=== PATIENT | male | born 1960 | race Caucasian/White ===

== ENCOUNTER 2023-09-02 10:59 | Outpatient (OUT) | payer BC, SELFPAY ==
--- NOTE | 2023-09-02 | XR_ITS ---
The [address] [address] Patient Name: JENNIFER BARNES MRN: [id number] date: 1960 Sex: M Assigned Patient Location: [facility] Current Patient Location: Accession/Order Number: [id number] Exam Date: 09/02/2023 11:40 Report Date: 09/04/2023 04:59 At the request of: JAXON VIEIRA Procedure: XR foot GABI min 3V EXAMINATION: XR foot GABI min 3V HISTORY: BILATERAL PLANTAR FOOT PAIN , chronic plantar pain bilaterally; new pain in left third toe COMPARISON: No relevant comparison available. FINDINGS: RIGHT FINDINGS: BONES: Suspect remote trauma and fracture of head of 5th metatarsal with medial displacement and subsequent partial healing. SOFT TISSUES: No visible soft tissue swelling. OTHER: Negative. LEFT FINDINGS: BONES: Absent distal phalanx of the second toe and marked degenerative changes of the proximal interphalangeal joint of the second toe. SOFT TISSUES: No visible soft tissue swelling. OTHER: Negative. XR/XR foot GABI min 3V IMPRESSION: RIGHT CONCLUSION: 1. Suspect remote trauma and healing of 5th metatarsal. 2. No acute bone abnormality. Multifocal mild degenerative changes of the interphalangeal joints. 3. No specific findings to account for patient's plantar foot pain. LEFT CONCLUSION: 1. Degenerative changes of the second toe proximal interphalangeal joint and likely prior resection of the distal phalanx of the second toe. 2. No acute bone abnormality or specific findings to account for patient's plantar foot pain and third toe pain. Electronically authenticated by: KEYUR ALCANTAR Date: 09/04/2023 04:59
== END 2023-09-02 11:00 | disposition home or self-care (01) ==
LOC: RAD 11:00
PROVIDERS: PCP Nurse Practitioner Family; Visit Provider Physician Assistant
DX: L84 Corns and callosities (principal); M79.671 Pain in right foot; M79.672 Pain in left foot; M19.072 Primary osteoarthritis, left ankle and foot; M19.071 Primary osteoarthritis, right ankle and foot
CPT/HCPCS: 73630

== ENCOUNTER 2023-09-17 12:22 | Outpatient (OUT) | payer BC, SELFPAY ==
--- NOTE | 2023-09-17 12:31 | ECG_ITS ---
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
--- NOTE | 2023-09-17 13:09 | PM.PRESUREVA ---
History of Present Illness History of Present Illness Chief complaint: hammer toe left foot Narrative: Patient presents for preadmission testing. Please see HPI from Dr. Polo dated 09/07/2023. Review of Systems ROS Narrative Please see ROS from Dr. Polo dated 09/07/2023. [facility] Medical History (Updated 09/17/23 @ 12:53 by Shobha Quiroz NP) Right sided weakness ?R53.1 - Weakness (ICD-10) Hypothyroidism ?E03.9 - Hypothyroidism, unspecified (ICD-10) Hypertension ?I10 - Essential (primary) hypertension (ICD-10) Contracture of joint of right hand ?M24.541 - Contracture, right hand (ICD-10) High cholesterol ?E78.00 - Pure hypercholesterolemia, unspecified (ICD-10) Hypothyroidism (acquired) ?E03.9 - Hypothyroidism, unspecified (ICD-10) Alcoholism ?F10.20 - Alcohol dependence, uncomplicated (ICD-10) Weakness (02/28/16) ?R53.1 - Weakness (ICD-10) CVA (cerebral vascular accident) (~03/2016) ?I63.9 - Cerebral infarction, unspecified (ICD-10) Hyponatremia (~2017) ?E87.1 - Hypo-osmolality and hyponatremia (ICD-10) Hammertoe ?M20.40 - Other hammer toe(s) (acquired), unspecified foot (ICD-10) Surgical History (Updated 09/17/23 @ 12:50 by Shobha Quiroz NP) S/P cataract extraction and insertion of intraocular lens ?Z98.49 - Cataract extraction status, unspecified eye (ICD-10) ?Z96.1 - Presence of intraocular lens (ICD-10) H/O carotid endarterectomy (06/18/16) ?Z98.890 - Other specified postprocedural states (ICD-10) H/O colonoscopy (04/09/13) ?Z98.890 - Other specified postprocedural states (ICD-10) History of hammertoe correction ?Z98.890 - Other specified postprocedural states (ICD-10) ?Z87.39 - Personal history of other diseases of the musculoskeletal system and connective tissue (ICD-10) H/O foot surgery (06/13/19) ?Z98.890 - Other specified postprocedural states (ICD-10) H/O foot surgery (07/25/19) ?Z98.890 - Other specified postprocedural states (ICD-10) Family History (Updated 09/17/23 @ 12:31 by Shobha Quiroz NP) Other CAD (coronary artery disease) Family history of myocardial infarction Social History (Updated 09/17/23 @ 12:48 by Shobha Quiroz NP) Within the past year, how often did you have a drink containing alcohol: 4 or more times a week Within the past year, how many standard drinks containing alcohol did you have on a typical day: 3 or 4 Within the past year, how often did you have six or more drinks on one occasion: daily or almost daily Total score: 6 Score interpretation: A score of 4 or more indicates drinking is likely to affect patient's safety. Smoking status: Former smoker Previous occupational history: [employer] Highest level of school completed/degree received: high school graduate Meds Home Medications and Allergies Home Medications Medication Instructions Recorded Confirmed Type aspirin 81 mg tablet,delayed 81 mg PO DAILY 09/17/23 09/17/23 History release (Adult Aspirin Regimen) levothyroxine 100 mcg tablet 100 mcg PO DAILY 09/17/23 09/17/23 History (Euthyrox) rosuvastatin 20 mg tablet (Crestor) 20 mg PO DAILY 09/17/23 09/17/23 History Allergies Allergy/AdvReac Type Severity Reaction Status Date / Time No Known Drug Allergies Allergy Verified 09/17/23 12:47 Exam Narrative Exam Narrative: Constitutional: Awake, alert, comfortable, well-appearing, nontoxic, interactive, vital signs as charted Head: Normocephalic, atraumatic Neck: Supple, normal appearance, normal range of motion, no meningeal signs, no lymphadenopathy Respiratory: No respiratory distress, Rhonchi bilateral bases on auscultation, cleared with cough Cardiovascular: Regular rate and rhythm, strong and regular heart tones Psychiatric: Oriented ?3, normal affect Assessment and Plan Assessment and Plan (1) Bart: Plan Partial amputation 3rd left toe scheduled with Dr. Polo 09/23/2023.
[2023-09-17 13:37] LABS: Anion Gap 16.4; BUN Creatinine Ratio 11.4; Calcium 8.4 mg/dL (8.5-10.1); Carbon Dioxide 25.6 mmol/L (21.0-32.0); Chloride 101 mmol/L (98-107); Estimated GFR (African America >60 (>=60); Estimated GFR (Non-African Ame >60 (>=60); Glucose 101 mg/dL (74-106); Sodium 139 mmol/L (136-145)
[2023-09-17 13:59] LABS: Free T3 2.48 pg/mL (2.18-3.98); Thyroid Stimulating Hormone 1.824 uIU/mL (0.358-3.740)
== END 2023-09-17 12:23 | disposition home or self-care (01) ==
LOC: PST 12:23
PROVIDERS: PCP Nurse Practitioner Family; Visit Provider Podiatrist Foot & Ankle Surgery
DX: Z01.812 Encounter for preprocedural laboratory examination (principal); Z01.810 Encounter for preprocedural cardiovascular examination; M20.42 Other hammer toe(s) (acquired), left foot; E03.9 Hypothyroidism, unspecified
CPT/HCPCS: 80048; 84436; 84443; 84481; 93005; G0463

== ENCOUNTER 2023-09-23 09:58 | Day surgery (SDC) | payer BC, SELFPAY ==
[2023-09-17 12:59] VITALS: BP 174/82; PULSE 85; RESP 20; TEMP 36.3; O2SAT 97; BMI 26.7
[2023-09-23] VITALS (11 sets, daily range): BP systolic 134–163; BP diastolic 72–85; PULSE 55–86; RESP 13–18; TEMP 36.2–36.5; O2SAT 96–100; BMI 26.9
[2023-09-23 10:16] LABS: Glucometer 111 mg/dL (74-106)
[2023-09-23] MEDS: LACTATED RINGER'S SOLUTION 1,000 ML 50 ML IV (10:34)
--- OUTSIDE RECORDS SUMMARY | 2023-09-23 10:39 | XMS_ITS | CCD ---
Author Name Unknown Address [address] [place] [address] Organization [facility] Care Team Providers Care Delivery Technician Name Role Phone MANDO VELASQUEZ Unavailable Unavailable CURTIS SALAZAR Unavailable Unavailable MANDO VELASQUEZ Unavailable Unavailable CURTIS SALAZAR Unavailable Unavailable Richardson Penn Unavailable Unavailable Richardson Penn Unavailable Unavailable Richardson Penn Unavailable Unavailable CURTIS SALAZAR Unavailable Unavailable ROXANA, DR GRACIA Admitting Unavailable ROXANA, DR GARCIA Attending Unavailable DR RADHA SCHMIDT Primary Care Unavailable LORY CASTELLANO Admitting Unavailable LORY CASTELLANO Attending Unavailable ROXANA, DR GARCIA Primary Care Unavailable LORY CASTELLANO Admitting Unavailable LORY CASTELLANO Attending Unavailable LORY CASTELLANO Primary Care Unavailable LORY CASTELLANO Consulting Unavailable SIMONE HERNANDEZ Attending Unavailable Allergies Allergy Classification Reported Allergen(s) Allergy Type Date of Onset Reaction(s) Facility (1 source) No Known Medication Allergies; Translations: [No Known Medication Allergies] Propensity to adverse reactions (disorder) [facility] Repository Problems Active Problems Problem Classification Problem Date Documented Da te Episodic/Chronic Other screening for suspected conditions (not mental disorders or infectious disease) (1 source) Encounter for screening for malignant neoplasm of prostate; Translations: [ENC SCREEN MALIG NEOPLASM PROSTATE] Onset: 10-03-2022 Episodic Past or Other Problems Problem Classification Problem Date Documented Da te Episodic/Chronic Other aftercare (1 source) Encounter for follow-up examination after completed treatment for conditions other than malignant neoplasm; Translations: [Encounter for follow-up examination after completed treatment for conditions other than malignant neoplasm] Onset: 04-27-2017 Episodic Results Test Name Value Interpretation Reference Range Facility INSULINon 10-01-2022 Insulin 11.4 uIU/mL Normal 2.6-24.9 [facility] Comment on above: Performed By: #### I NSULIN #### [facility] [address] [address] [address] Natalya Olvera CBC AUTO DIFFon 09-30-2022 BASO # 0.1 103/ul Normal 0.0-0.1 [facility] Comment on above: Performed By: #### C BC #### [facility] [address] [address] [address] Natalya Olvera Basophils/100 WBC (Bld) 0.8 % Normal 0.2-2.0 [facility] Comment on above: Performed By: #### C BC #### [facility] [address] [place] [address] Dr. Natalya Olvera EO # 0.2 103/ul Normal 0.0-0.7 [facility] Comment on above: Performed By: #### C BC #### [facility] [address] [place] [address] Dr. Natalya Olvera Eosinophils/100 WBC (Bld) 2.4 % Normal 0.9-7.0 [facility] Comment on above: Performed By: #### C BC #### [facility] [address] [place] [address] Dr. Natalya Olvera Erythrocyte distribution width (RBC) [Ratio] 12.0 % Normal 11.0-15.0 [facility] Comment on above: Performed By: #### C BC #### [facility] [address] [place] [address] Dr. Natalya Olvera Hematocrit (Bld) [Volume fraction] 40.9 % Critically low 42.0-54.0 [facility] Comment on above: Performed By: #### C BC #### [facility] [address] [place] [address] Dr. Natalya Olvera Hemoglobin (Bld) [Mass/Vol] 14.1 g/dL Normal 14.0-18.0 [facility] Comment on above: Performed By: #### C BC #### [facility] [address] [place] [address] Dr. Natalya Olvera IG # 0.04 10e3/ul Critically high 0.00-0.03 [facility] Comment on above: Performed By: #### C BC #### [facility] [address] [place] [address] Dr. Natalya Olvera IG % 0.6 % Critically high 0.0-0.5 [facility] Comment on above: Performed By: #### C BC #### [facility] [address] [place] [address] Dr. Natalya Olvera LYMPH # 1.7 103/ul Normal 1.2-3.8 [facility] Comment on above: Performed By: #### C BC #### [facility] [address] [place] [address] Dr. Natalya Olvera Lymphocytes/100 WBC (Bld) 27.0 % Normal 20.5-60.0 [facility] Comment on above: Performed By: #### C BC #### [facility] [address] [place] [address] Dr. Natalya Olvera MANUAL DIFF REQ NO Normal [facility] Comment on above: Performed By: #### C BC #### [facility] [address] [place] [address] Dr. Natalya Olvera MCH (RBC) [Entitic mass] 31.7 pg Normal 25.9-34.0 [facility] Comment on above: Performed By: #### C BC #### [facility] [address] [place] [address] Dr. Natalya Olvera MCHC (RBC) [Mass/Vol] 34.5 g/dL Normal 29.9-35.2 [facility] Comment on above: Performed By: #### C BC #### [facility] [address] [place] [address] Dr. Natalya Olvera MCV (RBC) [Entitic vol] 91.9 fL Normal 80.0-94.0 [facility] Comment on above: Performed By: #### C BC #### [facility] [address] [place] [address] Dr. Natalya Olvera MONO # 0.6 103/ul Normal 0.3-0.8 [facility] Comment on above: Performed By: #### C BC #### [facility] [address] [address] [address] Natalya Olvera Monocytes/100 WBC (Bld) 10.0 % Normal 1.7-12.0 [facility] Comment on above: Performed By: #### C BC #### [facility] [address] [address] [address] Natalya Olvera NEUT # 3.8 103/ul Normal 1.4-6.5 [facility] Comment on above: Performed By: #### C BC #### [facility] [address] [address] [address] Natalya Olvera Neutrophils/100 WBC (Bld) 59.2 % Normal 43.0-75.0 [facility] Comment on above: Performed By: #### C BC #### [facility] [address] [place] [address] Dr. Natalya Olvera Platelet mean volume (Bld) [Entitic vol] 10.7 fL Normal 9.5-13.5 [facility] Comment on above: Performed By: #### C BC #### [facility] [address] [address] [address] Natalya Olvera PLT 232 103/ul Normal 150-450 [facility] Comment on above: Performed By: #### C BC #### [facility] [address] [place] [address] Dr. Natalya Olvera RBC 4.45 106/ul Critically low 4.70-6.10 [facility] Comment on above: Performed By: #### C BC #### [facility] [address] [place] [address] Dr. Natalya Olvera WBC 6.4 103/ul Normal 4.0-11.0 [facility] Comment on above: Performed By: #### C BC #### [facility] [address] [place] [address] Dr. Natalya Olvera GLYCOHEMOGLOBIN A1Con 2021 ADA RECOMMENDATION SEE BELOW Normal The [facility] Comment on above: Result Comment: ADA RECOMMENDED LIMIT 4.0 - 6.0 ADA THERAPEUTIC TARGET < 7.0 ACTION SUGGESTED > 7.0 Performed By: #### A 1C #### [facility] [address] [address] [address] Natalya Olvera Glucose [Mass/Vol] 94 mg/dL Normal [facility] Comment on above: Performed By: #### A 1C #### [facility] [address] [address] [address] Natalya Olvera HbA1c (Bld) [Mass fraction] 4.9 % Normal 4.5-6.2 [facility] Comment on above: Performed By: #### A 1C #### [facility] [address] [address] [address] Natalya Olvera LIPID PROFILEon 09-30-2022 CHOL-HDL RATIO NORM SEE BELOW Normal [facility] Comment on above: Result Comment: 3.3 - 4.4 LOW RISK 4.4 - 7.1 AVERAGE RISK 7.1 - 11.0 MODERATE RISK >11.0 HIGH RISK Performed By: #### L IPID, URIC, CMP #### [facility] [address] [place] [address] Dr. Natalya Olvera Cholesterol [Mass/Vol] 156 mg/dL Normal <=200 [facility] Comment on above: Performed By: #### L IPID, URIC, CMP #### [facility] [address] [place] [address] Dr. Natalya Olvera Cholesterol in HDL [Mass/Vol] 71 mg/dL Critically high 40-60 [facility] Comment on above: Performed By: #### L IPID, URIC, CMP #### [facility] [address] [place] [address] Dr. Natalya Olvera Cholesterol in LDL [Mass/Vol] 68.0 mg/dL Normal [facility] Comment on above: Performed By: #### L IPID, URIC, CMP #### [facility] [address] [place] [address] Dr. Natalya Olvera Cholesterol.total/C holesterol in HDL [Mass ratio] 2.2 {ratio} Normal [facility] Comment on above: Performed By: #### L IPID, URIC, CMP #### [facility] [address] [address] [address] Natalya Olvera HDL NORMAL > or = 60 mg/dl - LO W CARDIOVASCULAR RISK <40 mg/dl - HIGH CARDIOVASCULAR RISK Normal [facility] Comment on above: Performed By: #### L IPID, URIC, CMP #### [facility] [address] [address] [address] Natalya Olvera LDL CALC NORMAL SEE BELOW Normal [facility] Comment on above: Result Comment: <100 mg/dl OPTIMAL 100 - 129 mg/dl NEAR OR ABOVE OPTIMAL 130 - 159 mg/dl BORDERLINE HIGH 160 - 189 mg/dl HIGH >190 mg/dl VERY HIGH Performed By: #### L IPID, URIC, CMP #### [facility] [address] [address] [address] Natalya Olvera Triglyceride [Mass/Vol] 85 mg/dL Normal <=150 [facility] Comment on above: Performed By: #### L IPID, URIC, CMP #### [facility] [address] [address] [address] Natalya Olvera VLDL CALC 17.0 mg/dL Normal [facility] Comment on above: Performed By: #### L IPID, URIC, CMP #### [facility] [address] [address] [address] Natalya Olvera PROF 14(COMP METB)on 022 Albumin [Mass/Vol] 4.1 g/dL Normal 3.4-5.0 [facility] Comment on above: Performed By: #### L IPID, URIC, CMP #### [facility] [address] [place] [address] Dr. Natalya Olvera Albumin/Globulin [Mass ratio] 1.1 {ratio} Normal [facility] Comment on above: Performed By: #### L IPID, URIC, CMP #### [facility] [address] [address] [address] Natalya Olvera ALP [Catalytic activity/Vol] 71 U/L Normal 46-116 [facility] Comment on above: Performed By: #### L IPID, URIC, CMP #### [facility] [address] [address] [address] Natalya Olvera ALT [Catalytic activity/Vol] 37 U/L Normal 16-63 [facility] Comment on above: Performed By: #### L IPID, URIC, CMP #### [facility] [address] [address] [address] Natalya Olvera Anion gap [Moles/Vol] 12.2 mmol/L Normal [facility] Comment on above: Performed By: #### L IPID, URIC, CMP #### [facility] [address] [address] [address] Natalya Olvera AST [Catalytic activity/Vol] 30 U/L Normal 15-37 [facility] Comment on above: Performed By: #### L IPID, URIC, CMP #### [facility] [address] [address] [address] Natayla Olvera Bilirubin [Mass/Vol] 0.9 mg/dL Normal 0.2-1.0 [facility] Comment on above: Performed By: #### L IPID, URIC, CMP #### [facility] [address] [address] [address] Natalya Olvera Calcium [Mass/Vol] 8.8 mg/dL Normal 8.5-10.1 [facility] Comment on above: Performed By: #### L IPID, URIC, CMP #### [facility] [address] [address] [address] Natalya Olvera Chloride [Moles/Vol] 95 mmol/L Critically low 98-107 [facility] Comment on above: Performed By: #### L IPID, URIC, CMP #### [facility] [address] [address] [address] Natalya Olvera CO2 [Moles/Vol] 30.0 mmol/L Normal 21.0-32.0 [facility] Comment on above: Performed By: #### L IPID, URIC, CMP #### [facility] [address] [address] [address] Natalya Olvera Creatinine [Mass/Vol] 0.61 mg/dL Critically low 0.70-1.30 [facility] Comment on above: Performed By: #### L IPID, URIC, CMP #### [facility] [address] [address] [address] Natalya Olvera EGFR-AF MOZAMBICAN >60 Normal >=60 [facility] Comment on above: Performed By: #### L IPID, URIC, CMP #### [facility] [address] [address] [address] Natalya Olvera EGFR-NON AF MOZAMBICAN >60 Normal >=60 [facility] Comment on above: Performed By: #### L IPID, URIC, CMP #### [facility] [address] [address] [address] Natalya Olvera Globulin (S) [Mass/Vol] 3.8 g/dL Normal [facility] Comment on above: Performed By: #### L IPID, URIC, CMP #### [facility] [address] [address] [address] Natalya Olvera Glucose [Mass/Vol] 102 mg/dL Normal 74-106 [facility] Comment on above: Performed By: #### L IPID, URIC, CMP #### [facility] [address] [address] [address] Natalya Olvera Potassium [Moles/Vol] 4.2 mmol/L Normal 3.5-5.1 [facility] Comment on above: Performed By: #### L IPID, URIC, CMP #### [facility] [address] [address] [address] Natalya Olvera Protein [Mass/Vol] 7.9 g/dL Normal 6.4-8.2 [facility] Comment on above: Performed By: #### L IPID, URIC, CMP #### [facility] [address] [address] [address] Natalya Olvera Sodium [Moles/Vol] 133 mmol/L Critically low 136-145 [facility] Comment on above: Performed By: #### L IPID, URIC, CMP #### [facility] [address] [address] [address] Natalya Olvera Urea nitrogen [Mass/Vol] 7.0 mg/dL Normal 7.0-18.0 [facility] Comment on above: Performed By: #### L IPID URIC, CMP #### [facility] [address] [address] [address] Natalya Olvera Urea nitrogen/Creatinine [Mass ratio] 11.5 mg/mg Normal [facility] Comment on above: Performed By: #### L IPID URIC, CMP #### [facility] [address] [address] [address] Natalya Olvera URIC ACID SERUMon 09-30-2022 Urate [Mass/Vol] 4.3 mg/dL Normal 3.5-7.2 [facility] Comment on above: Performed By: #### L IPID URIC, CMP #### [facility] [address] [place] [address] Dr. Natalya Arce 07-01-2021 L ------ Specimen: [id number] Received: 07/01/21 Status: JAYLON Magaña Num: [id number] Spec Type: Surgical Subm Dr: Eliu Araujo Jr, DO Tissues: A Colon - Polyp (CECUM POLYP) Procedures: HE Stain/2, Gross/Micro L4 Patient Age/Sex Location Account Attending Physician Prosper Mckeon 60/M [id number] Eliu Araujo Jr, DO SPEC NUM: [id number] RECD: 07/01/21 STATUS: JAYLON MAGAÑA NUM: [id number] RAQUEL: 07/01/21- SUBM DR: Eliu Araujo Jr, DO ENTERED: 07/01/[address] [facility] [address]: KASSI TYPE: Surgical DEPT: S ENTERED BY: [id number] RECV BY: [id number] ORDERED: HE Stain/2, Gross/Micro L4 ORDERED: HE Stain/2, Gross/Micro L4 Pathological Diagnosis Colon, cecum, polyp, polypectomy: - Tubulovillous adenoma, low-grade dysplasia. Clinical Information Screening Gross Description Received in formalin labeled with the patient's name, number and cecum polyp are multiple edward tissue fragments ranging from 0.1 cm to 0.5 cm. The resection margins are indeterminate and the 3 largest tissue fragments are bisected. Entirely submitted in one cassette labeled A1. (/MURRAY) Microscopic Description Two glass slides with H E stained material have been examined. The microscopic findings support the above pathologic diagnosis. CPT Codes 31953 Specimen: [id number] Received: 07/01/21 Status: JAYLON Magaña Num: [id number] Spec Type: Surgical Subm Dr: Eliu Araujo Jr, DO Tissues: A Colon - Polyp (CECUM POLYP) Procedures: HE Stain/2, Gross/Micro L4 Patient: Prosper Mckeon [id number] (Continued) Signed (signature on file) Joaquín Andres MD 07/02/21 1128 [facility] COVID-19 Antigenon 1 COVID-19 Antigen Healthcare Worker?: N Mimi Reference Mimi Reference Negative SARS-CoV+SARS-CoV-2 (COVID-19) Ag [Presence] in Respiratory specimen by Rapid immunoassay Negative for SARS Antigen by TAYLA COVID19 Blank Space -- Mimi Disclaimer Negative results, from patients with symptom Mimi Disclaimer onset beyond five days, should be treated as Mimi Disclaimer presumptive and confirmation with a molecular Mimi Disclaimer assay, if necessary, for patient management, Mimi Disclaimer may be performed. Negative results do not rule Mimi Disclaimer out COVID-19 and should not be used as the sole Mimi Disclaimer basis for treatment or patient management Mimi Disclaimer decisions, including infection control decisions. Mimi Disclaimer Negative results should be considered in the Mimi Disclaimer context of a patient's recent exposures, history Mimi Disclaimer and the presence of clinical signs and symptoms Mimi Disclaimer consistent with COVID-19. COVID19 Blank Space -- Mimi Disclaimer The Mimi SARS Antigen TAYLA does not differentiate Mimi Disclaimer between SARS-CoV and SARS-CoV-2. COVID19 Blank Space -- Mimi Disclaimer This test was developed and its performance Mimi Disclaimer characteristic determined by [employer] and Mimi Disclaimer validated at [facility]. This Mimi Disclaimer test has not been FDA cleared or approved. This Mimi Disclaimer test has been authorized by FDA under an Emergency Use Mimi Disclaimer Authorization (EUA). This test has been validated Mimi Disclaimer in accordance with the FDA's Guidance Document (Policy Mimi Disclaimer for Diagnostics Testing in Laboratories Certified to Mimi Disclaimer Perform High Complexity Testing under CLIA prior to Mimi Disclaimer Emergency Use Authorization for Coronavirus Mimi Disclaimer iseas during the Public Health Emergency) Mimi Disclaimer issued on January 04, 2020. This test is only authorized Mimi Disclaimer for the duration of time the declaration that Mimi Disclaimer circumstances exist justifying the authorization of Mimi Disclaimer the emergency use of in vitro diagnostic tests for Mimi Disclaimer detection of SARS-CoV-2 virus and/or diagnosis of Mimi Disclaimer COVID-19 infection under section 564(b)(1) of the Mimi Disclaimer Act, 21 U.S.C. 360bbb-3(b)(1), unless the Mimi Disclaimer authorization is terminated or revoked sooner. PERFORMED BY: [place] [address] PATHOLOGIST PLATING TANK OPERATOR APPRENTICE ERNST FISHER M.D. Normal [facility] Comment on above: Performed By: #### S GENE YBARRAID-19 MIMI #### [id number] [facility] Mimi Ag Negativeon 06-27-20 21 Mimi Ag Negative Negative Normal Negative [facility] Comment on above: Result Comment: This is a duplicate Mimi SARS Antigen (TAYLA) result to be used for statistical tracking purpose only. PERFORMED BY: [place] [address] PATHOLOGIST PLATING TANK OPERATOR APPRENTICE ERNST FISHER M.D. Performed By: #### S TATE COVID-19 MIMI #### [id number] [facility] CNOVon 10-12-2017 CNOV Office Visit (FABFT) PROSPER MCKEON ([id number]) 1960 MDate Time Provider Department10/12/17 1:30 PM MANDO VELASQUEZ During your visit today, we recorded the following information about you: Pulse Respiration Blood pressure Weight 89/minute 18/minute 142/89 83.5 kg Height 1.778 Jacquelyn Velasquez MD 10/12/2017 1:44 PM [facility] Department of Cardiovascular MedicineOUTPATIENT VISIT DATE 10/12/17OUTPATIENT VISIT TYPEESTABLNOVANT [facility]PR[facility]:Curtis Salazar, [id number] [facility] [place] [address]Rvxfr: [phone]: [phone] COMPLAINT:Systolic HFHISTORY OF PRESENT ILLNESS:Prosper Mckeon is a 56 year old male who presents today to follow up. Historysystolic HF, bicuspid AV, carotid stenosis s/p L CEA, tobacco abuse, ischemicCVA, HTN, and HPL. He is very compliant with a lean diet and remainsphysically active and feels better now than he has in a long time. Denieschest pain, SOB, edema, palpitations, syncope. ?PAST MEDICAL HISTORYDiagnosis Date- Carotid stenosis, left- CVA (cerebral vascular accident) (HCC)- Hyperlipidemia- Hypertension- Systolic heart failure (HCC)- Tobacco abusePAST SURGICAL HISTORYProcedure Laterality Date- CEA Left 05/26/16 with patch angioplastySocial HistorySubstance Use Topics- Smoking status: Never Smoker- Smokeless tobacco: Never Used- Alcohol use 63.0 oz/week 42 Cans of Beer (12oz) per weekNo family history on file.ALLERGIES:ALLERGIESNo Known AllergiesMEDICATIONS:levET IRAcetam (KEPPRA) 500 mg tablet Take by mouth every other day.sodium chloride 1 gram tab Take by mouth three times daily.lisinopril-hydrochlo rothiazide (PRINZIDE, ZESTORETIC) 20-25 mg per tablet Take1 tablet by mouth once daily.levothyroxine (SYNTHROID) 100 mcg tablet Take 100 mcg by mouth daily beforebreakfast.rosuvastat in (CRESTOR) 20 mg tablet Take 1 tablet by mouth daily at bedtime.aspirin, enteric coated (ADULT LOW DOSE ASPIRIN) 81 mg EC tablet Take 1 tabletby mouth once daily.REVIEW OF SYSTEMS:GENERAL: Negative for: Fever, Fatigue.CARDIAC: See HPI above.HEENT: Negative for: Ringing in Ears, nosebleeds, bleeding gums. + PoordentitionNECK: Negative for: Pain, stiffnessRESPIRATORY: Negative for: Blood in sputum, wheezing.GASTROINTESTINAL: Negative for: Trouble swallowing, blood in stoolMUSCULOSKELETAL: Negative for: Joint stiffness and painNEUROLOGIC: Negative for: Numbness, tremorsPSYCHIATRIC: Negative for: Anxiety, depressionSKIN: Negative for: Rashes, itchingHEMATOLOGICAL/LYMPH ATIC: Negative for: Easy bruising, easy bleeding, painfullymph nodesI personally interviewed, confirmed and edited the above information ifobtained by others.PHYSICAL EXAMINATION:BP 142/89 Pulse 89 Resp 18 Ht 177.8 cm (5' 10ANDquot;) Wt 83.5 kg (184lb) SpO2 97% BMI 26.4 kg/p2Zqorbgb: Well appearing, in no acute distress.Neuro: Oriented to person, place and time, alert, cooperative.Eyes: Extra ocular movements intact, pupils react to lightNeck: No jugular venous distention, no palpable thyromegaly.Heart: Regular rhythm, S1, S2 normal, no S3, no S4. No murmur.Lungs: Expiratory wheezes. Good respiratory effort.Abdomen: Soft, nontender, bowel sounds normal, no palpable hepatosplenomegalySkin: No clubbing, no cyanosis.Extremities: Normal pulses in distal lower extremities. Absent lower extremityedema?CARDIOVASCU LAR MEDICINE TESTING:CTA, neck: April 2016CTA left neck: tandem stenosis of the left ICA, at origin at just distal tobulb?Echocardiogram: . LVEF visually estimated at 35-40% with Stage II diastolic dysfunction andmild to moderate global hypokinesis.2. Mild left atrial enlargement.3. Sclerotic mitral valve with trace regurgitation.4. Bicuspid aortic valve with right coronary cusp and left coronary cusp fusionwith trivial regurgitation and no stenosis.5. Comparison to prior study: None.?Stress Test: 04/29/16 pharm SPECT MPI6. Abnormal study.7. Septal wall motion abnormality, likely due to known left bundle branchblock. Remaining wall segments are normal.8. No evidence of stress induced myocardial ischemia.9. Normal left ventricular systolic function.?Cardiac Catheterization: None?I have personally reviewed the above Cardiovascular Medicine Testing.?IMPRESSION/PLAN:Gracia Mckeon is a 56 year old male with systolic HF, bicuspid AV, carotid stenosiss/p L CEA, tobacco abuse, ischemic CVA, HTN, and HPL presenting for follow up?Heart failure: NYHA functional class II / ACC AHA class B systolic heartfailure. LVEF 35-40%. Pharmacotherapy includes DOUGLAS-I. No need for diuretic lizbeth is euvolemic. Stable and doing well. Surveillance echocardiogram to assessLVEFBicupsid aortic valve: L-R cusp fusion. Trivial AI, no stenosis. Euvolemic.Hypertension: Adequately controlled at home. Target JNC VIII target guidelines.?Carotid stenosis: L CEA May 2016. Management per Dr Penn. Continuestatin, ASA.?Disposition: Follow up in clinic in 6 months. Pending studies: Echo, yesenia call me for results??CONTACT INFORMATION:Thank you for allowing us to assist in the care your patient. As always pleasedo not hesitate to contact us with further questions or concerns.?Mando Velasquez M.D.[facility] Benavidespartment of Cardiovascular MedicineDayton Va Medical Centerrt and [facility]ascular Institute[address] [address]Bktrvr: [phone] Referring Provider: CURTIS SALAZAR [[id number]]Allergies As of Date: 10/12/2017(No Known Allergies)Date Reviewed: 10/12/2017Reviewed by: Cliff Sadler (Rn) SALENA Mcfarlane - Fully AssessedPrimary Visit Diagnosis:Systolic heart failure, unspecified heart failure chronicity (HCC) [I50.20] Other Visit Diagnoses:Essential hypertension [I10] Bicuspid aortic valve [Q23.1]Order(s):ECHO [332975] Order #: [id number]: 1 FUTUREPrescriptions as of 10/12/2017 Sig: LEVETIRACETAM 500 MG TABLET Take by mouth every other da* SODIUM CHLORIDE 1 GRAM TABLET Take by mouth three times da* LISINOPRIL 20 MG-HYDROCHLOROT* Take 1 tablet by mouth once d* LEVOTHYROXINE 100 MCG TABLET Take 100 mcg by mouth daily b* ROSUVASTATIN 20 MG TABLET Take 1 tablet by mouth daily * ASPIRIN 81 MG TABLET,DELAYED * Take 1 tablet by mouth once d*Problem List As Of Date: 10/12/2017(None)Dispositio n: Return in about 6 months (around 04/11/2018).Follow-up and Disposition History RecordedEncounter Number: [id number] Status:Closed by MANDO VELASQUEZ MD on 10/12/17 [facility] PROGRESSon 10-11-2017 PROGRESS HNO ID: [id number] thor: Mando Brown: (none)Author Type: PhysicianType: Progress NotesFiled: 10/12/2017 1:44 PMNote Text:Heart and Vascular [facility] Department of Cardiovascular MedicineOUTPATIENT VISIT DATE 10/12/17OUTPATIENT VISIT TYPEESTABLISHEDPRIMARY CARE PHYSICIAN:Curtis Salazar, [id number] [facility] [address]Jybgj: [phone]: [phone] COMPLAINT:Systolic HFHISTORY OF PRESENT ILLNESS:Prosper Mckeon is a 56 year old male who presents today to follow up. Historysystolic HF, bicuspid AV, carotid stenosis s/p L CEA, tobacco abuse,ischemic CVA, HTN, and HPL. He is very compliant with a lean diet andremains physically active and feels better now than he has in a long time. Denies chest pain, SOB, edema, palpitations, syncope. ?PAST MEDICAL HISTORYDiagnosis Date- Carotid stenosis, left- CVA (cerebral vascular accident) (HCC)- Hyperlipidemia- Hypertension- Systolic heart failure (HCC)- Tobacco abusePAST SURGICAL HISTORYProcedure Laterality Date- CEA Left 05/26/16 with patch angioplastySocial HistorySubstance Use Topics- Smoking status: Never Smoker- Smokeless tobacco: Never Used- Alcohol use 63.0 oz/week 42 Cans of Beer (12oz) per weekNo family history on file.ALLERGIES:ALLERGIESNo Known AllergiesMEDICATIONS:levET IRAcetam (KEPPRA) 500 mg tablet Take by mouth every other day.sodium chloride 1 gram tab Take by mouth three times daily.lisinopril-hydrochlo rothiazide (PRINZIDE, ZESTORETIC) 20-25 mg per tabletTake 1 tablet by mouth once daily.levothyroxine (SYNTHROID) 100 mcg tablet Take 100 mcg by mouth dailybefore breakfast.rosuvastatin (CRESTOR) 20 mg tablet Take 1 tablet by mouth daily atbedtime.aspirin, enteric coated (ADULT LOW DOSE ASPIRIN) 81 mg EC tablet Take 1tablet by mouth once daily.REVIEW OF SYSTEMS:GENERAL: Negative for: Fever, Fatigue.CARDIAC: See HPI above.HEENT: Negative for: Ringing in Ears, nosebleeds, bleeding gums. + PoordentitionNECK: Negative for: Pain, stiffnessRESPIRATORY: Negative for: Blood in sputum, wheezing.GASTROINTESTINAL: Negative for: Trouble swallowing, blood in stoolMUSCULOSKELETAL: Negative for: Joint stiffness and painNEUROLOGIC: Negative for: Numbness, tremorsPSYCHIATRIC: Negative for: Anxiety, depressionSKIN: Negative for: Rashes, itchingHEMATOLOGICAL/LYMPH ATIC: Negative for: Easy bruising, easy bleeding,painful lymph nodesI personally interviewed, confirmed and edited the above information ifobtained by others.PHYSICAL EXAMINATION:BP 142/89 Pulse 89 Resp 18 Ht 177.8 cm (5' 10 ) Wt 83.5 kg (184lb) SpO2 97% BMI 26.4 kg/y5Yeswydf: Well appearing, in no acute distress.Neuro: Oriented to person, place and time, alert, cooperative.Eyes: Extra ocular movements intact, pupils react to lightNeck: No jugular venous distention, no palpable thyromegaly.Heart: Regular rhythm, S1, S2 normal, no S3, no S4. No murmur.Lungs: Expiratory wheezes. Good respiratory effort.Abdomen: Soft, nontender, bowel sounds normal, no palpablehepatosplenomegaly Skin: No clubbing, no cyanosis.Extremities: Normal pulses in distal lower extremities. Absent lowerextremity edema?CARDIOVASCULAR MEDICINE TESTING:CTA, neck: April 2016CTA left neck: tandem stenosis of the left ICA, at origin at just distalto bulb?Echocardiogram: . LVEF visually estimated at 35-40% with Stage II diastolic dysfunctionand mild to moderate global hypokinesis.2. Mild left atrial enlargement.3. Sclerotic mitral valve with trace regurgitation.4. Bicuspid aortic valve with right coronary cusp and left coronary cuspfusion with trivial regurgitation and no stenosis.5. Comparison to prior study: None.?Stress Test: 04/29/16 pharm SPECT MPI6. Abnormal study.7. Septal wall motion abnormality, likely due to known left bundle branchblock. Remaining wall segments are normal.8. No evidence of stress induced myocardial ischemia.9. Normal left ventricular systolic function.?Cardiac Catheterization: None?I have personally reviewed the above Cardiovascular Medicine Testing.?IMPRESSION/PLAN:Gracia Mckeon is a 56 year old male with systolic HF, bicuspid AV, carotidstenosis s/p L CEA, tobacco abuse, ischemic CVA, HTN, and HPL presentingfor follow up?Heart failure: NYHA functional class II / ACC AHA class B systolic heartfailure. LVEF 35-40%. Pharmacotherapy includes DOUGLAS-I. No need for diureticas he is euvolemic. Stable and doing well. Surveillance echocardiogram toassess LVEFBicupsid aortic valve: L-R cusp fusion. Trivial AI, no stenosis.Euvolemic.Hyperte nsion: Adequately controlled at home. Target JNC VIII targetguidelines.?Carotid stenosis: L CEA May 2016. Management per Dr Penn. Continuestatin, ASA.?Disposition: Follow up in clinic in 6 months. Pending studies: Echo,patient will call me for results??CONTACT INFORMATION:Thank you for allowing us to assist in the care your patient. As alwaysplease do not hesitate to contact us with further questions or concerns.?Mando Velasquez M.D.Cl[facility] Dentment of Cardiovascular MedicineDayton Va Medical Centerrt and Vascular InstituteCleveland Clinic [facility], [place] [address]Navhwt: [phone] Normal [facility] CNOVon 04-27-2017 CNOV Office Visit (JENNI) PROSPER MCKEON ([id number]) 1960 MDate Time Provider Department04/27/17 11:30 AM MANDO VELASQUEZ During your visit today, we recorded the following information about you: Pulse Respiration Blood pressure Weight 74/minute 18/minute 154/78 83.5 kg Height 1.778 Jacquelyn Velasquez MD 04/27/2017 11:48 AM SignedTucson [facility] and Vascular InstituteManhattan and Jaclyn Sheehan Department of Cardiovascular MedicineOUTPATIENT VISIT DATE 04/27/17OUTPATIENT VISIT TYPEESTABLISHEDPRUNC MEDICAL CENTERRY CARE PHYSICIAN:Curtis Salazar, IR[address] [facility] [place] [address]Efork: [phone]: [phone] COMPLAINT:Systolic HFHISTORY OF PRESENT ILLNESS:Prosper Mckeon is a 56 year old male who presents today to follow up, last seen04/30/2016. History systolic HF, bicuspid AV, carotid stenosis s/p L CEA,tobacco abuse, ischemic CVA, HTN, and HPL. He is trying to be more active,complaint with low fat diet.Denies chest pain, SOB, edema, palpitations, syncope. ?PAST MEDICAL HISTORYDiagnosis Date- Carotid stenosis, left- CVA (cerebral vascular accident) (HCC)- Hyperlipidemia- Hypertension- Systolic heart failure (HCC)- Tobacco abusePAST SURGICAL TYCJAQG73/23/16: CEA Left Comment: with patch angioplastySocial HistorySubstance Use Topics- Smoking status: Never Smoker- Smokeless tobacco: Not on file- Alcohol use 63.0 oz/week 42 Cans of Beer (12oz) per weekNo family history on file.ALLERGIES:ALLERGIESNo Known AllergiesMEDICATIONS:levET IRAcetam (KEPPRA) 500 mg tablet Take by mouth every other day.sodium chloride 1 gram tab Take by mouth three times daily.lisinopril-hydrochlo rothiazide (PRINZIDE, ZESTORETIC) 20-25 mg per tablet Take1 tablet by mouth once daily.levothyroxine (SYNTHROID) 100 mcg tablet Take 100 mcg by mouth daily beforebreakfast.rosuvastat in (CRESTOR) 20 mg tablet Take 1 tablet by mouth daily at bedtime.aspirin, enteric coated (ADULT LOW DOSE ASPIRIN) 81 mg EC tablet Take 1 tabletby mouth once daily.REVIEW OF SYSTEMS:GENERAL: Negative for: Fever, Fatigue.CARDIAC: See HPI above.HEENT: Negative for: Ringing in Ears, nosebleeds, bleeding gums. + PoordentitionNECK: Negative for: Pain, stiffnessRESPIRATORY: Negative for: Blood in sputum, wheezing.GASTROINTESTINAL: Negative for: Trouble swallowing, blood in stoolMUSCULOSKELETAL: Negative for: Joint stiffness and painNEUROLOGIC: Negative for: Numbness, tremorsPSYCHIATRIC: Negative for: Anxiety, depressionSKIN: Negative for: Rashes, itchingHEMATOLOGICAL/LYMPH ATIC: Negative for: Easy bruising, easy bleeding, painfullymph nodesI personally interviewed, confirmed and edited the above information ifobtained by others.PHYSICAL EXAMINATION:BP 154/78 Pulse 74 Resp 18 Ht 177.8 cm (5' 10ANDquot;) Wt 83.5 kg (184lb) SpO2 98% BMI 26.4 kg/e6Nttufzm: Well appearing, in no acute distress. Has cane for balanceNeuro: Oriented to person, place and time, alert, cooperative.Eyes: Extra ocular movements intact, pupils react to lightNeck: No jugular venous distention, no palpable thyromegaly.Heart: Regular rhythm, S1, S2 normal, no S3, no S4. No murmur.Lungs: Expiratory wheezes. Good respiratory effort.Abdomen: Soft, nontender, bowel sounds normal, no palpable hepatosplenomegalySkin: No clubbing, no cyanosis.Extremities: Normal pulses in distal lower extremities. Trace lower extremityedema?CARDIOVASCU LAR MEDICINE TESTING:CTA, neck: April 2016CTA left neck: tandem stenosis of the left ICA, at origin at just distal tobulb?Echocardiogram: . LVEF visually estimated at 35-40% with Stage II diastolic dysfunction andmild to moderate global hypokinesis.2. Mild left atrial enlargement.3. Sclerotic mitral valve with trace regurgitation.4. Bicuspid aortic valve with right coronary cusp and left coronary cusp fusionwith trivial regurgitation and no stenosis.5. Comparison to prior study: None.?Stress Test: 04/29/16 pharm SPECT MPI6. Abnormal study.7. Septal wall motion abnormality, likely due to known left bundle branchblock. Remaining wall segments are normal.8. No evidence of stress induced myocardial ischemia.9. Normal left ventricular systolic function.?Cardiac Catheterization: None?I have personally reviewed the above Cardiovascular Medicine Testing.?IMPRESSION/PLAN:Gracia Mckeon is a 56 year old male with systolic HF, bicuspid AV, carotid stenosiss/p L CEA, tobacco abuse, ischemic CVA, HTN, and HPL presenting for follow up?Heart failure: NYHA functional class II / ACC AHA class B systolic heartfailure. LVEF 35-40%. Pharmacotherapy includes DOUGLAS-I. No need for diuretic lizbeth is euvolemic. Stable and doing well. On 3g sodium tab daily forhyponatremia, instructed to be vigilant about weight checks, low fluid intake,and on watch for peripheral edema which he has been doingBicupsid aortic valve: L-R cusp fusion. Trivial AI, no stenosis. Euvolemic.Hypertension: Adequately controlled at home. Target JNC VIII target guidelines.?Carotid stenosis: L CEA May 2016. Management per Dr Penn. Continuestatin, ASA.?Disposition: Follow up in clinic in 5 months. Pending studies: none??CONTACT INFORMATION:Thank you for allowing us to assist in the care your patient. As always pleasedo not hesitate to contact us with further questions or concerns.?Mando Velasquez M.D.Cl[facility] Benavidsepartment of Cardiovascular MedicineDayton Va Medical Centerrt and Vascular InstituteKevin Ville [address], [place] [address]Eshdlo: [phone] Referring Provider: CURTIS SALAZAR [[id number]]Allergies As of Date: 04/27/2017(No Known Allergies)Date Reviewed: 04/27/2017Reviewed by: Cliff Sadler (Rn) SALENA Mcfarlane - Fully AssessedPrimary Visit Diagnosis:Systolic heart failure, unspecified heart failure chronicity (HCC) [I50.20] Other Visit Diagnoses:Essential hypertension [I10] Bicuspid aortic valve [Q23.1]Prescriptions as of 04/27/2017 Sig: LEVETIRACETAM 500 MG TABLET Take by mouth every other da* SODIUM CHLORIDE 1 GRAM TABLET Take by mouth three times da* LISINOPRIL 20 MG-HYDROCHLOROT* Take 1 tablet by mouth once d* LEVOTHYROXINE 100 MCG TABLET Take 100 mcg by mouth daily b* ROSUVASTATIN 20 MG TABLET Take 1 tablet by mouth daily * ASPIRIN 81 MG TABLET,DELAYED * Take 1 tablet by mouth once d*Problem List As Of Date: 04/27/2017(None)Dispositio n: Return in about 5 months (around 09/27/2017).Follow-up and Disposition History RecordedEncounter Number: [id number] Status:Closed by MANDO VELASQUEZ MD on 04/27/17 Normal [facility] PROGRESSon 04-26-2017 PROGRESS HNO ID: [id number] thor: Mando Brown: (none)Author Type: PhysicianType: Progress NotesFiled: 04/27/2017 11:48 AMNote Text:Heart and Vascular InstituteManhattan and [facility] Department of Cardiovascular MedicineOUTPATIENT VISIT DATE 04/27/17OUTPATIENT VISIT TYPEESTABLISHEDPRIMARY CARE PHYSICIAN:Curtis Salazar, [id number] [facility] [address]Petcf: [phone]: [phone] COMPLAINT:Systolic HFHISTORY OF PRESENT ILLNESS:Prosper Mckeon is a 56 year old male who presents today to follow up, lastseen 04/30/2016. History systolic HF, bicuspid AV, carotid stenosis s/p LCEA, tobacco abuse, ischemic CVA, HTN, and HPL. He is trying to be moreactive, complaint with low fat diet.Denies chest pain, SOB, edema, palpitations, syncope. ?PAST MEDICAL HISTORYDiagnosis Date- Carotid stenosis, left- CVA (cerebral vascular accident) (HCC)- Hyperlipidemia- Hypertension- Systolic heart failure (HCC)- Tobacco abusePAST SURGICAL IODVDND28/23/16: CEA Left Comment: with patch angioplastySocial HistorySubstance Use Topics- Smoking status: Never Smoker- Smokeless tobacco: Not on file- Alcohol use 63.0 oz/week 42 Cans of Beer (12oz) per weekNo family history on file.ALLERGIES:ALLERGIESNo Known AllergiesMEDICATIONS:levET IRAcetam (KEPPRA) 500 mg tablet Take by mouth every other day.sodium chloride 1 gram tab Take by mouth three times daily.lisinopril-hydrochlo rothiazide (PRINZIDE, ZESTORETIC) 20-25 mg per tabletTake 1 tablet by mouth once daily.levothyroxine (SYNTHROID) 100 mcg tablet Take 100 mcg by mouth dailybefore breakfast.rosuvastatin (CRESTOR) 20 mg tablet Take 1 tablet by mouth daily atbedtime.aspirin, enteric coated (ADULT LOW DOSE ASPIRIN) 81 mg EC tablet Take 1tablet by mouth once daily.REVIEW OF SYSTEMS:GENERAL: Negative for: Fever, Fatigue.CARDIAC: See HPI above.HEENT: Negative for: Ringing in Ears, nosebleeds, bleeding gums. + PoordentitionNECK: Negative for: Pain, stiffnessRESPIRATORY: Negative for: Blood in sputum, wheezing.GASTROINTESTINAL: Negative for: Trouble swallowing, blood in stoolMUSCULOSKELETAL: Negative for: Joint stiffness and painNEUROLOGIC: Negative for: Numbness, tremorsPSYCHIATRIC: Negative for: Anxiety, depressionSKIN: Negative for: Rashes, itchingHEMATOLOGICAL/LYMPH ATIC: Negative for: Easy bruising, easy bleeding,painful lymph nodesI personally interviewed, confirmed and edited the above information ifobtained by others.PHYSICAL EXAMINATION:BP 154/78 Pulse 74 Resp 18 Ht 177.8 cm (5' 10 ) Wt 83.5 kg (184lb) SpO2 98% BMI 26.4 kg/q1Zfjgydd: Well appearing, in no acute distress. Has cane for balanceNeuro: Oriented to person, place and time, alert, cooperative.Eyes: Extra ocular movements intact, pupils react to lightNeck: No jugular venous distention, no palpable thyromegaly.Heart: Regular rhythm, S1, S2 normal, no S3, no S4. No murmur.Lungs: Expiratory wheezes. Good respiratory effort.Abdomen: Soft, nontender, bowel sounds normal, no palpablehepatosplenomegaly Skin: No clubbing, no cyanosis.Extremities: Normal pulses in distal lower extremities. Trace lowerextremity edema?CARDIOVASCULAR MEDICINE TESTING:CTA, neck: April 2016CTA left neck: tandem stenosis of the left ICA, at origin at just distalto bulb?Echocardiogram: . LVEF visually estimated at 35-40% with Stage II diastolic dysfunctionand mild to moderate global hypokinesis.2. Mild left atrial enlargement.3. Sclerotic mitral valve with trace regurgitation.4. Bicuspid aortic valve with right coronary cusp and left coronary cuspfusion with trivial regurgitation and no stenosis.5. Comparison to prior study: None.?Stress Test: 04/29/16 pharm SPECT MPI6. Abnormal study.7. Septal wall motion abnormality, likely due to known left bundle branchblock. Remaining wall segments are normal.8. No evidence of stress induced myocardial ischemia.9. Normal left ventricular systolic function.?Cardiac Catheterization: None?I have personally reviewed the above Cardiovascular Medicine Testing.?IMPRESSION/PLAN:Gracia Mckeon is a 56 year old male with systolic HF, bicuspid AV, carotidstenosis s/p L CEA, tobacco abuse, ischemic CVA, HTN, and HPL presentingfor follow up?Heart failure: NYHA functional class II / ACC AHA class B systolic heartfailure. LVEF 35-40%. Pharmacotherapy includes DOUGLAS-I. No need for diureticas he is euvolemic. Stable and doing well. On 3g sodium tab daily forhyponatremia, instructed to be vigilant about weight checks, low fluidintake, and on watch for peripheral edema which he has been doingBicupsid aortic valve: L-R cusp fusion. Trivial AI, no stenosis.Euvolemic.Hyperte nsion: Adequately controlled at home. Target JNC VIII targetguidelines.?Carotid stenosis: L CEA May 2016. Management per Dr Penn. Continuestatin, ASA.?Disposition: Follow up in clinic in 5 months. Pending studies: none??CONTACT INFORMATION:Thank you for allowing us to assist in the care your patient. As alwaysplease do not hesitate to contact us with further questions or concerns.?Mando Velasquez M.D.Clinton SheehanDepartment of Cardiovascular MedicineDayton Va Medical Centerrt and Vascular InstituteKevin Ville [address], [place] [address]Jxilqe: [phone] Normal [facility] Encounters Encounter Date Encounter Type Care Provider Facility Start: 08-17-2023 End: 08-17-2023 ambulatory SIMONE HERNANDEZ Not Available Start: 10-03-2022 Encounter for genera l adult medical examination without abnormal findings LORY CASTELLANO [facility] Start: 09-30-2022 End: 10-01-2022 ambulatory LORY CASTELLANO Facility:[facility] Start: 09-30-2022 End: 10-01-2022 Encounter for general adult medical examination without abnormal findings LORY CASTELLANO Facility:[facility] Start: 08-05-[address] RADHA SCHMIDT Facility :[facility] Start: 01-27-2022 ambulatory LORY CASTELLANO Facility: [facility] Start: 10-12-2017 End: 10-14-2017 Ambulatory MANDO [facility] Start: 04-27-2017 End: 05-03-2017 Ambulatory MANDO [facility] Start: 03-10-2017 End: 03-11-2017 Ambulatory Richardson Penn [place] [place] Date Procedure Procedure Detail Performing Clinician Start: 09-30-[address] RAÚL SCHMIDT Comment on above: Performed By: #### [facility] #### [facility] [address] [place] [address] Dr. Natalya Olvera Payers Date Payer Category Payer Unknown [id number] 2.16.84 [id number] 1960 Unknown [id number] 2.16.84 [id number] 1960 Unknown [id number] 2.16.84 [id number] 1960 Unknown [id number] 1959 Self-pay [id number] 1959 Unknown [id number] Summary Purpose Family History No Family History Records FoundNo Family History Records FoundNo Family History Records FoundNo Family History Records FoundNo Family History Records Found Advance Directives No Advanced Directives Records FoundNo Advanced Directives Records FoundNo Advanced Directives Records FoundNo Advanced Directives Records FoundNo Advanced Directives Records Found Additional Source Comments (unrecognized sect ion and content) No Status Records FoundNo Status Records FoundNo Status Records FoundNo Status Records FoundNo Status Records Found INFORMATION SOURCE (unrecogn ized section and content) DATE CREATED AUTHOR 03/29/2018 [facility] DATE CREATED AUTHOR AUTHOR'S ORGANIZ ATION 03/30/2018 [facility] DATE CREATED AUTHOR AUTHOR'S ORGANIZ ATION 10/26/2021 [facility] DATE CREATED AUTHOR AUTHOR'S ORGANIZ ATION 10/03/2022 [facility] DATE CREATED AUTHOR AUTHOR'S SHANT ATION 08/18/2023 [facility] EPIC FOR RECORDS PERTAINING TO PATIENTS WHO ARE OR HAVE BEEN ENROLLED IN A CHEMICAL DEPENDENCY/SUBSTANCEABUSE PROGRAM, SOME INFORMATION MAY BE OMITTED. This clinical summary was aggregated from multiple sources. Caution should be exercised in using it in the provision of clinical care. This summary normalizes information from multiple sources, and as a consequence, information in this document may materially change the coding, format and clinical context of patient data. In addition, data may be omitted in some cases. CLINICAL DECISIONS SHOULD BE BASED ON THE PRIMARY CLINICAL RECORDS. [facility] [email or web address] [facility] provides no warranty or guarantee of the accuracy or completeness of information in this document.
[2023-09-23] MEDS: LIDOCAINE HCL 1% 100 MG/10 ML MDV INJ (11:15)
[2023-09-23] MEDS: BUPIVACAINE HCL 0.5% PF 50 MG/10 ML VIAL INJ (11:55)
--- NOTE | 2023-09-23 12:01 | PM.ORONB ---
Brief Operative Note Date of procedure: 09/23/23 Pre-op diagnosis: left 3rd hammertoe Post-op diagnosis: same as pre-op Procedure: PROCEDURE(S) PERFORMED: partial left 3rd toe amputation INDICATION FOR PROCEDURE: patient is a 62-year-old male well known to my practice with history of CVA and secondary left toe contractures. He previously underwent left partial 2nd toe amputation and did very well however he recently presents the office relating to worsening pain and contracture of his left 3rd toe. The nail was very dystrophic at the time and was debrided however this did not help his pain therefore we discussed potential risks and benefits of surgical versus continued nonsurgical treatment. He wished to undergo the above procedure and all questions were answered to his satisfaction. INTRAOPERATIVE FINDINGS: skin was intact and no signs of infection were noted. Severe rigid contracture predominantly at the distal interphalangeal joint. 3rd toe was significantly longer than the 2nd and 4th toes. PROCEDURE IN DETAIL: Patient was identified in pre op and consent was reviewed. Correct side and site were identified and marked. Pre-op antibiotics were started. Patient was brought to OR suite and place on table in a supine position. General anesthesia was administered. Tourniquet applied. Operative extremity was prepped and draped in usual sterile fashion. Formal time-out was performed and the foot/ankle were exsanguinated and tourniquet inflated. 10 mL of one percent lidocaine plain were injected as a standard digital block for the 3rd toe. A fishmouth incision was placed on the 3RD toe. Full-thickness incision was taken down to bone to the level of the distal interphalangeal joint and all soft tissue attachments were released allowing disarticulation of the digit. The amputated digit was passed back table and sent for specimen. Tendinous structures were cut proximally. Surgical site was irrigated with normal saline. no signs of infection were noted. The tourniquet was dropped and a prompt hyperemic response was noted. Incision was then closed in layers and capillary refill was brisk to the tip of the 3rd TOE STUMP. A bulky dry sterile dressing was applied followed by a surgical shoe. Patient tolerated the procedure and anesthesia well transferred to the recovery room with vital signs stable and brisk capillary refill to all left toes. POSTOPERATIVE PLAN: Discharge home under family's care Post op instructions provided verbally and written prescription(s) were placed in chart WBAT operative foot in surgical shoe for three weeks or until skin is healed Follow-up in 1 week Anesthesia: MALDONADO Surgeon: Cruz Polo Estimated blood loss (mL): 10 Pathology: other (distal 3rd toe) Condition: stable Disposition: PACU
[2023-09-23 12:09] LABS: Glucometer 100 mg/dL (74-106)
--- NOTE | 2023-09-23 12:24 | XR_ITS ---
The [address] [address] Patient Name: JENNIFER BARNES MRN: [id number] date: 1960 Sex: M Assigned Patient Location: [facility] Current Patient Location: [facility] Accession/Order Number: [id number] Exam Date: 09/23/2023 12:55 Report Date: 09/24/2023 08:02 At the request of: MP REAGAN Procedure: XR foot LT min 3V PROCEDURE: XR foot LT min 3V HISTORY: hammertoe s/p amputation of distal phalanx COMPARISON: XR foot bilateral 09/02/2023 FINDINGS: BONES:Stable surgical changes versus degenerative changes involving the head of the second proximal phalanx and 5th proximal phalanx. Resection of the distal phalanx of the second and third toes. SOFT TISSUES:No visible soft tissue swelling. EFFUSION:None visible. OTHER: Negative. XR/XR foot LT min 3V IMPRESSION: 1. Interval resection of the third toe distal phalanx. 2. Otherwise stable degenerative versus prior surgical changes. Electronically authenticated by: KEYUR ALCANTAR Date: 09/24/2023 08:02
== END 2023-09-23 13:00 | disposition home or self-care (01) ==
PROVIDERS: PCP Nurse Practitioner Family; Visit Provider Podiatrist Foot & Ankle Surgery
PROC: (CPT 1480; principal; 2023-09-23 11:00)
DX: M20.42 Other hammer toe(s) (acquired), left foot (principal); E03.9 Hypothyroidism, unspecified; M24.541 Contracture, right hand; E78.00 Pure hypercholesterolemia, unspecified; F10.20 Alcohol dependence, uncomplicated; Z86.73 Personal history of transient ischemic attack (TIA), and cerebral infarction without residual deficits; Z87.891 Personal history of nicotine dependence; Z79.82 Long term (current) use of aspirin; B35.1 Tinea unguium; M54.16 Radiculopathy, lumbar region; I65.22 Occlusion and stenosis of left carotid artery; I50.32 Chronic diastolic (congestive) heart failure; I11.0 Hypertensive heart disease with heart failure
CPT/HCPCS: 01480; 28825; 36415; 73630; 82948; 88305; 88311; J2704

== ENCOUNTER 2023-12-20 09:54 | Outpatient (OUT) | payer BC, SELFPAY ==
--- OUTSIDE RECORDS SUMMARY | 2023-12-20 09:57 | XMS_ITS | CCD ---
Author Name Unknown Address [address] [place] [address] Organization [facility] Care Team Providers Care Underwriting Sales Representative Name Role Phone MANDO VELASQUEZ Unavailable Unavailable CURTIS SALAZAR Unavailable Unavailable MANDO VELASQUEZ Unavailable Unavailable CURTIS SALAZAR Unavailable Unavailable Richardson Penn Unavailable Unavailable Richardson Penn Unavailable Unavailable Richardson Penn Unavailable Unavailable CURTIS SALAZAR Unavailable Unavailable ROXANA, DR GARCIA Admitting Unavailable ROXANA, DR GARCIA Attending Unavailable DR RADHA SCHMIDT Primary Care Unavailable LORY CASTELLANO Admitting Unavailable LORY CASTELLANO Attending Unavailable ROXANA, DR GARCIA Primary Care Unavailable LORY CASTELLANO Admitting Unavailable LORY CASTELLANO Attending Unavailable LORY CASTELLANO Primary Care Unavailable LORY CASTELLANO Consulting Unavailable SIMONE HERNANDEZ Attending Unavailable SIMONE HERNANDEZ Attending Unavailable Allergies Allergy Classification Reported Allergen(s) Allergy Type Date of Onset Reaction(s) Facility (1 source) No Known Medication Allergies; Translations: [No Known Medication Allergies] Propensity to adverse reactions (disorder) [facility] [place] [facility] Repository Problems Active Problems Problem Classification [...] Test Name Value Interpretation Reference Range Facility [facility] 10-01-2022 Insulin 11.4 uIU/mL Normal 2.6-24.9 [facility] [place] Comment on above: Performed By: #### I NSULIN #### [facility] [address] [place] [address] Dr. Natalya Olvera CBC AUTO DIFFon 09-30-2022 BASO # 0.1 103/ul Normal 0.0-0.1 [facility] [place] Comment on above: Performed By: #### C BC #### [facility] [address] [place] [address] Dr. Natalya Ovlera Basophils/100 WBC (Bld) 0.8 % Normal 0.2-2.0 [facility] [place] Comment on above: Performed By: #### C BC #### [facility] [address] [place] [address] Dr. Natalya Olvera EO # 0.2 103/ul Normal 0.0-0.7 [facility] [place] Comment on above: Performed By: #### C BC #### [facility] [address] [place] [address] Dr. Natalya Olvera Eosinophils/100 WBC (Bld) 2.4 % Normal 0.9-7.0 [facility] [place] Comment on above: Performed By: #### C BC #### [facility] [address] [place] [address] Dr. Natalya Olvera Erythrocyte distribution width (RBC) [Ratio] 12.0 % Normal 11.0-15.0 [facility] [place] Comment on above: Performed By: #### C BC #### [facility] [address] [place] [address] Dr. Natalya Olvera Hematocrit (Bld) [Volume fraction] 40.9 % Critically low 42.0-54.0 [facility] [place] Comment on above: Performed By: #### C BC #### [facility] [address] [place] [address] Dr. Natalya Olvera Hemoglobin (Bld) [Mass/Vol] 14.1 g/dL Normal 14.0-18.0 [facility] [place] Comment on above: Performed By: #### C BC #### [facility] [address] [place] [address] Dr. Natalya Olvera IG # 0.04 10e3/ul Critically high 0.00-0.03 [facility] Comment on above: Performed By: #### C BC #### [facility] [address] [place] [address] Dr. Natalya Olvera IG % 0.6 % Critically high 0.0-0.5 [facility] Comment on above: Performed By: #### C BC #### [facility] [address] [place] [address] Dr. Natalya Olvera LYMPH # 1.7 103/ul Normal 1.2-3.8 [facility] [place] Comment on above: Performed By: #### C BC #### [facility] [address] [place] [address] Dr. Natalya Olvera Lymphocytes/100 WBC (Bld) 27.0 % Normal 20.5-60.0 [facility] [place] Comment on above: Performed By: #### C BC #### [facility] [address] [place] [address] Dr. Natalya Olvera MANUAL DIFF REQ NO Normal [facility] Comment on above: Performed By: #### C BC #### [facility] [address] [place] [address] Dr. Natalya Olvera MCH (RBC) [Entitic mass] 31.7 pg Normal 25.9-34.0 [facility] [place] Comment on above: Performed By: #### C BC #### [facility] [address] [place] [address] Dr. Natalya Olvera MCHC (RBC) [Mass/Vol] 34.5 g/dL Normal 29.9-35.2 [facility] [place] Comment on above: Performed By: #### C BC #### [facility] [address] [place] [address] Dr. Natalya Olvera MCV (RBC) [Entitic vol] 91.9 fL Normal 80.0-94.0 [facility] [place] Comment on above: Performed By: #### C BC #### [facility] [address] [place] [address] Dr. Natalya Olvera MONO # 0.6 103/ul Normal 0.3-0.8 [facility] [place] Comment on above: Performed By: #### C BC #### [facility] [address] [address] [address] Natalya Olvera Monocytes/100 WBC (Bld) 10.0 % Normal 1.7-12.0 [facility] [place] Comment on above: Performed By: #### C BC #### [facility] [address] [address] [address] Natalya Olvera NEUT # 3.8 103/ul Normal 1.4-6.5 [facility] [place] Comment on above: Performed By: #### C BC #### [facility] [address] [address] [address] Natalya Olvera Neutrophils/100 WBC (Bld) 59.2 % Normal 43.0-75.0 [facility] [place] Comment on above: Performed By: #### C BC #### [facility] [address] [address] [address] Natalya Olvera Platelet mean volume (Bld) [Entitic vol] 10.7 fL Normal 9.5-13.5 [facility] [place] Comment on above: Performed By: #### C BC #### [facility] [address] [address] [address] Natalya Olvera PLT 232 103/ul Normal 150-450 [facility] [place] Comment on above: Performed By: #### C BC #### [facility] [address] [address] [address] Natalya Olvera RBC 4.45 106/ul Critically low 4.70-6.10 [facility] Comment on above: Performed By: #### C BC #### [facility] [address] [address] [address] Natalya Olvera WBC 6.4 103/ul Normal 4.0-11.0 [facility] [place] Comment on above: Performed By: #### C BC #### [facility] [address] [place] [address] Dr. Natalya Olvera GLYCOHEMOGLOBIN A1Con 2021 ADA RECOMMENDATION SEE BELOW Normal [facility] Comment on above: Result Comment: ADA RECOMMENDED LIMIT 4.0 - 6.0 ADA THERAPEUTIC TARGET < 7.0 ACTION SUGGESTED > 7.0 Performed By: #### A 1C #### [facility] [address] [address] [address] Natalya Olvera Glucose [Mass/Vol] 94 mg/dL Normal [facility] Comment on above: Performed By: #### A 1C #### [facility] [address] [address] [address] Natalya Olvera HbA1c (Bld) [Mass fraction] 4.9 % Normal 4.5-6.2 [facility] [place] Comment on above: Performed By: #### A 1C #### [facility] [address] [address] [address] Natalya Olvera LIPID PROFILEon 09-30-2022 CHOL-HDL RATIO NORM SEE BELOW Normal [facility] Comment on above: Result Comment: 3.3 - 4.4 LOW RISK 4.4 - 7.1 AVERAGE RISK 7.1 - 11.0 MODERATE RISK >11.0 HIGH RISK Performed By: #### L IPID, URIC, CMP #### [facility] [address] [address] [address] Natalya Olvera Cholesterol [Mass/Vol] 156 mg/dL Normal <=200 [facility] [place] Comment on above: Performed By: #### L IPID, URIC, CMP #### [facility] [address] [place] [address] Dr. Natalya Olvera Cholesterol in HDL [Mass/Vol] 71 mg/dL Critically high 40-60 [facility] [place] Comment on above: Performed By: #### L IPID, URIC, CMP #### [facility] [address] [address] [address] Natalya Olvera Cholesterol in LDL [Mass/Vol] 68.0 mg/dL Normal [facility] [place] Comment on above: Performed By: #### L IPID, URIC, CMP #### [facility] [address] [address] [address] Natalya Olvera Cholesterol.total/C holesterol in HDL [Mass ratio] 2.2 {ratio} Normal [facility] [place] Comment on above: Performed By: #### L IPID, URIC, CMP #### [facility] [address] [address] [address] Natalya Olvera HDL NORMAL > or = 60 mg/dl - LO W CARDIOVASCULAR RISK <40 mg/dl - HIGH CARDIOVASCULAR RISK Normal [facility] [place] Comment on above: Performed By: #### L IPID, URIC, CMP #### [facility] [address] [address] [address] Natalya Olvera LDL CALC NORMAL SEE BELOW Normal [facility] Comment on above: Result Comment: <100 mg/dl OPTIMAL 100 - 129 mg/dl NEAR OR ABOVE OPTIMAL 130 - 159 mg/dl BORDERLINE HIGH 160 - 189 mg/dl HIGH >190 mg/dl VERY HIGH Performed By: #### L IPID, URIC, CMP #### [facility] [address] [address] [address] Natalya Olvera Triglyceride [Mass/Vol] 85 mg/dL Normal <=150 [facility] [place] Comment on above: Performed By: #### L IPID, URIC, CMP #### [facility] [address] [address] [address] Natalya Olvera VLDL CALC 17.0 mg/dL Normal [facility] [place] Comment on above: Performed By: #### L IPID, URIC, CMP #### [facility] [address] [address] [address] Natalya Olvera PROF 14(COMP METB)on 022 Albumin [Mass/Vol] 4.1 g/dL Normal 3.4-5.0 [facility] Comment on above: Performed By: #### L IPID, URIC, CMP #### [facility] [address] [address] [address] Natalya Olvera Albumin/Globulin [Mass ratio] 1.1 {ratio} Normal [facility] [place] Comment on above: Performed By: #### L IPID, URIC, CMP #### [facility] [address] [address] [address] Natalya Olvera ALP [Catalytic activity/Vol] 71 U/L Normal 46-116 [facility] [place] Comment on above: Performed By: #### L IPID, URIC, CMP #### [facility] [address] [address] [address] Natalya Olvera ALT [Catalytic activity/Vol] 37 U/L Normal 16-63 [facility] [place] Comment on above: Performed By: #### L IPID, URIC, CMP #### [facility] [address] [address] [address] Natalya Olvera Anion gap [Moles/Vol] 12.2 mmol/L Normal [facility] [place] Comment on above: Performed By: #### L IPID, URIC, CMP #### [facility] [address] [address] [address] Natalya Olvera AST [Catalytic activity/Vol] 30 U/L Normal 15-37 [facility] [place] Comment on above: Performed By: #### L IPID, URIC, CMP #### [facility] [address] [address] [address] Natalya Olvera Bilirubin [Mass/Vol] 0.9 mg/dL Normal 0.2-1.0 [facility] [place] Comment on above: Performed By: #### L IPID, URIC, CMP #### [facility] [address] [address] [address] Natalya Olvera Calcium [Mass/Vol] 8.8 mg/dL Normal 8.5-10.1 [facility] Comment on above: Performed By: #### L IPID, URIC, CMP #### [facility] [address] [address] [address] Natalya Olvera Chloride [Moles/Vol] 95 mmol/L Critically low 98-107 [facility] [place] Comment on above: Performed By: #### L IPID, URIC, CMP #### [facility] [address] [address] [address] Natalya Olvera CO2 [Moles/Vol] 30.0 mmol/L Normal 21.0-32.0 [facility] Comment on above: Performed By: #### L IPID, URIC, CMP #### [facility] [address] [address] [address] Natalya Olvera Creatinine [Mass/Vol] 0.61 mg/dL Critically low 0.70-1.30 [facility] [place] Comment on above: Performed By: #### L IPID, URIC, CMP #### [facility] [address] [place] [address] Dr. Natalya Olvera EGFR-AF STATELESS >60 Normal >=60 [facility] Comment on above: Performed By: #### L IPID, URIC, CMP #### [facility] [address] [address] [address] Natalya Olvera EGFR-NON AF STATELESS >60 Normal >=60 [facility] [place] Comment on above: Performed By: #### L IPID, URIC, CMP #### [facility] [address] [place] [address] Dr. Natalya Olvera Globulin (S) [Mass/Vol] 3.8 g/dL Normal [facility] [place] Comment on above: Performed By: #### L IPID, URIC, CMP #### [facility] [address] [place] [address] Dr. Natalya Olvera Glucose [Mass/Vol] 102 mg/dL Normal 74-106 [facility] Comment on above: Performed By: #### L IPID, URIC, CMP #### [facility] [address] [place] [address] Dr. Natalya Olvera Potassium [Moles/Vol] 4.2 mmol/L Normal 3.5-5.1 [facility] [place] Comment on above: Performed By: #### L IPID, URIC, CMP #### [facility] [address] [place] [address] Dr. Natalya Olvera Protein [Mass/Vol] 7.9 g/dL Normal 6.4-8.2 [facility] Comment on above: Performed By: #### L IPID, URIC, CMP #### [facility] [address] [place] [address] Dr. Natalya Olvera Sodium [Moles/Vol] 133 mmol/L Critically low 136-145 [facility] Comment on above: Performed By: #### L IPID, URIC, CMP #### [facility] [address] [place] [address] Dr. Natalya Olvera Urea nitrogen [Mass/Vol] 7.0 mg/dL Normal 7.0-18.0 [facility] [place] Comment on above: Performed By: #### L ENRIQUE CHERY, CMP #### [facility] [address] [address] [address] Natalya Olvera Urea nitrogen/Creatinine [Mass ratio] 11.5 mg/mg Normal [facility] [place] Comment on above: Performed By: #### L ENRIQUE CHERY, CMP #### [facility] [address] [address] [address] Natalya Olvera URIC ACID SERUMon 09-30-2022 Urate [Mass/Vol] 4.3 mg/dL Normal 3.5-7.2 [facility] Comment on above: Performed By: #### L ENRIQUE CHERY, CMP #### [facility] [address] [address] [address] Natalya Arce 07-01-2021 L ------ Specimen: [id number] Received: 07/01/21 Status: JAYLON Magaña Num: [id number] Spec Type: Surgical Subm Dr: Eliu Araujo Jr, DO Tissues: A Colon - Polyp (CECUM POLYP) Procedures: HE Stain/2, Gross/Micro L4 Patient Age/Sex Location Account Attending Physician Prosper Mckeon 60/M [id number] Eliu Araujo Jr, DO SPEC NUM: [id number] RECD: 07/01/21 STATUS: JAYLON MAGAÑA NUM: [id number] RAQUEL: 07/01/21- SUBM DR: Eliu Araujo Jr, DO ENTERED: 07/01/[address] [facility] [address]: KASSI TYPE: Surgical DEPT: S ENTERED BY: [id number] RECV BY: [id number] ORDERED: HE Stain/2, Gross/Micro L4 ORDERED: HE [...] Entirely submitted in one cassette labeled A1. (/) Microscopic Description Two glass slides with H E stained material have been examined. The microscopic findings support the above pathologic diagnosis. CPT Codes 09063 Specimen: [id number] Received: 07/01/21 Status: JAYLON Magaña Num: [id number] Spec Type: Surgical Subm Dr: Eliu Araujo Jr, Tissues: A Colon - Polyp (CECUM POLYP) Procedures: HE Stain/2, Gross/Micro L4 Patient: Prosper Mckeon [id number] (Continued) Signed (signature on file) Joaquín Andres MD 07/02/[address] [facility] COVID-19 Antigenon 1 COVID-19 Antigen Healthcare [...] its performance Mimi Disclaimer characteristic determined by [employer] and Mimi Disclaimer validated at [facility]. This Mimi Disclaimer test has not been [...] is terminated or revoked sooner. PERFORMED BY: [place] [address] PATHOLOGIST LIVING SKILLS ADVISOR ERNST FISHER M.D. Normal [facility] Comment on above: Performed By: #### S OFJOSE COVID-19 MIMI #### [address] [place] [id number] [facility] Mimi Ag Negativeon 06-27-20 21 Mimi Ag Negative Negative Normal Negative [facility] Comment on above: Result Comment: This is a duplicate Mimi SARS Antigen (TAYLA) result to be used for statistical tracking purpose only. PERFORMED BY: [place] [address] PATHOLOGIST LIVING SKILLS ADVISOR ERNST FISHER M.D. Performed By: #### S TATE COVID-19 MIMI #### [address] [place] [id number] [facility] CNOVon 10-12-2017 CNOV Office Visit (JENNI) PROSPER MCKEON ([id number]) 1960 MDate Time Provider Department10/12/17 1:30 PM MANDO VELASQUEZ During your visit today, we recorded the following information about you: Pulse Respiration Blood pressure Weight 89/minute 18/minute 142/89 83.5 kg Height 1.778 Jacquelyn Velasquez MD 10/12/2017 1:44 PM [facility]lyn [facility] Department of Cardiovascular MedicineOUTPATIENT VISIT DATE 10/12/17OUTPATIENT VISIT TYPEESTABLISHEDPRIMARY CARE PHYSICIAN:Curtis Salazar, [address] [facility] [place] [address]Caqor: [phone]: [phone] COMPLAINT:Systolic HFHISTORY OF PRESENT ILLNESS:Prosper Mckeon is [...] 83.5 kg (184lb) SpO2 97% BMI 26.4 kg/a3Fhllrka: Well appearing, in no acute distress.Neuro: Oriented [...] in clinic in 6 months. Pending studies: [place], yesenia call me for results??CONTACT INFORMATION:Thank you for allowing us to assist in the care your patient. As always pleasedo not hesitate to contact us with further questions or concerns.?Maddie Pringlepartment of Cardiovascular MedicineOur Lady Of Mercy Hospital - Andersonrt and Vascular InstituteCody V[place] [address] [place], [place] [address]Yejyxd: [phone] Referring Provider: CURTIS SALAZAR [[id number]]Allergies As of Date: 10/12/2017(No Known Allergies)Date Reviewed: 10/12/2017Reviewed by: Cliff Sadler (Rn) SALENA Mcfarlane - Fully AssessedPrimary Visit Diagnosis:Systolic heart failure, unspecified heart failure chronicity (HCC) [I50.20] Other Visit Diagnoses:Essential hypertension [I10] Bicuspid aortic valve [Q23.1]Order(s):ECHO [858490] Order #: [id number]: 1 FUTUREPrescriptions as of 10/12/2017 Sig: LEVETIRACETAM [...] (around 04/11/2018).Follow-up and Disposition History RecordedEncounter Number: [id number] Status:Closed by MANDO VELASQUEZ MD on 10/12/17 Normal [facility] PROGRESSon 10-11-2017 PROGRESS HNO ID: [id number] thor: Mando VelasquezSer: (none)Author Type: PhysicianType: Progress NotesFiled: 10/12/2017 1:44 PMNote Text:[facility] InstituteMon[facility] Department of Cardiovascular MedicineOUTPATIENT VISIT DATE 10/12/17OUTPATIENT VISIT TYPEESTABLISHEDPRIMARY CARE PHYSICIAN:Curtis Salazar, [id number] [facility] [address]Tnffw: [phone]: [phone] COMPLAINT:Systolic HFHISTORY OF PRESENT ILLNESS:Prosper Mckeon is [...] 83.5 kg (184lb) SpO2 97% BMI 26.4 kg/i6Vraduqr: Well appearing, in no acute distress.Neuro: Oriented [...] with further questions or concerns.?Mando Velasquez M.D.[facility] of Cardiovascular MedicineOur [facility] Of [facility] Andersonrt and Vascular InstituteCody [place] [address], [place] [address]Acljbs: [phone] Normal [facility] CNOVon 04-27-2017 CNOV Office Visit (JENNI) PROSPER MCKEON ([id number]) 1960 MDate Time Provider Department04/27/17 11:30 AM MANDO VELASQUEZ During your visit today, we recorded the following information about you: Pulse Respiration Blood pressure Weight 74/minute 18/minute 154/78 83.5 kg Height 1.778 Jacquelyn Velasquez MD 04/27/2017 11:48 AM [facility]ignedP[facility] InstituteG[facility] and Jaclyn [facility] Department of Cardiovascular MedicineOUTPATIENT VISIT DATE 04/27/17OUTPATIENT VISIT TYPEESTABLCONE [facility]ALTH [facility] CARE PHYSICIAN:Curtis Salazar, [id number] [facility] [address]Lpgwe: [phone]: [phone] COMPLAINT:Systolic HFHISTORY OF PRESENT ILLNESS:Prosper Mckeon is [...] Systolic heart failure (HCC)- Tobacco abusePAST SURGICAL HOIDXNP07/23/16: CEA Left Comment: with patch angioplastySocial HistorySubstance [...] 83.5 kg (184lb) SpO2 98% BMI 26.4 kg/t5Eklltyc: Well appearing, in no acute distress. Has [...] or concerns.?Mando Velasquez M.D.Clinton SheehanDepartment of Cardiovascular MedicineOur Lady Of Mer[facility] Andersonrt and Vascular InstituteCody [place] [address] [facility].[place], [place] [address]Wkcegp: [phone] Referring Provider: CURTIS SALAZAR [[id number]]Allergies As of Date: 04/27/2017(No Known Allergies)Date Reviewed: [...] (around 09/27/2017).Follow-up and Disposition History RecordedEncounter Number: [id number] Status:Closed by MANDO VELASQUEZ MD on 04/27/17 [facility] PROGRESSon 04-26-2017 PROGRESS HNO ID: [id number] thor: Mando VelasquezSer: (none)Author Type: PhysicianType: Progress NotesFiled: 04/27/2017 11:48 AMNote Text:Heart and Vascular InstituteGiff[facility] and [facility] Department of Cardiovascular MedicineOUTPATIENT VISIT DATE 04/27/17OUTPATIENT VISIT TYPEESTABLISHEDPRIMARY CARE PHYSICIAN:Curtis Salazar, [id number] [facility] [address]Namco: [phone]: [phone] COMPLAINT:Systolic HFHISTORY OF PRESENT ILLNESS:Prosper Mckeon is [...] Systolic heart failure (HCC)- Tobacco abusePAST SURGICAL NMCYNAO93/23/16: CEA Left Comment: with patch angioplastySocial HistorySubstance [...] 83.5 kg (184lb) SpO2 98% BMI 26.4 kg/g3Ksxwrcv: Well appearing, in no acute distress. Has [...] with further questions or concerns.?Mando Velasquez M.D.[facility] Cardiovascular MedicineOur Lady Of Mer[facility] - Andersonrt and Vascular InstituteAndre [place] [address] [address], [place] [address]Swopmj: [phone] Normal [facility] Encounters Encounter Date Encounter Type Care Provider Facility Start: 10-19-2023 End: 10-19-2023 ambulatory SIMONE HERNANDEZ Not Available Start: 08-17-2023 End: 08-17-2023 ambulatory SIMONE HERNANDEZ Not Available Start: 10-03-2022 Encounter for genera l adult medical examination without abnormal findings LORY CASTELLANO [facility] Start: 09-30-2022 End: 10-01-2022 ambulatory LORY CASTELLANO Facility: Start: 09-30-2022 End: 10-01-2022 Encounter for general adult medical examination without abnormal findings LORY CASTELLANO Facility:[facility]1 Start: 08-05-[address] RADHA SCHMIDT Facility : Start: 01-27-2022 ambulatory LORY SHABAZZMER Facility: Start: 10-12-2017 End: 10-14-2017 Ambulatory [facility] Start: 04-27-2017 End: 05-03-2017 Ambulatory [facility] Start: 03-10-2017 End: 03-11-2017 Ambulatory Richardson Josuehalie [place] [place] Procedure Procedure Detail Performing Clinician Start: 09-30-[address] RAÚL SCHMIDT Comment on above: Performed By: #### P [facility] #### [facility] [address] [place] [address] Dr. Natalya Olvera Payers Date Payer Category Payer Unknown [id number] 2.16.84 [id number] 1960 Unknown [id number] 2.16.84 [id number] 1960 Unknown [id number] 2.16.84 [id number] 1960 Unknown [id number] 2.16.84 [id number] 1960 Unknown [id number] 1959 Self-pay [id number] 1959 Unknown [id number] Summary Purpose Family History No Family History [...] section and content) DATE CREATED AUTHOR 03/29/2018 [facility] DATE CREATED AUTHOR AUTHOR'S ORGANIZ ATION 03/30/2018 Ferm[facility] Lopez [facility] DATE CREATED AUTHOR AUTHOR'S ORGANIZ ATION 10/26/2021 [facility] DATE CREATED AUTHOR AUTHOR'S ORGANIZ ATION 10/03/2022 [facility] DATE CREATED AUTHOR AUTHOR'S ORGANIZ ATION 10/20/2023 [facility] FOR RECORDS PERTAINING TO PATIENTS WHO ARE [...] BE BASED ON THE PRIMARY CLINICAL RECORDS. [facility]. provides no warranty or guarantee of the accuracy or completeness of information in this document.
--- NOTE | 2023-12-20 10:03 | XR_ITS ---
The [address] [address] Patient Name: JENNIFER BARNES MRN: [id number] date: 1960 Sex: M Assigned Patient Location: [facility] Current Patient Location: [facility] Accession/Order Number: [id number] Exam Date: 12/20/2023 10:38 Report Date: 12/20/2023 10:53 At the request of: MP REAGAN Procedure: XR chest 2V PROCEDURE: XR chest 2V DATE: 12/20/2023 9:38 AM CDT COMPARISONS: None. CLINICAL INDICATION: 63 years Male Preop exam FINDINGS: The cardiomediastinal silhouette and pulmonary vasculature are within normal limits. There is slight diffuse increased interstitial markings throughout all lung fletcher likely representing chronic lung changes. There is no evidence of pleural effusion or pneumothorax. XR/XR chest 2V IMPRESSION: Evidence of mild diffuse chronic lung changes. Chest is otherwise within normal limits. Electronically authenticated by: SEDA MEJIA Date: 12/20/2023 10:53
--- NOTE | 2023-12-20 10:34 | PM.PRESUREVA ---
History of Present Illness History of Present Illness Chief complaint: Hammertoes right foot Narrative: Patient presents for preadmission testing. The patient reports toe deformities on his right foot. He states he had the same problem on the left foot and had surgery in September and is doing well. The patient states he does have neuropathy with some tingling, but otherwise he has had no trauma, weakness, or any other complaints. He states his pain is worse depending on what shoes he wears. Review of Systems ROS Narrative REVIEW OF SYSTEMS: Negative except as stated in HPI, ten or more systems reviewed. Constitutional: No fever , chills, weakness ENT: No sore throat or epistaxis Cardiovascular: No edema, chest pain, palpitations, or activity intolerance Respiratory: No shortness of breath, cough, or wheezing Gastrointestinal: No abdominal pain, constipation, diarrhea, or vomiting Genitourinary: No dysuria or hematuria Neurological: No numbness, tingling, weakness, or headache Psychiatric: No mood changes PF[facility] Medical History (Updated 12/20/23 @ 10:38 by Shobha Quiroz NP) Left atrial enlargement ?I51.7 - Cardiomegaly (ICD-10) Neuropathy ?G62.9 - Polyneuropathy, unspecified (ICD-10) Heart murmur ?R01.1 - Cardiac murmur, unspecified (ICD-10) Seizures ?R56.9 - Unspecified convulsions (ICD-10) Chronic diastolic (congestive) heart failure ?I50.32 - Chronic diastolic (congestive) heart failure (ICD-10) Right sided weakness ?R53.1 - Weakness (ICD-10) Hypothyroidism ?E03.9 - Hypothyroidism, unspecified (ICD-10) Hypertension ?I10 - Essential (primary) hypertension (ICD-10) Contracture of joint of right hand ?M24.541 - Contracture, right hand (ICD-10) High cholesterol ?E78.00 - Pure hypercholesterolemia, unspecified (ICD-10) Hypothyroidism (acquired) ?E03.9 - Hypothyroidism, unspecified (ICD-10) Alcoholism ?F10.20 - Alcohol dependence, uncomplicated (ICD-10) Weakness (02/28/16) ?R53.1 - Weakness (ICD-10) CVA (cerebral vascular accident) (~03/2016) ?I63.9 - Cerebral infarction, unspecified (ICD-10) Hyponatremia (~2018) ?E87.1 - Hypo-osmolality and hyponatremia (ICD-10) Hammertoe ?M20.40 - Other hammer toe(s) (acquired), unspecified foot (ICD-10) Surgical History (Updated 12/20/23 @ 10:14 by Shobha Quiroz NP) H/O foot surgery (09/23/23) ?Z98.890 - Other specified postprocedural states (ICD-10) S/P cataract extraction and insertion of intraocular lens ?Z98.49 - Cataract extraction status, unspecified eye (ICD-10) ?Z96.1 - Presence of intraocular lens (ICD-10) H/O carotid endarterectomy (06/18/16) ?Z98.890 - Other specified postprocedural states (ICD-10) H/O colonoscopy (04/09/13) ?Z98.890 - Other specified postprocedural states (ICD-10) History of hammertoe correction ?Z98.890 - Other specified postprocedural states (ICD-10) ?Z87.39 - Personal history of other diseases of the musculoskeletal system and connective tissue (ICD-10) H/O foot surgery (06/13/19) ?Z98.890 - Other specified postprocedural states (ICD-10) H/O foot surgery (07/25/19) ?Z98.890 - Other specified postprocedural states (ICD-10) Family History (Updated 09/17/23 @ 12:31 by Shobha Quiroz NP) Other CAD (coronary artery disease) Family history of myocardial infarction Social History (Updated 09/23/23 @ 10:17 by Alba Varner RN) Within the past year, how often did you have a drink containing alcohol: 4 or more times a week Within the past year, how many standard drinks containing alcohol did you have on a typical day: 3 or 4 Within the past year, how often did you have six or more drinks on one occasion: daily or almost daily Total score: 6 Score interpretation: A score of 4 or more indicates drinking is likely to affect patient's safety. Smoking status: Former smoker Non-prescribed substance use: denies use Previous occupational history: [employer] Highest level of school completed/degree received: high school graduate Meds Home Medications and Allergies Home Medications Medication Instructions Recorded Confirmed Type aspirin 81 mg tablet,delayed 81 mg PO DAILY 09/17/23 12/20/23 History release (Adult Aspirin Regimen) levothyroxine 100 mcg tablet 100 mcg PO DAILY 09/17/23 12/20/23 History (Euthyrox) rosuvastatin 20 mg tablet (Crestor) 20 mg PO DAILY 09/17/23 12/20/23 History doxazosin 4 mg tablet 4 mg PO DAILY 09/23/23 12/20/23 History metoprolol succinate 50 mg 150 mg PO DAILY 09/23/23 12/20/23 History tablet,extended release 24 hr Allergies Allergy/AdvReac Type Severity Reaction Status Date / Time No Known Drug Allergies Allergy Verified 12/20/23 10:15 Exam Narrative Exam Narrative: Constitutional: Awake, alert, comfortable, well-appearing, nontoxic, interactive, vital signs as charted Head: Normocephalic, atraumatic Neck: Supple, normal appearance, normal range of motion, no meningeal signs, no lymphadenopathy Respiratory: No respiratory distress, breath sounds clear Cardiovascular: Regular rate and rhythm, Systolic murmur noted Musculoskeletal: Antalgic gait, right foot toes three and four with contractures and limited range of motion, good capillary refill, sensation intact Skin: No rashes or induration, no lesions, only visible skin inspected Neuro: No neurological deficits, normal sensation Psychiatric: Oriented ?3, normal affect Assessment and Plan Assessment and Plan (1) Bart: Plan Partial amputation of right 3rd and 4th toes with soft tissue balancing as needed scheduled with Dr. Polo 12/30/2023.
[2023-12-20 10:37] LABS: Basophils Percent Auto 0.7 % (0.2-2.0); Eosinophils Absolute Auto 0.2 10^3/uL (0.0-0.7); Eosinophils Percent Auto 3.1 % (0.9-7.0); Hemoglobin 13.3 g/dL (14.0-18.0); Immature Granulocytes Abs Auto 0.02 10^3/uL (0.00-0.03); Immature Granulocytes Pct Auto 0.3 % (0.0-0.5); Lymphocytes Absolute Auto 0.9 10^3/uL (1.2-3.8); Lymphocytes Percent Auto 14.8 % (20.5-60.0); Mean Corpuscular HGB Conc 33.3 g/dL (29.9-35.2); Mean Corpuscular Hemoglobin 30.8 pg (25.9-34.0); Mean Corpuscular Volume 92.6 fL (80.0-94.0); Mean Platelet Volume 10.3 fL (9.5-13.5); Monocytes Absolute Auto 0.4 10^3/uL (0.3-0.8); Monocytes Percent Auto 6.9 % (1.7-12.0); Neutrophils Absolute Auto 4.3 10^3/uL (1.4-6.5); Neutrophils Percent Auto 74.2 % (43.0-75.0); Platelet Count 171 10^3/uL (150-450); Red Blood Count 4.32 10^6/uL (4.70-6.10); White Blood Count 5.8 10^3/uL (4.0-11.0)
[2023-12-20 10:58] LABS: Anion Gap 13.3; Calcium 8.8 mg/dL (8.5-10.1); Carbon Dioxide 27.6 mmol/L (21.0-32.0); Chloride 95 mmol/L (98-107); Estimated GFR (African America >60 (>=60); Estimated GFR (Non-African Ame >60 (>=60); Glucose 113 mg/dL (74-106); Potassium 4.9 mmol/L (3.5-5.1); Sodium 131 mmol/L (136-145)
[2023-12-20 11:21] LABS: Partial Thromboplastin Time 31.4 sec (22.3-36.2); Prothrombin Time 10.6 sec (9.0-11.6)
== END 2023-12-20 09:55 | disposition home or self-care (01) ==
LOC: PST 09:54
PROVIDERS: PCP Nurse Practitioner Family; Visit Provider Podiatrist Foot & Ankle Surgery
DX: Z01.810 Encounter for preprocedural cardiovascular examination (principal); Z01.812 Encounter for preprocedural laboratory examination; Z01.818 Encounter for other preprocedural examination; M20.41 Other hammer toe(s) (acquired), right foot
CPT/HCPCS: 71046; 80048; 85025; 85610; 85730; G0463

== ENCOUNTER 2023-12-30 07:58 | Day surgery (SDC) | payer BC, SELFPAY ==
[2023-12-20 10:28] VITALS: BP 153/77; PULSE 78; RESP 16; TEMP 36.2; O2SAT 96; BMI 26.4
[2023-12-30 08:03] VITALS: BP 165/82; PULSE 80; RESP 18; TEMP 36.3; O2SAT 97; BMI 26.6
[2023-12-30 08:14] LABS: Glucometer 120 mg/dL (74-106)
--- OUTSIDE RECORDS SUMMARY | 2023-12-30 08:16 | XMS_ITS | CCD ---
Author Organization [facility] Care Team Providers Care Furniture And Bedding Inspector Name Role Phone HAMPOLE, MANDO Unavailable Unavailable MARIE, CURTIS W Unavailable Unavailable HAMPOLE, MANDO Unavailable Unavailable MARIE, CURTIS W Unavailable Unavailable Kassavin, Richardson Unavailable Unavailable Kassamarco a, Richardson Unavailable Unavailable Kashalie, Richardson Unavailable Unavailable CURTIS SALAZAR Unavailable Unavailable ROXANA, DR GARCIA Admitting Unavailable ROXANA, DR GARCIA Attending Unavailable DR RADHA SCHMIDT Primary Care Unavailable LORY CASTELLANO Admitting Unavailable LORY CASTELLANO Attending Unavailable ROXANA, DR GARCIA Primary Care Unavailable LORY CASTELLANO Admitting Unavailable LORY CASTELLANO Attending Unavailable LORY CASTELLANO Primary Care Unavailable LORY CASTELLANO Consulting Unavailable SIMONE HERNANDEZ Attending Unavailable SIMONE HERNANDEZ Attending Unavailable SIMONE HERNANDEZ Attending Unavailable Allergies Allergy Classification Reported Allergen(s) Allergy Type Date of Onset Reaction(s) Facility (1 source) No Known Medication Allergies; Translations: [No Known Medication Allergies] Propensity to adverse reactions (disorder) [facility] Repository Problems Active Problems Problem Classification [...] Test Name Value Interpretation Reference Range Facility [facility] 10-01-2022 Insulin 11.4 uIU/mL Normal 2.6-24.9 [facility] Comment on above: Performed By: #### I NSULIN #### [facility] [address] [address] [address] Natalya Olvera CBC AUTO DIFFon 09-30-2022 BASO # 0.1 103/ul Normal 0.0-0.1 [facility] Comment on above: Performed By: #### C BC #### [facility] [address] [address] [address] Natayla Olvera Basophils/100 WBC (Bld) 0.8 % Normal 0.2-2.0 [facility] Comment on above: Performed By: #### C BC #### [facility] [address] [place] [address] Dr. Natalya Olvera EO # 0.2 103/ul Normal 0.0-0.7 [facility] Comment on above: Performed By: #### C BC #### [facility] [address] [place] [address] Dr. Natalya Olvera Eosinophils/100 WBC (Bld) 2.4 % Normal 0.9-7.0 [facility] Comment on above: Performed By: #### C BC #### [facility] [address] [place] [address] Dr. Natalya Olvera Erythrocyte distribution width (RBC) [Ratio] 12.0 % Normal 11.0-15.0 [facility] Comment on above: Performed By: #### C BC #### [facility] [address] [place] [address] Dr. Natalya Olvera Hematocrit (Bld) [Volume fraction] 40.9 % Critically low 42.0-54.0 [facility] Comment on above: Performed By: #### C BC #### [facility] [address] [place] [address] Dr. Natalya Olvera Hemoglobin (Bld) [Mass/Vol] 14.1 g/dL Normal 14.0-18.0 [facility] Comment on above: Performed By: #### C BC #### [facility] [address] [place] [address] Dr. Natalya Olvera IG # 0.04 10e3/ul Critically high 0.00-0.03 [facility] Comment on above: Performed By: #### C BC #### [facility] [address] [address] [address] Natalya Olvera IG % 0.6 % Critically high 0.0-0.5 [facility] Comment on above: Performed By: #### C BC #### [facility] [address] [place] [address] Dr. Natalya Olvera LYMPH # 1.7 103/ul Normal 1.2-3.8 [facility] Comment on above: Performed By: #### C BC #### [facility] [address] [place] [address] Dr. Natalya Olvera Lymphocytes/100 WBC (Bld) 27.0 % Normal 20.5-60.0 [facility] Comment on above: Performed By: #### C BC #### [facility] [address] [place] [address] Dr. Natalya Olvera MANUAL DIFF REQ NO Normal [facility] Comment on above: Performed By: #### C BC #### [facility] [address] [place] [address] Dr. Natalya Olvera MCH (RBC) [Entitic mass] 31.7 pg Normal 25.9-34.0 [facility] Comment on above: Performed By: #### C BC #### [facility] [address] [place] [address] Dr. Natalya Olvera MCHC (RBC) [Mass/Vol] 34.5 g/dL Normal 29.9-35.2 [facility] Comment on above: Performed By: #### C BC #### [facility] [address] [place] [address] Dr. Natalya Olvera MCV (RBC) [Entitic vol] 91.9 fL Normal 80.0-94.0 [facility] Comment on above: Performed By: #### C BC #### [facility] [address] [place] [address] Dr. Natalya Olvera MONO # 0.6 103/ul Normal 0.3-0.8 [facility] Comment on above: Performed By: #### C BC #### [facility] [address] [place] [address] Dr. Natalya Olvera Monocytes/100 WBC (Bld) 10.0 % Normal 1.7-12.0 [facility] Comment on above: Performed By: #### C BC #### [facility] [address] [address] [address] Natalya Olvera NEUT # 3.8 103/ul Normal 1.4-6.5 [facility] Comment on above: Performed By: #### C BC #### [facility] [address] [address] [address] Natalya Olvera Neutrophils/100 WBC (Bld) 59.2 % Normal 43.0-75.0 [facility] Comment on above: Performed By: #### C BC #### [facility] [address] [place] [address] Dr. Natalya Olvera Platelet mean volume (Bld) [Entitic vol] 10.7 fL Normal 9.5-13.5 [facility] Comment on above: Performed By: #### C BC #### [facility] [address] [place] [address] Dr. Natalya Olvera PLT 232 103/ul Normal 150-450 [facility] Comment on above: Performed By: #### C BC #### [facility] [address] [place] [address] Dr. Natalya Olvera RBC 4.45 106/ul Critically low 4.70-6.10 [facility] Comment on above: Performed By: #### C BC #### [facility] [address] [place] [address] Dr. Natalya Olvera WBC 6.4 103/ul Normal 4.0-11.0 [facility] Comment on above: Performed By: #### C BC #### [facility] [address] [place] [address] Dr. Natalya Olvera GLYCOHEMOGLOBIN A1Con 2021 ADA RECOMMENDATION SEE BELOW Normal [facility] Comment on above: Result Comment: ADA RECOMMENDED LIMIT 4.0 - 6.0 ADA THERAPEUTIC TARGET < 7.0 ACTION SUGGESTED > 7.0 Performed By: #### A 1C #### [facility] [address] [address] [address] Natalya Olvera Glucose [Mass/Vol] 94 mg/dL Normal [facility] Comment on above: Performed By: #### A 1C #### [facility] [address] [address] [address] Natalya Olvera HbA1c (Bld) [Mass fraction] 4.9 % Normal 4.5-6.2 [facility] Comment on above: Performed By: #### A 1C #### [facility] [address] [address] [address] Natalya Olvera LIPID PROFILEon 09-30-2022 CHOL-HDL RATIO NORM SEE BELOW Normal [facility] Comment on above: Result Comment: 3.3 - 4.4 LOW RISK 4.4 - 7.1 AVERAGE RISK 7.1 - 11.0 MODERATE RISK >11.0 HIGH RISK Performed By: #### L IPID, URIC, CMP #### [facility] [address] [address] [address] Natalya Olvera Cholesterol [Mass/Vol] 156 mg/dL Normal <=200 [facility] Comment on above: Performed By: #### L IPID, URIC, CMP #### [facility] [address] [place] [address] Dr. Natalya Olvera Cholesterol in HDL [Mass/Vol] 71 mg/dL Critically high 40-60 [facility] Comment on above: Performed By: #### L IPID, URIC, CMP #### [facility] [address] [address] [address] Natalya Olvera Cholesterol in LDL [Mass/Vol] 68.0 mg/dL Normal [facility] Comment on above: Performed By: #### L IPID, URIC, CMP #### [facility] [address] [address] [address] Natalya Olvera Cholesterol.total/C holesterol in HDL [Mass ratio] 2.2 {ratio} Normal [facility] Comment on above: Performed By: #### L IPID, URIC, CMP #### [facility] [address] [address] [address] Natalya Olvera HDL NORMAL > or = 60 mg/dl - LO W CARDIOVASCULAR RISK <40 mg/dl - HIGH CARDIOVASCULAR RISK Normal [facility] Comment on above: Performed By: #### L IPID, URIC, CMP #### [facility] [address] [address] [address] Natalya Olvera LDL CALC NORMAL SEE BELOW Normal [facility] Comment on above: Result Comment: <100 mg/dl OPTIMAL 100 - 129 mg/dl NEAR OR ABOVE OPTIMAL 130 - 159 mg/dl BORDERLINE HIGH 160 - 189 mg/dl HIGH >190 mg/dl VERY HIGH Performed By: #### L IPID, URIC, CMP #### [facility] [address] [place] [address] Dr. Natalya Olvera Triglyceride [Mass/Vol] 85 mg/dL Normal <=150 [facility] Comment on above: Performed By: #### L IPID, URIC, CMP #### [facility] [address] [place] [address] Dr. Natalya Olvera VLDL CALC 17.0 mg/dL Normal [facility] Comment on above: Performed By: #### L IPID, URIC, CMP #### [facility] [address] [place] [address] Dr. Natalya Olvera PROF 14(COMP METB)on 022 Albumin [Mass/Vol] 4.1 g/dL Normal 3.4-5.0 [facility] Comment on above: Performed By: #### L IPID, URIC, CMP #### [facility] [address] [place] [address] Dr. Natalya Olvera Albumin/Globulin [Mass ratio] 1.1 {ratio} Normal [facility] Comment on above: Performed By: #### L IPID, URIC, CMP #### [facility] [address] [place] [address] Dr. Natalya Olvera ALP [Catalytic activity/Vol] 71 U/L Normal 46-116 [facility] Comment on above: Performed By: #### L IPID, URIC, CMP #### [facility] [address] [place] [address] Dr. Natalya Olvera ALT [Catalytic activity/Vol] 37 U/L Normal 16-63 [facility] Comment on above: Performed By: #### L IPID, URIC, CMP #### [facility] [address] [address] [address] Natalya Olvera Anion gap [Moles/Vol] 12.2 mmol/L Normal [facility] Comment on above: Performed By: #### L IPID, URIC, CMP #### [facility] [address] [address] [address] Natalya Olvera AST [Catalytic activity/Vol] 30 U/L Normal 15-37 [facility] Comment on above: Performed By: #### L IPID, URIC, CMP #### [facility] [address] [place] [address] Dr. Natalya Olvera Bilirubin [Mass/Vol] 0.9 mg/dL Normal 0.2-1.0 [facility] Comment on above: Performed By: #### L IPID, URIC, CMP #### [facility] [address] [place] [address] Dr. Natalya Olvera Calcium [Mass/Vol] 8.8 mg/dL Normal 8.5-10.1 [facility] Comment on above: Performed By: #### L IPID, URIC, CMP #### [facility] [address] [place] [address] Dr. Natalya Olvera Chloride [Moles/Vol] 95 mmol/L Critically low 98-107 [facility] Comment on above: Performed By: #### L IPID, URIC, CMP #### [facility] [address] [place] [address] Dr. Natalya Olvera CO2 [Moles/Vol] 30.0 mmol/L Normal 21.0-32.0 [facility] Comment on above: Performed By: #### L IPID, URIC, CMP #### [facility] [address] [address] [address] Natalya Olvera Creatinine [Mass/Vol] 0.61 mg/dL Critically low 0.70-1.30 [facility] Comment on above: Performed By: #### L IPID, URIC, CMP #### [facility] [address] [address] [address] Natalya Olvera EGFR-AF GIBRALTARIAN >60 Normal >=60 [facility] Comment on above: Performed By: #### L IPID, URIC, CMP #### [facility] [address] [address] [address] Natalya Olvera EGFR-NON AF GIBRALTARIAN >60 Normal >=60 [facility] Comment on above: Performed By: #### L IPID, URIC, CMP #### [facility] [address] [address] [address] Natalya Olvera Globulin (S) [Mass/Vol] 3.8 g/dL Normal [facility] Comment on above: Performed By: #### L IPID, URIC, CMP #### [facility] [address] [place] [address] Dr. Natalya Olvera Glucose [Mass/Vol] 102 mg/dL Normal 74-106 [facility] Comment on above: Performed By: #### L IPID, URIC, CMP #### [facility] [address] [address] [address] Natalya Olvera Potassium [Moles/Vol] 4.2 mmol/L Normal 3.5-5.1 [facility] Comment on above: Performed By: #### L IPID, URIC, CMP #### [facility] [address] [address] [address] Natalya Olvera Protein [Mass/Vol] 7.9 g/dL Normal 6.4-8.2 [facility] Comment on above: Performed By: #### L IPID, URIC, CMP #### [facility] [address] [address] [address] Natalya Olvera Sodium [Moles/Vol] 133 mmol/L Critically low 136-[address] [facility] Comment on above: Performed By: #### L IPID, URIC, CMP #### [facility] [address] [address] [address] Natalya Olvera Urea nitrogen [Mass/Vol] 7.0 mg/dL Normal 7.0-18.0 [facility] Comment on above: Performed By: #### L IPID, URIC, CMP #### [facility] [address] [address] [address] Natalya Olvera Urea nitrogen/Creatinine [Mass ratio] 11.5 mg/mg Normal [facility] Comment on above: Performed By: #### L IPID, URIC, CMP #### [facility] [address] [address] [address] Natalya Olvera URIC ACID SERUMon 09-30-2022 Urate [Mass/Vol] 4.3 mg/dL Normal 3.5-7.2 [facility] Comment on above: Performed By: #### L IPID, URIC, CMP #### [facility] [address] [place] [address] Dr. Natalya Arce 07-01-2021 L ------ Specimen: [id number] Received: 07/01/21 Status: JAYLON Archana Num: [id number] Spec Type: Surgical Subm Dr: Eliu Araujo Jr, DO Tissues: A Colon - Polyp (CECUM POLYP) Procedures: HE Stain/2, Gross/Micro L4 Patient Age/Sex Location Account Attending Physician Prosper Mckeon 60/M [id number] Eliu Araujo Jr, DO SPEC NUM: [id number] RECD: 07/01/21 STATUS: JAYLON MAGAÑA NUM: [id number] RAQUEL: 07/01/21- DR: Eliu Araujo Jr, DO ENTERED: 07/01/[address]: KASSI TYPE: Surgical DEPT: S ENTERED BY: [id number] RECV BY: [id number] ORDERED: HE Stain/2, Gross/Micro L4 ORDERED: HE [...] support the above pathologic diagnosis. CPT Codes 53580 Specimen: [id number] Received: 07/01/21 Status: JAYLON Magaña Num: [id number] Spec Type: Surgical Subm Dr: Eliu Araujo Jr, DO Tissues: A Colon - Polyp (CECUM POLYP) Procedures: HE Stain/2, Gross/Micro L4 Patient: Prosper Mckeon [id number] (Continued) Signed (signature on file) Joaquín Andres MD 07/02/21 1128 [facility] COVID-19 Antigenon 1 COVID-19 Antigen Healthcare [...] its performance Mimi Disclaimer characteristic determined by [employer] and Mimi Disclaimer validated at [facility]. This Mimi Disclaimer test has not been [...] is terminated or revoked sooner. PERFORMED BY: [place] [id number] PATHOLOGIST BUGGYMAN ERNST FISHER M.D. Normal [facility] Comment on above: Performed By: #### S DAKOTAH YBARRA-19 MIMI #### [address] Mimi Ag Negativeon 06-27-20 21 Mimi Ag Negative Negative Normal Negative [facility] Comment on above: Result Comment: This is a duplicate Mimi SARS Antigen (TAYLA) result to be used for statistical tracking purpose only. PERFORMED BY: [place] [id number] PATHOLOGIST BUGGYMAN ERNST FISHER M.D. Performed By: #### S DAKOTAH YBARRA-19 MIMI #### [place] [id number] [facility] CNOVon 10-12-2017 CNOV Office Visit (CARDFT) PROSPER MCKEON ([id number]) 1960 MDate Time Provider Department10/12/17 1:30 PM MANDO VELASQUEZ During your visit today, we recorded the following information about you: Pulse Respiration Blood pressure Weight 89/minute 18/minute 142/89 83.5 kg Height 1.778 Jacquelyn Velasquez MD 10/12/2017 1:44 PM SignedThe [facility] Hospitalrt and Vascular InstituteRobrust and Jaclyn Sheehan Department of Cardiovascular MedicineOUTPATIENT VISIT DATE 10/12/17OUTPATIENT VISIT TYPEESTABLISHEDPRIMARY CARE PHYSICIAN:Curtis [place], [id number] [facility] [place] [address]Rkubi: [phone]: [phone] COMPLAINT:Systolic HFHISTORY OF PRESENT ILLNESS:Prosper Mckeon is [...] 83.5 kg (184lb) SpO2 97% BMI 26.4 kg/a3Nshmdmt: Well appearing, in no acute distress.Neuro: Oriented [...] or concerns.?Mando Velasquez M.D.[facility] Roque of Cardiovascular MedicineThe Bellevue Hospitalrt and Vascular Institute[address] [address]Nruyxd: [phone] Referring Provider: CURTIS SALAZAR [[id number]]Allergies As of Date: 10/12/2017(No Known Allergies)Date Reviewed: 10/12/2017Reviewed by: Cliff Salder (Rn) SALENA Mcfarlane - Fully AssessedPrimary Visit Diagnosis:Systolic heart failure, unspecified heart failure chronicity (HCC) [I50.20] Other Visit Diagnoses:Essential hypertension [I10] Bicuspid aortic valve [Q23.1]Order(s):ECHO [338157] Order #: [id number]: 1 FUTUREPrescriptions as of 10/12/2017 Sig: LEVETIRACETAM [...] (around 04/11/2018).Follow-up and Disposition History RecordedEncounter Number: [id number] Status:Closed by MANDO VELASQUEZ MD on 10/12/17 [facility] PROGRESSon 10-11-2017 PROGRESS HNO ID: [id number] thor: Mando VelasquezSernabilae: (none)Author Type: PhysicianType: Progress NotesFiled: 10/12/2017 1:44 PMNote Text:[facility] Department of Cardiovascular MedicineOUTPATIENT VISIT DATE 10/12/17OUTPATIENT VISIT TYPEESTABLCRITICAL ACCESS HOSPITALPRTR[facility] CARE PHYSICIAN:Curtis Salazar, [id number] [facility] [address]Hvvao: [phone]: [phone] COMPLAINT:Systolic HFHISTORY OF PRESENT ILLNESS:Prosper Mckeon is [...] 83.5 kg (184lb) SpO2 97% BMI 26.4 kg/c0Cxwqiwv: Well appearing, in no acute distress.Neuro: Oriented [...] contact us with further questions or concerns.?Maddie Pringle of Cardiovascular MedicineThe Bellevue Hospitalrt and Vascular InstituteKaren Ville [address] [place] [address], [place] [address]Ufqkmt: [phone] Normal [facility] CNOVon 04-27-2017 CNOV Office Visit (JENNI) PROSPER MCKEON ([id number]) 1960 MDate Time Provider Department04/27/17 11:30 AM MANDO VELASQUEZ During your visit today, we recorded the following information about you: Pulse Respiration Blood pressure Weight 74/minute 18/minute 154/78 83.5 kg Height 1.778 Jacquelyn Velasquez MD 04/27/2017 11:48 AM SignedB[facility] and Vascular InstituteRobert and Jaclyn Sheehan Department of Cardiovascular MedicineOUTPATIENT VISIT DATE 04/27/17OUTPATIENT VISIT TYPEESTABLISHEDPRUNC HEALTH LENOIRRY CARE PHYSICIAN:Curtis Salazar, [id number] [facility] [place] [address]Qzzcb: [phone]: [phone] COMPLAINT:Systolic HFHISTORY OF PRESENT ILLNESS:Prosper Mckeon is [...] Systolic heart failure (HCC)- Tobacco abusePAST SURGICAL THQBBYZ22/23/16: CEA Left Comment: with patch angioplastySocial HistorySubstance [...] 83.5 kg (184lb) SpO2 98% BMI 26.4 kg/w7Rkoiwdq: Well appearing, in no acute distress. Has [...] or concerns.?Mando Velasquez M.D.Clinton Benavidespartment of Cardiovascular MedicineThe Bellevue Hospitalrt and Vascular Institute[address] [address]Wwetqx: [phone] Referring Provider: CURTIS SALAZAR [[id number]]Allergies As of Date: 04/27/2017(No Known Allergies)Date Reviewed: [...] (around 09/27/2017).Follow-up and Disposition History RecordedEncounter Number: [id number] Status:Closed by MANDO VELASQUEZ MD on 04/27/17 Normal [facility] PROGRESSon 04-26-2017 PROGRESS HNO ID: [id number] thor: Mando Brown: (none)Author Type: PhysicianType: Progress NotesFiled: 04/27/2017 11:48 AMNote Text:[facility] Department of Cardiovascular MedicineOUTPATIENT VISIT DATE 04/27/17OUTPATIENT VISIT TYPEESTABLCRITICAL ACCESS HOSPITALPRTROY [facility] CARE PHYSICIAN:Curtis Salazar, [id number] [facility] [address]Wrzak: [phone]: [phone] COMPLAINT:Systolic HFHISTORY OF PRESENT ILLNESS:Prosper Mckeon is [...] Systolic heart failure (HCC)- Tobacco abusePAST SURGICAL YFKMTDQ80/23/16: CEA Left Comment: with patch angioplastySocial HistorySubstance [...] 83.5 kg (184lb) SpO2 98% BMI 26.4 kg/t4Ilrnbgc: Well appearing, in no acute distress. Has [...] or concerns.?Mando Velasquez M.D.[facility] Roque of Cardiovascular MedicineHeart and Vascular InstituteKaren Ville [address] [place] [address], [place] [address]Pclkdf: [phone] Normal [facility] Encounters Encounter Date Encounter Type Care Provider Facility Start: 12-21-2023 End: 12-21-2023 ambulatory SIMONE HERNANDEZ Not Available Start: 10-19-2023 End: 10-19-2023 ambulatory SIMONE HERNANDEZ Not Available Start: 08-17-2023 End: 08-17-2023 ambulatory SIMONE HERNANDEZ Not Available Start: 10-03-2022 Encounter for gayatri l adult medical examination without abnormal findings LORY CASTELLANO [facility] Start: 09-30-2022 End: 10-01-2022 ambulatory LORY CASTELLANO Facility: Start: 09-30-2022 End: 10-01-2022 Encounter for general adult medical examination without abnormal findings LORY CASTELLANO Facility:[facility] Start: 08-05-[address] RADHA SCHMIDT Facility :[facility] Start: 01-27-2022 ambulatory LORY CASTELLANO Facility: [facility] Start: 10-12-2017 End: 10-14-2017 Ambulatory [facility] Start: 04-27-2017 End: 05-03-2017 Ambulatory [facility] Start: 03-10-2017 End: 03-11-2017 Ambulatory Richardson Josuemarco a Facility:[facility] Procedures Date Procedure Procedure Detail Performing Clinician Start: 09-30-[address] RAÚL SCHMIDT Comment on above: Performed By: #### P [facility] #### [facility] [address] [place] [address] Dr. Natalya Olvera Payers Date Payer Category Payer Unknown [id number] 2.16.84 [id number] 1960 Unknown [id number] 2.16.84 [id number] 1960 Unknown [id number] 2.16.84 [id number] 1960 Unknown [id number] 2.16.84 [id number] 1960 Unknown [id number] 2.16.84 [id number] 1960 Unknown [id number] 1959 Self-pay [id number] 1959 Unknown [id number] Summary Purpose Family History No Family History [...] section and content) DATE CREATED AUTHOR 03/29/2018 [facility] DATE CREATED AUTHOR AUTHOR'S ORGANIZ ATION 03/30/2018 [facility] DATE CREATED AUTHOR AUTHOR'S ORGANIZ ATION 10/26/2021 [facility] DATE CREATED AUTHOR AUTHOR'S ORGANIZ ATION 10/03/2022 [facility] DATE CREATED AUTHOR AUTHOR'S ORGANIZ ATION 12/22/2023 [facility] EPIC FOR RECORDS PERTAINING TO [...] BE BASED ON THE PRIMARY CLINICAL RECORDS. [facility] [employer] provides no warranty or guarantee of the accuracy or completeness of information in this document.
[2023-12-30] MEDS: LACTATED RINGER'S SOLUTION 1,000 ML 50 ML IV (08:19)
[2023-12-30] MEDS: CEFAZOLIN SODIUM/DEXTROSE,ISO 2 GM/50 ML PIGGYBACK IV (08:52)
--- NOTE | 2023-12-30 09:02 | PM.ORONB ---
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 After his stroke he developed toe contractures and hammertoe repairs were performed however patient developed recurrence. He is undergone partial toe indications on his contralateral foot as done very well. Due to his continued pain associated with these contractures she wished to undergo partial digit amputations of the left 3rd and 4th toes. INTRAOPERATIVE FINDINGS: plantar flexed three contractures noted at the PIPJ and DIPJ of the 3rd and 4th toes. Upon removal of the distal phalanx and associated soft tissue attachments the contractures were relieved. No signs of infection and no wound was noted. PROCEDURE IN DETAIL: Patient was identified in pre op and consent was reviewed. Correct side and site were identified and marked. Pre-op antibiotics were started. Patient was brought to OR suite and place on table in a supine position. General anesthesia was administered. Tourniquet applied. Operative extremity was prepped and draped in usual sterile fashion. Formal time-out was performed and the foot/ankle were exsanguinated and tourniquet inflated. 10 cc of lidocaine and 10 cc of marcaine were injected as standard digital blocks of the 3rd and 4th toes A fishmouth incision was placed on the distal 3rd toe. Full-thickness incision was taken down to bone to the level of the distal interphalangeal joint and all soft tissue attachments were released allowing disarticulation of the digit. The amputated digit was passed back table and sent for specimen. Tendinous structures were cut proximally and a rongeur was used to remove the distal aspect of the middle phalanx. Surgical site was irrigated with normal saline and incision was closed in layers. A fishmouth incision was placed on the distal 4th toe. Full-thickness incision was taken down to bone to the level of the distal interphalangeal joint and all soft tissue attachments were released allowing disarticulation of the digit. The amputated digit was passed back table and sent for specimen. Tendinous structures were cut proximally and a rongeur was used to remove the distal aspect of the middle phalanx. Surgical site was irrigated with normal saline and incision was closed in layers. the tourniquet was dropped with a prompt hyperemic response noted to the distal aspects of the toes a dry sterile dressing and surgical shoe was applied. Patient tolerated procedure and anesthesia well transferred to the recovery room with vital signs stable POSTOPERATIVE PLAN: Discharge home under family's care Post op instructions provided verbally and written prescription(s) were placed in chart weightbearing as tolerated in surgical shoe Follow-up in 2-3 weeks Implants: none Anesthesia: MALDONADO Surgeon: Cruz Polo Estimated blood loss (mL): 10 Pathology: other (toe amputations) Condition: stable Disposition: PACU
[2023-12-30] MEDS: BUPIVACAINE HCL 0.5% PF 50 MG/10 ML VIAL INJ (09:12)
[2023-12-30] MEDS: LIDOCAINE HCL 1% 100 MG/10 ML MDV INJ (09:12)
[2023-12-30 09:51] VITALS: BP 108/57; PULSE 58; RESP 14; TEMP 36.1; O2SAT 98
--- NOTE | 2023-12-30 09:55 | XR_ITS ---
The [address] [address] Patient Name: JENNIFER BARNES MRN: [id number] date: 1960 Sex: M Assigned Patient Location: [facility] Current Patient Location: Accession/Order Number: [id number] Exam Date: 12/30/2023 10:15 Report Date: 12/31/2023 06:58 At the request of: MP REAGAN Procedure: XR foot RT min 3V PROCEDURE: XR foot RT min 3V HISTORY: skyeertoe s/p partial amputation of toes 3 4 COMPARISON: XR foot bilateral 09/02/2023 FINDINGS: BONES:Prior resection of the heads of the second through 5th proximal phalanges. Surgical versus posttraumatic changes involving the head of the 5th metatarsal. No fracture or dislocation. SOFT TISSUES:No visible soft tissue swelling. EFFUSION:None visible. OTHER: Negative. XR/XR foot RT min 3V IMPRESSION: 1. Stable surgical/posttraumatic changes. Electronically authenticated by: KEYUR ALCANTAR Date: 12/31/2023 06:58
[2023-12-30 10:06] VITALS: BP 114/65; PULSE 80; RESP 16; O2SAT 97
[2023-12-30 10:13] LABS: Glucometer 107 mg/dL (74-106)
[2023-12-30 10:21] VITALS: BP 119/89; PULSE 76; RESP 16; O2SAT 98
== END 2023-12-30 10:33 | disposition home or self-care (01) ==
PROVIDERS: PCP Nurse Practitioner Family; Visit Provider Podiatrist Foot & Ankle Surgery
PROC: (CPT 1480; principal; 2023-12-30 09:00)
DX: M20.41 Other hammer toe(s) (acquired), right foot (principal); I25.10 Atherosclerotic heart disease of native coronary artery without angina pectoris; G62.9 Polyneuropathy, unspecified; I50.32 Chronic diastolic (congestive) heart failure; E03.9 Hypothyroidism, unspecified; I11.0 Hypertensive heart disease with heart failure; E78.00 Pure hypercholesterolemia, unspecified; Z86.73 Personal history of transient ischemic attack (TIA), and cerebral infarction without residual deficits; Z87.891 Personal history of nicotine dependence; Z79.82 Long term (current) use of aspirin
CPT/HCPCS: 28825 ×2; 36415; 73630; 82948; 88305; 88311; 99999; J1170; J2704

== ENCOUNTER 2024-08-28 07:50 | Outpatient (OUT) | payer BC, SELFPAY ==
--- NOTE | 2024-08-25 07:51 | VEINCLINIC_ITS ---
Vital Signs 08/28/24 08:13 Height 5 ft 10 in Weight 83.915 kg BMI 26.5 BP 142/70 H BP Location Right Brachial BP Position Supine BP Cuff Size Adult BP Source Manual Cuff Respiration 18 Pulse 67 Pulse Oximetry (%) 96 Oxygen Delivery Method Room Air Comment The patient's blood pressure is elevated. Varicose Veins Patient in this day for comprehensive consult for bilateral painful varicose veins and edema for the past 2 months. PCP Melody Montes stopped Gabapentin due to edema. Patient now has worsening pain in bilateral feet. Patient has been wearing compression stockings for the past 8 years. Nj Nolasco MD personally performed the services described in this documentation, as scribed by Cat Stanton RN in my presence and it is both accurate and complete. Cat Nolasco RN, am scribing for, and in the presence of, Dr. Nj Ashby and in the presence of the patient. thigh: bilateral, knee: bilateral, calf: bilateral, ankle: bilateral and mcnair: bilateral sharp and other 7 2 months Worsened in recent months: Yes standing and walking bed rest and elevating extremities Reports fatigue, limb pain, edema and leg edema History of lower extremity trauma: No Superficial thrombophlebitis: No Family history of varicose veins: no Has patient had previous lower extremity venous surgery: No Patient has previously received the following treatment(s) for lower extremity varicose veins: Reports none Does patient have a history of : not applicable Does patient intend to have future pregnancies: not applicable Has patient had lower extremity venous scan with relux testing: Yes Support hose used: Yes Problems walking or doing physical activity: Yes How does it affect you: unable to walk long distances Do you walk much: No Do you stand much: No Review of Systems ROS Narrative Nj Nolasco MD personally performed the services described in this documentation, as scribed by Cat Stanton RN in my presence and it is both accurate and complete. Cat Nolasco RN, am scribing for, and in the presence of, Dr. Nj Ashby and in the presence of the patient. Status of ROS 10 or more systems reviewed and unremark able except as noted in history and below Cardiovascular Reports: edema and swelling of feet/ankles Musculoskeletal Reports: extremity pain, extremity swelling, joint pain, joint swelling and muscle weakness Integumentary/Breast Reports: rash, skin pain, skin tenderness and sores [facility] Medical History (Updated 08/28/24 @ 08:58 by Cat Stanton RN) Pain due to varicose veins of both lower extremities ?I83.813 - Varicose veins of bilateral lower extremities with pain (ICD-10) Left atrial enlargement ?I51.7 - Cardiomegaly (ICD-10) Neuropathy ?G62.9 - Polyneuropathy, unspecified (ICD-10) Heart murmur ?R01.1 - Cardiac murmur, unspecified (ICD-10) Seizures ?R56.9 - Unspecified convulsions (ICD-10) Chronic diastolic (congestive) heart failure ?I50.32 - Chronic diastolic (congestive) heart failure (ICD-10) Right sided weakness ?R53.1 - Weakness (ICD-10) Hypothyroidism ?E03.9 - Hypothyroidism, unspecified (ICD-10) Hypertension ?I10 - Essential (primary) hypertension (ICD-10) Contracture of joint of right hand ?M24.541 - Contracture, right hand (ICD-10) High cholesterol ?E78.00 - Pure hypercholesterolemia, unspecified (ICD-10) Hypothyroidism (acquired) ?E03.9 - Hypothyroidism, unspecified (ICD-10) Alcoholism ?F10.20 - Alcohol dependence, uncomplicated (ICD-10) Weakness (02/28/16) ?R53.1 - Weakness (ICD-10) CVA (cerebral vascular accident) (~03/2016) ?I63.9 - Cerebral infarction, unspecified (ICD-10) Hyponatremia (~2017) ?E87.1 - Hypo-osmolality and hyponatremia (ICD-10) Hammertoe ?M20.40 - Other hammer toe(s) (acquired), unspecified foot (ICD-10) Surgical History (Updated 12/20/23 @ 10:14 by Shobha Quiroz NP) H/O foot surgery (09/23/23) ?Z98.890 - Other specified postprocedural states (ICD-10) S/P cataract extraction and insertion of intraocular lens ?Z98.49 - Cataract extraction status, unspecified eye (ICD-10) ?Z96.1 - Presence of intraocular lens (ICD-10) H/O carotid endarterectomy (06/18/16) ?Z98.890 - Other specified postprocedural states (ICD-10) H/O colonoscopy (04/09/13) ?Z98.890 - Other specified postprocedural states (ICD-10) History of hammertoe correction ?Z98.890 - Other specified postprocedural states (ICD-10) ?Z87.39 - Personal history of other diseases of the musculoskeletal system and connective tissue (ICD-10) H/O foot surgery (06/13/19) ?Z98.890 - Other specified postprocedural states (ICD-10) H/O foot surgery (07/25/19) ?Z98.890 - Other specified postprocedural states (ICD-10) Family History (Updated 09/17/23 @ 12:31 by Shobha Quiroz NP) Other CAD (coronary artery disease) Family history of myocardial infarction Social History (Updated 09/23/23 @ 10:17 by Alba Varner RN) Within the past year, how often did you have a drink containing alcohol: 4 or more times a week Within the past year, how many standard drinks containing alcohol did you have on a typical day: 3 or 4 Within the past year, how often did you have six or more drinks on one occasion: daily or almost daily Total score: 6 Score interpretation: A score of 4 or more indicates drinking is likely to affect patient's safety. Smoking status: Former smoker Non-prescribed substance use: denies use Previous occupational history: [employer] Highest level of school completed/degree received: high school graduate Meds Home Medications and Allergies Home Medications ?Medication ?Instructions ?Recorded ?Confirmed ?Type aspirin 81 mg tablet,delayed 81 mg PO DAILY 09/17/23 12/30/23 History release (Adult Aspirin Regimen) levothyroxine 100 mcg tablet 100 mcg PO DAILY 09/17/23 12/30/23 History (Euthyrox) rosuvastatin 20 mg tablet (Crestor) 20 mg PO DAILY 09/17/23 12/30/23 History doxazosin 4 mg tablet 4 mg PO DAILY 09/23/23 12/30/23 History metoprolol succinate 50 mg 150 mg PO DAILY 09/23/23 12/30/23 History tablet,extended release 24 hr Allergies Allergy/AdvReac Type Severity Reaction Status Date / Time No Known Drug Allergies Allergy Verified 12/20/23 10:15 Exam Narrative Exam Narrative: Nj Nolasco MD personally performed the services described in this documentation, as scribed by Cat Stanton RN in my presence and it is both accurate and complete. ICat RN, am scribing for, and in the presence of, Dr. Nj Ashby and in the presence of the patient. Constitutional Documenting provider has reviewed patient's vital signs: yes Common normals: oriented x3 Lymph Lymphatic: no lymphedema noted Cardio Peripheral pulses: posterior tibial pulses present and dorsalis pedis pulses present Extremity General: edema and other findings Right lower extremity: lower leg Right lower leg: inspection and palpation Left lower extremity: lower leg Left lower leg: inspection and palpation Neuro Common normals: oriented x3 Assessment and Plan Assessment and Plan (1) Pain due to varicose veins of both lower extremities: Plan Explained vein anatomy and physiology to patient. Explained the development of varicose veins to patient.? Explained varicose vein treatments to patient, including laser ablation, microfoam chemical ablation (Varithena), injection sclerotherapy and microphlebectomy.? Explained potential risks and benefits of varicose vein treatments.? Patient verbalizes understanding and wants to pursue varicose vein treatment.? Dr. Ashby examines patient and reviews results of bilateral leg reflux u/s.? Patient and Dr. Ashby creates a plan of care.? Patient also agrees to purchase bilateral thigh high compression stockings and wear them as educated.? Patient also educated on exercise and rest elevation of bilateral legs. At this time, no venous treatment warranted. Dr. Ashby recommends CTA which will be managed by PCP. Nj Nolasco MD personally performed the services described in this documentation, as scribed by Cat Stanton RN in my presence and it is both accurate and complete. Cat Nolasco RN, am scribing for, and in the presence of, Dr. Nj Ashby and in the presence of the patient.
--- NOTE | 2024-08-25 08:59 | P.DS_ITS ---
Discharge Plan Discharge Disposition: Home, Self-Care Plan of Treatment: Ultrasound report will be sent to PCP Melody Montes with recommendations for CTA. Patient Instructions: Endovenous Ablation (GEN) Print Language: Bhutanese Discharge Date/Time: 08/28/24 09:51
--- NOTE | 2024-08-28 07:53 | VEIN_ITS ---
Patient Name: JENNIFER BARNES MR#: [id number] : 1960 Exam Date: 08/28/2024 Ordering Doctor: DR Isidro Sarmiento . RADIOLOGY REPORT PROCEDURE: FACILITY EST [facility]ENS[facility] - OFFICE VISIT INITIAL COMPARISON: None. PROGRESS NOTES: [age] year old male who presents with a several month history of lower extremity pain and swelling and chronic foot neuropathy. The patient's leg symptoms are symmetric bilaterally. There has been a improvement of symptoms since primary care provider stopped gabapentin. The patient describes a family history heart disease. The patient has drinking and smoking history of: alcohol consumption with total score of 6. Former smoker.. Patient has a past medical history significant for heart disease, seizure, hypothyroidism, stroke, hyponatremia, alcoholism, high cholesterol, hypertension. The patient denies a history of deep venous thrombus or pulmonary embolus. See separate history and physical for medication list. No prior treatment for varicose or spider veins. After review of nurse notes, history and physical exam I discussed at length the pathophysiology of venous hypertension and possible treatments, therapies and strategies available. We discussed at length the importance of elevating the lower extremities above the level of the heart, increased physical activity and compression stocking use. Ultrasound venous reflux study performed today was discussed at length with the patient. The report demonstrates mildly dilated mildly incompetent right and left great saphenous veins.. PHYSICAL EXAM: The right leg demonstrates minimal varicosities, a few scattered spider veins, no ulceration, mild edema, no skin discoloration. The left leg demonstrates minimal varicosities, a few scattered spider veins, no ulceration, mild edema, no skin discoloration. Both thighs, legs and feet were symmetrically warm to the touch. Good posterior tibial and dorsalis pedis pulses were present bilaterally. VEIN/VC Facility EST Comprehensive IMPRESSION: 1. Mild bilateral venous insufficiency 2. Mild lower extremity varicose veins 3. Mild lower extremity subcutaneous edema 4. Moderate-marked flow significant arterial disease 5. CEAP: C3, AP, , VT PLAN: 1. Use of compression stockings 2. Elevated legs and increased physical activity symptomatic relief 3. Recommendation is for CT angiography of the abdomen, pelvis, and lower extremities for further evaluation of marked atherosclerotic disease with abnormal monophasic waveform throughout the lower extremities and decreased flow velocities. 4. Patient's venous disease is mild, and likely has little contributory effect on patient's current symptoms. Follow-up in future as needed. Nurse notes, history and physical were reviewed and confirmed, see attached forms. The nurse was present throughout the physical exam and consultation Dictated by: Nj Ashby M.D. on 08/28/2024 at 09:57 Approved by: Nj Ashby M.D. on 08/28/2024 at 10:10
--- NOTE | 2024-08-28 07:54 | VEIN_ITS ---
[place] [id number] Patient Name: JENNIFER BARNES MRN: [id number] date: 1960 Sex: M Assigned Patient Location: Current Patient Location: Accession/Order Number: [id number] Exam Date: 08/28/2024 07:55 Report Date: 08/28/2024 09:55 At the request of: RADHA SCHMIDT Procedure: VC Arterial Scan Jeff EXAMINATION: VC Arterial Scan Jeff HISTORY: R09.89 ; arterial disease, lower extremity swelling, bilateral foot neuropathy COMPARISON: No relevant comparison available. TECHNIQUE: Color and Duplex Doppler ultrasound evaluation analysis were performed in the usual manner. FINDINGS: RIGHT LOWER EXTREMITY ARTERIAL: Monophasic waveform throughout the lower extremity with moderate plaque and vessel narrowing. No appreciable flow within the peroneal artery. External Iliac PSV: External Iliac EDV: Common Femoral PSV: 62.4 cm/s Common Femoral EDV: 8.7 cm/s Superficial Femoral Proximal PSV: -53.60 cm/s Proximal EDV: -8.70 cm/s Mid PSV: -85.20 cm/s Mid EDV: -11.20 cm/s Distal PSV: -86.50 cm/s Distal EDV: -9.90 cm/s Popliteal Proximal PSV Popliteal Proximal EDV: Posterior Tibial Proximal PSV: 52.70 cm/s Proximal EDV: 12.50 cm/s Mid PSV: Mid EDV: Distal PSV: -68.30 cm/s Distal EDV: -12.50 cm/s Anterior Tibial Proximal PSV: 60.50 cm/s Proximal EDV: 12.50 cm/s Mid PSV: Mid EDV: Distal PSV: 82.60 cm/s Distal EDV: 17.70 cm/s LEFT LOWER EXTREMITY ARTERIAL: Monophasic waveform throughout the lower extremity with moderate plaque and vessel narrowing. No appreciable flow within the peroneal artery. Diminished flow within the anterior tibial artery. External Iliac PSV: External Iliac EDV: Common Femoral PSV: 80 cm/s Common Femoral EDV: 16.4 cm/s Superficial Femoral Proximal PSV: -47.10 cm/s Proximal EDV: -9.20 cm/s Mid PSV: -48.90 cm/s Mid EDV: -7.40 cm/s Distal PSV: -58.40 cm/s Distal EDV: -9.20 cm/s Popliteal Proximal PSV: Popliteal Proximal EDV: Posterior Tibial Proximal PSV: -45.80 cm/s Proximal EDV: -8.70 cm/s Mid PSV: Mid EDV: Distal PSV: 48.70 cm/s Distal EDV: 11.60 cm/s Anterior Tibial Proximal PSV: -12.60 cm/s Proximal EDV: 0 cm/s Mid PSV: Mid EDV: Distal PSV: 10.40 cm/s Distal EDV: 0 cm/s VEIN/VC Arterial Scan Jeff IMPRESSION: 1. Abnormal monophasic waveform in decreased flow rate throughout both lower extremities secondary to moderate-marked atherosclerotic disease. 2. No appreciable flow within the peroneal arteries bilaterally, and diminished flow within left anterior tibial artery. 3. CTA abdomen, pelvis, and lower extremities is recommended for further evaluation, and specifically for evaluation of treatable flow restriction within the aorta or iliac arteries. Electronically authenticated by: KEYUR ALCANTAR Date: 08/28/2024 09:55
--- NOTE | 2024-08-28 07:54 | VEIN_ITS ---
Patient Name: JENNIFER BARNES MR#: [id number] : 1960 Exam Date: 08/28/2024 Ordering Doctor: DR Isidro Sarmiento . RADIOLOGY REPORT PROCEDURE: VC EXT VENOUS REFLUX GABI LMTD COMPARISON: None. INDICATIONS: Pain due to varicose veins of bilateral legs I83.813 TECHNIQUE: Duplex imaging of the lower extremity to assess the deep and superficial venous system for the presence of deep or superficial venous incompetence and to document the location and severity of disease. The study includes evaluation of the great saphenous vein (GSV), anterior accessory saphenous vein (AASV) and small saphenous vein (SSV). Patient scanned in reverse Trendelenburg and standing. FINDINGS: RIGHT LOWER EXTREMITY: Saphenofemoral Junction Reflux: Yes 10.3mm 1.2 sec GSV: Diam (mm) Reflux/ Time (sec) Proximal Thigh 7.6 Yes 0.7 Mid Thigh 5.1 Yes 0.8 Distal Thigh 6.4 Yes 0.5 Prox Calf 3.2 Yes 0.4 Mid Calf 3.5 Yes 0.9 Saphenopopliteal Junction Reflux: 3.1mm Yes 0.3 SSV: Proximal Calf 2.8 No Mid Calf 3.7 Yes 0.3 AASV: Not present Proximal Thigh Mid Thigh Distal Thigh Thrombi: No acute or chronic thrombus. Compressibility: Normal. Flow: Minimal deep venous reflux. Preforator: Distal medial lower leg measures 3.3 mm with 4.8s reflux. Tech Note: Incompetent varicose vein mid medial lower leg measures 4.0 mm with 1.1s reflux. LEFT LOWER EXTREMITY: Saphenofemoral Junction Reflux: Yes 6.5 mm 0.5 sec GSV: Diam (mm) Reflux/Time (sec) Proximal Thigh 6.0 Yes 0.5 Mid Thigh 4.8 Yes 0.5 Distal Thigh 4.9 Yes 0.6 Prox Calf 3.9 Yes 1.7 Mid Calf 3.5 Yes 0.5 Saphenopopliteal Junction Relux: 5.5 mm Yes 0.7 SSV: Proximal Calf 3.8 Yes 0.4 Mid Calf 3.6 Yes 0.3 AASV: Not present Proximal Thigh Mid Thigh Distal Thigh Thrombi: No acute or chronic thrombus. Compressibility: Normal. Flow: Mild deep venous reflux. Loom Operator Apprentice: Distal medial lower leg 2.7 mm with 0.6s reflux. Tech Note: Incompetent varicose vein proximal medial lower leg measures 2.7 mm with 0.4s reflux. CONCLUSION: 1. Mildly dilated and mildly incompetent great saphenous veins bilaterally. Dictated by: Nj Ashby M.D. on 08/28/2024 at 09:31 Approved by: Nj Ashby M.D. on 08/28/2024 at 09:47
[2024-08-28 08:13] VITALS: BP 142/70; PULSE 67; O2SAT 96; BMI 26.5
== END 2024-08-28 09:51 | disposition home or self-care (01) ==
LOC: VC 07:51
PROVIDERS: PCP Nurse Practitioner Family; Visit Provider Family Medicine
DX: R09.89 Other specified symptoms and signs involving the circulatory and respiratory systems (principal); R60.0 Localized edema; I83.813 Varicose veins of bilateral lower extremities with pain
CPT/HCPCS: 93925; 93970; G0463

== ENCOUNTER 2024-09-19 13:52 | Outpatient (OUT) | payer BC, SELFPAY ==
--- NOTE | 2024-09-19 13:55 | CA_ITS ---
Patient Name: JENNIFER BARNES MR#: [id number] : 1960 Exam Date: 09/19/2024 Ordering Doctor: LORY CASTELLANO CNP ECHOCARDIOGRAM REPORT PROCEDURE: CA ECHO DOPPLER COMPLETE INDICATIONS: Chronic diastolic heart failure COMPARISON: None. DESCRIPTION: COMPLETE ECHOCARDIOGRAM Real-time transthoracic echocardiography with 2D, M-mode, spectral and color flow Doppler performed. QUALITY: Technical quality was good. LEFT VENTRICLE: Normal chamber size. Systolic function is severely reduced. There is global hypokinesis. LV EF: Severely reduced left ventricular ejection fraction, (25-30%). DIASTOLIC: ATRIAL SEPTUM: LEFT ATRIUM: Moderate dilatation. RIGHT ATRIUM: Mild dilatation. RIGHT VENTRICLE: Normal chamber size mild dilatation. Normal right ventricular systolic function. TRICUSPID VALVE: Normal mobility and thickness. No stenosis with mild regurgitation. Mild pulmonary hypertension. RVSP 43 mmHg MITRAL VALVE: Normal mobility and thickness. No evidence of mitral valve stenosis. Mild mitral annular calcification. Mild mitral regurgitation. AORTIC VALVE: Normal trileaflet appearance. Mildly calcified aortic valve. Mildly diminished mobility. Doppler velocity suggest no aortic valve stenosis. Mild aortic regurgitation. AORTIC ROOT: Normal diameter and appearance. PULMONIC VALVE: Normal thickness and mobility. No stenosis. No regurgitation. PERICARDIUM: No evidence of pericardial effusion. IVC: Collapses with inspirations. Mildly dilated measuring 2.3 cm. PLEURA: CONCLUSION: 1. Left ventricular systolic function is severely reduced. There is global hypokinesis. Estimated LVEF is 25 to 30%. 2. Normal right ventricular size and systolic function. 3. Mild mitral, tricuspid and aortic regurgitation. 4. Mildly elevated right-sided pressures. Adult Echocardiography Procedure Report Left Ventricle LVEDD (3.7 - 5.6 cm): 5.62 cm LVESD (2.2 - 4.0 cm): 4.63 cm LVIVS thickness (0.6 - 1.2 cm): 1.10 cm LVPW thickness (0.5 - 1.0 cm): 1.23 cm e': 0.06 m/s E - e': 13.74 LVOT Max Gradient: 2.56 mm[Hg] LVOT Area (cm2): 0.80 m/s Peak Velocity (LVOT): 0.80 m/s Mean Velocity (LVOT): 0.50 m/s LVOT Diameter 2.25 cm Left Ventricular Ejection Fraction: 25- 30 % Left Atrium LA Volume Index (2D A2C): 54.98 ml/m2 Left Atrium Systolic Dimension: 4.15 cm Mitral Valve MV E to A Ratio: 3.17 Mitral Valve A-Wave Peak Velocity: 0.26 m/s Mitral Valve E-Wave Peak Velocity: 0.81 m/s Right Ventricle RV Internal Diastolic Dimension: 4.16 cm Aorta AO Root Diam: 2.97 cm Ascending Ao Diam: 2.72 cm Aortic Valve AoV Area (Peak Nael): 1.85 cm2, 1.85 cm2 AoV Area (VTI): 1.58 cm2, 1.58 cm2 Peak Velocity(Antegrade Flow): 1.71 m/s Peak Gradient(Antegrade Flow): 11.75 mm[Hg] Mean Velocity(Antegrade Flow): 1.11 m/s Mean Gradient(Antegrade Flow): 5.64 mm[Hg] Velocity Time Integral: 33.40 cm Tricuspid Valve Peak Velocity (Regurgitant Flow): 2.79 m/s, 2.82 m/s, 2.97 m/s Pulmonic Valve Mean Gradient: 0.82 mm[Hg], 1.07 mm[Hg] Mean Velocity: 0.41 m/s, 0.47 m/s Peak Velocity: 0.76 m/s Peak Gradient: 2.05 mm[Hg], 2.62 mm[Hg] Right Atrium Right Atrium Systolic Pressure: 95.58 ml, 95.58 ml Dictated by: Margarito Denney M.D. on 09/21/2024 at 20:15 Approved by: Margarito Denney M.D. on 09/21/2024 at 20:21
--- OUTSIDE RECORDS SUMMARY | 2024-09-19 14:03 | XMS_ITS | CCD ---
Author Organization [facility] Care Team Providers Care Burrer Machine Name Role Phone HAMPOLE, MANDO Unavailable Unavailable MARIE, CURTIS W Unavailable Unavailable HAMPOLE, MANDO Unavailable Unavailable MARIE, CURTIS W Unavailable Unavailable Richardson Penn Unavailable Unavailable Richardson Penn Unavailable Unavailable Richardson Penn Unavailable Unavailable CURTIS SALAZAR Unavailable Unavailable ROXANA, DR GARCIA Admitting Unavailable ROXANA, DR GARCIA Attending Unavailable ROXANA, DR GARCIA Primary Care Unavailable KRISTEL CASTELLANO Admitting Unavailable KRISTEL CASTELLANO Attending Unavailable ROXANA, DR GARCIA Primary Care Unavailable KRISTEL CASTELLANO Admitting Unavailable KRISTEL CASTELLANO Attending Unavailable KRISTEL CASTELLANO Primary Care Unavailable KRISTEL CASTELLANO Consulting Unavailable Simon [employer]RE [employer] Kristel Grady Primary Care Provider JARVIS Polo Attending Provider Kristel Castellano Primary Care Unavailable Cruz Polo Attending Unavailable Cruz Polo Admitting Unavailable SIMONE CAZARES Attending Unavailable SIMONE CAZARES Attending Unavailable SIMONE CAZARES Attending Unavailable SIMONE CAZARES Attending Unavailable SIMONE CAZARES Attending Unavailable Radha Sarmiento MD Primary Care Provider Allergies Allergy Classification Reported Allergen(s) Allergy Type Date of Onset Reaction(s) Facility (1 source) No Known Medication Allergies; Translations: [No Known Medication Allergies] Propensity to adverse reactions (disorder) [facility] Repository Medications Current Medications Medication Drug Class(es) Dates Sig (Normalized) Sig (Original) acetaminophen 300 mg / codeine phosphate 30 mg oral tablet (2 sources) Opioid Agonist Start: 12-30-2023 acetaminophen-co deine (Tylenol w/ Codeine #3) 300-30 MG tablet take 1 tablet by mouth every 6 hours NEEDED FOR PAIN (SCALE SCORE 7-10) for 7 days 12/30/2023 Active aspirin 81 mg delayed release oral tablet (2 sources) Platelet Aggregation Inhibitor, Nonsteroidal Anti-inflammatory Drug take 1 tablet by mouth in the morning aspirin 81 MG EC tablet Take 81 mg by mouth in the morning. Active doxazosin 1 mg oral tablet (5 sources) alpha-Adrenergic Micheal Start: 05-16-2023 doxazosin (Cardura) 1 MG tablet 05/16/2023 Active Start: 07-01-2021 doxazosin (Car dura) 4 MG tablet 04/18/2023 Active gabapentin 100 mg oral capsule (2 sources) Anti-epileptic Agent Start: 09-02-2023 take 1 capsule by mouth every eight hours gabapentin (Neurontin) 100 MG capsule 1 capsule every 8 (eight) hours 09/02/2023 Active hydroCHLOROthiazide 25 mg / lisinopril 20 mg oral tablet (2 sources) Thiazide Diuretic, Angiotensin Converting Enzyme Inhibitor take 1 tablet by mouth in the morning lisinopril-hydroC HLOROthiazide 20-25 MG tablet Take 1 tablet by mouth in the morning. Active levothyroxine sodium 0.1 mg oral tablet (3 sources) l-Thyroxine Start: 07-01-2021 levothyroxine (Synthroid, Levoxyl) 100 MCG tablet 1 (one) time each day at the same time. 01/19/2023 Active 24 hr metoprolol succinate 50 mg extended release oral tablet (3 sources) beta-Adrenergic Micheal Start: 02-15-2023 take 1 tablet by mouth every twenty-four hours in the morning metoprolol succinate XL (Toprol-XL) 50 MG 24 hr tablet Take 150 mg by mouth in the morning. 02/15/2023 Active Start: 07-01-2021 take 50 mg by mouth once daily Metoprolol Succinate Active 50 MG PO Daily July 01, 2021 12:00am rosuvastatin calcium 20 mg oral tablet (3 sources) HMG-CoA Reductase Inhibitor Start: 07-01-2021 rosuvastatin (Cresto r) 20 MG tablet 1 (one) time each day at the same time. 01/19/2023 Active Completed/Discontinued Medications Medication Drug Class(es) Dates Sig (Normalized) Sig (Original) 4 ml bevacizumab 25 mg/ml injection (2 sources) Vascular Endothelial Growth Factor Inhibitor Start: 06-20-2024 End: 06-20-2024 bevacizumab (Avastin) intravitreal chemo injection 1.25 mg Start: 06-20-2024 End: 06-20-2024 1.25 mg, Intravitreal, Once PRN Procedure, Starting on Wed06/20/24 at 1014, For 1 dose Problems Active Problems Problem Classification Problem Date Documented Da te Episodic/Chronic Other screening for suspected conditions (not mental disorders or infectious disease) (2 sources) Encounter for screening for malignant neoplasm of prostate; Translations: [Patient encounter status] Onset: 10-03-2022 09-15-2023 Episodic Retinal detachments; defects; vascular occlusion; and retinopathy (1 source) Exudative age-related macular degeneration; Translations: [Exudative age-related macular degeneration, right eye, with active choroidal neovascularizatio n] 06-20-2024 Chronic Past or Other Problems Problem Classification Problem Date Documented Da te Episodic/Chronic Other aftercare (1 source) Encounter for follow-up examination after completed treatment for conditions other than malignant neoplasm; Translations: [Encounter for follow-up examination after completed treatment for conditions other than malignant neoplasm] Onset: 04-27-2017 Episodic Results Test Name Value Interpretation Reference Range Facility Intravitreal Injection, Phar macologic Agent - OD - Right Eyeon 06-20-2024 [facility] Radiology Study observation (narrative) [facility] Optical coherence tomography study reporton 06-20-2024 [facility] Right Eye Quality was good. Scan locations included subfoveal, juxtafoveal, extrafoveal. Progression has improved. Findings include choroidal neovascular membrane. Left Eye Quality was good. Scan locations included subfoveal, juxtafoveal, extrafoveal. Progression has been stable. Notes Scans were reviewed and compared to previous scans Choroidal neovascular membrane (CNVM) remains stable without any signs of new bleeding or extension of retinal pigment epithelium detachment (RPED) Opposite eye with dry amd [facility] Radiology Study observation (narrative) [facility] Claude 12-30-2023 L Specimen: [id number] Received: 12/30/23-1208 Status: JAYLON Magaña Num: [id number] Spec Type: Surgical Subm Dr: Cruz Polo,DPM, MS Tissues: A DIGIT AMPUTATION (RT 3RD/4TH TOES) Procedures: HE/2, Gross/Micro L4, Decalcification Age/ Patient Sex Location Account Attending Physician Prosper Mckeon 63/M LABELL [id number] Cruz Polo DPM, MS SPEC NUM: [id number] RECD: 12/30/23 STATUS: JAYLON MAGAÑA NUM: [id number] RAQUEL: 12/30/23 [facility] DR: Cruz Polo DPM, MS ENTERED: 12/30/[address]: Mckayla,Lab SPEC TYPE: Surgical DEPT: BHASKAR GRACIA ORDERED: HE/2, Gross/Micro L4, Decalcification ORDERED: HE/2, Gross/Micro L4, Decalcification Pathological Diagnosis Right third and fourth toe, amputations: Features consistent with hammer toes. Clinical Information Hammertoes right foot Gross Description Received in formalin labeled with the patient's name, date of and right third and fourth toe amputations are two distal digits consistent with distal toe measuring 1.7 x 1.5 x 0.9 cm (inked black) and 1.5 x 1.7 x 1.0 cm (inked blue). Each is partially surfaced by a edward-jain toenail. The cut surface of each is yellow-edward, trabecular. Roadway Engineer are submitted following decalcification in one cassette labeled A1. CPT Codes 09656, 32991 Specimen: [id number] Received: 12/30/23 Status: JAYLON Magaña Num: [id number] Spec Type: Surgical Subm Dr: Cruz Polo,DPM, MS Tissues: A DIGIT AMPUTATION (RT 3RD/4TH TOES) Procedures: HE/2, Gross/Micro L4, Decalcification Patient: Prosper Mckeon [id number] (Continued) Signed (signature on file) Gen Canas MD 01/03/24 1431 Normal [facility] INSULINon 10-01-2022 Insulin 11.4 uIU/mL Normal 2.6-24.9 [facility] Comment on above: Performed By: #### I NSULIN #### [facility] [address] [place] [address] Dr. Natalya Olvera CBC AUTO DIFFon 09-30-2022 BASO # 0.1 103/ul Normal 0.0-0.1 [facility] Comment on above: Performed By: #### C BC #### [facility] [address] [place] [address] Dr. Natalya Olvera Basophils/100 WBC (Bld) 0.8 % Normal 0.2-2.0 [facility] Comment on above: Performed By: #### C BC #### [facility] [address] [place] [address] Dr. Natalya Olvera EO # 0.2 103/ul Normal 0.0-0.7 [facility] Comment on above: Performed By: #### C BC #### [facility] [address] [place] [address] Dr. Natalya Olvera Eosinophils/100 WBC (Bld) 2.4 % Normal 0.9-7.0 [facility] Comment on above: Performed By: #### C BC #### [facility] [address] [place] [address] Dr. Natalya Olvera Erythrocyte distribution width (RBC) [Ratio] 12.0 % Normal 11.0-15.0 [facility] Comment on above: Performed By: #### C BC #### [facility] [address] [place] [address] Dr. Natalya Olvera Hematocrit (Bld) [Volume fraction] 40.9 % Critically low 42.0-54.0 [facility] Comment on above: Performed By: #### C BC #### [facility] [address] [place] [address] Dr. Natalya Olvera Hemoglobin (Bld) [Mass/Vol] 14.1 g/dL Normal 14.0-18.0 [facility] Comment on above: Performed By: #### C BC #### [facility] [address] [place] [address] Dr. Natalya Olvera IG # 0.04 10e3/ul Critically high 0.00-0.03 [facility] Comment on above: Performed By: #### C BC #### [facility] [address] [place] [address] Dr. Natalya Olvera IG % 0.6 % Critically high 0.0-0.5 [facility] Comment on above: Performed By: #### C BC #### [facility] [address] [place] [address] Dr. Natalya Olvera LYMPH # 1.7 103/ul Normal 1.2-3.[address] [facility] Comment on above: Performed By: #### C BC #### [facility] [address] [place] [address] Dr. Natalya Olvera Lymphocytes/100 WBC (Bld) 27.0 % Normal 20.5-60.0 [facility] Comment on above: Performed By: #### C BC #### [facility] [address] [place] [address] Dr. Natalya Olvera MANUAL DIFF REQ NO Normal [facility] Comment on above: Performed By: #### C BC #### [facility] [address] [place] [address] Dr. Natalya Olvera MCH (RBC) [Entitic mass] 31.7 pg Normal 25.9-34.0 [facility] Comment on above: Performed By: #### C BC #### [facility] [address] [place] [address] Dr. Natalya Olvera MCHC (RBC) [Mass/Vol] 34.5 g/dL Normal 29.9-35.2 [facility] Comment on above: Performed By: #### C BC #### [facility] [address] [place] [address] Dr. Natalya Olvera MCV (RBC) [Entitic vol] 91.9 fL Normal 80.0-94.0 [facility] Comment on above: Performed By: #### C BC #### [facility] [address] [place] [address] Dr. Natalya Olvera MONO # 0.6 103/ul Normal 0.3-0.8 [facility] Comment on above: Performed By: #### C BC #### [facility] [address] [place] [address] Dr. Natalya Olvera Monocytes/100 WBC (Bld) 10.0 % Normal 1.7-12.0 [facility] Comment on above: Performed By: #### C BC #### [facility] [address] [place] [address] Dr. Natalya Olvera NEUT # 3.8 103/ul Normal 1.4-6.5 [facility] Comment on above: Performed By: #### C BC #### [facility] [address] [place] [address] Dr. Natalya Olvera Neutrophils/100 WBC (Bld) 59.2 % Normal 43.0-75.0 [facility] Comment on above: Performed By: #### C BC #### [facility] [address] [address] [address] Natalya Olvera Platelet mean volume (Bld) [Entitic vol] 10.7 fL Normal 9.5-13.5 [facility] Comment on above: Performed By: #### C BC #### [facility] [address] [address] [address] Natalya Olvera PLT 232 103/ul Normal 150-[address] [facility] Comment on above: Performed By: #### C BC #### [facility] [address] [address] [address] Natalya Olvera RBC 4.45 106/ul Critically low 4.70-6.10 [facility] Comment on above: Performed By: #### C BC #### [facility] [address] [place] [address] Dr. Natalya Olvera WBC 6.4 103/ul Normal 4.0-11.0 [facility] Comment on above: Performed By: #### C BC #### [facility] [address] [place] [address] Dr. Natalya Olvera GLYCOHEMOGLOBIN A1Con 2021 ADA RECOMMENDATION SEE BELOW Normal [facility] Comment on above: Result Comment: ADA RECOMMENDED LIMIT 4.0 - 6.0 ADA THERAPEUTIC TARGET < 7.0 ACTION SUGGESTED > 7.0 Performed By: #### A 1C #### [facility] [address] [place] [address] Dr. Natalya Olvera Glucose [Mass/Vol] 94 mg/dL Normal [facility] Comment on above: Performed By: #### A 1C #### [facility] [address] [place] [address] Dr. Natalya Olvera HbA1c (Bld) [Mass fraction] 4.9 % Normal 4.5-6.2 [facility] Comment on above: Performed By: #### A 1C #### [facility] [address] [place] [address] Dr. Natalya Olvera LIPID PROFILEon 09-30-2022 CHOL-HDL RATIO NORM SEE BELOW Normal [facility] Comment on above: Result Comment: 3.3 - 4.4 LOW RISK 4.4 - 7.1 AVERAGE RISK 7.1 - 11.0 MODERATE RISK >11.0 HIGH RISK Performed By: #### L IPID, URIC, CMP #### [facility] [address] [address] [address] Natalya Olvera Cholesterol [Mass/Vol] 156 mg/dL Normal <=200 [facility] Comment on above: Performed By: #### L IPID, URIC, CMP #### [facility] [address] [address] [address] Natalya Olvera Cholesterol in HDL [Mass/Vol] 71 mg/dL Critically high 40-60 [facility] Comment on above: Performed By: #### L IPID, URIC, CMP #### [facility] [address] [address] [address] Natalya Olvera Cholesterol in LDL [Mass/Vol] 68.0 mg/dL Normal [facility] Comment on above: Performed By: #### L IPID, URIC, CMP #### [facility] [address] [address] [address] Natalya Olvera Cholesterol.total/C holesterol in HDL [Mass ratio] 2.2 {ratio} Normal [facility] Comment on above: Performed By: #### L IPID, URIC, CMP #### [facility] [address] [address] [address] Natalya Olvera HDL NORMAL > or = 60 mg/dl - LO W CARDIOVASCULAR RISK <40 mg/dl - HIGH CARDIOVASCULAR RISK Normal [facility] Comment on above: Performed By: #### L IPID, URIC, CMP #### [facility] [address] [address] [address] Natalya Olvera LDL CALC NORMAL SEE BELOW Normal [facility] Comment on above: Result Comment: <100 mg/dl OPTIMAL 100 - 129 mg/dl NEAR OR ABOVE OPTIMAL 130 - 159 mg/dl BORDERLINE HIGH 160 - 189 mg/dl HIGH >190 mg/dl VERY HIGH Performed By: #### L IPID, URIC, CMP #### [facility] [address] [address] [address] Natalya Olvera Triglyceride [Mass/Vol] 85 mg/dL Normal <=[address] [facility] Comment on above: Performed By: #### L IPID, URIC, CMP #### [facility] [address] [address] [address] Natalya Olvera VLDL CALC 17.0 mg/dL Normal [facility] Comment on above: Performed By: #### L IPID, URIC, CMP #### [facility] [address] [address] [address] Natalya Olvera PROF 14(COMP METB)on 022 Albumin [Mass/Vol] 4.1 g/dL Normal 3.4-5.0 [facility] Comment on above: Performed By: #### L IPID, URIC, CMP #### [facility] [address] [address] [address] Natalya Olvera Albumin/Globulin [Mass ratio] 1.1 {ratio} Normal [facility] Comment on above: Performed By: #### L IPID, URIC, CMP #### [facility] [address] [address] [address] Natalya Olvera ALP [Catalytic activity/Vol] 71 U/L Normal 46-116 [facility] Comment on above: Performed By: #### L IPID, URIC, CMP #### [facility] [address] [address] [address] Natalya Olvera ALT [Catalytic activity/Vol] 37 U/L Normal 16-[address] [facility] Comment on above: Performed By: #### L IPID, URIC, CMP #### [facility] [address] [address] [address] Natalya Olvera Anion gap [Moles/Vol] 12.2 mmol/L Normal [facility] Comment on above: Performed By: #### L IPID, URIC, CMP #### [facility] [address] [address] [address] Natalya Olvera AST [Catalytic activity/Vol] 30 U/L Normal 15-37 [facility] Comment on above: Performed By: #### L IPID, URIC, CMP #### [facility] [address] [place] [address] Dr. Natalya Olvera Bilirubin [Mass/Vol] 0.9 mg/dL Normal 0.2-1.0 [facility] Comment on above: Performed By: #### L IPID, URIC, CMP #### [facility] [address] [place] [address] Dr. Natalya Olvera Calcium [Mass/Vol] 8.8 mg/dL Normal 8.5-10.1 [facility] Comment on above: Performed By: #### L IPID, URIC, CMP #### [facility] [address] [place] [address] Dr. Natalya Olvera Chloride [Moles/Vol] 95 mmol/L Critically low 98-107 [facility] Comment on above: Performed By: #### L IPID, URIC, CMP #### [facility] [address] [place] [address] Dr. Natalya Olvera CO2 [Moles/Vol] 30.0 mmol/L Normal 21.0-32.0 [facility] Comment on above: Performed By: #### L IPID, URIC, CMP #### [facility] [address] [place] [address] Dr. Natalya Olvera Creatinine [Mass/Vol] 0.61 mg/dL Critically low 0.70-1.30 [facility] Comment on above: Performed By: #### L IPID, URIC, CMP #### [facility] [address] [place] [address] Dr. Natalya Olvera EGFR-AF CITIZEN OF [place] >60 Normal >=60 [facility] Comment on above: Performed By: #### L IPID, URIC, CMP #### [facility] [address] [place] [address] Dr. Natalya Olvera EGFR-NON AF CITIZEN OF [place] >60 Normal >=60 [facility] Comment on above: Performed By: #### L IPID, URIC, CMP #### [facility] [address] [place] [address] Dr. Natalya Olvera Globulin (S) [Mass/Vol] 3.8 g/dL Normal [facility] Comment on above: Performed By: #### L IPID, URIC, CMP #### [facility] [address] [address] [address] Natalya Olvera Glucose [Mass/Vol] 102 mg/dL Normal 74-106 [facility] Comment on above: Performed By: #### L IPID, URIC, CMP #### [facility] [address] [place] [address] Dr. Natalya Olvera Potassium [Moles/Vol] 4.2 mmol/L Normal 3.5-5.1 [facility] Comment on above: Performed By: #### L IPID, URIC, CMP #### [facility] [address] [place] [address] Dr. Natalya Olvera Protein [Mass/Vol] 7.9 g/dL Normal 6.4-8.2 [facility] Comment on above: Performed By: #### L IPID, URIC, CMP #### [facility] [address] [place] [address] Dr. Natalya Olvera Sodium [Moles/Vol] 133 mmol/L Critically low 136-145 [facility] Comment on above: Performed By: #### L IPID, URIC, CMP #### [facility] [address] [place] [address] Dr. Natalya Olvera Urea nitrogen [Mass/Vol] 7.0 mg/dL Normal 7.0-18.0 [facility] Comment on above: Performed By: #### L IPID, URIC, CMP #### [facility] [address] [place] [address] Dr. Natalya Olvera Urea nitrogen/Creatinine [Mass ratio] 11.5 mg/mg Normal [facility] Comment on above: Performed By: #### L IPID, URIC, CMP #### [facility] [address] [place] [address] Dr. Natalya Olvera URIC ACID SERUMon 09-30-2022 Urate [Mass/Vol] 4.3 mg/dL Normal 3.5-7.2 [facility] Comment on above: Performed By: #### L IPID, URIC, CMP #### [facility] [address] [address] [address] Natalya Maynard 10-12-2017 CNOV Office Visit (CARDFT) PROSPER MCKEON ([id number]) 1960 MDate Time Provider Department10/12/17 1:30 PM MANDO VELASQUEZ During your visit today, we recorded the following information about you: Pulse Respiration Blood pressure Weight 89/minute 18/minute 142/89 83.5 kg Height 1.778 Jacquelyn Velasquez MD 10/12/2017 1:44 PM [facility]Fl[facility] Jaclyn [facility] Department of Cardiovascular MedicineOUTPATIENT VISIT DATE 10/12/17OUTPATIENT VISIT TYPEESTABLISHEDPRFORMERLY [facility]ID[facility]ITALRY CARE PHYSICIAN:Curtis Salazar, [id number] [facility] [address]Eewng: [phone]: [phone] COMPLAINT:Systolic HFHISTORY OF PRESENT ILLNESS:Prosper Mckeon is [...] Beer (12oz) per weekNo family history on file.ALLERGIES:ALLERGIESN o Known AllergiesMEDICATIONS:levE TIRAcetam (KEPPRA) 500 mg tablet Take by mouth every other day.sodium chloride 1 gram tab Take by mouth three times daily.lisinopril-hydrochl orothiazide (PRINZIDE, ZESTORETIC) 20-25 mg per tablet Take1 tablet by mouth once daily.levothyroxine (SYNTHROID) 100 mcg tablet Take 100 mcg by mouth daily beforebreakfast.rosuvasta tin (CRESTOR) 20 mg tablet Take 1 tablet by mouth daily at bedtime.aspirin, enteric coated (ADULT LOW DOSE ASPIRIN) 81 mg EC tablet Take 1 tabletby mouth once daily.REVIEW OF SYSTEMS:GENERAL: Negative for: Fever, Fatigue.CARDIAC: See HPI above.HEENT: Negative for: Ringing in Ears, nosebleeds, bleeding gums. + PoordentitionNECK: Negative for: Pain, stiffnessRESPIRATORY: Negative for: Blood in sputum, wheezing.GASTROINTESTINAL : Negative for: Trouble swallowing, blood in stoolMUSCULOSKELETAL: Negative for: Joint stiffness and painNEUROLOGIC: Negative for: Numbness, tremorsPSYCHIATRIC: Negative for: Anxiety, depressionSKIN: Negative for: Rashes, itchingHEMATOLOGICAL/LYMP HATIC: Negative for: Easy bruising, easy bleeding, painfullymph nodesI personally interviewed, confirmed and edited the above information ifobtained by others.PHYSICAL EXAMINATION:BP 142/89 Pulse 89 Resp 18 Ht 177.8 cm (5' 10ANDquot;) Wt 83.5 kg (184lb) SpO2 97% BMI 26.4 kg/a1Dxbvdey: Well appearing, in no acute distress.Neuro: Oriented [...] pulses in distal lower extremities. Absent lower extremityedema?CARDIOVASC ULAR MEDICINE TESTING:CTA, neck: Mirna 2016CTA left neck: tandem stenosis of the [...] have personally reviewed the above Cardiovascular Medicine Testing.?IMPRESSION/PLAN: Mr. Mckeon is a 56 year old male [...] clinic in 6 months. Pending studies: Echo, patientwill call me for results??CONTACT INFORMATION:Thank you for allowing us to assist in the care your patient. As always pleasedo not hesitate to contact us with further questions or concerns.?Mando Velasquez M.D.[facility] Cardiovascular MedicineCleveland Clinic Mary[facility] Hospitalrt and Vascular InstituteDenise Ville [id number], [place] [address]Bndalg: [phone] Referring Provider: CURTIS SALAZAR [[id number]]Allergies As of Date: 10/12/2017(No Known Allergies)Date Reviewed: 10/12/2017Reviewed by: Cliff Sadler (Rn) SALENA Mcfarlane - Fully AssessedPrimary Visit Diagnosis:Systolic heart failure, unspecified heart failure chronicity (HCC) [I50.20] Other Visit Diagnoses:Essential hypertension [I10] Bicuspid aortic valve [Q23.1]Order(s):ECHO [720710] Order #: [id number]: 1 FUTUREPrescriptions as of 10/12/2017 Sig: LEVETIRACETAM [...] mouth once d*Problem List As Of Date: 10/12/2017(None)Dispositi on: Return in about 6 months (around 04/11/2018).Follow-up and Disposition History RecordedEncounter Number: [id number] Status:Closed by MANDO VELASQUEZ MD on 10/12/17 Normal [facility] PROGRESSon 10-11-2017 PROGRESS HNO ID: [id number] thor: Mando VelasquezSer: (none)Author Type: PhysicianType: Progress NotesFiled: 10/12/2017 1:44 PMNote Text:[facility] and Vascular InstituteFlanagan and Jaclyn [facility] Department of Cardiovascular MedicineOUTPATIENT VISIT DATE 10/12/17OUTPATIENT VISIT TYPEESTABLISHEDPRIMARY CARE PHYSICIAN:Curtis Salazar, [id number] [facility] [address]Wncnw: [phone]: [phone] COMPLAINT:Systolic HFHISTORY OF PRESENT ILLNESS:Prosper Mckeon is [...] Beer (12oz) per weekNo family history on file.ALLERGIES:ALLERGIESN o Known AllergiesMEDICATIONS:levE TIRAcetam (KEPPRA) 500 mg tablet Take by mouth every other day.sodium chloride 1 gram tab Take by mouth three times daily.lisinopril-hydrochl orothiazide (PRINZIDE, ZESTORETIC) 20-25 mg per tabletTake 1 [...] Pain, stiffnessRESPIRATORY: Negative for: Blood in sputum, wheezing.GASTROINTESTINAL : Negative for: Trouble swallowing, blood in stoolMUSCULOSKELETAL: Negative for: Joint stiffness and painNEUROLOGIC: Negative for: Numbness, tremorsPSYCHIATRIC: Negative for: Anxiety, depressionSKIN: Negative for: Rashes, itchingHEMATOLOGICAL/LYMP HATIC: Negative for: Easy bruising, easy bleeding,painful lymph nodesI personally interviewed, confirmed and edited the above information ifobtained by others.PHYSICAL EXAMINATION:BP 142/89 Pulse 89 Resp 18 Ht 177.8 cm (5' 10 ) Wt 83.5 kg (184lb) SpO2 97% BMI 26.4 kg/m2Setztmc: Well appearing, in no acute distress.Neuro: Oriented to person, place and time, alert, cooperative.Eyes: Extra ocular movements intact, pupils react to lightNeck: No jugular venous distention, no palpable thyromegaly.Heart: Regular rhythm, S1, S2 normal, no S3, no S4. No murmur.Lungs: Expiratory wheezes. Good respiratory effort.Abdomen: Soft, nontender, bowel sounds normal, no palpablehepatosplenomegal ySkin: No clubbing, no cyanosis.Extremities: Normal pulses in [...] have personally reviewed the above Cardiovascular Medicine Testing.?IMPRESSION/PLAN: Mr. Mckeon is a 56 year old male [...] valve: L-R cusp fusion. Trivial AI, no stenosis.Euvolemic.Hypert ension: Adequately controlled at home. Target JNC VIII [...] M.D.[facility] of Cardiovascular MedicineHeart and Vascular InstituteMercy Health [facility] Hospital[address], [place] [address]Sfeksd: [phone] [facility] CNOVon 04-27-2017 CNOV Office Visit (CARDFT) PROSPER MCKEON ([id number]) 1960 MDate Time Provider Department04/27/17 11:30 AM MANDO VELASQUEZ During your visit today, we recorded the following information about you: Pulse Respiration Blood pressure Weight 74/minute 18/minute 154/78 83.5 kg Height 1.778 Jacquelyn Velasquez MD 04/27/2017 11:48 AM [facility] InstituteRobert [facility] Jaclyn [facility] Department of Cardiovascular MedicineOUTPATIENT VISIT DATE 04/27/17OUTPATIENT VISIT TYPEESTABLISHEDPRIMARY CARE PHYSICIAN:Curtis Salazar, [id number] [facility] [address]Dffih: [phone]: [phone] COMPLAINT:Systolic HFHISTORY OF PRESENT ILLNESS:Prosper Mckeon is [...] Systolic heart failure (HCC)- Tobacco abusePAST SURGICAL SVHPNDS29/23/16: CEA Left Comment: with patch angioplastySocial HistorySubstance Use Topics- Smoking status: Never Smoker- Smokeless tobacco: Not on file- Alcohol use 63.0 oz/week 42 Cans of Beer (12oz) per weekNo family history on file.ALLERGIES:ALLERGIESN o Known AllergiesMEDICATIONS:levE TIRAcetam (KEPPRA) 500 mg tablet Take by mouth every other day.sodium chloride 1 gram tab Take by mouth three times daily.lisinopril-hydrochl orothiazide (PRINZIDE, ZESTORETIC) 20-25 mg per tablet Take1 tablet by mouth once daily.levothyroxine (SYNTHROID) 100 mcg tablet Take 100 mcg by mouth daily beforebreakfast.rosuvasta tin (CRESTOR) 20 mg tablet Take 1 tablet by mouth daily at bedtime.aspirin, enteric coated (ADULT LOW DOSE ASPIRIN) 81 mg EC tablet Take 1 tabletby mouth once daily.REVIEW OF SYSTEMS:GENERAL: Negative for: Fever, Fatigue.CARDIAC: See HPI above.HEENT: Negative for: Ringing in Ears, nosebleeds, bleeding gums. + PoordentitionNECK: Negative for: Pain, stiffnessRESPIRATORY: Negative for: Blood in sputum, wheezing.GASTROINTESTINAL : Negative for: Trouble swallowing, blood in stoolMUSCULOSKELETAL: Negative for: Joint stiffness and painNEUROLOGIC: Negative for: Numbness, tremorsPSYCHIATRIC: Negative for: Anxiety, depressionSKIN: Negative for: Rashes, itchingHEMATOLOGICAL/LYMP HATIC: Negative for: Easy bruising, easy bleeding, painfullymph nodesI personally interviewed, confirmed and edited the above information ifobtained by others.PHYSICAL EXAMINATION:BP 154/78 Pulse 74 Resp 18 Ht 177.8 cm (5' 10ANDquot;) Wt 83.5 kg (184lb) SpO2 98% BMI 26.4 kg/k5Boemfsn: Well appearing, in no acute distress. Has [...] pulses in distal lower extremities. Trace lower extremityedema?CARDIOVASC ULAR MEDICINE TESTING:CTA, neck: April 2016CTA left neck: [...] have personally reviewed the above Cardiovascular Medicine Testing.?IMPRESSION/PLAN: Mr. Mckeon is a 56 year old male [...] or concerns.?Mando Velasquez M.D.[facility] Benavidespartment of Cardiovascular MedicineHeart and Vascular InstituteMer[facility], [place] [address]Wyithq: [phone] Referring Provider: CURTIS SALAZAR [[id number]]Allergies As of Date: 04/27/2017(No Known Allergies)Date Reviewed: [...] mouth once d*Problem List As Of Date: 04/27/2017(None)Dispositi on: Return in about 5 months (around 09/27/2017).Follow-up and Disposition History RecordedEncounter Number: [id number] Status:Closed by MANDO VELASQUEZ MD on 04/27/17 Normal [facility] PROGRESSon 04-26-2017 PROGRESS HNO ID: [id number] thor: Mando Brown: (none)Author Type: PhysicianType: Progress NotesFiled: 04/27/2017 11:48 AMNote Text:Heart and Vascular InstituteFlanagan and Jaclyn [facility] Department of Cardiovascular MedicineOUTPATIENT VISIT DATE 04/27/17OUTPATIENT VISIT TYPEESTABLISHEDPRIMARY CARE PHYSICIAN:Curtis Salazar, [id number] [facility] [address]Zbbsu: [phone]: [phone] COMPLAINT:Systolic HFHISTORY OF PRESENT ILLNESS:Prosper Mckeon is [...] Systolic heart failure (HCC)- Tobacco abusePAST SURGICAL EMLUQJE54/23/16: CEA Left Comment: with patch angioplastySocial HistorySubstance Use Topics- Smoking status: Never Smoker- Smokeless tobacco: Not on file- Alcohol use 63.0 oz/week 42 Cans of Beer (12oz) per weekNo family history on file.ALLERGIES:ALLERGIESN o Known AllergiesMEDICATIONS:levE TIRAcetam (KEPPRA) 500 mg tablet Take by mouth every other day.sodium chloride 1 gram tab Take by mouth three times daily.lisinopril-hydrochl orothiazide (PRINZIDE, ZESTORETIC) 20-25 mg per tabletTake 1 [...] Pain, stiffnessRESPIRATORY: Negative for: Blood in sputum, wheezing.GASTROINTESTINAL : Negative for: Trouble swallowing, blood in stoolMUSCULOSKELETAL: Negative for: Joint stiffness and painNEUROLOGIC: Negative for: Numbness, tremorsPSYCHIATRIC: Negative for: Anxiety, depressionSKIN: Negative for: Rashes, itchingHEMATOLOGICAL/LYMP HATIC: Negative for: Easy bruising, easy bleeding,painful lymph nodesI personally interviewed, confirmed and edited the above information ifobtained by others.PHYSICAL EXAMINATION:BP 154/78 Pulse 74 Resp 18 Ht 177.8 cm (5' 10 ) Wt 83.5 kg (184lb) SpO2 98% BMI 26.4 kg/o8Mkobvim: Well appearing, in no acute distress. Has cane for balanceNeuro: Oriented to person, place and time, alert, cooperative.Eyes: Extra ocular movements intact, pupils react to lightNeck: No jugular venous distention, no palpable thyromegaly.Heart: Regular rhythm, S1, S2 normal, no S3, no S4. No murmur.Lungs: Expiratory wheezes. Good respiratory effort.Abdomen: Soft, nontender, bowel sounds normal, no palpablehepatosplenomegal ySkin: No clubbing, no cyanosis.Extremities: Normal pulses in [...] have personally reviewed the above Cardiovascular Medicine Testing.?IMPRESSION/PLAN: Mr. Mckeon is a 56 year old male [...] valve: L-R cusp fusion. Trivial AI, no stenosis.Euvolemic.Hypert ension: Adequately controlled at home. Target JNC VIII targetguidelines.?Carotid stenosis: L CEA May 2016. Management per Dr Penn. Continuestatin, ASA.?Disposition: Follow up in clinic in 5 months. Pending studies: none??CONTACT INFORMATION:Thank you for allowing us to assist in the care your patient. As alwaysplease do not hesitate to contact us with further questions or concerns.?Mando Velasquez M.D.[facility] of Cardiovascular MedicineCleveland Clinic Marymount Hospitalrt and Vascular InstituteJames Ville [address] [place], [place] [address]Pjszpf: [phone] [facility] Encounters Encounter Date Encounter Type Care Provider Facility Start: 06-20-2024 End: 06-20-2024 Bamboo flowsheet Simone Cazares MD Work Phone: [facility] Start: 06-20-2024 End: 06-20-2024 Bamboo flowsheet Simone Cazares MD Work Phone: [facility] Start: 06-20-2024 End: 06-20-2024 ambulatory SIMONE CAZARES Not Available Start: 03-21-2024 End: 03-21-2024 ambulatory SIMONE CAZARES Not Available Start: 12-30-2023 End: 12-30-2023 ambulatory Kristel Castellano Facility:[facility] Start: 12-30-2023 End: 12-30-2023 ambulatory [employer] Kristel Castellano Work Phone: [facility] Work Phone: Start: 12-30-2023 End: 12-30-2023 Departed Referred [employer] Kristel Castellano Work Phone: [facility] Start: 12-21-2023 End: 12-21-2023 ambulatory SIMONE CAZARES Not Available Start: 10-19-2023 End: 10-19-2023 ambulatory SIMONE CAZARES Not Available Start: 08-17-2023 End: 08-17-2023 ambulatory SIMONE CAZARES Not Available Start: 10-03-2022 Encounter for genera l adult medical examination without abnormal findings KRISTEL CASTELLANO [facility] Start: 09-30-2022 End: 10-01-2022 ambulatory KRISTEL CASTELLANO Facility:[facility] Start: 09-30-2022 End: 10-01-2022 Encounter for general adult medical examination without abnormal findings KRISTEL CASTELLANO Facility:[facility] Start: 08-05-[address] RADHA SARMIENTO Facility :[facility] Start: 01-27-2022 ambulatory KRISTEL CASTELLANO Facility: [facility] Start: 10-12-2017 End: 10-14-2017 Ambulatory [facility] Start: 04-27-2017 End: 05-03-2017 Ambulatory [facility] Start: 03-10-2017 End: 03-11-2017 Ambulatory Richardson Penn Facility:[place] Procedures Date Procedure Procedure Detail Performing Clinician Start: 06-20-2024 Intravitreal njx pharmacologic agt spx Simone Cazares MD Work Phone: Start: 06-20-2024 Computerized ophthalmic imaging retina Simone Cazares MD Work Phone: Start: 06-20-2024 End: 06-20-2024 Ophth medical xm&eval intermediate estab pt Exudative age-related macular degeneration of right eye with active choroidal neovascularization ([facility]/HCC) Simone Cazares MD Work Phone: Comment on above: Retinal Injection Start: 09-30-[address] RAÚL SARMIENTO Comment on above: Performed By: #### P [facility] #### [facility] [address] [place] [address] Dr. aNtalya Olvera Plan of Treatment Date Care Activity Detail Author Start: 06-20-2024 End: 06-20-2024 Clinical Support 06/20/2024 9:45 AM EDT Clinical Support [facility] [address] [place] [address] Simone Cazares MD [address] [place] [address] Arrived [facility] Comment on above: Arrived Start: 06-04-2024 Influenza vaccination Influenza Vacc ine (#1) [facility] Start: 1960 Screening for malign ant neoplasm of colon [facility] Immunizations Immunization Date Immunization Notes Care Provider Fa cility 02-06-2021 COVID-19 mRNA-1273 (Moderna) [employer] Kristel Castellano Work Phone: [facility] 01-09-2021 COVID-19 mRNA-1273 (Moderna) LOUIE Castellano Work Phone: [facility] Payers Date Payer Category Payer Self-pay [id number] 2022 Unknown BCBS BCBS xxxxxx [id number] 2022-Present [phone] [address] [place] [address] [id number] 1960 Unknown [id number] 1960 Unknown [id number] 1960 Unknown [id number] 1960 Unknown [id number] 1960 Unknown [id number] 1960 Unknown [id number] 1960 Unknown [id number] 1960 Unknown [id number] 1959 Self-pay [id number] 1959 Unknown [id number] Unknown [id number] Social History Date Type Detail Facility Start: 07-01-2021 End: 03-21-2024 Tobacco smoking status NHIS Ex-smoker (finding) [facility] Start: 1960 Sex Assigned At Male F [facility] History of tobacco use Current smoker [facility] History of tobacco use Cigarette Smoker N [facility] Start: 03-21-2024 Tobacco use and exposure Smokeless tobacco non-user [facility] Start: 03-21-2024 End: 06-20-2024 Alcoholic beverage intake Ex-drinker (finding) [facility] Start: 05-19-2023 End: 03-21-2024 Alcoholic beverage intake [facility] Start: 05-19-2023 Tobacco use panel [facility] Start: 1960 Sex assigned at Not on file N [facility] Clinical Note 06-20-2024 Note Date & Type Note Facility 06-20-2024 Note Time Out 06/20/2024. 10:14 AM. Confirmed correct patient, procedure, site, and patient consented. Anesthesia Topical anesthesia was used. Anesthetic medications included Lidocaine 2%, Proparacaine 0.5%. Procedure Preparation included 5% betadine to ocular surface, eyelid speculum. A 30 gauge needle was used. Injection: 1.25 mg bevacizumab 100 MG/4ML Route: Intravitreal, Site: Right Eye [facility]: 89483-196-82, Lot: [id number], Expiration date: 08/21/2024, Waste: 3.95 mL Post-op Post injection exam found visual acuity of at least counting fingers, no retinal detachment, perfused optic nerve. The patient tolerated the procedure well. There were no complications. The patient received written and verbal post procedure care education. Post injection medications were not given. Notes Intravitreal antiVEGF Treatment: Risks, benefits and alternatives were discussed for Intravitreal injection with the prescribed antiVEGF agent. With intraocular surgery, there is potential for direct retinal damage through retinal or RPE tear, or infection, with subsequent vision loss. Informative Intravitreal pamphlet provided as well as an OMIC consent. Of course, the treatment may fail to accomplish the overall therapeutic objectives, which is to stall or decrease the amount of retinal edema / bleeding, and therefore stall or improve vision loss. Intravitreal Anti-VEGF: Consent was obtained and questions answered. Operative eye was identified, receiving topical proparacaine, 5% betadine, and 2% xylocaine jelly. A lid speculum was placed and the inferotemp. injection site received additional anesthetic with a proparacaine soaked cotton swab. Using calipers (set at 3.5mm for pseudo and 4mm for phakic), the inferotemp. limbus was measured, sclera marked and 2 additional drops of betadine placed. Avoiding any talking to avoid contamination, intravitreal injection was carried out without difficulty. Any residual amount of medication was discarded appropriately. The patient tolerated the procedure well and instructed to call with increased pain, redness, decreased vision or concerns. [facility] History of Present illness Narrative 06-20-2024 Simone Cazares MD - 06/20/2024 9:45 AM EDT Note Date & Type Note Facility 06-20-2024 History of Presen t illness Narrative Assessment/Plan Intravitreal Avastin: Risks, benefits and alternatives were discussed for Intravitreal Avastin. With intraocular surgery, there is potential for direct retinal damage through retinal or RPE tear, or infection, with subsequent vision loss. Informative Intravitreal pamphlet provided as well as OMIC Avastin consent. Of course, the treatment may fail to accomplish the overall therapeutic objectives, which is to stall or decrease the amount of retinal edema / bleeding, and therefore stall or improve vision loss. Intravitreal Anti-VEGF: Consent was obtained and questions answered. Operative eye was identified, receiving topical proparacaine, 5% betadine, and 2% xylocaine jelly. A lid speculum was placed and the inferotemp. injection site received additional anesthetic with a proparacaine soaked cotton swab. Using calipers (set at 3.5mm for pseudo and 4mm for phakic), the inferotemp. limbus was measured, sclera marked and 2 additional drops of betadine placed. Avoiding any talking to avoid contamination, intravitreal injection was carried out without difficulty. Any residual amount of medication was discarded appropriately. The patient tolerated the procedure well and instructed to call with increased pain, redness, decreased vision or concerns. documented in this encounter [facility] Evaluation note Note Date & Type Note Facility Evaluation note No assessment information availa [facility] Work Phone: Evaluation note Note Date & Type Note Facility Evaluation note Diagnosis Exudative age-related macular degeneration of right eye with active choroidal neovascularization (CMS/HCC) documented in this encounter [facility] Summary Purpose Family History Relationship Condition Age at Onset Recorded Date/T hank Not Specified No pertinent family history Unknown father Heart disease Unknown Advance Directives Advance Directive Response Recorded Date/ Time Advance Directives No June 3:14pm Additional Source Comments (unrecognized sect ion and content) No Status Records FoundNo Status Records FoundNo Status Records FoundNo Status Records FoundNo Status Records Found INFORMATION SOURCE (unrecogn ized section and content) DATE CREATED AUTHOR 03/29/2018 [facility] DATE CREATED AUTHOR AUTHOR'S ORGANIZ ATION 03/30/2018 [place] [facility] DATE CREATED AUTHOR AUTHOR'S ORGANIZ ATION 10/03/2022 [facility] DATE CREATED AUTHOR AUTHOR'S ORGANIZ ATION 01/04/2024 [facility] DATE CREATED AUTHOR AUTHOR'S ORGANIZ ATION 06/22/2024 [facility] Care Teams (unrecognized sec tion and content) Team Status: Active Member Role Status Dates Kristel Castellano NP-C Primary Care Provider Active Team Status: Inactive Member Role Status Dates Kristel Castellano NP-C Primary Care Provider Active Start: December 30, 2023 End: December 30, 2023 Cruz Polo DPM MS Attending Provider Active Start: December 30, 2023 End: December 30, 2023 [employer] Relationship Specialty Start Date End Date Radha Sarmiento MD [address] [place] [address] PCP - General Family Medicine 04/19/23 Burrer Machine Relationship Specialty Start Date End Date Radha Sarmiento MD [address] [place] [address] PCP - General Family Medicine 04/19/23 Goals (unrecognized section and content) Goals may be documented in a n alternate section Reason for Visit (unrecogniz ed section and content) Reason Comments Retinal Injection FOR RECORDS PERTAINING TO PATIENTS WHO ARE [...] BE BASED ON THE PRIMARY CLINICAL RECORDS. [facility]. provides no warranty or guarantee of the accuracy or completeness of information in this document.
== END 2024-09-19 13:53 | disposition home or self-care (01) ==
LOC: CARD 13:52
PROVIDERS: PCP Nurse Practitioner Family; Visit Provider Nurse Practitioner Family
DX: Z00.00 Encounter for general adult medical examination without abnormal findings (principal); I50.32 Chronic diastolic (congestive) heart failure
CPT/HCPCS: 93306; 93356

== ENCOUNTER 2024-09-21 12:12 | Outpatient (OUT) | payer BC, SELFPAY ==
--- OUTSIDE RECORDS SUMMARY | 2024-09-21 12:16 | XMS_ITS | CCD ---
Author Organization [facility] Care Team Providers Care Fundraising Coordinator Name Role Phone HAMPOLE, MANDO Unavailable Unavailable [...] Care Unavailable KRISTEL CASTELLANO Consulting Unavailable Simon HEEL SPRAYER-C Kristel Grady Primary Care Provider JARVIS Polo Attending Provider Kristel Castellano Primary Care Unavailable Cruz Polo Attending Unavailable Cruz Polo Admitting Unavailable SIMONE CAZARES Attending Unavailable SIMONE CAZARES Attending Unavailable SIMONE CAZARES Attending Unavailable SIMONE CAZARES Attending Unavailable SIMONE CAZARES Attending Unavailable Radah Sarmiento MD Primary Care Provider Allergies Allergy Classification Reported Allergen(s) Allergy Type Date of Onset Reaction(s) Facility (1 source) No Known Medication Allergies; Translations: [No Known Medication Allergies] Propensity to adverse reactions (disorder) [facility] Repository Medications Current Medications Medication Drug Class(es) [...] extended release oral tablet (3 sources) beta-Adrenergic Mciheal Start: 02-15-2023 take 1 tablet by mouth [...] Agent - OD - Right Eyeon 06-20-2024 [facility] Radiology Study observation (narrative) [facility] Optical coherence tomography study reporton 06-20-2024 [facility] Right Eye Quality was good. 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 [facility] Radiology Study observation (narrative) [facility] Claude 12-30-2023 L Specimen: [id number] Received: 12/30/23-1208 Status: JAYLON Magaña Num: [id number] Spec Type: Surgical Subm Dr: Cruz Polo,DPM, MS Tissues: A DIGIT AMPUTATION (RT 3RD/4TH TOES) Procedures: HE/2, Gross/Micro L4, Decalcification Age/ Patient Sex Location Account Attending Physician Prosper Mckeon 63/M LABELL [id number] Cruz Polo DPM, MS SPEC NUM: [id number] RECD: 12/30/23 STATUS: JAYLON MAGAÑA NUM: [id number] RAQUEL: 12/30/[address] [address]: Cruz Polo DPM, MS ENTERED: 12/30/23 [...] cut surface of each is yellow-edward, trabecular. Automatic Spinning Lathe Setter are submitted following decalcification in one cassette labeled A1. CPT Codes 55050, 77963 Specimen: [id number] Received: 12/30/23 Status: JAYLON Magaña Num: [id number] Spec Type: Surgical Subm Dr: Cruz Polo,DPM, MS Tissues: A DIGIT AMPUTATION (RT 3RD/4TH TOES) Procedures: HE/2, Gross/Micro L4, Decalcification Patient: Prosper Mckeon [id number] (Continued) Signed (signature on file) Gen Canas MD 01/03/24 1431 Normal [facility] INSULINon 10-01-2022 Insulin 11.4 uIU/mL Normal 2.6-24.9 [facility] Comment on above: Performed By: #### I NSULIN #### [facility] [address] [place] [address] Dr. Natalya Olvera CBC AUTO DIFFon 09-30-2022 BASO # 0.1 103/ul Normal 0.0-0.1 [facility] Comment on above: Performed By: #### C BC #### [facility] [address] [place] [address] Dr. Natalya Olvera Basophils/100 WBC (Bld) 0.8 % Normal 0.2-2.0 [facility] Comment on above: Performed By: #### C BC #### [facility] [address] [place] [address] Dr. Natalya Olvera EO # 0.2 103/ul Normal 0.0-0.7 [facility] Comment on above: Performed By: #### C BC #### [facility] [address] [place] [address] Dr. Natalya Olvera Eosinophils/100 WBC (Bld) 2.4 % Normal 0.9-7.0 [facility] Comment on above: Performed By: #### C BC #### [facility] [address] [place] [address] Dr. Natlaya Olvera Erythrocyte distribution width (RBC) [Ratio] 12.0 % Normal 11.0-15.0 [facility] Comment on above: Performed By: #### C BC #### [facility] [address] [place] [address] Dr. Natalya Olvera Hematocrit (Bld) [Volume fraction] 40.9 % Critically low 42.0-54.0 [facility] Comment on above: Performed By: #### C BC #### [facility] [address] [place] [address] Dr. Natalya Olvera Hemoglobin (Bld) [Mass/Vol] 14.1 g/dL Normal 14.0-18.0 [facility] Comment on above: Performed By: #### C BC #### [facility] [address] [place] [address] Dr. Natalya Olvera IG # 0.04 10e3/ul Critically high 0.00-0.03 [facility] Comment on above: Performed By: #### C BC #### [facility] [address] [place] [address] Dr. Natalya Olvera IG % 0.6 % Critically high 0.0-0.[address] [facility] Comment on above: Performed By: #### C BC #### [facility] [address] [place] [address] Dr. Natalya Olvera LYMPH # 1.7 103/ul Normal 1.2-3.8 [facility] Comment on above: Performed By: #### C BC #### [facility] [address] [place] [address] Dr. Natalya Olvera Lymphocytes/100 WBC (Bld) 27.0 % Normal 20.5-60.0 [facility] Comment on above: Performed By: #### C BC #### [facility] [address] [place] [address] Dr. Natalya Olvera MANUAL DIFF REQ NO Normal [facility] Comment on above: Performed By: #### C BC #### [facility] [address] [place] [address] Dr. Natalya Olvera MCH (RBC) [Entitic mass] 31.7 pg Normal 25.9-34.0 [facility] Comment on above: Performed By: #### C BC #### [facility] [address] [place] [address] Dr. Natalya Olvera MCHC (RBC) [Mass/Vol] 34.5 g/dL Normal 29.9-35.2 [facility] Comment on above: Performed By: #### C BC #### [facility] [address] [place] [address] Dr. Natalya Olvera MCV (RBC) [Entitic vol] 91.9 fL Normal 80.0-94.0 [facility] Comment on above: Performed By: #### C BC #### [facility] [address] [place] [address] Dr. Natalya Olvera MONO # 0.6 103/ul Normal 0.3-0.8 [facility] Comment on above: Performed By: #### C BC #### [facility] [address] [place] [address] Dr. Natalya Olvera Monocytes/100 WBC (Bld) 10.0 % Normal 1.7-12.0 [facility] Comment on above: Performed By: #### C BC #### [facility] [address] [place] [address] Dr. Natalya Olvera NEUT # 3.8 103/ul Normal 1.4-6.5 [facility] Comment on above: Performed By: #### C BC #### [facility] [address] [place] [address] Dr. Natalya Olvera Neutrophils/100 WBC (Bld) 59.2 % Normal 43.0-75.0 [facility] Comment on above: Performed By: #### C BC #### [facility] [address] [address] [address] Natalya Olvera Platelet mean volume (Bld) [Entitic vol] 10.7 fL Normal 9.5-13.5 [facility] Comment on above: Performed By: #### C BC #### [facility] [address] [address] [address] Natalya Olvera PLT 232 103/ul Normal 150-450 [facility] Comment on above: Performed By: #### C BC #### [facility] [address] [address] [address] Natalya Olvera RBC 4.45 106/ul Critically low 4.70-6.10 [facility] Comment on above: Performed By: #### C BC #### [facility] [address] [place] [address] Dr. Natalya Olvera WBC 6.4 103/ul Normal 4.0-11.0 [facility] Comment on above: Performed By: #### C BC #### [facility] [address] [place] [address] Dr. Natalya Olvera GLYCOHEMOGLOBIN A1Con 2021 ADA RECOMMENDATION SEE BELOW Normal [facility] Comment on above: Result Comment: ADA RECOMMENDED LIMIT 4.0 - 6.0 ADA THERAPEUTIC TARGET < 7.0 ACTION SUGGESTED > 7.0 Performed By: #### A 1C #### [facility] [address] [place] [address] Dr. Natalya Olvera Glucose [Mass/Vol] 94 mg/dL Normal [facility] Comment on above: Performed By: #### A 1C #### [facility] [address] [place] [address] Dr. Natalya Olvera HbA1c (Bld) [Mass fraction] 4.9 % Normal 4.5-6.2 [facility] Comment on above: Performed By: #### A 1C #### [facility] [address] [place] [address] Dr. Natalya Olvera LIPID PROFILEon 09-30-2022 CHOL-HDL RATIO NORM SEE BELOW Normal [facility] Comment on above: Result Comment: 3.3 - 4.4 LOW RISK 4.4 - 7.1 AVERAGE RISK 7.1 - 11.0 MODERATE RISK >11.0 HIGH RISK Performed By: #### L IPID, URIC, CMP #### [facility] [address] [address] [address] Natalya Olvera Cholesterol [Mass/Vol] 156 mg/dL Normal <=200 [facility] Comment on above: Performed By: #### L IPID, URIC, CMP #### [facility] [address] [address] [address] Natalya Olvera Cholesterol in HDL [Mass/Vol] 71 mg/dL Critically high 40-60 [facility] Comment on above: Performed By: #### L IPID, URIC, CMP #### [facility] [address] [address] [address] Natalya Olvera Cholesterol in LDL [Mass/Vol] 68.0 mg/dL Normal [facility] Comment on above: Performed By: #### L IPID, URIC, CMP #### [facility] [address] [address] [address] Natalya Olvera Cholesterol.total/C holesterol in HDL [Mass ratio] 2.2 {ratio} Normal [facility] Comment on above: Performed By: #### L IPID, URIC, CMP #### [facility] [address] [address] [address] Natalya Olvera HDL NORMAL > or = 60 mg/dl - LO W CARDIOVASCULAR RISK <40 mg/dl - HIGH CARDIOVASCULAR RISK Normal [facility] Comment on above: Performed By: #### L IPID, URIC, CMP #### [facility] [address] [address] [address] Natalya Olvera LDL CALC NORMAL SEE BELOW Normal [facility] Comment on above: Result Comment: <100 mg/dl OPTIMAL 100 - 129 mg/dl NEAR OR ABOVE OPTIMAL 130 - 159 mg/dl BORDERLINE HIGH 160 - 189 mg/dl HIGH >190 mg/dl VERY HIGH Performed By: #### L IPID, URIC, CMP #### [facility] [address] [address] [address] Natalya Olvera Triglyceride [Mass/Vol] 85 mg/dL Normal <=150 [facility] Comment on above: Performed By: #### L IPID, URIC, CMP #### [facility] [address] [address] [address] Natalya Olvera VLDL CALC 17.0 mg/dL Normal [facility] Comment on above: Performed By: #### L IPID, URIC, CMP #### [facility] [address] [address] [address] Natalya Olvera PROF 14(COMP METB)on 022 Albumin [Mass/Vol] 4.1 g/dL Normal 3.4-5.0 [facility] Comment on above: Performed By: #### L IPID, URIC, CMP #### [facility] [address] [address] [address] Natalya Olvera Albumin/Globulin [Mass ratio] 1.1 {ratio} Normal [facility] Comment on above: Performed By: #### L IPID, URIC, CMP #### [facility] [address] [address] [address] Natalya Olvera ALP [Catalytic activity/Vol] 71 U/L Normal 46-116 [facility] Comment on above: Performed By: #### L IPID, URIC, CMP #### [facility] [address] [address] [address] Natalya Olvera ALT [Catalytic activity/Vol] 37 U/L Normal 16-63 [facility] Comment on above: Performed By: #### L IPID, URIC, CMP #### [facility] [address] [address] [address] Natalya Olvera Anion gap [Moles/Vol] 12.2 mmol/L Normal [facility] Comment on above: Performed By: #### L IPID, URIC, CMP #### [facility] [address] [address] [address] Natalya Olvera AST [Catalytic activity/Vol] 30 U/L Normal 15-37 [facility] Comment on above: Performed By: #### L IPID, URIC, CMP #### [facility] [address] [place] [address] Dr. Natalya Olvera Bilirubin [Mass/Vol] 0.9 mg/dL Normal 0.2-1.0 [facility] Comment on above: Performed By: #### L IPID, URIC, CMP #### [facility] [address] [place] [address] Dr. Natalya Olvera Calcium [Mass/Vol] 8.8 mg/dL Normal 8.5-10.1 [facility] Comment on above: Performed By: #### L IPID, URIC, CMP #### [facility] [address] [place] [address] Dr. Natalya Olvera Chloride [Moles/Vol] 95 mmol/L Critically low 98-107 [facility] Comment on above: Performed By: #### L IPID, URIC, CMP #### [facility] [address] [place] [address] Dr. Natalya Olvera CO2 [Moles/Vol] 30.0 mmol/L Normal 21.0-32.0 [facility] Comment on above: Performed By: #### L IPID, URIC, CMP #### [facility] [address] [place] [address] Dr. Natalya Olvera Creatinine [Mass/Vol] 0.61 mg/dL Critically low 0.70-1.30 [facility] Comment on above: Performed By: #### L IPID, URIC, CMP #### [facility] [address] [place] [address] Dr. Natalya Olvera EGFR-AF CITIZEN OF [place] >60 Normal >=60 [facility] Comment on above: Performed By: #### L IPID, URIC, CMP #### [facility] [address] [place] [address] Dr. Natalya Olvera EGFR-NON AF CITIZEN OF [place] >60 Normal >=60 [facility] Comment on above: Performed By: #### L IPID, URIC, CMP #### [facility] [address] [place] [address] Dr. Natalya Olvera Globulin (S) [Mass/Vol] 3.8 g/dL Normal [facility] Comment on above: Performed By: #### L IPID, URIC, CMP #### [facility] [address] [address] [address] Natalya Olvera Glucose [Mass/Vol] 102 mg/dL Normal 74-106 [facility] Comment on above: Performed By: #### L IPID, URIC, CMP #### [facility] [address] [place] [address] Dr. Natalya Olvera Potassium [Moles/Vol] 4.2 mmol/L Normal 3.5-5.1 [facility] Comment on above: Performed By: #### L IPID, URIC, CMP #### [facility] [address] [place] [address] Dr. Natalya Olvera Protein [Mass/Vol] 7.9 g/dL Normal 6.4-8.2 [facility] Comment on above: Performed By: #### L IPID, URIC, CMP #### [facility] [address] [place] [address] Dr. Natalya Olvera Sodium [Moles/Vol] 133 mmol/L Critically low 136-145 [facility] Comment on above: Performed By: #### L IPID, URIC, CMP #### [facility] [address] [place] [address] Dr. Natalya Olvera Urea nitrogen [Mass/Vol] 7.0 mg/dL Normal 7.0-18.0 [facility] Comment on above: Performed By: #### L IPID, URIC, CMP #### [facility] [address] [place] [address] Dr. Natalya Olvera Urea nitrogen/Creatinine [Mass ratio] 11.5 mg/mg Normal [facility] Comment on above: Performed By: #### L IPID, URIC, CMP #### [facility] [address] [place] [address] Dr. Natalya Olvera URIC ACID SERUMon 09-30-2022 Urate [Mass/Vol] 4.3 mg/dL Normal 3.5-7.2 [facility] Comment on above: Performed By: #### L IPID, URIC, CMP #### [facility] [address] [address] [address] Natalya Maynard 10-12-2017 CNOV Office Visit (CARDFT) PROSPER MCKEON ([id number]) 1960 MDate Time Provider Department10/12/17 1:30 PM MANDO VELASQUEZ During your visit today, we recorded the following information about you: Pulse Respiration Blood pressure Weight 89/minute 18/minute 142/89 83.5 kg Height 1.778 Jacquelyn Velasquez MD 10/12/2017 1:44 PM [facility] Department of Cardiovascular MedicineOUTPATIENT VISIT DATE 10/12/17OUTPATIENT VISIT TYPEESTABLISHEDPRCAROMONT HEALTHRY CARE PHYSICIAN:Curtis Salazar, DH[address] [facility] [address]Szkoy: [phone]: [phone] COMPLAINT:Systolic HFHISTORY OF PRESENT ILLNESS:Prosper Mckeon is [...] 83.5 kg (184lb) SpO2 97% BMI 26.4 kg/p3Cjxpysp: Well appearing, in no acute distress.Neuro: Oriented [...] or concerns.?Mando Velasquez M.D.[facility] of Cardiovascular MedicineSelect Medical Cleveland Clinic [facility] Beachwoodrt and Vascular InstituteTony Ville [id number], [place] [address]Rxjucb: [phone] Referring Provider: CURTIS SALAZAR [[id number]]Allergies As of Date: 10/12/2017(No Known Allergies)Date Reviewed: 10/12/2017Reviewed by: Cliff Sadler (Rn) SALENA Mcfarlane - Fully AssessedPrimary Visit Diagnosis:Systolic heart failure, unspecified heart failure chronicity (HCC) [I50.20] Other Visit Diagnoses:Essential hypertension [I10] Bicuspid aortic valve [Q23.1]Order(s):ECHO [309820] Order #: [id number]: 1 FUTUREPrescriptions as of 10/12/2017 Sig: LEVETIRACETAM [...] (around 04/11/2018).Follow-up and Disposition History RecordedEncounter Number: [id number] Status:Closed by MANDO VELASQUEZ MD on 10/12/17 Normal [facility] PROGRESSon 10-11-2017 PROGRESS HNO ID: [id number] thor: Mando VelasquezSer: (none)Author Type: PhysicianType: Progress NotesFiled: 10/12/2017 1:44 PMNote Text:Heart and Vascular InstituteCliff and Jaclyn [facility] Department of Cardiovascular MedicineOUTPATIENT VISIT DATE 10/12/17OUTPATIENT VISIT TYPEESTABLISHEDPRIMARY CARE PHYSICIAN:Curtis Salazar, [place] [facility] [address]Dzuch: [phone]: [phone] COMPLAINT:Systolic HFHISTORY OF PRESENT ILLNESS:Prosper Mckeon is [...] 83.5 kg (184lb) SpO2 97% BMI 26.4 kg/x2Ykjkxcn: Well appearing, in no acute distress.Neuro: Oriented [...] M.D.[facility] Roque of Cardiovascular MedicineHeart and Vascular InstituteMiddletown Hospital[address], [place] [address]Jsjefh: [phone] [facility] CNOVon 04-27-2017 CNOV Office Visit (CARDFT) PROSPER MCKEON ([id number]) 1960 MDate Time Provider Department04/27/17 11:30 AM MANDO VELASQUEZ During your visit today, we recorded the following information about you: Pulse Respiration Blood pressure Weight 74/minute 18/minute 154/78 83.5 kg Height 1.778 Jacquelyn Velasquez MD 04/27/2017 11:48 AM [facility] InstituteRobert [facility] Department of Cardiovascular MedicineOUTPATIENT VISIT DATE 04/27/17OUTPATIENT VISIT TYPEESTABLISHEDPRIMARY CARE PHYSICIAN:Curtis Salazar, FT[address] [facility] [address]Zfqcq: [phone]: [phone] COMPLAINT:Systolic HFHISTORY OF PRESENT ILLNESS:Prosper Mckeon is [...] Systolic heart failure (HCC)- Tobacco abusePAST SURGICAL FKNBKOR10/23/16: CEA Left Comment: with patch angioplastySocial HistorySubstance [...] 83.5 kg (184lb) SpO2 98% BMI 26.4 kg/y8Gqswiub: Well appearing, in no acute distress. Has [...] M.D.Clinton Benavidespartment of Cardiovascular MedicineHeart and Vascular InstituteMiddletown Hospital[address], [place] [address]Vwswdb: [phone] Referring Provider: CURTIS SALAZAR [[id number]]Allergies As of Date: 04/27/2017(No Known Allergies)Date Reviewed: [...] (around 09/27/2017).Follow-up and Disposition History RecordedEncounter Number: [id number] Status:Closed by MANDO VELASQUEZ MD on 04/27/17 Normal [facility] PROGRESSon 04-26-2017 PROGRESS HNO ID: [id number] thor: Mando Brown: (none)Author Type: PhysicianType: Progress NotesFiled: 04/27/2017 11:48 AMNote Text:Heart and Vascular InstituteCliff and Jaclyn [facility] Department of Cardiovascular MedicineOUTPATIENT VISIT DATE 04/27/17OUTPATIENT VISIT TYPEESTABLISHEDPRIMARY CARE PHYSICIAN:Curtis Salazar, PZ5375 [facility] [address]Sftlp: [phone]: [phone] COMPLAINT:Systolic HFHISTORY OF PRESENT ILLNESS:Prosper Mckeon is [...] Systolic heart failure (HCC)- Tobacco abusePAST SURGICAL GNPSCVO95/23/16: CEA Left Comment: with patch angioplastySocial HistorySubstance [...] 83.5 kg (184lb) SpO2 98% BMI 26.4 kg/m7Qgqptke: Well appearing, in no acute distress. Has [...] or concerns.?Mando Velasquez M.D.[facility] of Cardiovascular MedicineSelect Medical [facility] Clinic [facility]woodrt and Vascular InstituteMegan V[place] [address] [address] [place], [place] [address]Jlboab: [phone] Normal [facility] Encounters Encounter Date Encounter Type Care Provider Facility Start: 06-20-2024 End: 06-20-2024 Bamboo flowsheet Simone Cazares MD Work Phone: [facility] Start: 06-20-2024 End: 06-20-2024 Bamboo flowsheet Simone Cazares MD Work Phone: [facility] Start: 06-20-2024 End: 06-20-2024 ambulatory SIMONE CAZARES Not Available Start: 03-21-2024 End: 03-21-2024 ambulatory SIMONE CAZARES Not Available Start: 12-30-2023 End: 12-30-2023 ambulatory Kristel Castellano Facility:[facility] Start: 12-30-2023 End: 12-30-2023 ambulatory HEEL SPRAYER-C Kristel Castellano Work Phone: [facility] Work Phone: Start: 12-30-2023 End: 12-30-2023 Departed Referred HEEL SPRAYER-C Kristel Castellano Work Phone: [facility] Start: 12-21-2023 End: 12-21-2023 ambulatory SIMONE CAZARES Not Available Start: 10-19-2023 End: 10-19-2023 ambulatory SIMONE CAZARES Not Available Start: 08-17-2023 End: 08-17-2023 ambulatory SIMONE CAZARES Not Available Start: 10-03-2022 Encounter for genera l adult medical examination without abnormal findings KRISTEL CASTELLANO [facility] Start: 09-30-2022 End: 10-01-2022 ambulatory KRISTEL CASTELLANO Facility:[facility] Start: 09-30-2022 End: 10-01-2022 Encounter for general adult medical examination without abnormal findings KRISTEL CASTELLANO Facility:[facility] Start: 08-05-[address] RADHA SARMIENTO Facility :[facility] Start: 01-27-2022 ambulatory KRISTEL CASTELLANO Facility: [facility] Start: 10-12-2017 End: 10-14-2017 Ambulatory [facility] Start: 04-27-2017 End: 05-03-2017 Ambulatory [facility] Start: 03-10-2017 End: 03-11-2017 Ambulatory Richardson [facility] [place] [place] Date Procedure Procedure Detail Performing Clinician Start: 06-20-2024 Intravitreal njx pharmacologic agt spx Simone Cazares MD Work Phone: Start: 06-20-2024 Computerized ophthalmic imaging retina Simone Cazares MD Work Phone: Start: 06-20-2024 End: 06-20-2024 Ophth medical xm&eval intermediate estab pt Exudative age-related macular degeneration of right eye with active choroidal neovascularization ([facility]/HCC) Simone Cazares MD Work Phone: Comment on above: Retinal Injection Start: 09-30-[address] RAÚL SARMIENTO Comment on above: Performed By: #### P [facility] #### [facility] [address] [place] [address] Dr. Natalya Olvera Plan of Treatment Date Care Activity Detail Author Start: 06-20-2024 End: 06-20-2024 Clinical Support 06/20/2024 9:45 AM EDT Clinical Support [facility] [address] [place] [address] Simone Cazares MD [address] [place] [address] Arrived [facility] Comment on above: Arrived Start: 06-04-2024 Influenza vaccination Influenza Vacc ine (#1) [facility] Start: 1960 Screening for malign ant neoplasm of colon [facility] Immunizations Immunization Date Immunization Notes Care Provider Fa cility 02-06-2021 COVID-19 mRNA-1273 (Moderna) HEEL SPRAYER-C Kristel Castellano Work Phone: [facility] 01-09-2021 COVID-19 mRNA-1273 (Moderna) LOUIE Castellano Work Phone: [facility] Payers Date Payer Category Payer Self-pay [id number] 2022 Unknown BCBS BCBS [id number] 2022-Present [phone] [address] [place] [address] [id number] 1960 Unknown [id number] 1960 Unknown [id number] [id number]3 1960 Unknown [id number] 2.16.840.1.551569.3.579.2.593 1960 Unknown [id number] 2.16.840.1.322036.3.579.2.1259 1960 Unknown [id number] 2.16.840.1.395339.3.579.2.1259 1960 Unknown [id number] 2.16.840.1.682616.3.579.2.1259 1960 Unknown [id number] 2.16.840.1.860298.3.579.2.1259 1960 Unknown [id number] 2.16.840.1.615822.3.579.2.1259 1959 Self-pay [id number] 1959 Unknown [id number] Unknown [id number] Social History Date Type Detail Facility Start: 07-01-2021 End: 03-21-2024 Tobacco smoking status NHIS Ex-smoker (finding) [facility] Start: 1960 Sex Assigned At Male F [facility] History of tobacco use Current smoker [facility] History of tobacco use Cigarette Smoker [facility] Start: 03-21-2024 Tobacco use and exposure Smokeless tobacco non-user [facility] Start: 03-21-2024 End: 06-20-2024 Alcoholic beverage intake Ex-drinker (finding) [facility] Start: 05-19-2023 End: 03-21-2024 Alcoholic beverage intake [facility] Start: 05-19-2023 Tobacco use panel [facility] Start: 1960 Sex assigned at Not on file [facility] Clinical Note 06-20-2024 Note Date & Type Note Facility 06-20-2024 Note Time Out 06/20/2024. 10:14 AM. Confirmed correct patient, procedure, site, and patient consented. Anesthesia Topical anesthesia was used. Anesthetic medications included Lidocaine 2%, Proparacaine 0.5%. Procedure Preparation included 5% betadine to ocular surface, eyelid speculum. A 30 gauge needle was used. Injection: 1.25 mg bevacizumab 100 MG/4ML Route: Intravitreal, Site: Right Eye [facility]: [id number], Lot: [id number], Expiration date: 08/21/2024, Waste: 3.95 mL Post-op [...] increased pain, redness, decreased vision or concerns. [facility] History of Present illness Narrative [...] vision or concerns. documented in this encounter [facility] Evaluation note Note Date & Type Note Facility Evaluation note No assessment information availa [facility] Work Phone: Evaluation note Note Date [...] section and content) DATE CREATED AUTHOR 03/29/2018 [facility] DATE CREATED AUTHOR AUTHOR'S ORGANIZ ATION 03/30/2018 [place] [facility] DATE CREATED AUTHOR AUTHOR'S ORGANIZ ATION 10/03/2022 [facility] DATE CREATED AUTHOR AUTHOR'S ORGANIZ ATION 01/04/2024 [facility] DATE CREATED AUTHOR AUTHOR'S ORGANIZ ATION 06/22/2024 [facility] Care Teams (unrecognized sec tion and content) Team Status: Active Member Role Status Dates Kristel Castellano NP-C Primary Care Provider Active Team Status: Inactive Member Role Status Dates Kristel Castellano NP-C Primary Care Provider Active Start: December 30, 2023 End: December 30, 2023 Cruz Polo DPM MS Attending Provider Active Start: December 30, 2023 End: December 30, 2023 Fundraising Coordinator Relationship Specialty Start Date End Date Radha Sarmiento MD [address] [place] [address] PCP - General Family Medicine 04/19/23 Fundraising Coordinator Relationship Specialty Start Date End Date Radha Sarmiento MD [address] [place] [address] PCP - General Family Medicine 04/19/23 Goals [...] BE BASED ON THE PRIMARY CLINICAL RECORDS. [facility] [employer] [facility]. provides no warranty or guarantee of the accuracy or completeness of information in this document.
--- NOTE | 2024-09-21 12:30 | CT_ITS ---
The [address] [address] Patient Name: JENNIFER BARNES MRN: [id number] date: 1960 Sex: M Assigned Patient Location: LAB Current Patient Location: LAB Accession/Order Number: [id number] Exam Date: 09/21/2024 13:10 Report Date: 09/21/2024 21:29 At the request of: LORY CASTELLANO Procedure: CT angio abd aorta runoff EXAM: CT angio abd aorta runoff HISTORY: atherosclerotic occlusive disease I70.90 COMPARISON: Noninvasive vascular testing 08/28/2024 TECHNIQUE: Contrast enhanced CT scans were obtained of the abdomen, pelvis and lower extremities. CTA is performed. FINDINGS: CT abdomen and pelvis Fluid is seen within the horizontal fissure. Small sliding-type hiatal hernia is evident. No biliary dilatation seen. Spleen is unremarkable. No peripancreatic fluid is present. Adrenal glands are unremarkable. No renal hydronephrosis is present. No fluid is seen within the abdomen or pelvis. Colonic diverticula seen. CT lower extremities No abnormal soft tissue masses are noted in the lower extremities. CTA The celiac and superior mesenteric artery are widely patent. There is approximately greater than 50% stenosis of the right renal artery origin. No significant left renal artery stenosis is noted. No abdominal aortic aneurysm seen. Moderate stenosis is seen of the inferior mesenteric artery origin. Right lower extremity High-grade stenosis seen of the common iliac artery origin. Tandem high-grade stenosis seen within the proximal common iliac artery. Scattered plaque is seen within the superficial femoral artery. At the adductor canal there is a greater than 50% stenosis. The popliteal artery is widely patent. Tibial vessel plaque is noted but three-vessel runoff is seen. Left lower extremity High-grade stenosis versus short segment occlusions noted of the left common iliac artery origin. Mild plaque is seen within the common femoral artery. The superficial femoral artery demonstrates less than 50% stenosis at the adductor canal. No significant popliteal stenosis is present. Tibial vessel plaque is present. The anterior tibial runoff occludes at the lower third of the calf. Runoff is predominantly via the peroneal and posterior tibial artery. CT/CT angio abd aorta runoff IMPRESSION: 1. Significant inflow disease as outlined above. 2. Greater than 50% stenosis of the distal right superficial femoral artery at the adductor canal. 3. Three-vessel runoff on the right, two-vessel runoff on the left. 4. Greater than 50% right renal artery stenosis. 5. See above for details. Electronically authenticated by: Antoine DIAZ Date: 09/21/2024 21:29
[2024-09-21 12:32] LABS: Basophils Percent Auto 0.7 % (0.2-2.0); Eosinophils Absolute Auto 0.2 10^3/uL (0.0-0.7); Eosinophils Percent Auto 3.9 % (0.9-7.0); Hematocrit 39.1 % (42.0-54.0); Hemoglobin 13.5 g/dL (14.0-18.0); Immature Granulocytes Abs Auto 0.02 10^3/uL (0.00-0.03); Immature Granulocytes Pct Auto 0.4 % (0.0-0.5); Lymphocytes Absolute Auto 1.1 10^3/uL (1.2-3.8); Lymphocytes Percent Auto 23.7 % (20.5-60.0); Mean Corpuscular HGB Conc 34.5 g/dL (29.9-35.2); Mean Corpuscular Hemoglobin 30.5 pg (25.9-34.0); Mean Corpuscular Volume 88.3 fL (80.0-94.0); Mean Platelet Volume 9.9 fL (9.5-13.5); Monocytes Absolute Auto 0.5 10^3/uL (0.3-0.8); Monocytes Percent Auto 10.2 % (1.7-12.0); Neutrophils Absolute Auto 2.8 10^3/uL (1.4-6.5); Neutrophils Percent Auto 61.1 % (43.0-75.0); Platelet Count 178 10^3/uL (150-450); Red Blood Count 4.43 10^6/uL (4.70-6.10); Red Cell Distribution Width 12.7 % (11.0-15.0); White Blood Count 4.6 10^3/uL (4.0-11.0)
[2024-09-21 12:42] LABS: Alanine Aminotransferase 18 U/L (16-63); Albumin Level 3.7 g/dL (3.4-5.0); Alkaline Phosphatase 63 U/L (46-116); Anion Gap 12.5; Aspartate Amino Transferase 20 U/L (15-37); BUN Creatinine Ratio 5.7; Bilirubin Total 0.9 mg/dL (0.2-1.0); Calcium 8.9 mg/dL (8.5-10.1); Carbon Dioxide 27.4 mmol/L (21.0-32.0); Chloride 92 mmol/L (98-107); Estimated GFR (African America >60 (>=60 mL/min/1.73m^2); Estimated GFR (Non-African Ame >60 (>=60 mL/min/1.73m^2); Globulin 3.7 g/dL; Glucose 108 mg/dL (74-106); Potassium 4.9 mmol/L (3.5-5.1); Sodium 127 mmol/L (136-145); Total Protein 7.4 g/dL (6.4-8.2)
[2024-09-21 12:46] LABS: Estimated Average Glucose 91 mg/dL; Glycohemoglobin A1C 4.8 % (4.5-6.2)
[2024-09-21 12:54] LABS: Chol HDL Ratio 1.6; Cholesterol 133 mg/dL (<=200); Free T3 2.24 pg/mL (2.18-3.98); HDL Cholesterol 85 mg/dL (40-60); Thyroid Stimulating Hormone 3.552 uIU/mL (0.358-3.740); Triglycerides 30 mg/dL (<=150); Uric Acid 3.7 mg/dL (3.5-7.2)
[2024-09-21 13:28] LABS: Prostate Specific Antigen Scrn 0.42 ng/mL (<=4.00)
[2024-09-22 11:12] LABS: Insulin 8.4 uIU/mL (2.6-24.9)
== END 2024-09-21 12:13 | disposition home or self-care (01) ==
LOC: LAB 12:13
PROVIDERS: PCP Nurse Practitioner Family; Visit Provider Nurse Practitioner Family
DX: Z00.00 Encounter for general adult medical examination without abnormal findings (principal); I70.90 Unspecified atherosclerosis
CPT/HCPCS: 36415; 75635; 80053; 80061; 83036; 83525; 84436; 84443; 84481; 84550; 85025; G0103; Q9967

== ENCOUNTER 2025-01-12 14:15 | Outpatient (OUT) | payer BC, SELFPAY ==
--- OUTSIDE RECORDS SUMMARY | 2025-01-12 14:38 | XMS_ITS | CCD ---
Author Organization [facility] [place] Care Team Providers [facility] Service Worker Name Role Phone HAMPOLE, MANDO Unavailable Unavailable MARIE, CURTIS W Unavailable Unavailable HAMPOLE, MANDO Unavailable Unavailable MARIE, CURTIS W Unavailable Unavailable Kassavin, Richardson Unavailable Unavailable Kassavin, Richardson Unavailable Unavailable Kassavin, Irchardson Unavailable Unavailable MARIE CURTIS Unavailable Unavailable ROXANA, DR GARCIA Admitting Unavailable ROXANA, DR GARCIA Attending Unavailable ROXANA, DR GARCIA Primary Care Unavailable KRISTEL CASTELLANO Admitting Unavailable KRISTEL CASTELLANO Attending Unavailable ROXANA, DR GARCIA Primary Care Unavailable KRISTEL CASTELLANO Admitting Unavailable KRISTEL CASTELLANO Attending Unavailable KRISTEL CASTELLANO Primary Care Unavailable KRISTEL CASTELLANO Consulting Unavailable Simon, [employer] Kristeljimena Grady Primary Care Provider 1( [phone] JARVIS Polo Attending Provider Radha Sarmiento MD Primary Care Provider Simon [employer], Kristel Grady Primary Care Provider 1( [phone] Margarito Nunez MD Attending Provider Cornel Prince MD Attending Provider SIMONE CAZARES Attending Unavailable SIMONE CAZARES Attending Unavailable SIMONE CAZARES Attending Unavailable SIMONE CAZARES Attending Unavailable Simon [employer], Kristel Grady Primary Care Provider Margarito Nunez MD Attending Provider Cornel Prince MD Attending Provider Margarito Nunez Admitting Lesli Nunez, Margarito Loya Attending Kristel Allen Primary Care Unavailable Margarito Nunez Admitting Unavai Margarito Kramer Attending Kristel Allen Primary [facility] Unavailable Enrique, Margarito Loya Attending [facility] Unavailable Enrique, Margarito Loya Admitting Cornel Phelps Attending Unavailable Cornel Prince Admitting Unavailable [facility] Unavailable Margarito Nunez Admitting Lesli Nunez, Margarito Loya Attending Lesli [facility] Unavailable Margarito Nunez Admitting Lesli Nunez, Margarito Loya Attending Lesli [facility] Unavailable Simon [facility] Unavailable Cornel Prince Attending Unavailable Cornel Prince Admitting Unavailable Allergies Allergy Classification Reported Allergen(s) Allergy Type Date of Onset Reaction(s) Facility (1 source) No Known Medication Allergies; Translations: [No Known Medication Allergies] Propensity to adverse reactions (disorder) [facility] Repository Medications Current Medications Medication Drug Class(es) Dates Sig (Normalized) Sig (Original) acetaminophen 300 mg / codeine phosphate 30 mg oral tablet (4 sources) Opioid Agonist Start: 12-30-2023 acetaminophen-cod eine (Tylenol w/ Codeine #3) 300-30 MG tablet take 1 tablet by mouth every 6 hours NEEDED FOR PAIN (SCALE SCORE 7-10) for 7 days 12/30/2023 Active aspirin 81 mg delayed release oral tablet (13 sources) Platelet Aggregation Inhibitor, Nonsteroidal Anti-inflammatory Drug Start: 10-17-2024 Aspirin (Adult Low Dose Aspirin) 81 mg tablet,delayed release (DR/EC) Active 81 MG PO Daily October 17, 2024 1:00am take 1 tablet by mouth in the mo rning aspirin 81 MG EC tablet Take 81 mg by mouth in the morning. Active clopidogrel 75 mg oral tablet (3 sources) P2Y12 Platelet Inhibitor Start: 11-23-2024 take 1 tablet by mouth once daily Clopidogrel 75 mg Tablet Active 75 MG PO Daily 90 90 November 23, 2024 1:00am doxazosin 1 mg oral tablet (20 sources) alpha-Adrenergic Micheal Start: 10-17-2024 take 2 tablets by mouth once daily in the morning Doxazosin 1 mg tablet Active 2 MG PO Every morning October 17, 2024 1:00am with 4 mg tablet Start: 05-16-2023 doxazosin (Car dura) 1 MG tablet 05/16/2023 Active Start: 07-01-2021 take 1 tablet by dionicio th once daily in the morning Doxazosin 4 mg tablet Active 4 MG PO Every morning July 01, 2021 12:00am gabapentin 100 mg oral capsule (4 sources) Anti-epileptic Agent Start: 09-02-2023 take 1 capsule by mouth every eight hours gabapentin (Neurontin) 100 MG capsule 1 capsule every 8 (eight) hours 09/02/2023 Active hydroCHLOROthiazide 25 mg / lisinopril 20 mg oral tablet (4 sources) Thiazide Diuretic, Angiotensin Converting Enzyme Inhibitor take 1 tablet by mouth in the morning lisinopril-hydroC HLOROthiazide 20-25 MG tablet Take 1 tablet by mouth in the morning. Active levothyroxine sodium 0.1 mg oral tablet (14 sources) l-Thyroxine Start: 07-01-2021 take 1 tablet by mouth once daily in the morning Levothyroxine 100 mcg tablet Active 100 MCG PO Every morning July 01, 2021 12:00am 24 hr metoprolol succinate 50 mg extended release oral tablet (20 sources) beta-Adrenergic Micheal Start: 10-17-2024 Metoprolol Succinate 50 mg tablet extended release 24 hr Active 150 MG PO Every morning October 17, 2024 10:59am Start: 02-15-2023 take 1 tablet by dionicio th every twenty-four hours in the morning metoprolol succinate XL (Toprol-XL) 50 MG 24 hr tablet Take 150 mg by mouth in the morning. 02/15/2023 Active Start: 07-01-2021 End: 10-17-2024 take 1 tablet by mouth once daily Metoprolol Succinate 50 mg tablet extended release 24 hr Discontinued 50 MG PO Daily July 01, 2021 12:00am October 17, 2024 11:01am rosuvastatin calcium 20 mg oral tablet (14 sources) HMG-CoA Reductase Inhibitor Start: 07-01-2021 take 1 tablet by mouth once daily at bedtime Rosuvastatin 20 mg tablet Active 20 MG PO Daily at bedtime July 01, 2021 12:00am sacubitril / valsartan (20 sources) Angiotensin 2 Receptor Micheal Start: 11-13-2024 take 1 tablet by mouth twice daily Sacubitril-Valsart an (Entresto) 24-26 mg tablet Active 1 TAB PO Twice daily 180 90 November 13, 2024 12:11pm Start: 11-13-2024 take 1 tablet by dionicio th twice daily Sacubitril-Valsartan (Entresto) 24-26 mg tablet Active 1 TAB PO Twice daily 180 90 November 13, 2024 11:11am Start: 11-03-2024 End: 11-13-2024 take 1 tablet by mouth twice daily Sacubitril-Valsartan (Entresto) 24-26 mg tablet Discontinued 1 TAB PO Twice daily November 03, 2024 1:00am November 13, 2024 12:12pm Start: 11-03-2024 End: 11-13-2024 take 1 tablet by mouth twice daily Sacubitril-Valsartan (Entresto) 24-26 mg tablet Discontinued 1 TAB PO Twice daily November 03, 2024 12:00am November 13, 2024 11:12am Start: 11-03-2024 take 1 tablet by dionicio th twice daily Sacubitril-Valsartan (Entresto) 24-26 mg tablet Active 1 TAB PO Twice daily November 03, 2024 12:00am Start: 10-17-2024 End: 10-30-2024 take 1 tablet by mouth twice daily Sacubitril-Valsartan (Entresto) 24-26 mg tablet Discontinued 1 TAB PO Twice daily 60 October 17, 2024 1:00am October 30, 2024 3:00pm Start: 10-17-2024 End: 10-30-2024 take 1 tablet by mouth twice daily Sacubitril-Valsartan (Entresto) 24-26 mg tablet Discontinued 1 TAB PO Twice daily 60 October 17, 2024 12:00am October 30, 2024 2:00pm Start: 10-17-2024 take 1 tablet by dionicio th twice daily Sacubitril-Valsartan (Entresto) 24-26 mg tablet Active 1 TAB PO Twice daily 60 October 17, 2024 12:00am spironolactone 25 mg oral tablet (20 sources) Aldosterone Antagonist Start: 11-03-2024 End: 11-13-2024 take 1 tablet by mouth once daily Spironolactone (Aldactone) 25 mg tablet Active 25 MG PO Daily 90 90 November 13, 2024 12:12pm Start: 10-17-2024 End: 10-30-2024 take 1 tablet by mouth once daily Spironolactone 25 mg tablet Discontinued 25 MG PO Daily 30 October 17, 2024 1:00am October 30, 2024 3:00pm triamcinolone acetonide 1 mg/ml topical cream (1 source) Corticosteroid Start: 07-08-2024 triamcinolone (Kenalog) 0.1 % cream APPLY TOPICALLY 2 TIMES A DAY TO AFFECTED AREA FOR 7 DAYS 07/08/2024 Active Completed/Discontinued Medications Medication Drug Class(es) Dates Sig (Normalized) Sig (Original) 4 ml bevacizumab 25 mg/ml injection (2 sources) Vascular Endothelial Growth Factor Inhibitor Start: 06-20-2024 End: 06-20-2024 bevacizumab (Avastin) intravitreal chemo injection 1.25 mg Start: 06-20-2024 End: 06-20-2024 1.25 mg, Intravitreal, Once PRN Procedure, Starting on Wed06/20/24 at 1014, For 1 dose Bevacizumab solution prefill ed syringe 1.25 mg (2 sources) Start: 09-21-2024 End: 09-21-2024 Bevacizumab solution prefill ed syringe 1.25 mg Start: 09-21-2024 End: 09-21-2024 1.25 mg, Intravitreal, Once PRN Procedure, Starting on Wed09/21/24 at 0907, For 1 dose empagliflozin 10 mg oral tablet (20 sources) Sodium-Glucose Cotransporter 2 Inhibitor Start: 10-17-2024 End: 11-13-2024 take 1 tablet by mouth once daily in the morning Empagliflozin (Jardiance) 10 mg tablet Discontinued 10 MG PO Every morning November 03, 2024 1:00am November 13, 2024 12:12pm furosemide 20 mg oral tablet (10 sources) Loop Diuretic Start: 10-17-2024 End: 11-03-2024 take 1 tablet by mouth once daily Furosemide (Lasix) 20 mg tablet Discontinued 20 MG PO Daily October 17, 2024 1:00am November 03, 2024 10:16am FreeTextSi tablet Orally Once a day; Note: Source Status: Refill; Refills: 0; Qty: 90 Unspecified; Provider: Armando Gipson ( ) Start: 08-17-2024 take 1 tablet by dionicio th once daily as needed furosemide (Lasix) 20 MG tablet TAKE 1 TABLET BY MOUTH ONCE A DAY NEEDED FOR 5 DAYS 08/17/2024 Active Problems Active Problems Problem Classification Problem Date Documented Date Episodic/Chronic Conduction disorders (9 sources) Left bundle branch block; Translations: [Left bundle-branch block, unspecified] 10-17-2024 Chronic Congestive heart failure; nonhypertensive (18 sources) Heart failure with reduced ejection fraction; Translations: [Unspecified systolic (congestive) heart failure] 10-17-2024 Chronic Coronary atherosclerosis and other heart disease (1 source) Atherosclerotic heart disease of [place] coronary artery without angina pectoris; Translations: [Atherosclerotic heart disease of [place] coronary artery without angina pectoris] Onset: 10-20-2024 Chronic Disorders of lipid metabolism (19 sources) Mixed hyperlipidemia; Translations: [Mixed hyperlipidemia] Onset: 10-20-2024 10-17-2024 Chronic Essential hypertension (18 sources) Essential hypertension; Translations: [Essential (primary) hypertension] 10-17-2024 Chronic Occlusion or stenosis of precerebral arteries (18 sources) Carotid artery stenosis; Translations: [Occlusion and stenosis of unspecified carotid artery] Onset: 11-07-2024 10-30-2024 Chronic Other screening for suspected conditions (not mental disorders or infectious disease) (12 sources) Encounter for screening for malignant neoplasm of prostate; Translations: [Patient encounter status] Onset: 10-03-2022 09-15-2023 Episodic Comment on above: Problem List clean-u p per request of Phys. EHR Cmte Hilda-; endo-; and myocarditis; cardiomyopathy (except that caused by tuberculosis or sexually transmitted disease) (1 source) Cardiomyopathy, unspecified; Translations: [Cardiomyopathy, unspecified] Onset: 12-29-2024 Chronic Peripheral and visceral atherosclerosis (20 sources) Peripheral vascular disease, unspecified; Translations: [Peripheral arterial disease] Onset: 11-07-2024 10-17-2024 Chronic Retinal detachments; defects; vascular occlusion; and retinopathy (2 sources) Exudative age-related macular degeneration; Translations: [Exudative age-related macular degeneration, right eye, with active choroidal neovascularization] 06-20-2024 Chronic Past or Other Problems Problem Classification Problem Date Documented Da te Episodic/Chronic Other aftercare (1 source) Encounter for follow-up examination after completed treatment for conditions other than malignant neoplasm; Translations: [Encounter for follow-up examination after completed treatment for conditions other than malignant neoplasm] Onset: 04-27-2017 Episodic Results Test Name Value Interpretation Reference Range Facility [facility] echo transthoracicon [facility] echo transthoracic [facility] Main [place] [address] [place] [address] Echocardiogram Signed Patient: Prosper Mckeon MR#: [id number] 7 : 1960 Acct:[id number] Age/Sex: 64 / M ADM Date: 12/29/24 Loc: Room: Type: [facility] Attending Dr: Margarito Nunez MD Ordering Provider: Margarito Nunez MD Date of Service: 12/29/24 [facility] echo transthoracic: I42.9 - Cardiomyopathy, unspecified Copies to: MD Marleni Lyons MD, [facility] Weight: 180 lb Performed By: Haley Gilmore RDCS BSA: 2.0 m2 BP: 147/75 mmHg HR: 64 Reason For Study: I42.9 - Cardiomyopathy, unspecified Interpretation Summary The left ventricular size and thickness are normal. There is mild global hypokinesis of the left ventricle. The LV ejection fraction is 50 %. A variety of Doppler measurements indicate normal left ventricular diastolic function. The left atrium appears mildly dilated. Trace aortic regurgitation. Mild valvular aortic stenosis. There is no prior echocardiogram noted for this patient. Procedure/Quality: A two-dimensional transthoracic echocardiogram with color flow, Doppler and injection of contrast agent Definity was performed. The study was technically good in quality. There is no prior echocardiogram noted for this patient. Left Ventricle: The left ventricular size and thickness are normal. The LV ejection fraction is 50 %. A variety of Doppler measurements indicate normal left ventricular diastolic function. There is mild global hypokinesis of the left ventricle. Left Atrium: The left atrium appears mildly dilated. The atrial septum appears normal. Right Atrium: The right atrium appears normal in size. Right Ventricle: The right ventricular size, thickness and function are normal. Aortic Valve: The aortic valve is mildly sclerotic. The aortic valve is trileaflet. Mild valvular aortic stenosis. Trace aortic regurgitation. Mitral Valve: The mitral valve is mildly sclerotic. Tricuspid Valve: The tricuspid valve is normal. Pulmonic Valve: The pulmonic valve is not well seen, but is grossly normal. Arteries: The aortic root is normal size. Pericardium/Pleura: No pericardial effusion seen. There is no pleural effusion. IVC/Hepatic Veins: The IVC is normal in size with an inspiratory collapse of greater then 50%, suggesting normal right atrial pressure. Miscellaneous: No thrombus, vegetation or mass is seen. Measurements with Normals IVSd: 0.91 cm (0.7-1.1 cm)LVIDd: 5.4 cm (3.7-5.4 cm) LVPWd: 0.74 cm (0.7-1.1 cm)LVIDs: 4.0 cm (2.3-3.6 cm) LA dimension: 4.4 cm (2.3-4.0 cm)Ao root diam: 3.1 cm(2.0-3.6 cm) asc Aorta Diam: 3.3 cm(2.1-3.4cm) Doppler with Normals LV V1 max: 117.0 cm/sec (0.7-1.7m/s)MV E max nael: 79.7 cm/sec(0.8-1.3m/s) MV A max nael: 42.8 cm/sec(0.0-0.0m/s) MV E/A: 1.9 (<1.5) MMode/2D Measurements Calculations RVDd: 3.3 cm FS: 25.0 % Ao root area: LVOT diam: 2.0 cm TAPSE: 2.2 cm EDV(Teich): 7.4 cm2 LVOT area: 3.3 cm2 RV S Nael: 138.6 ml 13.9 cm/sec ESV(Teich): 70.7 ml EF(Teich): 49.0 % __ LVLd ap4: 9.2 cm SV(MOD-sp4): LAV(MOD-sp4): LA A2 area: 26.5 cm2 EDV(MOD-sp4): 74.7 ml 80.3 ml 147.0 ml LAV(MOD-sp2): LA A4 area: 25.9 cm2 LVLs ap4: 7.8 cm 93.9 ml LA length (vol): ESV(MOD-sp4): 6.7 cm 72.3 ml LA vol: 86.8 ml EF(MOD-sp4): 50.8 % LA vol index: 43.6 ml/m2 Doppler Measurements Calculations MV dec time: E/E' lat: MV dec slope: Ao V2 max: 0.22 sec 10.5 233.5 cm/sec E/E' med: 359.3 cm/sec2 Ao max P.8 mmHg 14.7 Ao mean P.1 mmHg Ao V2 mean: 165.8 cm/sec Ao V2 VTI: 46.4 cm AP(I,D): 1.7 cm2 AP(V,D): 1.6 cm2 __ LV V1 max P.5 mmHg LV V1 mean P.1 mmHg LV V1 mean: 83.3 cm/sec LV V1 VTI: 23.5 cm Electronically signed by: MARLENI FLOR MD, [facility] on 12/30/2024 03:46 PM Transcribed By: SCV Performed At: 12/29/24 1053 Signed By: Marleni Flor MD, FACC 12/30/24 1546 Normal [facility] US arterial pvr rest [place] [address] Ultrasound Report Signed Patient: Prosper Mckeon MR#: [id number] 7 : 1960 Acct:[id number] Age/Sex: 63 / M ADM Date: 11/07/24 Loc: Room: Type: [facility] Attending Dr: Cornel Prince MD Ordering Provider: Cornel Prince MD Date of Service: 11/07/24 US/US arterial pvr rest LE: I70.213 - Atherosclerosis of [place] arteries of extremiti... Copies to: Cornel Prince MD LOWER EXTREMITY SEGMENTAL ARTERIAL DOPSCAN (PVR) INDICATION: Claudication and PAD. PROCEDURE: Left arm blood pressure is 131 . Pressures throughout the right leg are 131 at the high thigh, at the 121 low thigh, 200 at the calf, 137 at the ankle using the posterior tibial artery, and cno at the ankle using the dorsalis pedis artery with ankle-brachial index of 1.05 -NC- . Pressures throughout the left leg are 113 at the high thigh, at the 126 low thigh, 161 at the calf and 196 at the ankle using the posterior tibial artery, and 198 at the ankle using the do rsalis pedis artery with ankle-brachial index of 1.50 1.51 . Wave forms by plethysmography are normal. US/US arterial pvr rest LE IMPRESSION: NO HEMODYNAMICALLY SIGNIFICANT PERIPHERAL VASCULAR OCCLUSIVE DISEASE AT REST IN EITHER LOWER EXTREMITY. Impression dictated by: Dante Amaro MD11/08/2024 4:51 PM Dictation Location: [place] [address] Tech: Yancy Ellsworth Transcribed By: INOCENCIO 11/08/24 165 Dictated By: Dante Amaro MD 11/08/241649 Signed By: 11/08/24 165 Normal [facility] US carotid doppler BIon US carotid doppler BI [facility] Main [place] [address] [place] [address] Ultrasound Report Signed Patient: Prosper Mckeon MR#: [id number] 7 : 1960 Acct:[id number] Age/Sex: 63 / M ADM Date: 11/07/24 Loc: Room: Type: [facility] Attending Dr: Cornel Prince MD Ordering Provider: Cornel Prince MD Date of Service: 11/07/24 US/US carotid doppler BI: I65.29 - Occlusion and stenosis of unspecified carotid ar... Copies to: Cornel Prince MD CAROTID DUPLEX INDICATION: Surveillance study after left carotid surgery. PROCEDURE: Color-flow duplex scanning is used to interrogate the extracranial carotid arterial system, as well as both vertebral arteries. The proximal right internal carotid artery shows a highest peak systolic velocity of 110 cm/s with an end-diastolic velocity of 30.8 cm/s . The mid internal carotid artery measures 114 cm/s peak systolic with an end-diastolic velocity of 24.5 cm/s . The distal segment measures 87.6 cm/s peak systolic with an end diastolic velocity of 22.4 cm/s . The velocities of the right common carotid artery are 137 cm/s peak systolic and 14.7 cm/s end- diastolic proximally and 75.7 cm/s peak systolic and 11 cm/s end-diastolic distally. The peak systolic velocity ratio of the internal to the common carotid artery is 0.83 . The right external carotid artery measures 106 cm/s peak systolic. The right vertebral artery is patent at 37.8 cm/s peak systolic and with antegrade flow. The proximal left internal carotid artery shows a highest peak systolic velocity of 110 cm/s with an end-diastolic velocity of 16.8 cm/s . The mid internal carotid artery measures 95.3 cm/s peak systolic with an end-diastolic velocity of 21 cm/s . The distal segment measures 73.9 cm/s peak systolic with an end diastolic velocity of 15.5 cm/s . The velocities of the left common carotid artery are 99.5 cm/s peak systolic and 14 cm/s end-diastolic proximally and 82.1 cm/s peak systolic and 11.3 cm/s end-diastolic distally. The peak systolic velocity ratio of the internal to the common carotid artery is 1.11 . The left external carotid artery measures 123 cm/s peak systolic. The left vertebral artery is patent at 50.5 cm/s peak systolic with antegrade flow. US/US carotid doppler BI IMPRESSION: NO HEMODYNAMICALLY SIGNIFICANT STENOSIS OF EITHER EXTRACRANIAL INTERNAL CAROTID ARTERY. BOTH VERTEBRAL ARTERIES ARE PATENT WITH ANTEGRADE FLOW. Impression dictated by: Dante Amaro MD11/08/2024 4:51 PM Dictation Location: [place] [address] Tech: Yancy Villarrealley Transcribed By: INOCENCIO 11/08/24 2250 Dictated By: Dante Amaro MD 11/08/24 165 Signed By: 11/08/24 165 Normal [facility] Basophils Auto (Bld) [#/Vol] Ordered By: Margarito Nunez on 11-03-2024 Basophils (Bld) [#/Vol] Automated basophil count 0.0-0.2 [facility] Basophils/100 WBC Auto (Bld) Ordered By: Margarito Nunez on 11-03-2024 Basophils/100 WBC (Bld) Automated basophil % . [facility] Blood Urea Nitrogenon 2024 Urea nitrogen [Mass/Vol] 7 mg/dL Normal 04-27 [facility] Comment on above: Performed By: #### L YTES, PP, CREAT, BUN, LIPID, CBC #### [address] Carbon dioxide, total [Moles /volume] in Serum or PlasmaOrdered By: Margarito Nunez on 11-03-2024 CO2 [Moles/Vol] Carbon dioxide, tota l [Moles/volume] in Serum or Plasma 21.0-31.0 [facility] Chloride [Moles/volume] in S stella or PlasmaOrdered By: Margarito Nunez on 11-03-2024 Chloride [Moles/Vol] Chloride [Moles/vol ume] in Serum or Plasma 98-107 [facility] Cholesterol [Mass/volume] in Serum or PlasmaOrdered By: Margarito Nunez on 11-03-2024 Cholesterol [Mass/Vol] Cholesterol [Mass /volume] in Serum or Plasma 140-200 [facility] Comment on above: Chol less than 200 m g/dl low riskChol 201-239 mg/dl borderline riskChol 240 mg/dl and greater high risk Cholesterol in HDL [Mass/vol ume] in Serum or PlasmaOrdered By: Margarito Nunez on 11-03-2024 Cholesterol in HDL [Mass/Vol] Serum or plasma high density lipoprotein (HDL) cholesterol measurement 23- [facility] Comment on above: HDL CHOL ATP-III CLA SSIFICATION Cardiovascular RiskHDL > or equal to 60 mg/dL LOWHDL < 40 mg/dL HIGH Cholesterol in LDL Calc [Mas s/Vol]Ordered By: Margarito Nunez on 11-03-2024 Cholesterol in LDL [Mass/Vol] Cholesterol in LDL [Mass/volume] in Serum or Plasma by calculation 0-100 [facility] Comment on above: LDL ATP III CLASSIFI CATIONLDL less than 100 mg/dL OptimalLDL 100-129 mg/dL Near or above optimalLDL 130-159 mg/dL Borderline highLDL 160-189 mg/dL HighLDL greater than 189 mg/dL Very high Cholesterol in VLDL Calc [Ma ss/Vol]Ordered By: Margarito Nunez on 11-03-2024 Cholesterol in VLDL [Mass/Vol] Cholesterol in VLDL [Mass/volume] in Serum or Plasma by calculation [facility] Coagulation Profileon 2024 aPTT Coag (Bld) [Time] 29.9 s Normal 25.1-36.5 [facility] Comment on above: Result Comment: A he matocrit value greater than 55% may lead to inaccurate results in coagulation testing. Patients having hematocrit values >55% require a special collection tube for coagulation studies. Please contact the laboratory at [phone] for redraw instructions. PERFORMED BY: [place] [address] PATHOLOGIST ENT PHYSICIAN SAMSON CLAUDIO M.D. Performed By: #### L YTES, PP, CREAT, BUN, LIPID, CBC #### [facility] [address] [place], [place] [id number] [facility] INR Coag (PPP) [Relative time] 1.0 {INR} Normal [facility] Comment on above: Result Comment: INR Therapeutic Range A) Pre- and Peroperative OAT started two weeks before surgery. NOT HIP SURGERY: 1.5 - 2.5 HIP SURGERY: 2 - 3 B) Primary and secondary prevention of venous THROMBOSIS: 2 - 3 C) Active venous thrombosis, pulmonary embolism and prevention of recurrent venous thrombosis: 2 - 3 D) Prevention of arterial thromboembolism including patients with mechanical heart valves: 3 - 4.5 Performed By: #### L YTES, PP, CREAT, BUN, LIPID, CBC #### [facility] [address] [place] [id number] [place] PT Coag (PPP) [Time] 11.4 s Normal 9.0-12.9 [facility] Comment on above: Result Comment: A he matocrit value greater than 55% may lead to inaccurate results in coagulation testing. Patients having hematocrit values >55% require a special collection tube for coagulation studies. Please contact the laboratory at [phone] for redraw instructions. Performed By: #### L YTES, PP, CREAT, BUN, LIPID, CBC #### [address] Complete Blood Count Auto Di ffon 11-03-2024 Basophils (Bld) [#/Vol] 0.0 10*3/uL Normal 0.0-0.2 [facility] Comment on above: Result Comment: PERF ORMED BY: [place] [address] PATHOLOGIST ENT PHYSICIAN SAMSON CLAUDIO M.D. Performed By: #### L YTES, PP, CREAT, BUN, LIPID, CBC #### [address] Basophils/100 WBC (Bld) 0.7 % Normal . [facility] Comment on above: Performed By: #### L YTES, PP, CREAT, BUN, LIPID, CBC #### [address] Eosinophils (Bld) [#/Vol] 0.2 10*3/uL Normal 0.0-0.45 [facility] Comment on above: Performed By: #### L YTES, PP, CREAT, BUN, LIPID, CBC #### [address] Eosinophils/100 WBC (Bld) 4.3 % Normal . [facility] Comment on above: Performed By: #### L YTES, PP, CREAT, BUN, LIPID, CBC #### [address] Erythrocyte distribution width (RBC) [Ratio] 15.3 % High 12.0-14.8 [facility] Comment on above: Performed By: #### L YTES, PP, CREAT, BUN, LIPID, CBC #### [address] Hematocrit (Bld) [Volume fraction] 38.5 % Low 38.8-50.0 [facility] Comment on above: Performed By: #### L YTES, PP, CREAT, BUN, LIPID, CBC #### [address] Hemoglobin (Bld) [Mass/Vol] 13.3 g/dL Normal 13.0-17.0 [facility] Comment on above: Performed By: #### L YTES, PP, CREAT, BUN, LIPID, CBC #### [address] Lymphocytes (Bld) [#/Vol] 1.1 10*3/uL Normal 1.00-4.8 [facility] Comment on above: Performed By: #### L YTES, PP, CREAT, BUN, LIPID, CBC #### [address] Lymphocytes/100 WBC (Bld) 27.3 % Normal . [facility] Comment on above: Performed By: #### L YTES, PP, CREAT, BUN, LIPID, CBC #### [address] MCH (RBC) [Entitic mass] 31.4 pg Normal 27.5-35.2 [facility] Comment on above: Performed By: #### L YTES, PP, CREAT, BUN, LIPID, CBC #### [address] MCV (RBC) [Entitic vol] 90.8 fL Normal 83.5-101 [facility] Comment on above: Performed By: #### L YTES, PP, CREAT, BUN, LIPID, CBC #### [address] Mean Corpuscular HGB Conc 34.6 g/dL Normal 32.5-35.6 [facility] Comment on above: Performed By: #### L YTES, PP, CREAT, BUN, LIPID, CBC #### [place] [address] [place] Monocytes (Bld) [#/Vol] 0.4 10*3/uL Normal 0.0-0.8 [facility] Comment on above: Performed By: #### L YTES, PP, CREAT, BUN, LIPID, CBC #### [address] Monocytes/100 WBC (Bld) 9.7 % Normal . [facility] Comment on above: Performed By: #### L YTES, PP, CREAT, BUN, LIPID, CBC #### [address] Neutrophils (Bld) [#/Vol] 2.4 10*3/uL Normal 1.8-7.7 [facility] Comment on above: Performed By: #### L YTES, PP, CREAT, BUN, LIPID, CBC #### [address] Neutrophils/100 WBC (Bld) 58.0 % Normal . [facility] Comment on above: Performed By: #### L YTES, PP, CREAT, BUN, LIPID, CBC #### [address] NRBC% 0.1 /100{WBC} Normal 0-0.5 [facility] Comment on above: Performed By: #### L YTES, PP, CREAT, BUN, LIPID, CBC #### [address] Platelet mean volume (Bld) [Entitic vol] 8.2 fL Normal 6.6-10.1 [facility] Comment on above: Performed By: #### L YTES, PP, CREAT, BUN, LIPID, CBC #### [place] [address] [place] Platelets (Bld) [#/Vol] 170 10*3/uL Normal 150-450 [facility] Comment on above: Performed By: #### L YTES, PP, CREAT, BUN, LIPID, CBC #### [address] RBC (Bld) [#/Vol] 4.24 10*6/uL Normal 3.90-5.60 [facility] Comment on above: Performed By: #### L YTES, PP, CREAT, BUN, LIPID, CBC #### [address] WBC (Bld) [#/Vol] 4.1 10*3/uL Normal 4.1-10.5 [facility] Comment on above: Performed By: #### L YTES, PP, CREAT, BUN, LIPID, CBC #### [address] Creatinineon 11-03-2024 Creatinine [Mass/Vol] 0.70 mg/dL Normal 0.70-1.30 [facility] Comment on above: Performed By: #### L YTES, PP, CREAT, BUN, LIPID, CBC #### [address] GFR/1.73 sq M.predicted MDRD (S/P/Bld) [Vol rate/Area] mL/min/{1.73_m2} Normal [facility] Comment on above: Performed By: #### L YTES, PP, CREAT, BUN, LIPID, CBC #### [address] Creatinine [Mass/volume] in Serum or PlasmaOrdered By: Margarito Nunez on 11-03-2024 Creatinine [Mass/Vol] Creatinine [Mass/v olume] in Serum or Plasma 0.70-1.30 [facility] ECG 12 lead ECGon 11-03-2024 ECG 12 lead ECG [facility] [address] Electrocardiograph Report Signed Patient: Prosper Mckeon MR#: [id number] 7 : 1960 Acct:[id number] Age/Sex: 63 / M ADM Date: 11/03/24 Loc: PS Room: Type: [facility] Attending Dr: Margarito Nunez MD Ordering Provider: Margarito Nunez MD Date of Service: 11/03/24 ECG/ECG 12 lead ECG: pre-cath Copies to: Test Reason : Blood Pressure : */* mmHG Vent. Rate : 68 BPM Atrial Rate : 68 BPM P-R Int : 170 ms QRS Dur : 154 ms QT Int : 444 ms P-R-T Axes : 3 27 -70 degrees QTcB Int : 472 ms Normal sinus rhythm Left bundle branch block Abnormal ECG Confirmed by Valerie Campbell ([id number]) on 11/03/2024 2:04:11 PM Referred By: Electronically Signed By: Valerie Campbell Transcribed By: MUS Signed By Valerie Campbell MD 5 1404 Normal [facility] Electrolyteson 11-03-2024 Anion gap [Moles/Vol] 9.5 mmol/L Normal 6.0-15.0 [facility] Comment on above: Performed By: #### L YTES, PP, CREAT, BUN, LIPID, CBC #### [facility] [address] [place] [address] [place] Chloride [Moles/Vol] 99 mmol/L Normal 98-107 [facility] Comment on above: Performed By: #### L YTES, PP, CREAT, BUN, LIPID, CBC #### [facility] [address] [place] [id number] [place] CO2 [Moles/Vol] 27.4 mmol/L Normal 21.0-31.0 [facility] Comment on above: Performed By: #### L YTES, PP, CREAT, BUN, LIPID, CBC #### [facility] [address] [place] [id number] [place] Potassium [Moles/Vol] 4.9 mmol/L Normal 3.5-5.1 [facility] Comment on above: Performed By: #### L YTES, PP, CREAT, BUN, LIPID, CBC #### [facility] [address] [place] [id number] [place] Sodium [Moles/Vol] 131 mmol/L Low 136-145 [facility] Comment on above: Performed By: #### L YTES, PP, CREAT, BUN, LIPID, CBC #### [facility] [address] Eosinophils Auto (Bld) [#/Vo l]Ordered By: Margarito Nunez on 11-03-2024 Eosinophils (Bld) [#/Vol] Automated eosinophil count 0.0-0.45 [facility] Eosinophils/100 WBC Auto (Bl d)Ordered By: Margarito Nunez on 11-03-2024 Eosinophils/100 WBC (Bld) Automated eosinophil % . [facility] Erythrocyte distribution wid th Auto (RBC) [Ratio]Ordered By: Margarito Nunez on 11-03-2024 Erythrocyte distribution width (RBC) [Ratio] Erythrocyte distribution width [Ratio] by Automated count High 12.0-14.8 [facility] Hematocrit Auto (Bld) [Volum e fraction]Ordered By: Margarito Nunez on 11-03-2024 Hematocrit (Bld) [Volume fraction] Hematocrit [Volume Fraction] of Blood by Automated count Low 38.8-50.0 [facility] Hemoglobin [Mass/volume] in BloodOrdered By: Margarito Nunez on 11-03-2024 Hemoglobin (Bld) [Mass/Vol] Hemoglobin [Mass/volume] in Blood 13.0-17.0 [facility] INR in Platelet poor plasma by Coagulation assayOrdered By: Margarito Nunez on 11-03-2024 INR Coag (PPP) [Relative time] INR in Platelet poor plasma by Coagulation assay [facility] Comment on above: INR Therapeutic Rang e A) Pre- and Peroperative OAT started two weeks before surgery. NOT HIP SURGERY: 1.5 - 2.5 HIP SURGERY: 2 - 3B) Primary and secondary prevention of venous THROMBOSIS: 2 - 3C) Active venous thrombosis, pulmonary embolismand prevention of recurrent venous thrombosis: 2 - 3D) Prevention of arterial thromboembolismincluding patients with mechanical heart valves: 3 - 4.5 Leukocytes [#/volume] correc sharon for nucleated erythrocytes in Blood by Automated counOrdered By: Margarito Nunez on 11-03-2024 WBC corrected for nucl RBC Auto (Bld) [#/Vol] Leukocytes [#/volume] corrected for nucleated erythrocytes in Blood by Automated coun 4.1-10.5 [facility] Lipid Panelon 11-03-2024 Cholesterol [Mass/Vol] 140 mg/dL Normal 140-200 [facility] Comment on above: Result Comment: Chol less than 200 mg/dl low risk Chol 201-239 mg/dl borderline risk Chol 240 mg/dl and greater high risk Performed By: #### L YTES, PP, CREAT, BUN, LIPID, CBC #### [facility] [address] Cholesterol in HDL [Mass/Vol] 73 mg/dL Normal 23-92 [facility] Comment on above: Result Comment: HDL CHOL ATP-III CLASSIFICATION Cardiovascular Risk HDL > or equal to 60 mg/dL LOW HDL < 40 mg/dL HIGH Performed By: #### L YTES, PP, CREAT, BUN, LIPID, CBC #### [facility] [address] Cholesterol.total/Chol esterol in HDL [Mass ratio] 1.9 {ratio} Normal <5.0 [facility] Comment on above: Result Comment: PERF ORMED BY: [place] [address] PATHOLOGIST ENT PHYSICIAN SAMSON CLAUDIO M.D. Performed By: #### L YTES, PP, CREAT, BUN, LIPID, CBC #### [facility] [address] LDL Cholesterol,Calculated 59 mg/dL Normal 0-100 [facility] Comment on above: Result Comment: LDL ATP III CLASSIFICATION LDL less than 100 mg/dL Optimal LDL 100-129 mg/dL Near or above optimal LDL 130-159 mg/dL Borderline high LDL 160-189 mg/dL High LDL greater than 189 mg/dL Very high Performed By: #### L YTES, PP, CREAT, BUN, LIPID, CBC #### [facility] [address] [place] [id number] [facility] Triglyceride w/Reflex 39 mg/dL Normal 0-149 [facility] Comment on above: Result Comment: TRIG ATP III CLASSIFICATION TRIG less than 150 mg/dL Normal TRIG 150-199 mg/dL Borderline high TRIG 200-500 mg/dL High TRIG greater than 500 mg/dL Very high Standard traceable to the Center for Disease Conrtrol and Prevention (CDC) test method. Performed By: #### L YTES, PP, CREAT, BUN, LIPID, CBC #### [facility] [address] VLDL CHOLESTEROL 7 mg/dL Normal [facility] Comment on above: Performed By: #### L YTES, PP, CREAT, BUN, LIPID, CBC #### [facility] [address] Lymphocytes Auto (Bld) [#/Vo l]Ordered By: Margarito Nunez on 11-03-2024 Lymphocytes (Bld) [#/Vol] Lymphocytes [#/volume] in Blood by Automated count 1.00-4.8 [facility] Lymphocytes/100 WBC Auto (Bl d)Ordered By: Margarito Nunez on 11-03-2024 Lymphocytes/100 WBC (Bld) Lymphocytes/100 leukocytes in Blood by Automated count . [facility] MCH Auto (RBC) [Entitic mass ]Ordered By: Margarito Nunez on 11-03-2024 MCH (RBC) [Entitic mass] MCH [Entitic mass] by Automated count 27.5-35.2 [facility] MCHC Auto (RBC) [Mass/Vol]Or dered By: Margarito Nunez on 11-03-2024 MCHC (RBC) [Mass/Vol] MCHC [Mass/volume] by Automated count 32.5-35.6 [facility] MCV Auto (RBC) [Entitic vol] Ordered By: Margarito Nunez on 11-03-2024 MCV (RBC) [Entitic vol] MCV [Entitic volume] by Automated count 83.5-101 [facility] Monocytes Auto (Bld) [#/Vol] Ordered By: Margarito Nunez on 11-03-2024 Monocytes (Bld) [#/Vol] Automated blood monocyte count 0.0-0.8 [facility] Monocytes/100 WBC Auto (Bld) Ordered By: Margarito Nunez on 11-03-2024 Monocytes/100 WBC (Bld) Automated monocyte % . [facility] Neutrophils Auto (Bld) [#/Vo l]Ordered By: Margarito Nunez on 11-03-2024 Neutrophils (Bld) [#/Vol] Neutrophils [#/volume] in Blood by Automated count 1.8-7.7 [facility] Neutrophils/100 WBC Auto (Bl d)Ordered By: Margarito Nunez on 11-03-2024 Neutrophils/100 WBC (Bld) Automated neutrophil % . [facility] No Panel InformationOrdered By: Margarito Nunez on 11-03-2024 Estimated GFR (CKD-EPI) > 60.0 mL/Min [facility] Creatinine Clearance (Chem N/A [facility] Nucleated erythrocytes [Pres ence] in Blood by Automated countOrdered By: Margarito Nunez on 11-03-2024 Nucleated RBC Auto Ql (Bld) Nucleated erythrocytes [Presence] in Blood by Automated count 0-0.5 [facility] Platelet mean volume Auto (B ld) [Entitic vol]Ordered By: Margarito Nunez on 11-03-2024 Platelet mean volume (Bld) [Entitic vol] Platelet mean volume [Entitic volume] in Blood by Automated count 6.6-10.1 [facility] Platelets Auto (Bld) [#/Vol] Ordered By: Margarito Nunez on 11-03-2024 Platelets (Bld) [#/Vol] Platelets [#/volume] in Blood by Automated count 150-450 [facility] Potassium [Moles/volume] in Serum or PlasmaOrdered By: Margarito Nunez on 11-03-2024 Potassium [Moles/Vol] Potassium [Moles/v olume] in Serum or Plasma 3.5-5.1 [facility] Prothrombin time (PT)Ordered By: Margarito Nunez on 11-03-2024 PT Coag (PPP) [Time] Prothrombin time (PT) 9.0- 12.9 [facility] Comment on above: A hematocrit value g reater than 55% may lead to inaccurate results in coagulation testing. Patients having hematocrit values >55% require a special collection tube for coagulation studies. Please contact the laboratory at [phone] for redraw instructions. RBC Auto (Bld) [#/Vol]Ordere d By: Margarito Nunez on 11-03-2024 RBC (Bld) [#/Vol] Erythrocytes [#/volu me] in Blood by Automated count 3.90-5.60 [facility] Serum or plasma anion gap de terminationOrdered By: Margarito Nunez on 11-03-2024 Anion gap [Moles/Vol] Serum or plasma an ion gap determination 6.0-15.0 [facility] Serum or plasma total choles terol/high density lipoprotein (HDL) cholesterol mass ratOrdered By: Margarito Nunez on 11-03-2024 Cholesterol.total/Chol esterol in HDL [Mass ratio] Serum or plasma total cholesterol/high density lipoprotein (HDL) cholesterol mass rat <5.0 [facility] Sodium [Moles/volume] in Ser um or PlasmaOrdered By: Margarito Nunez on 11-03-2024 Sodium [Moles/Vol] Sodium [Moles/volume ] in Serum or Plasma Low 136-145 [facility] Triglyceride [Mass/volume] i n Serum or PlasmaOrdered By: Margarito Nunez on 11-03-2024 Triglyceride [Mass/Vol] Triglyceride [Mass/volume] in Serum or Plasma 0-149 [facility] Comment on above: TRIG ATP III CLASSIF ICATIONTRIG less than 150 mg/dL NormalTRIG 150-199 mg/dL Borderline highTRIG 200-500 mg/dL High TRIG greater than 500 mg/dL Very highStandard traceable to the Center for Disease Conrtrol and Prevention (CDC) test method. Urea nitrogen [Mass/volume] in Serum or PlasmaOrdered By: Margarito Nunez on 11-03-2024 Urea nitrogen [Mass/Vol] Urea nitrogen [Mass/volume] in Serum or Plasma 7-25 [facility] WBC Auto (Bld) [#/Vol]Ordere d By: Margarito Nunez on 11-03-2024 WBC (Bld) [#/Vol] Leukocytes [#/volume ] in Blood by Automated count 4.1-10.5 [facility] aPTT in Platelet poor plasma by Coagulation assayOrdered By: Margarito Nunez on 11-03-2024 aPTT Coag (PPP) [Time] Activated partial thromboplastin time (aPTT) in platelet poor plasma by coagulation a 25.1-36.5 [facility] Comment on above: A hematocrit value g reater than 55% may lead to inaccurate results in coagulation testing. Patients having hematocrit values >55% require a special collection tube for coagulation studies. Please contact the laboratory at [phone] for redraw instructions. A1C with Estimated Average G nicholas 10-20-2024 Glucose [Mass/Vol] 103 mg/dL Normal [facility] Comment on above: Result Comment: PERF ORMED BY: [place] [address] PATHOLOGIST ENT PHYSICIAN SAMSON CLAUDIO M.D. Performed By: #### L YTES, PP, CREAT, BUN, LIPID, CBC #### [address] HbA1c (Bld) [Mass fraction] 5.2 % Normal 4.3-5.6 [facility] Comment on above: Result Comment: Incr eased risk for diabetes: 5.7 - 6.4 diabetes: >6.4 glycemic control for adults with diabetes: <7.0 Performed By: #### L YTES, PP, CREAT, BUN, LIPID, CBC #### [address] Basic Metabolic Panelon 10-04 Anion gap [Moles/Vol] 13.4 mmol/L Normal 6.0-15.0 [facility] Comment on above: Performed By: #### L YTES, PP, CREAT, BUN, LIPID, CBC #### [address] Calcium [Mass/Vol] 9.3 mg/dL Normal 8.6-10.3 [facility] Comment on above: Performed By: #### L YTES, PP, CREAT, BUN, LIPID, CBC #### [address] Chloride [Moles/Vol] 97 mmol/L Low 98-107 [facility] Comment on above: Performed By: #### L YTES, PP, CREAT, BUN, LIPID, CBC #### [address] CO2 [Moles/Vol] 26.6 mmol/L Normal 21.0-31.0 [facility] Comment on above: Performed By: #### L YTES, PP, CREAT, BUN, LIPID, CBC #### [address] Creatinine [Mass/Vol] 0.65 mg/dL Low 0.70-1.30 [facility] Comment on above: Performed By: #### L YTES, PP, CREAT, BUN, LIPID, CBC #### [place] [address] [place] GFR/1.73 sq M.predicted MDRD (S/P/Bld) [Vol rate/Area] mL/min/{1.73_m2} Normal [facility] Comment on above: Performed By: #### L YTES, PP, CREAT, BUN, LIPID, CBC #### [address] Glucose [Mass/Vol] 105 mg/dL High 70-100 [facility] Comment on above: Result Comment: [facility] Glucose Reference Range is dependent on time and content of last meal. Glucose of more than 200 mg/dL in a nonstressed, ambulatory subject supports the diagnosis of Diabetes Mellitus. ADA recommended reference range Performed By: #### L YTES, PP, CREAT, BUN, LIPID, CBC #### [address] Potassium [Moles/Vol] 5.0 mmol/L Normal 3.5-5.1 [facility] Comment on above: Performed By: #### L YTES, PP, CREAT, BUN, LIPID, CBC #### [place] [address] [place] Sodium [Moles/Vol] 132 mmol/L Low 136-145 [facility] Comment on above: Performed By: #### L YTES, PP, CREAT, BUN, LIPID, CBC #### [address] Urea nitrogen [Mass/Vol] 8 mg/dL Normal 7-25 [facility] Comment on above: Performed By: #### L YTES, PP, CREAT, BUN, LIPID, CBC #### [address] Blood estimated average gluc ose determination by estimation from glycated hemoglobinOrdered By: Margarito Nunez on 10-20-2024 Average glucose Estimated from glycated hemoglobin (Bld) [Mass/Vol] Glucose mean value [Mass/volume] in Blood Estimated from glycated hemoglobin [facility] Calcium [Mass/volume] in Ser um or PlasmaOrdered By: Margarito Nunez on 10-20-2024 Calcium [Mass/Vol] Calcium [Mass/volume ] in Serum or Plasma 8.6-10.3 [facility] Carbon dioxide, total [Moles /volume] in Serum or PlasmaOrdered By: Margarito Nunez on 10-20-2024 CO2 [Moles/Vol] Carbon dioxide, tota l [Moles/volume] in Serum or Plasma 21.0-31.0 [facility] Chloride [Moles/volume] in S stella or PlasmaOrdered By: Margarito Nunez on 10-20-2024 Chloride [Moles/Vol] Chloride [Moles/vol ume] in Serum or Plasma Low 98-107 [facility] Cholesterol [Mass/volume] in Serum or PlasmaOrdered By: Margarito Nunez on 10-20-2024 Cholesterol [Mass/Vol] Cholesterol [Mass /volume] in Serum or Plasma Low 140-200 [facility] Comment on above: Chol less than 200 m g/dl low riskChol 201-239 mg/dl borderline riskChol 240 mg/dl and greater high risk Cholesterol in HDL [Mass/vol ume] in Serum or PlasmaOrdered By: Margarito Nunez on 10-20-2024 Cholesterol in HDL [Mass/Vol] Serum or plasma high density lipoprotein (HDL) cholesterol measurement 23-92 [facility] Comment on above: HDL CHOL ATP-III CLA SSIFICATION Cardiovascular RiskHDL > or equal to 60 mg/dL LOWHDL < 40 mg/dL HIGH Cholesterol in LDL Calc [Mas s/Vol]Ordered By: Margarito Nunez on 10-20-2024 Cholesterol in LDL [Mass/Vol] Cholesterol in LDL [Mass/volume] in Serum or Plasma by calculation 0-100 [facility] Comment on above: LDL ATP III CLASSIFI CATIONLDL less than 100 mg/dL OptimalLDL 100-129 mg/dL Near or above optimalLDL 130-159 mg/dL Borderline highLDL 160-189 mg/dL HighLDL greater than 189 mg/dL Very high Cholesterol in VLDL Calc [Ma ss/Vol]Ordered By: Margarito Nunez on 10-20-2024 Cholesterol in VLDL [Mass/Vol] Cholesterol in VLDL [Mass/volume] in Serum or Plasma by calculation [facility] Creatinine [Mass/volume] in Serum or PlasmaOrdered By: Margarito Nunez on 10-20-2024 Creatinine [Mass/Vol] Creatinine [Mass/v olume] in Serum or Plasma Low 0.70-1.30 [facility] Glucose [Mass/volume] in Ser um or PlasmaOrdered By: Margarito Nunez on 10-20-2024 Glucose [Mass/Vol] Glucose [Mass/volume ] in Serum or Plasma High 70-100 [facility] Comment on above: ADA recommended refe rence rangeRandom Glucose Reference Range is dependent on time and content of last meal. Glucose of more than 200 mg/dL in a nonstressed, ambulatory subject supports the diagnosis of Diabetes Mellitus. Hemoglobin A1c/Hemoglobin.to krystyna in BloodOrdered By: Margarito Nunez on 10-20-2024 HbA1c (Bld) [Mass fraction] Hemoglobin A1c percentage 4.3-5.6 [facility] Comment on above: Increased risk for d iabetes: 5.7 - 6.4diabetes: >6.4glycemic control for adults with diabetes: <7.0 Lipid Panelon 10-20-2024 Cholesterol [Mass/Vol] 126 mg/dL Low 140-200 [facility] Comment on above: Result Comment: Chol less than 200 mg/dl low risk Chol 201-239 mg/dl borderline risk Chol 240 mg/dl and greater high risk Performed By: #### L YTES, PP, CREAT, BUN, LIPID, CBC #### [facility] [address] Cholesterol in HDL [Mass/Vol] 54 mg/dL Normal 23-92 [facility] Comment on above: Result Comment: HDL CHOL ATP-III CLASSIFICATION Cardiovascular Risk HDL > or equal to 60 mg/dL LOW HDL < 40 mg/dL HIGH Performed By: #### L YTES, PP, CREAT, BUN, LIPID, CBC #### [address] Cholesterol.total/Chol esterol in HDL [Mass ratio] 2.3 {ratio} Normal <5.0 [facility] Comment on above: Result Comment: PERF ORMED BY: [place] [address] PATHOLOGIST ENT PHYSICIAN SAMSON CLAUDIO M.D. Performed By: #### L YTES, PP, CREAT, BUN, LIPID, CBC #### [address] LDL Cholesterol,Calculated 61 mg/dL Normal 0-100 [facility] Comment on above: Result Comment: LDL ATP III CLASSIFICATION LDL less than 100 mg/dL Optimal LDL 100-129 mg/dL Near or above optimal LDL 130-159 mg/dL Borderline high LDL 160-189 mg/dL High LDL greater than 189 mg/dL Very high Performed By: #### L YTES, PP, CREAT, BUN, LIPID, CBC #### [address] Triglyceride w/Reflex 53 mg/dL Normal 0-149 [facility] Comment on above: Result Comment: TRIG ATP III CLASSIFICATION TRIG less than 150 mg/dL Normal TRIG 150-199 mg/dL Borderline high TRIG 200-500 mg/dL High TRIG greater than 500 mg/dL Very high Standard traceable to the Center for Disease Conrtrol and Prevention (CDC) test method. Performed By: #### L YTES, PP, CREAT, BUN, LIPID, CBC #### [address] VLDL CHOLESTEROL 10 mg/dL Normal [facility] Comment on above: Performed By: #### L YTES, PP, CREAT, BUN, LIPID, CBC #### [address] No Panel InformationOrdered By: Margarito Nunez on 10-20-2024 Estimated GFR (CKD-EPI) > 60.0 mL/Min [facility] Creatinine Clearance (Chem N/A [facility] Potassium [Moles/volume] in Serum or PlasmaOrdered By: Margarito Nunez on 10-20-2024 Potassium [Moles/Vol] Potassium [Moles/v olume] in Serum or Plasma 3.5-5.1 [facility] Serum or plasma anion gap de terminationOrdered By: Margarito Nunez on 10-20-2024 Anion gap [Moles/Vol] Serum or plasma an ion gap determination 6.0-15.0 [facility] Serum or plasma total choles terol/high density lipoprotein (HDL) cholesterol mass ratOrdered By: Margarito Nunez on 10-20-2024 Cholesterol.total/Chol esterol in HDL [Mass ratio] Serum or plasma total cholesterol/high density lipoprotein (HDL) cholesterol mass rat <5.0 [facility] Sodium [Moles/volume] in Ser um or PlasmaOrdered By: Margarito Nunez on 10-20-2024 Sodium [Moles/Vol] Sodium [Moles/volume ] in Serum or Plasma Low 136-145 [facility] Triglyceride [Mass/volume] i n Serum or PlasmaOrdered By: Margarito Nunez on 10-20-2024 Triglyceride [Mass/Vol] Triglyceride [Mass/volume] in Serum or Plasma 0-149 [facility] Comment on above: TRIG ATP III CLASSIF ICATIONTRIG less than 150 mg/dL NormalTRIG 150-199 mg/dL Borderline highTRIG 200-500 mg/dL High TRIG greater than 500 mg/dL Very highStandard traceable to the Center for Disease Conrtrol and Prevention (CDC) test method. Urea nitrogen [Mass/volume] in Serum or PlasmaOrdered By: Margarito Nunez on 10-20-2024 Urea nitrogen [Mass/Vol] Urea nitrogen [Mass/volume] in Serum or Plasma 04-27 [facility] FPG ECG *CARDIOLOGY ONLY*on 10-17-2024 FPG ECG *CARDIOLOGY ONLY* [facility] [place] [address] Electrocardiograph Report Signed Patient: Prosper Mckeon MR#: [id number] : 1960 Acct:[id number] Age/Sex: 63 / M ADM Date: 10/17/24 Loc: EKGCARDIO Room: Type: [facility] Attending Dr: Margarito Nunez MD Ordering Provider: Margarito Nunez MD Date of Service: 10/17/24 ECG/FPG ECG *CARDIOLOGY ONLY*: R93.1 - Abnormal findings on diagnostic imaging of heart ... Copies to: Test Reason : Blood Pressure : */* mmHG Vent. Rate : 63 BPM Atrial Rate : 63 BPM P-R Int : 164 ms QRS Dur : 150 ms QT Int : 474 ms P-R-T Axes : 43 -16 131 degrees QTcB Int : 485 ms Normal sinus rhythm Left bundle branch block Abnormal ECG No previous ECGs available Confirmed by Margarito Nunez ([id number]) on 10/19/2024 5:10:26 PM Referred By: Electronically Signed By: Margarito Nunez Transcribed By: MUS Signed By Margarito Nunez MD 10/19/24 1710 Normal [facility] Intravitreal Injection, Phar macologic Agent - OD - Right Eyeon 09-21-2024 [facility] Radiology Study observation (narrative) [facility] Optical coherence tomography study reporton 09-21-2024 [facility] Right Eye Quality was good. Scan locations included subfoveal, juxtafoveal, extrafoveal. Progression has been stable. Findings include choroidal neovascular membrane. Notes Scans were reviewed and compared to previous scans( when available) Choroidal neovascular membrane (CNVM) remains stable without any signs of new bleeding or extension of retinal pigment epithelium detachment (RPED) Opposite eye with dry amd [facility] Radiology Study observation (narrative) [facility] Intravitreal Injection, Phar macologic Agent - OD - Right Eyeon 06-20-2024 [facility] Radiology Study observation (narrative) [facility] Optical coherence tomography study reporton 06-20-2024 [facility] Right Eye Quality was good. 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 [facility] Radiology Study observation (narrative) [facility] INSULINon 10-01-2022 Insulin 11.4 uIU/mL Normal 2.6-24.9 [facility] Comment on above: Performed By: #### I NSULIN #### [facility] [address] [place] [address] Dr. Natalya Olvera CBC AUTO DIFFon 09-30-2022 BASO # 0.1 103/ul Normal 0.0-0.1 [facility] Comment on above: Performed By: #### C BC #### [facility] [address] [place] [address] Dr. Natalya Olvera Basophils/100 WBC (Bld) 0.8 % Normal 0.2-2.0 [facility] Comment on above: Performed By: #### C BC #### [facility] [address] [place] [address] Dr. Natalya Olvera EO # 0.2 103/ul Normal 0.0-0.7 [facility] Comment on above: Performed By: #### C BC #### [facility] [address] [place] [address] Dr. Natalya Olvera Eosinophils/100 WBC (Bld) 2.4 % Normal 0.9-7.0 [facility] Comment on above: Performed By: #### C BC #### [facility] [address] [place] [address] Dr. Natalya Olvera Erythrocyte distribution width (RBC) [Ratio] 12.0 % Normal 11.0-15.0 [facility] Comment on above: Performed By: #### C BC #### [facility] [address] [place] [address] Dr. Natalya Olvera Hematocrit (Bld) [Volume fraction] 40.9 % Critically low 42.0-54.0 [facility] Comment on above: Performed By: #### C BC #### [facility] [address] [place] [address] Dr. Natalya Olvera Hemoglobin (Bld) [Mass/Vol] 14.1 g/dL Normal 14.0-18.0 [facility] Comment on above: Performed By: #### C BC #### [facility] [address] [place] [address] Dr. Natalya Olvera IG # 0.04 10e3/ul Critically high 0.00-0.03 [facility] Comment on above: Performed By: #### C BC #### [facility] [address] [place] [address] Dr. Natalya Olvera IG % 0.6 % Critically high 0.0-0.5 [facility] Comment on above: Performed By: #### C BC #### [facility] [address] [place] [address] Dr. Natalya Olvera LYMPH # 1.7 103/ul Normal 1.2-3.8 [facility] Comment on above: Performed By: #### C BC #### [facility] [address] [place] [address] Dr. Natalya Olvera Lymphocytes/100 WBC (Bld) 27.0 % Normal 20.5-60.0 [facility] Comment on above: Performed By: #### C BC #### [facility] [address] [place] [address] Dr. Natalya Olvera MANUAL DIFF REQ NO Normal [facility] Comment on above: Performed By: #### C BC #### [facility] [address] [place] [address] Dr. Natalya Olvera MCH (RBC) [Entitic mass] 31.7 pg Normal 25.9-34.0 [facility] Comment on above: Performed By: #### C BC #### [facility] [address] [place] [address] Dr. Natalya Olvera MCHC (RBC) [Mass/Vol] 34.5 g/dL Normal 29.9-35.2 [facility] Comment on above: Performed By: #### C BC #### [facility] [address] [place] [address] Dr. Natalya Olvera MCV (RBC) [Entitic vol] 91.9 fL Normal 80.0-94.0 [facility] Comment on above: Performed By: #### C BC #### [facility] [address] [place] [address] Dr. Natalya Olvera MONO # 0.6 103/ul Normal 0.3-0.8 [facility] Comment on above: Performed By: #### C BC #### [facility] [address] [place] [address] Dr. Natalya Olvera Monocytes/100 WBC (Bld) 10.0 % Normal 1.7-12.0 [facility] Comment on above: Performed By: #### C BC #### [facility] [address] [place] [address] Dr. Natalya Olvera NEUT # 3.8 103/ul Normal 1.4-6.5 [facility] Comment on above: Performed By: #### C BC #### [facility] [address] [place] [address] Dr. Natalya Olvera Neutrophils/100 WBC (Bld) 59.2 % Normal 43.0-75.0 [facility] Comment on above: Performed By: #### C BC #### [facility] [address] [place] [address] Dr. Natalya Olvera Platelet mean volume (Bld) [Entitic vol] 10.7 fL Normal 9.5-13.5 [facility] Comment on above: Performed By: #### C BC #### [facility] [address] [place] [address] Dr. Natalya Olvera PLT 232 103/ul Normal 150-450 [facility] Comment on above: Performed By: #### C BC #### [facility] [address] [place] [address] Dr. Natalya Olvera RBC 4.45 106/ul Critically low 4.70-6.10 [facility] Comment on above: Performed By: #### C BC #### [facility] [address] [place] [address] Dr. Natalya Olvera WBC 6.4 103/ul Normal 4.0-11.0 [facility] Comment on above: Performed By: #### C BC #### [facility] [address] [place] [address] Dr. Natalya Olvera GLYCOHEMOGLOBIN A1Con 2021 ADA RECOMMENDATION SEE BELOW Normal [facility] Comment on above: Result Comment: ADA RECOMMENDED LIMIT 4.0 - 6.0 ADA THERAPEUTIC TARGET < 7.0 ACTION SUGGESTED > 7.0 Performed By: #### A 1C #### [facility] [address] [place] [address] Dr. Natalya Olvera Glucose [Mass/Vol] 94 mg/dL Normal [facility] Comment on above: Performed By: #### A 1C #### [facility] [address] [place] [address] Dr. Natalya Olvera HbA1c (Bld) [Mass fraction] 4.9 % Normal 4.5-6.2 [facility] Comment on above: Performed By: #### A 1C #### [facility] [address] [place] [address] Dr. Natalya Olvera LIPID PROFILEon 09-30-2022 CHOL-HDL RATIO NORM SEE BELOW Normal [facility] Comment on above: Result Comment: 3.3 - 4.4 LOW RISK 4.4 - 7.1 AVERAGE RISK 7.1 - 11.0 MODERATE RISK >11.0 HIGH RISK Performed By: #### L IPID, URIC, CMP #### [facility] [address] [place] [address] Dr. Natalya Olvera Cholesterol [Mass/Vol] 156 mg/dL Normal <=200 [facility] Comment on above: Performed By: #### L IPID, URIC, CMP #### [facility] [address] [place] [address] Dr. Natalya Olvera Cholesterol in HDL [Mass/Vol] 71 mg/dL Critically high 40-60 [facility] Comment on above: Performed By: #### L IPID, URIC, CMP #### [facility] [address] [place] [address] Dr. Natalya Olvera Cholesterol in LDL [Mass/Vol] 68.0 mg/dL Normal [facility] Comment on above: Performed By: #### L IPID, URIC, CMP #### [facility] [address] [address] [address] Natalya Olvera Cholesterol.total/Chol esterol in HDL [Mass ratio] 2.2 {ratio} Normal [facility] Comment on above: Performed By: #### L IPID, URIC, CMP #### [facility] [address] [address] [address] Natalya Olvera HDL NORMAL > or = 60 mg/dl - LO W CARDIOVASCULAR RISK <40 mg/dl - HIGH CARDIOVASCULAR RISK Normal [facility] Comment on above: Performed By: #### L IPID, URIC, CMP #### [facility] [address] [address] [address] Natalya Olvera LDL CALC NORMAL SEE BELOW Normal [facility] Comment on above: Result Comment: <100 mg/dl OPTIMAL 100 - 129 mg/dl NEAR OR ABOVE OPTIMAL 130 - 159 mg/dl BORDERLINE HIGH 160 - 189 mg/dl HIGH >190 mg/dl VERY HIGH Performed By: #### L IPID, URIC, CMP #### [facility] [address] [address] [address] Natalya Olvera Triglyceride [Mass/Vol] 85 mg/dL Normal <=150 [facility] Comment on above: Performed By: #### L IPID, URIC, CMP #### [facility] [address] [place] [address] Dr. Natalya Olvera VLDL CALC 17.0 mg/dL Normal [facility] Comment on above: Performed By: #### L IPID, URIC, CMP #### [facility] [address] [address] [address] Natalya Olvera PROF 14(COMP METB)on 022 Albumin [Mass/Vol] 4.1 g/dL Normal 3.4-5.0 [facility] Comment on above: Performed By: #### L IPID, URIC, CMP #### [facility] [address] [place] [address] Dr. Natalya Olvera Albumin/Globulin [Mass ratio] 1.1 {ratio} Normal [facility] Comment on above: Performed By: #### L IPID, URIC, CMP #### [facility] [address] [address] [address] Natalya Olvera ALP [Catalytic activity/Vol] 71 U/L Normal 46-116 [facility] Comment on above: Performed By: #### L IPID, URIC, CMP #### [facility] [address] [address] [address] Natalya Olvera ALT [Catalytic activity/Vol] 37 U/L Normal 16-63 [facility] Comment on above: Performed By: #### L IPID, URIC, CMP #### [facility] [address] [address] [address] Natalya Olvera Anion gap [Moles/Vol] 12.2 mmol/L Normal Th e [facility] Comment on above: Performed By: #### L IPID, URIC, CMP #### [facility] [address] [address] [address] Natalya Olvera AST [Catalytic activity/Vol] 30 U/L Normal 15-37 [facility] Comment on above: Performed By: #### L IPID, URIC, CMP #### [facility] [address] [address] [address] Natalya Olvera Bilirubin [Mass/Vol] 0.9 mg/dL Normal 0.2-1.0 [facility] Comment on above: Performed By: #### L IPID, URIC, CMP #### [facility] [address] [address] [address] Natalya Olvera Calcium [Mass/Vol] 8.8 mg/dL Normal 8.5-10.1 [facility] Comment on above: Performed By: #### L IPID, URIC, CMP #### [facility] [address] [address] [address] Natalya Olvera Chloride [Moles/Vol] 95 mmol/L Critically low 98-107 [facility] Comment on above: Performed By: #### L IPID, URIC, CMP #### [facility] [address] [address] [address] Natalya Olvera CO2 [Moles/Vol] 30.0 mmol/L Normal 21.0-32.0 [facility] Comment on above: Performed By: #### L IPID, URIC, CMP #### [facility] [address] [address] [address] Natalya Olvera Creatinine [Mass/Vol] 0.61 mg/dL Critically low 0.70-1.30 [facility] Comment on above: Performed By: #### L IPID, URIC, CMP #### [facility] [address] [address] [address] Natalya Olvera EGFR-AF MALIAN >60 Normal >=60 [facility] Comment on above: Performed By: #### L IPID, URIC, CMP #### [facility] [address] [address] [address] Natalya Olvera EGFR-NON AF MALIAN >60 Normal >=60 [facility] Comment on above: Performed By: #### L IPID, URIC, CMP #### [facility] [address] [address] [address] Natalya Olvera Globulin (S) [Mass/Vol] 3.8 g/dL Normal [facility] Comment on above: Performed By: #### L IPID, URIC, CMP #### [facility] [address] [address] [address] Natalya Olvera Glucose [Mass/Vol] 102 mg/dL Normal 74-106 [facility] Comment on above: Performed By: #### L IPID, URIC, CMP #### [facility] [address] [address] [address] Natalya Olvera Potassium [Moles/Vol] 4.2 mmol/L Normal 3.5-5.1 [facility] Comment on above: Performed By: #### L IPID, URIC, CMP #### [facility] [address] [address] [address] Natalya Olvera Protein [Mass/Vol] 7.9 g/dL Normal 6.4-8.2 [facility] Comment on above: Performed By: #### L IPID, URIC, CMP #### [facility] [address] [address] [address] Natalya Olvera Sodium [Moles/Vol] 133 mmol/L Critically low 136-145 Th e [facility] Comment on above: Performed By: #### L IPID, URIC, CMP #### [facility] [address] [address] [address] Natalya Olvera Urea nitrogen [Mass/Vol] 7.0 mg/dL Normal 7.0-18.0 [facility] Comment on above: Performed By: #### L IPID, URIC, CMP #### [facility] [address] [address] [address] Natalya Olvera Urea nitrogen/Creatinine [Mass ratio] 11.5 mg/mg Normal [facility] Comment on above: Performed By: #### L IPID, URIC, CMP #### [facility] [address] [place] [address] Dr. Natalya Olvera URIC ACID SERUMon 09-30-2022 Urate [Mass/Vol] 4.3 mg/dL Normal 3.5-7.2 [facility] Comment on above: Performed By: #### L IPID, URIC, CMP #### [facility] [address] [place] [address] Dr. Natalya ALDRICHon 10-12-2017 CNOV Office Visit (CARDFT) PROSPER MCKEON ([id number]) 1960 MDate Time Provider Department10/12/17 1:30 PM MANDO VELASQUEZ During your visit today, we recorded the following information about you: Pulse Respiration Blood pressure Weight 89/minute 18/minute 142/89 83.5 kg Height 1.778 Jacquelyn Velasquez MD 10/12/2017 1:44 PM [facility]Robre[facility] Department of Cardiovascular MedicineOUTPATIENT VISIT DATE 10/12/17OUTPATIENT VISIT TYPEESTABLECU HEALTH EDGECOMBE [facility]OSPITALPRONSLOW [facility]ORIAL HOSPITALRY CARE PHYSICIAN:Curtis Salazar, [id number] [facility] [place] [address]Ketgr: [phone]: [phone] COMPLAINT:Systolic HFHISTORY OF PRESENT ILLNESS:Prosper Mkceon is a 56 year old male who [...] 83.5 kg (184lb) SpO2 97% BMI 26.4 kg/t7Ndczuro: Well appearing, in no acute distress.Neuro: Oriented [...] or concerns.?Mando Velasquez M.D.[facility] Roque of Cardiovascular MedicineRegional Medical Centerrt and Vascular Institute[address] [address]Qhanoc: [phone] Referring Provider: CURTIS SALAZAR [[id number]]Allergies As of Date: 10/12/2017(No Known Allergies)Date Reviewed: 10/12/2017Reviewed by: Cliff Sadler (Rn) SALENA Mcfarlane - Fully AssessedPrimary Visit Diagnosis:Systolic heart failure, unspecified heart failure chronicity (HCC) [I50.20] Other Visit Diagnoses:Essential hypertension [I10] Bicuspid aortic valve [Q23.1]Order(s):ECHO [[id number]] Order #: [id number]: 1 FUTUREPrescriptions as of 10/12/2017 Sig: LEVETIRACETAM [...] (around 04/11/2018).Follow-up and Disposition History RecordedEncounter Number: [id number] Status:Closed by MANDO VELASQUEZ MD on 10/12/17 [facility] PROGRESSon 10-11-2017 PROGRESS HNO ID: [id number] thor: Mando Brown: (none)Author Type: PhysicianType: Progress NotesFiled: 10/12/2017 1:44 PMNote Text:Heart and Vascular InstituteCulleoka and Jaclyn Sheehan Department of Cardiovascular MedicineOUTPATIENT VISIT DATE 10/12/17OUTPATIENT VISIT TYPEESTABLECU HEALTH EDGECOM[facility]ITALPR[facility] CARE PHYSICIAN:Curtis Salazar, [id number] [facility]Ad[facility] [place] [address]Ijast: [phone]: [phone] COMPLAINT:Systolic HFHISTORY OF PRESENT ILLNESS:Prosper Mckeon is [...] 83.5 kg (184lb) SpO2 97% BMI 26.4 kg/d6Yzkomqe: Well appearing, in no acute distress.Neuro: Oriented [...] further questions or concerns.?Maddie Pringle of Cardiovascular MedicineWickenburg Regional Hospital and [facility] Institute[address], [place] [address]Gfaxdr: [phone] Normal [facility] CNOVon 04-27-2017 CNOV Office Visit (CARDFT) PROSPER MCKEON ([id number]) 1960 MDate Time Provider Department04/27/17 11:30 AM MANDO VELASQUEZ During your visit today, we recorded the following information about you: Pulse Respiration Blood pressure Weight 74/minute 18/minute 154/78 83.5 kg Height 1.778 Jacquelyn Velasquez MD 04/27/2017 11:48 AM Counts [facility] Department of Cardiovascular MedicineOUTPATIENT VISIT DATE 04/27/17OUTPATIENT VISIT TYPEESTABLECU [facility]ITALPR[facility] CARE PHYSICIAN:Curtis Salazar, [id number] [facility] [place] [address]Dntmv: [phone]: [phone] COMPLAINT:Systolic HFHISTORY OF PRESENT ILLNESS:Prosper Mckeon is [...] Systolic heart failure (HCC)- Tobacco abusePAST SURGICAL SDCOCRM93/23/16: CEA Left Comment: with patch angioplastySocial HistorySubstance [...] 83.5 kg (184lb) SpO2 98% BMI 26.4 kg/p7Bqtbbgw: Well appearing, in no acute distress. Has [...] or concerns.?Mando Velasquez M.D.[facility] of Cardiovascular MedicineRegional Medical Centerrt and Vascular InstituteDavid Ville [address] [place], [place] [address]Jmipzs: [phone] Referring Provider: CURTIS SALAZAR [[id number]]Allergies As of Date: 04/27/2017(No Known Allergies)Date Reviewed: [...] (around 09/27/2017).Follow-up and Disposition History RecordedEncounter Number: [id number] Status:Closed by MANDO VELASQUEZ MD on 04/27/17 Normal [facility] PROGRESSon 04-26-2017 PROGRESS HNO ID: [id number] thor: Mando OrourkeAddis: (none)Author Type: PhysicianType: Progress NotesFiled: 04/27/2017 11:48 AMNote Text:Heart and Vascular InstituteCulleoka and Jaclyn Sheehan Department of Cardiovascular MedicineOUTPATIENT VISIT DATE 04/27/17OUTPATIENT VISIT TYPEESTABLISHEDPRONSLOW MEMORIAL HOSPITALRY CARE PHYSICIAN:Curtis Salazar, [id number] [facility] [place] [address]Fbxgi: [phone]: [phone] COMPLAINT:Systolic HFHISTORY OF PRESENT ILLNESS:Prosper Mckeon is [...] Systolic heart failure (HCC)- Tobacco abusePAST SURGICAL MZDKXZI29/23/16: CEA Left Comment: with patch angioplastySocial HistorySubstance [...] 83.5 kg (184lb) SpO2 98% BMI 26.4 kg/d4Uaxgfdy: Well appearing, in no acute distress. Has [...] CEA May 2016. Management per Dr Penn. ROBIN Yuan.?Disposition: Follow up in clinic in 5 months. Pending studies: none??CONTACT INFORMATION:Thank you for allowing us to assist in the care your patient. As alwaysplease do not hesitate to contact us with further questions or concerns.?Mando Velasquez M.D.Clinton Benavidespartment of Cardiovascular MedicineRegional Medical Centerrt and Vascular InstituteDavid Ville [address], [place] [address]Jwumgm: [phone] Normal [facility] Vital Signs Date Time Vital Sign Value Performing Clinician Hannah mendez 01-01-2025 10:55-0400 Body temperature 97.3 [degF] Kristel Castellano NP-C Work Phone: [facility] 01-01-2025 10:55-0400 Diastolic blood pressure 76 mm[Hg] Kristel Castellano [employer]-C Work Phone: [facility] 01-01-2025 10:55-0400 Heart rate 77 /min Kristel Castellano NP-C Work Phone: [facility] 01-01-2025 10:55-0400 SaO2% (BldA) [Mass fraction] 98 % Kristel Castellano [employer] Work Phone: [facility] 01-01-2025 10:55-0400 Systolic blood pressure 124 mm[Hg] Kristel Castellano [employer] Work Phone: [facility] 11-23-2024 13:40-0500 Diastolic blood pressure 76 mm[Hg] Kristeljimena Bonnermer [employer]C Work Phone: [facility] 11-23-2024 13:40-0500 Heart rate 64 /min Kristeljimena Bonnermer [employer] Work Phone: [facility] 11-23-2024 13:40-0500 Respiratory rate 16 /min Kristeljimena Bonnermer [employer] Work Phone: [facility] 11-23-2024 13:40-0500 SaO2% (BldA) [Mass fraction] 98 % Kristeljimena Bonnermer [employer] Work Phone: [facility] 11-23-2024 13:40-0500 Systolic blood pressure 139 mm[Hg] Kristel Castellano [employer] Work Phone: [facility] 11-23-2024 10:15-0500 Inhaled oxygen flow rate 3 L/min Kristel Bonnermer [employer] Work Phone: [facility] 11-23-2024 07:19-0500 Body height 177.8 cm Kristel Bonnermer [employer] Work Phone: [facility] 11-23-2024 07:19-0500 Body weight 81.64 kg Kristel Castellano [employer] Work Phone: [facility] 11-13-2024 11:02-0500 Body height 177.8 cm Kristeljimena Bonnermer [employer] Work Phone: [facility] 11-13-2024 11:02-0500 Body mass index (BMI) [Ratio] 25.8 kg/m2 Kristel Bonnermer [employer] Work Phone: [facility] 11-13-2024 11:02-0500 Body temperature 98.2 [degF] Kristel Castellano [employer] Work Phone: [facility] 11-13-2024 11:02-0500 Body weight 81.64 kg Kristel Simon [employer] Work Phone: [facility] 11-13-2024 11:02-0500 Diastolic blood pressure 78 mm[Hg] Kristel Simon [employer] Work Phone: [facility] 11-13-2024 11:02-0500 Heart rate 72 /min Kristel Simon [employer] Work Phone: [facility] 11-13-2024 11:02-0500 Respiratory rate 16 /min Kristel Simon [employer] Work Phone: [facility] 11-13-2024 11:02-0500 SaO2% (BldA) [Mass fraction] 98 % Kristel Simon [employer] Work Phone: [facility] 11-13-2024 11:02-0500 Systolic blood pressure 124 mm[Hg] Kristel Simon [employer] Work Phone: [facility] 11-07-2024 14:05-0500 Diastolic blood pressure 56 mm[Hg] Kristel Simon [employer] Work Phone: [facility] 11-07-2024 14:05-0500 Heart rate 66 /min Kristel Simon [employer] Work Phone: [facility] 11-07-2024 14:05-0500 Respiratory rate 16 /min Kristel Simon [employer] Work Phone: [facility] 11-07-2024 14:05-0500 SaO2% (BldA) [Mass fraction] 97 % Kristel Simon [employer] Work Phone: [facility] 11-07-2024 14:05-0500 Systolic blood pressure 112 mm[Hg] Kristel Simon [employer] Work Phone: [facility] 11-07-2024 13:05-0500 Body temperature 97.8 [degF] Kristel Simon [employer] Work Phone: [facility] 11-07-2024 08:52-0500 Body height 177.8 cm Kristel Simon [employer] Work Phone: [facility] 11-07-2024 08:52-0500 Body weight 83 kg Kristel Simon [employer] Work Phone: [facility] 10-30-2024 14:03-0500 Body height 177.8 cm Kristel Simon [employer] Work Phone: [facility] 10-30-2024 14:03-0500 Body mass index (BMI) [Ratio] 25.8 kg/m2 Kristel Simon [employer] Work Phone: [facility] 10-30-2024 14:03-0500 Body temperature 97.3 [degF] Kristel Simon [employer] Work Phone: [facility] 10-30-2024 14:03-0500 Body weight 81.64 kg Kristel Simon [employer] Work Phone: [facility] 10-30-2024 14:03-0500 Diastolic blood pressure 74 mm[Hg] Kristel Simon [employer] Work Phone: [facility] 10-30-2024 14:03-0500 Heart rate 68 /min Kristel Simon [employer] Work Phone: [facility] 10-30-2024 14:03-0500 SaO2% (BldA) [Mass fraction] 98 % Kristel Simon [employer] Work Phone: [facility] 10-30-2024 14:03-0500 Systolic blood pressure 138 mm[Hg] Kristel Simon [employer] Work Phone: [facility] 10-17-2024 10:03-0500 Body height 177.8 cm Kristel Simon [employer] Work Phone: [facility] 10-17-2024 10:03-0500 Body mass index (BMI) [Ratio] 25.9 kg/m2 Kristel Simon [employer] Work Phone: [facility] 10-17-2024 10:03-0500 Body weight 82.1 kg Kristel Simon [employer] Work Phone: [facility] 10-17-2024 10:03-0500 Diastolic blood pressure 72 mm[Hg] Kristel Simon [employer] Work Phone: [facility] 10-17-2024 10:03-0500 Heart rate 67 /min Kristel Simon [employer] Work Phone: [facility] 10-17-2024 10:03-0500 Respiratory rate 18 /min Kristel Simon [employer] Work Phone: [facility] 10-17-2024 10:03-0500 SaO2% (BldA) [Mass fraction] 99 % Kristel Simon [employer] Work Phone: [facility] 10-17-2024 10:03-0500 Systolic blood pressure 134 mm[Hg] Kristel Simon [employer] Work Phone: [facility] Encounters Encounter Date Encounter Type Care Provider Facility Start: 01-01-2025 End: 01-01-2025 ambulatory Kristel Ysabel Simon [employer] Work Phone: [facility] Work Phone: Start: 01-01-2025 End: 01-01-2025 Patient encounter procedure Kristel Simon [employer] Work Phone: [facility] Work Phone: Start: 12-29-2024 End: 12-29-2024 Patient encounter procedure Kristel Simon [employer] Work Phone: [facility]-Electrodiagnostic s Work Phone: Start: 12-29-2024 End: 12-29-2024 ambulatory Kristel Ysabel Simon [employer] Work Phone: [facility] Work Phone: Start: 12-26-2024 End: 12-26-2024 ambulatory SIMONE M MARY Not Available Start: 11-23-2024 Non-patient / Non-visit Kristeljimena Bonnermer [employer] Work Phone: [facility] V[facility] Surg Work Phone: Start: 11-23-2024 End: 11-23-2024 Admission to same day surgery center Kristeljimena Castellano [employer] Work Phone: [facility]-Interventional Radiology Work Phone: Start: 11-23-2024 End: 11-23-2024 ambulatory Kristel Ysabel Simon [employer] Work Phone: [facility] Work Phone: Start: 11-13-2024 End: 11-13-2024 ambulatory Kristel Ysabel Simon [employer] Work Phone: [facility] Work Phone: Start: 11-13-2024 End: 11-13-2024 Patient encounter procedure Kristel Simon [employer] Work Phone: [facility] V[facility] Surgery [place] Work Phone: Start: 11-07-2024 End: 11-07-2024 Patient encounter procedure Kristel Simon [employer] Work Phone: [facility]-Ultrasound [place] Work Phone: Start: 11-07-2024 End: 11-07-2024 ambulatory Kristel Ysabel Bonnermer [employer] Work Phone: [facility] Work Phone: Start: 11-07-2024 Non-patient / Non-visit Kristel Bonnermer [employer] Work Phone: [facility] Cardiology Work Phone: Start: 11-07-2024 End: 11-07-2024 Admission to same day surgery center Kristeljimena Castellano [employer] Work Phone: [facility]-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 Mechanic Work Phone: Start: 11-07-2024 End: 11-07-2024 ambulatory Kristel Ysabel Simon [employer] Work Phone: [facility] Work Phone: Start: 11-03-2024 End: 11-03-2024 Patient encounter procedure Kristel Simon [employer] Work Phone: [facility]-Ecr-Etofzsvz Testing Work Phone: Start: 11-03-2024 End: 11-03-2024 ambulatory Kristel Ysabel Simon [employer] Work Phone: [facility] Work Phone: Start: 11-03-2024 Encounter for preprocedural laboratory examination Margarito Nunez [facility] Start: 10-30-2024 End: 10-30-2024 Patient encounter procedure Kristel Simon [employer] Work Phone: [facility] Vascular Surgery [place] Work Phone: Start: 10-20-2024 End: 10-20-2024 Patient encounter procedure Kristel Simon [employer] Work Phone: [facility]-Lab [place] Work Phone: Start: 10-20-2024 End: 10-20-2024 ambulatory Kristel Ysabel Simon [employer] Work Phone: [facility] Work Phone: Start: 10-17-2024 End: 10-17-2024 ambulatory Kristel Ysabel Simon [employer] Work Phone: [facility] Work Phone: Start: 10-17-2024 End: 10-17-2024 Patient encounter procedure Kristel Simon [employer] Work Phone: [facility] Card[facility] Work Phone: Start: 09-21-2024 End: 09-21-2024 Tasha Cazares MD Work Phone: [facility] Start: 09-21-2024 End: 09-21-2024 Bamboo flowsheet Simone Cazares MD Work Phone: [facility] Start: 09-21-2024 End: 09-21-2024 Office outpatient visit 15 minutes Simone Cazares MD Work Phone: [facility] Comment on above: Follow-up; Macular D egeneration Start: 09-21-2024 End: 09-21-2024 ambulatory SIMONE CAZARES Not Available Start: 06-20-2024 End: 06-20-2024 Bamboo flowsheet Simone Cazares MD Work Phone: [facility] Start: 06-20-2024 End: 06-20-2024 Bamboo flowsheet Simone Cazares MD Work Phone: [facility] Start: 06-20-2024 End: 06-20-2024 ambulatory SIMONE CAZARES Not Available Start: 03-21-2024 End: 03-21-2024 ambulatory SIMONE CAZARES Not Available Start: 12-30-2023 End: 12-30-2023 ambulatory [employer] Kristel Castellano Work Phone: [facility] Work Phone: Start: 12-30-2023 End: 12-30-2023 Departed Referred [employer] Kristel Castellano Work Phone: [facility]-LAB Path [facility] Start: 10-03-2022 Encounter for genera l adult medical examination without abnormal findings KRISTEL CASTELLANO [facility] Start: 09-30-2022 End: 10-01-2022 ambulatory KRISTEL CASTELLANO Facility:[facility] Start: 09-30-2022 End: 10-01-2022 Encounter for general adult medical examination without abnormal findings KRISTEL CASTELLANO Facility:[facility] Start: 08-05-[address] RADHA SARMIENTO Facility :[facility] Start: 01-27-2022 ambulatory KRISTEL CASTELLANO Facility: [facility] Start: 10-12-2017 End: 10-14-2017 [address] [facility] Start: 04-27-2017 End: 05-03-2017 Ambulatory MANDO [facility] Start: 03-10-2017 End: 03-11-2017 Ambulatory [facility] [place] Procedures Date Procedure Procedure Detail Performing Clinician Start: 11-23-2024 IR Angiogram w/TLA/Stent Left Leg (Bilateral) Kristeljimena Bonnermer [employer] Work Phone: Start: 11-23-2024 IR Angiogram w/TLA/Stent Left Leg (Not Applicable) Kristel Simon [employer] Work Phone: Start: 11-07-2024 Doppler ultrasonography of bilateral carotid arteries Kristel Simon [employer] Work Phone: Start: 11-07-2024 Pulse volume recorder pneumoplethysmography Kristel Simon [employer] Work Phone: Start: 11-07-2024 [facility] Angio Kristeljimena Bonnermer [employer] Work Phone: Start: 11-07-2024 Kristel Simon [employer] Work Phone: Start: 09-21-2024 Intravitreal njx pharmacologic agt spx Simone Cazares MD Work Phone: Start: 09-21-2024 Computerized ophthalmic imaging retina Simone Cazares MD Work Phone: Start: 06-20-2024 Intravitreal njx pharmacologic agt spx Simone Cazares MD Work Phone: Start: 06-20-2024 Computerized ophthalmic imaging retina Simone Cazares MD Work Phone: Start: 06-20-2024 End: 06-20-2024 Oph medical xm&eval intermediate estab pt Exudative age-related macular degeneration of right eye with active choroidal neovascularization (CMS/HCC) Simone Cazares MD Work Phone: Comment on above: Retinal Injection Start: 09-30-[address] RADHA SARMIENTO Comment on above: Performed By: #### [facility] #### [facility] [address] [address] [address] Natalya Olvera Plan of Treatment Date Care Activity Detail Author Start: 11-23-2024 [facility] Start: 11-07-2024 Doppler ultrasonogra phy of bilateral carotid arteries US carotid doppler BI [facility] Start: 11-07-2024 Pulse volume recorde r pneumoplethysmography [facility] Start: 11-07-2024 US.doppler Carotid a rteries - bilateral [facility] Start: 11-07-2024 [facility] Start: 10-20-2024 [facility] Start: 10-17-2024 Patient referral [facility] Work Phone: Start: 10-17-2024 [facility] Start: 09-21-2024 End: 09-21-2024 Clinical Support 09/21/2024 8:30 AM EST Clinical Support [facility] [address] [place] [address] Simone Cazares MD [address] [place] [address] Arrived [facility] Comment on above: Arrived Start: 06-20-2024 End: 06-20-2024 Clinical Support 06/20/2024 9:45 AM EDT Clinical Support [facility] [address] [place] [address] Simone Cazares MD [address] [place] [address] Arrived [facility] Comment on above: Arrived Start: 06-04-2024 Influenza vaccination Influenz a Vaccine (#1) [facility] Start: 1960 Screening for malign ant neoplasm of colon [facility] Glucose measurement estimated from glycated hemoglobin [facility] Hemoglobin A1c/Hemog lobin.total in Blood [facility] Patient Education Know your Meds [facility] Work Phone: Patient referral [facility] Work Phone: Pulse volume recorde r pneumoplethysmography [facility] US Heart Transthoracic [facility] US.doppler Carotid a rteries - bilateral [facility] Immunizations Immunization Date Immunization Notes Care Provider Fa cility 09-10-2021 COVID-19 mRNA-1273 (Moderna) Kristel Castellano [employer] Work Phone: [facility] 02-06-2021 COVID-19 mRNA-1273 (Moderna) [employer] Kristel Castellano Work Phone: [facility] 01-09-2021 COVID-19 mRNA-1273 (Moderna) [employer] Kristel Castellano Work Phone: [facility] Payers Date Payer Category Payer Self-pay [id number] 2022 [facility] [id number] 2022 Unknown BCBS BCBS xxxxxx [id number] 2022-Present [phone] [address] [place] [address] [id number] 1960 Unknown [id number] .593 1960 Unknown [id number] [id number] .593 1960 Unknown [id number] 2.16.840.1.305080.3.579.2 .593 1960 Unknown [id number] 2.16.840.1.494781.3.579.2 .1259 1960 Unknown [id number] 2.16.840.1.445225.3.579.2 .1259 1960 Unknown [id number] 2.16.840.1.500083.3.579.2 .1259 1960 Unknown [id number] 2.16.840.1.784483.3.579.2 .1259 1959 Self-pay [id number] 1959 Unknown [id number] Unknown [id number] 2.16.840.1.559564.3.579.2 .531 Unknown [id number] 2.16.840.1.640992.3.579.2 .531 Unknown [id number] 2.16.840.1.329058.3.579.2 .531 Unknown [id number] 2.16.840.1.685309.3.579.2 .531 Unknown [id number] 2.16.840.1.414079.3.579.2 .531 Unknown [id number] 2.16.840.1.095500.3.579.2 .531 Unknown [id number] [id number] .531 Social History Date Type Detail Facility Start: 07-01-2021 End: 11-07-2024 Tobacco smoking status SCIS Ex-smoker (finding) [facility] Start: 1960 Sex Assigned At Male F [facility] History of tobacco use Current smoker [facility] History of tobacco use Cigarette Smoker [facility] Start: 03-21-2024 Tobacco use and exposure Smokeless tobacco non-user [facility] Start: 03-21-2024 End: 09-21-2024 Alcoholic beverage intake Ex-drinker (finding) [facility] Start: 03-21-2024 End: 06-20-2024 Alcoholic beverage intake [facility] Start: 05-19-2023 End: 06-20-[address] [facility] Start: 1960 Sex assigned at Not on file N [facility] Start: 10-18-2024 End: 10-21-2024 Sex Patient sex unknown (finding) [facility] Start: 11-04-2024 End: 01-01-2025 Sex Male (finding) [facility] Medical Equipment Procedure Code Equipment Code Equipment Origin al Text Equipment Identifier Dates Peripheral arter y endovascular stent-graft, drug-coated [id number] FDA Start: 11-23-2024 Peripheral arter y endovascular stent-graft, drug-coated ()[id number] FDA Start: 11-23-2024 Goals Date Patient Goal Desired Activity /State Clinical Notes 06-20-2024 to 11-07-2024 Note Date & Type Note Facility 11-07-2024 Procedure note [facility] 10-17-2024 Evaluation note Diagnosis Onset Date Resolution Essential (primary) hypertension acute October 17 9:42am HFrEF (heart failure with reduced ejection fraction) acute October 17 9:42am Mixed hyperlipidemia acute 2024 9:42am Peripheral arterial disease acute October 17 9:42am [facility] Work Phone: 1(684) 769-712001-14-2025 Evaluation note* Diagnosis Onset Date Resolution Status Admit Date Essential (primary) hypertension acu te October 17, 2024 9:42am HFrEF (heart failure with reduced ejection fraction) acute 2024 9:42am Mixed hyperlipidemia acute 2024 9:42am Peripheral arterial disease acute October 17, 2024 9:42am Carotid stenosis acute October 30, 2024 1:55pm Peripheral arterial disease acute October 30, 2024 1:55pm [facility] Work Phone: 1(162) 747-298101-14-2025 Evaluation note* Diagnosis Onset Date Resolution Status Admit Date Essential (primary) hypertension acute October 17 9:42am HFrEF (heart failure with reduced ejection fraction) acute ry 2024 9:42am Mixed hyperlipidemia acute arcelia 2024 9:42am Peripheral arterial disease acute October 17, 2024 9:42am Carotid stenosis acute October 30, 2024 1:55pm Peripheral arterial disease acute October 30, 2024 1:55pm Carotid stenosis acute November 13, 2024 9:53am Peripheral arterial disease acute November 13, 2024 9:53am [facility] Work Phone: 1(117) 248-328112-19-2024 NoteTime Out 09/21/2024. 9:07 AM. Confirmed correct patient, procedure, site, and patient consented. Anesthesia Topical anesthesia was used. Anesthetic medications included Lidocaine 2%, Proparacaine 0.5%. Procedure Preparation included 5% betadine to ocular surface, eyelid speculum. A 30 gauge needle was used. Injection: 1.25 mg Bevacizumab 1.25 MG/0.05ML Route: Intravitreal, Site: Right Eye [facility]: [id number], Lot: [id number], Expiration date: 08/21/2025 Post-op Post injection exam found visual acuity [...] increased pain, redness, decreased vision or concerns. [id number] History of Present illness Narrative* Simone Cazares MD - 09/21/2024 8:30 AM EST Assessment/Plan Intravitreal Avastin: Risks, benefits and alternatives [...] additional anesthetic with a proparacaine soaked cotton swab.Using calipers (set at 3.5mm for pseudo and 4mm for phakic), the inferotemp. limbus was measured, sclera marked and 2 additional drops of betadine placed. Avoiding any talking to avoid contamination,intravitreal injection was carried out without difficulty. Any residual amount of medication was discarded appropriately. The patient tolerated the procedure well and instructed to call with increased pain, redness, decreased vision or concerns. documented in this encounterSt. [facility] [id number] NoteTime Out 06/20/2024. 10:14 AM. Confirmed correct patient, procedure, site, and patient consented. Anesthesia Topical anesthesia was used. Anesthetic medications included Lidocaine 2%, Proparacaine 0.5%. Procedure Preparation included 5% betadine to ocular surface, eyelid speculum. A 30 gauge needle was used. Injection: 1.25 mg bevacizumab 100 MG/4ML Route: Intravitreal, Site: Right Eye [facility]: [id number], Lot: [id number], Expiration date: 08/21/2024, Waste: 3.95 mL Post-op [...] increased pain, redness, decreased vision or concerns. [facility] CenterTuhecrrnyz10-09-1048 History of Present illness Narrative* Simone Cazares MD - 06/20/2024 9:45 AM EDT Assessment/Plan Intravitreal Avastin: Risks, benefits and alternatives [...] additional anesthetic with a proparacaine soaked cotton swab.Using calipers (set at 3.5mm for pseudo and 4mm for phakic), the inferotemp. limbus was measured, sclera marked and 2 additional drops of betadine placed. Avoiding any talking to avoid contamination,intravitreal injection was carried out without difficulty. Any residual amount of medication was discarded appropriately. The patient tolerated the procedure well and instructed to call with increased pain, redness, decreased vision or concerns. [facility] HealthcareEvaluation noteNo assessment information available[facility] Work Phone: Evaluation note* Diagnosis Exudative age-related macular degeneration of right eye with active choroidal neovascularization (CMS/HCC) documented in this encounter [facility] HealthcareEvaluation note* Diagnosis Exudative age-related macular degeneration of right eye with active choroidal neovascularization (CMS/HCC)- Primary [facility] Dis[facility] instructions Additional Instructions DISCHARGE INSTRUCTIONS FOR ANGIOGRAM, ANGIOPLASTY, STENT PLACEMENT FIRST TWO (2) DAYS AFTER DISCHARGE: -Take it easy at home, no strenuous activity. -Do not lift or pull objects over 10 pounds, including children and groceries (10 pounds = 1 gallon milk). -May shower. -Take it slow going up & down stairs -No excessive scrubbing of affected groin or arm. -May drive car unless you had sedation for the procedure, then you cannot drive for [address] Prince [facility] AT [phone]: -If excessive bleeding should occur from the puncture site, immediately apply pressure to the site and call 911. -Report any fever, redness, drainage, increased swelling, or firmness at catheter site insertion. Some bruising or slight swelling may be present and this is normal. -Should the arm or leg become cold, numb, white, or blue - go to the nearest emergency room. MEDICATIONS -Follow instructions on the discharge medication sheet regarding your medications. -[Do NOT take any Metformin containing medications for the next two days: ActoPlusMet, ActoPlusMet XR, Avandamet, Fortamet, Glucophage, Glucophage XR, Glucovance, Glumetza, Janumet, Janumet XR, Jentadueto, Kombiglyze XR, Metaglip, Metformin, PrandiMet, Riomet.] FOLLOW UP/OTHER INSTRUCTIONS [ ][facility] Work Phone: Summary Purpose Family History Relationship Condition Age at Onset Recorded Date/T hank Not Specified No pertinent family history Unknown father Heart disease Unknown Relationship Condition Age at Onset Recorded Date/T hank father Heart disease Unknown Myocardial infarction Unknown Advance Directives Advance Directive Response Recorded Date/ Time Advance Directives No June 3:14pm Advance Directive Response Recorded Date/ Time Advance Directives No June 2:14pm Chief Complaint and Reason for Visit Chief Complaint Admit Date Other specified symptoms of circulatory systems October 17, 2024 9:42am R93.1 October 17, 2024 9 :48am Reason for Visit Admit Date Essential (primary) hypertension October 17, 2024 9:42am HFrEF (heart failure with reduced ejecti on fraction) October 17, 2024 9:42am Mixed hyperlipidemia October 17, 2024 9:42am Peripheral arterial disease October 9:42am Additional Source Comments (unrecognized sect ion and content) No Status Records FoundNo Status Records FoundNo Status Records FoundNo Status Records FoundNo Status Records Found INFORMATION SOURCE (unrecogn ized section and content) DATE CREATED AUTHOR 03/29/2018 [facility] DATE CREATED AUTHOR AUTHOR'S ORGANIZ ATION 03/30/2018 [facility] DATE CREATED AUTHOR AUTHOR'S ORGANIZ ATION 10/03/2022 [facility] DATE CREATED AUTHOR AUTHOR'S ORGANIZ ATION 12/27/2024 [facility] DATE CREATED AUTHOR AUTHOR'S ORGANIZ ATION 12/30/2024 [facility] Care Teams (unrecognized sec tion and content) Team Status: Active Member Role Status Dates LOUIE Hodges Primary Care Provider Active Team Status: Inactive Member Role Status Dates LOUIE Hogdes Primary Care Provider Active Start: December 30, 2023 End: December 30, 2023 Cruz Polo DPM MS Attending Provider Active Start: December 30, 2023 End: December 30, 2023 Hospital Tray Service Worker Relationship Specialty Start Date End Date Radha Sarmiento MD [address] [place] [facility] [place] [address] PCP - General Family Medicine 04/19/23 Hospital Tray Service Worker Relationship Specialty Start Date End Date Radha Sarmiento MD [address] [place] [facility] [place] [address] PCP - [facility] 04/19/23 Hospital Tray Service Worker Relationship Specialty Start Date End Date Radha Sarmiento MD [address] [place] [facility] [place] [address] PCP - General Family Medicine 04/19/23 Team Status: Inactive Member Role Status Dates LOUIE Hodges Primary Care Pr ovid, Referring Provider Active Start: October 17, 2024 End: October 17, 2024 Margarito Nunez MD Attending Provider Active Start: October 17, 2024 End: October 17, 2024 Team Status: Inactive Member Role Status Dates LOUIE Hodges Primary Care Provider Active Start: October 17, 2024 End: October 17, 2024 Margarito Nunez MD Attending Provider Activ e Start: October 17, 2024 End: October 17, 2024 Team Status: Inactive Member Role Status Dates LOUIE Hodges Primary Care Provider Active Start: October 20, 2024 End: October 20, 2024 Margarito Nunez MD Attending Provider Activ e Start: October 20, 2024 End: October 20, 2024 Team Status: Inactive Member Role Status Dates LOUIE Hodges Primary Care Provider Active Start: October 30, 2024 End: October 30, 2024 Cornel Prince MD Attending Provider Active S tart: October 30, 2024 End: October 30, 2024 Team Status: Inactive Member Role Status Dates Kristel Castellano [employer] Primary Care Provider Active Start: November 03, 2024 End: November 03, 2024 Margarito Nunez MD Attending Provider Activ e Start: November 03, 2024 End: November 03, 2024 Team Status: Inactive Member Role Status Dates Kristel Castellano [employer] Primary Care Provider Active Start: November 07, 2024 End: November 07, 2024 Margarito Nunez MD Attending Provider Activ e Start: November 07, 2024 End: November 07, 2024 Team Status: Active Member Role Status Dates Kristel Castellano [employer] Primary Care Provider Active Start: November 07, 2024 Margarito Nunez MD Attending Provider, Other Provider Active Start: November 07, 2024 Team Status: Active Member Role Status Dates Kristel Castellano [employer] Primary Care Provider Active Start: November 07, 2024 Cornel Prince MD Attending Provider Active S tart: November 07, 2024 Team Status: Inactive Member Role Status Dates Kristel Castellano [employer] Primary Care Provider Active Start: November 07, 2024 End: November 07, 2024 Cornel Prince MD Attending Provider Active S tart: November 07, 2024 End: November 07, 2024 Team Status: Inactive Member Role Status Dates Kristel Castellano [employer] Primary Care Provider Active Start: November 13, 2024 End: November 13, 2024 Cornel Prince MD Attending Provider Active S tart: November 13, 2024 End: November 13, 2024 Team Status: Inactive Member Role Status Dates Kristel Castellano [employer] Primary Care Provider Active Start: November 23, 2024 End: November 23, 2024 Cornel Prince MD Attending Provider Active S tart: November 23, 2024 End: November 23, 2024 Team Status: Active Member Role Status Dates Kristel Castellano , [employer] Primary Care Provider Active Start: November 23, 2024 Cornel Prince MD Attending Provider, Other Provider Active Start: November 23, 2024 Team Status: Inactive Member Role Status Dates LOUIE Hodges Primary Care Provider Active Start: December 29, 2024 End: December 29, 2024 Margarito Nunez MD Attending Provider Activ e Start: December 29, 2024 End: December 29, 2024 Team Status: Inactive Member Role Status Dates LOUIE Hodges Primary Care Provider Active Start: January 01, 2025 End: January 01, 2025 LOUIE Elam Attending Provider Active Start: January 01, 2025 End: January 01, 2025 Goals (unrecognized section and content) Goals may be documented in a n alternate sectionGoals may be documented in an alternate sectionGoals may be documented in an alternate sectionGoals may be documented in an alternate section Reason for Visit (unrecogniz ed section and content) Reason Comments Retinal Injection Reason Comments Follow-up Macular Degeneration FOR RECORDS PERTAINING TO PATIENTS WHO ARE [...] BE BASED ON THE PRIMARY CLINICAL RECORDS. [employer] provides no warranty or guarantee of the accuracy or completeness of information in this document.
[2025-01-12 14:44] LABS: Alanine Aminotransferase 28 U/L (16-63); Albumin Globulin Ratio 1.1; Albumin Level 4.1 g/dL (3.4-5.0); Alkaline Phosphatase 55 U/L (46-116); Anion Gap 14.5; Aspartate Amino Transferase 26 U/L (15-37); Bilirubin Total 1.1 mg/dL (0.2-1.0); Calcium 9.3 mg/dL (8.5-10.1); Carbon Dioxide 26.1 mmol/L (21.0-32.0); Chloride 91 mmol/L (98-107); Estimated GFR (African America >60 (>=60 mL/min/1.73m^2); Estimated GFR (Non-African Ame >60 (>=60 mL/min/1.73m^2); Globulin 3.6 g/dL; Glucose 94 mg/dL (74-106); Potassium 4.6 mmol/L (3.5-5.1); Sodium 127 mmol/L (136-145); Total Protein 7.7 g/dL (6.4-8.2)
== END 2025-01-12 14:16 | disposition home or self-care (01) ==
LOC: LAB 14:15
PROVIDERS: PCP Nurse Practitioner Family; Visit Provider Nurse Practitioner Family
DX: I50.32 Chronic diastolic (congestive) heart failure (principal)
CPT/HCPCS: 36415; 80053; 83540

== ENCOUNTER 2025-03-06 12:55 | Outpatient (RCR) | payer BC, SELFPAY | END 2025-05-18 07:32 | disposition home or self-care (01) | LOC: PT 12:55 | PROVIDERS: PCP Nurse Practitioner Family; Visit Provider Specialist | DX: I63.9 Cerebral infarction, unspecified (principal); R53.1 Weakness | CPT/HCPCS: 97110; 97112; 97162; 97530 ==

== ENCOUNTER 2025-08-14 13:26 | Outpatient (OUT) | payer BC, SELFPAY ==
--- OUTSIDE RECORDS SUMMARY | 2025-04-17 09:00 | XMS_ITS ---
Author Organization [facility] in [place] Address [address] [place] [address] Care Team Providers Care Supervisor [employer] Name Role Phone Kristel Montes Primary Care Provider [phone] Encounters Encounter Location Date Provider Diagnosis [facility] [address] [place] [address] 04/17/2025 Kristel Montes Plan Of Treatment No Information Progress Notes * Prosper BARNESDOB:1960 ( 64 yo M)Acc No.[id number]:04/17/2025 UNLOCKED PROGRESS NOTE Progress Note Patient: Prsoper VASQUEZ :?Kristel NICE), CNPDOB:1960 ???Age:64 Y???Sex:MaleDate:04/17/2025Phone:[phone]:[facility] [place] [place], [id number] Subjective: * Chief Complaints: * * Medical History: Objective: * Vitals: Assessment: Plan: * Treatment: * * Electronic signature of Kristel Montes NP, PAINTER CHASSIS.MD [id number] on 08/14/2025 at 01:33 PM ESTSign off status: PendingVisit Status:?CANC (Cancelled) * Provider: Ricki NICE), MD UROLOGIST Date: 0 04/17/2025 Generated for Printing/Faxing/eTransmitting on:?08/14/2025 01:33 PM EST
--- OUTSIDE RECORDS SUMMARY | 2025-08-14 13:32 | XMS_ITS | CCD ---
Author Organization [facility] CliniSywv Care Team Providers Care Still Operator Brandy Name Role Phone HAMPOLE, MANDO Unavailable Unavailable MARIE, UMER Kelechi Unavailable Unavailable HAMPOLE, MANDO Unavailable Unavailable MARIEUMER ISRAEL W Unavailable Unavailable Richardson Penn Unavailable Unavailable Richardson Penn Unavailable Unavailable Richardson Penn Unavailable Unavailable UMER SALAZAR Unavailable Unavailable ROXANA, DR GARCIA Admitting Unavailable ROXANA, DR GARCIA Attending Unavailable DR RADHA SCHMIDT Primary Care Unavailable KRISTEL CASTELLANO Admitting Unavailable KRISTEL CASTELLANO Attending Unavailable ROXANA, DR GARCIA Primary Care Unavailable KRISTEL CASTELLANO Admitting Unavailable KRISTEL CASTELLANO Attending Unavailable NONA, KRISTEL Primary Care Unavailable KRISTEL CASTELLANO Consulting Unavailable Nona, RAG ROOM SUPERVISOR-C Kristel Ysabel Primary Care Provider [phone] JARVIS Polo Attending Provider [phone] Radha Schmidt MD Primary Care Provider Nona RAG ROOM SUPERVISOR-C, Kristel Ysabel Primary Care Provider Margarito Nunez MD Attending Provider Cornel Prince MD Attending Provider Nona RAG ROOM SUPERVISOR-C, Kristel Ysabel Primary Care Provider Margarito Nunez MD Attending Provider Cornel Prince MD Attending Provider [phone] Nona RAG ROOM SUPERVISOR-C, Kristel Ysabel Primary Care Provider [phone] Margarito Nunez MD Attending Provider Radha Schmidt MD Primary Care Provider Nona RAG ROOM SUPERVISOR-C, Kristel Ysabel Primary Care Provider Margarito Nunez MD Attending Provider Cornel Prince Admitting Unavailable Cornel Prince Attending Unavailable Nona, [facility] Primary Care Unavailable Koromia, Margarito Loya Attending Unavai lable Koromia, Margarito Loya Admitting Unavai lable [facility], [facility] Koromia, Margarito Loya Attending Unavai lable Koromia, Margarito Loya Admitting Unavai lable Nona, [facility] Unavailable Koromia, Margarito Loya Attending Unavai lable Koromjena, Margarito Loya Admitting Unavai lable Nona, [facility] Unavailable Cornel Prince Admitting Unavailable Niki, Cornel Attending Unavailable Nona, [facility] Primary Care Unavailable Nona, [facility] Primary Care Unavailable Indu Ross Admitting Unavailable Indu Ross Attending Unavailable Nona, [facility] Primary Care Unavailable Koromia, Margarito Loya Attending Unavai lable Koromia, Margarito Loya Admitting Unavai lable Nona, [facility]available Koromia, Margarito Loya Attending Unavai lable Alirezaomjena, Margarito Loya Admitting Unavai LEENA Beebe Attending Unavailable KATH DOWD Attending Unavailable LEENA HERNANDEZ Attending Unavailable LEENA HERNANDEZ Attending Unavailable KATH DOWD Attending Unavailable LEENA HERNANDEZ Attending Unavailable Allergies Allergy ClassificationReported Allergen(s)Allergy TypeDate of OnsetReaction(s) Facility (1 source)No Known Medication Allergies; Translations: [No Known Medication Allergies]Propensity to adverse reactions (disorder)[facility] Repository Medications Current Medications MedicationDrug Class(es)DatesSig (Normalized)Sig (Original)acetaminophen 300 mg / codeine phosphate 30 mg oral tablet (7 sources)Opioid AgonistStart: 12-30-2023 End: 61-26-6221rnvdmvfntsqws-codeine (Tylenol w/ Codeine #3) 300-30 MG tablet 12/30/2023 02/28/2025 DiscontinuedStart: 42-94-8088huzifvrmnaaiz-codeine (Tylenol w/ Codeine #3) 300-30 MG tablet take 1 tablet by mouth every 6 hoursAS NEEDED FOR PAIN (SCALE SCORE 7-10) for 7 days 12/30/2023 Activeaspirin 81 mg delayed release oral tablet (20 sources)Platelet Aggregation Inhibitor, Nonsteroidal Anti-inflammatory Drug Start: 18-71-7898Yhgvzwk (Adult Low Dose Aspirin) 81 mg tablet,delayed release (DR/EC) Active 81 MG PO Daily 2024 1:00amdoxazosin 1 mg oral tablet (20 sources)alpha-Adrenergic BlockerStart: 00-88-0595xghs 2 tablets by mouth once daily in the morningDoxazosin 1 mg tablet Active 2 MG PO Every morning October 17, 2024 1:00am with 4 mg tabletStart: 05-16-2023 End: 71-63-2826enkcgkfvl (Cardura) 1 MG tablet 05/16/2023 02/28/2025 DiscontinuedStart: 07-01-2021 End: 46-55-5036prwkrmhkh (Cardura) 4 MG tablet 04/18/2023 02/28/2025 Discontinuedempagliflozin 10 mg oral tablet (20 sources)Sodium-Glucose Cotransporter 2 InhibitorStart: 21-57-7464dlhz 10 mg by mouth in the morningJardiance 10 MG Take 10 mg by mouth in the morning. 02/05/2025 ActiveStart: 10-17-2024 End: 11-81-9630dhws 1 tablet by mouth once daily in the morningEmpagliflozin (Jardiance) 10 mg tablet Discontinued 10 MG PO Every morning November 03, 2024 1:00am November 13, 2024 12:12pmgabapentin 100 mg oral capsule (7 sources)Anti-epileptic AgentStart: 09-02-2023 End: 28-23-4686cesj 1 capsule by mouth every eight hoursgabapentin (Neurontin) 100 MG capsule 1 capsule every 8 (eight) hours 09/02/2023 02/28/2025 Disconti nuedhydroCHLOROthiazide 25 mg / lisinopril 20 mg oral tablet (12 sources)Thiazide Diuretic, Angiotensin Converting Enzyme Inhibitortake 1 tablet by mouth in the morninglisinopril-hydroCHLOROthiazide 20-25 MG tablet Take 1 tablet by mouth in the morning. Activelevothyroxine sodium 0.1 mg oral tablet (20 sources)l-ThyroxineStart: 07-01-2021 End: 64-78-6748cfyqxudeaundt (Synthroid, Levoxyl) 100 MCG tablet 1 (one) time each day at the same time Qpiotzckdbrw92 hr metoprolol succinate 50 mg extended release oral tablet (20 sources)beta-Adrenergic BlockerStart: 52-39-3055Ktfmtzuuzq Succinate 50 mg tablet extended release 24 hr Active 150 MG PO Every morning October 17, 2024 10:59amStart: 02-15-2023 End: 68-23-4897qhta 1 tablet by mouth once dailymetoprolol succinate XL (Toprol- XL) 50 MG 24 hr tablet Take 150 mg by mouth Daily 02/15/2023 02/28/2025 DiscontinuedStart: 13-34-9845nixf 1 tablet by mouth every twenty-four hours in the morningmetoprolol succinate XL (Toprol-XL) 50 MG 24 hr tablet Take 150 mg by mouth in the morning. 02/15/2023 ActiveStart: 07-01-2021 End: 14-30-2565vcgp 1 tablet by mouth once dailyMetoprolol Succinate 50 mg tablet extended release 24 hr Discontinued 50 MG PO Daily July 01, 2021 12:00am October 17, 2024 11:01amrosuvastatin calcium 20 mg oral tablet (20 sources)HMG-CoA Reductase InhibitorStart: 74-08-8156srekshdaetrc (Crestor) 20 MG tablet 1 (one) time each day at the same time 01/19/2023 Activesacubitril 49 mg / valsartan 51 mg oral tablet (20 sources)Angiotensin 2 Receptor BlockerStart: 35-53-3119rhey 1 tablet by mouth twice dailySacubitril-Valsartan (Entresto) 49-51 mg tablet Active 1 TAB PO Twice daily 180 90 February 05, 2025 12:00amStart: 68-01-8991nnpm 1 tablet by mouth in the morningEntresto 24-26 MG tablet Take 1 tablet by mouth in the morning and 1 tablet before bedtime. 12/31/2024 ActiveStart: 11-13-2024 End: 87-04-3001nqrv 1 tablet by mouth twice dailySacubitril-Valsartan (Entresto) 24-26 mg tablet Discontinued 1 TAB PO Twice daily 180 90 November 13, 2024 12:11pm February 05, 2025 10:11amStart: 34-97-9452kvhu 1 tablet by mouth twice daily Sacubitril-Valsartan (Entresto) 24-26 mg tablet Active 1 TAB PO Twice daily 180 November 13, 2024 12:11pmStart: 31-46-9241jqwz 1 tablet by mouth twice dailySacubitril-Valsartan (Entresto) 24-26 mg tablet Active 1 TAB PO Twice daily 180 90 November 13, 2024 11:11amStart: 11-03-2024 End: 67-17-3402jzwi 1 tablet by mouth twice dailySacubitril-Valsartan (Entresto) 24-26 mg tablet Discontinued 1 TAB PO Twice daily November 03, 2024 1:00am November 13, 2024 12:12pmStart: 11-03-2024 End: 15-38-9717fzrr 1 tablet by mouth twice dailySacubitril-Valsartan (Entresto) 24-26 mg tablet Discontinued 1 TAB PO Twice daily November 03, 2024 12:00am November 13, 2024 11:12amStart: 40-32-4188alie 1 tablet by mouth twice daily Sacubitril-Valsartan (Entresto) 24-26 mg tablet Active 1 TAB PO Twice daily November 03, 2024 12:00amStart: 10-17-2024 End: 09-61-5396oxdr 1 tablet by mouth twice dailySacubitril-Valsartan (Entresto) 24-26 mg tablet Discontinued 1 TAB PO Twice daily 60 October 17, 2024 1:00am October 30, 2024 3:00pmStart: 10-17-2024 End: 02-37-5372svdy 1 tablet by mouth twice dailySacubitril-Valsartan (Entresto) 24-26 mg tablet Discontinued 1 TAB PO Twice daily 60 October 17, 2024 12:00am October 30, 2024 2:00pmStart: 92-22-6419mxrj 1 tablet by mouth twice dailySacubitril-Valsartan (Entresto) 24-26 mg tablet Active 1 TAB PO Twice daily 60 October 17, 2024 12:00amspironolactone 25 mg oral tablet (20 sources)Aldosterone AntagonistStart: 05-82-0008pnnb 1 tablet by mouth once dailyspironolactone (Aldactone) 25 MG tablet Take 25 mg by mouth Daily 02/05/2025 ActiveStart: 11-03-2024 End: 41-20-0592dvqc 1 tablet by mouth once dailySpironolactone (Aldactone) 25 mg tablet Active 25 MG PO Daily 90 90 November 13, 2024 12:12pmStart: 10-17-2024 End: 10-89-4748zbej 1 tablet by mouth once dailySpironolactone 25 mg tablet Discontinued 25 MG PO Daily 30 October 17, 2024 1:00am October 30, 2024 3:00pmticagrelor 60 mg oral tablet (10 sources)Start: 84-80-4207pxyp 1 tablet by mouth once dailyBrilinta 60 MG tablet Take 60 mg by mouth Daily 01/18/2025 Activetriamcinolone acetonide 1 mg/ml topical cream (11 sources)CorticosteroidStart: 73-59-3352umcdxiuycewwy (Kenalog) 0.1 % cream Indications: Rash and other nonspecific skin eruption Apply topically 2 (two) times a day as needed for rash 454 g 11 02/28/2025 ActiveStart: 07-08-2024 End: 75-45-5648bsccxzmdbuvyw (Kenalog) 0.1 % cream 07/08/2024 02/28/2025 DiscontinuedStart: 92-81-7379kcxqjiwaoszbg (Kenalog) 0.1 % cream APPLY TOPICALLY 2 TIMES A DAY TO AFFECTED AREA FOR 7 DAYS 07/08/2024 Active Completed/Discontinued Medications MedicationDrug Class(es)DatesSig (Normalized)Sig (Original)4 ml bevacizumab 25 mg/ml injection (2 sources)Vascular Endothelial Growth Factor InhibitorStart: 06-20-2024 End: 95-28-9039hxqpmnveuvi (Avastin) intravitreal chemo injection 1.25 mgStart: 06-20-2024 End: .25 mg, Intravitreal, Once PRN Procedure, Starting on Wed06/20/24 at 1014, For 1 doseBevacizumab solution prefilled syringe 1.25 mg (2 sources)Start: 09-21-2024 End: 43-69-9557Hpnhmjisijn solution prefilled syringe 1.25 mgStart: 09-21-2024 End: .25 mg, Intravitreal, Once PRN Procedure, Starting on Wed09/21/24 at 0907, For 1 doseclopidogrel 75 mg oral tablet (6 sources)P2Y12 Platelet InhibitorStart: 11-23-2024 End: 93-52-9900mebm 1 tablet by mouth once dailyClopidogrel 75 mg Tablet Discontinued 75 MG PO Daily 90 90 November 23, 2024 1:00am January 18, 2025 12:36pmfurosemide 20 mg oral tablet (16 sources)Loop DiureticStart: 08-17-2024 End: 86-27-2441sumy 1 tablet by mouth once dailyFurosemide (Lasix) 20 mg tablet Discontinued 20 MG PO Daily October 17, 2024 1:00am October 10:16am FreeTextSi tablet Orally Once a day; Note: Source Status: Refill; Refills: 0; Qty:90 Unspecified; Provider: Armando Gipson ( ) Problems Active Problems Problem ClassificationProblemDateDocumented DateEpisodic/ChronicAllergic reactions (2 sources)Atopic dermatitis; Translations: [Other atopic dermatitis]03-13-2025 ChronicConduction disorders (12 sources)Left bundle branch block; Translations: [Left bundle-branch block, unspecified]61-53-9380XhrjlgsWgflbnnjcg heart failure; nonhypertensive (20 sources)Heart failure with reduced ejection fraction; Translations: [Unspecified systolic (congestive) heart failure]35-70-1593DdxaszgSaagxhec atherosclerosis and other heart disease (1 source)Atherosclerotic heart disease of [place] coronary artery without angina pectoris; Translations: [Atherosclerotic heart disease of [place] coronary artery without angina pectoris]Onset: 40-94-9754LappckhFdtnqyeia of lipid metabolism (20 sources)Mixed hyperlipidemia; Translations: [Mixed hyperlipidemia]Onset: 055647-14-3257DlenlrrLkfwikdwu hypertension (20 sources)Essential hypertension; Translations: [Essential (primary) hypertension]76-97-8122PhunpmkCsnqrxqdj or stenosis of precerebral arteries (20 sources)Carotid artery stenosis; Translations: [Occlusion and stenosis of unspecified carotid artery]Onset: 467101-56-5415GquidvtKglss aftercare (2 sources)Removal of sutures done; Translations: [Encounter for removal of sutures]51-59-5427FwmmomwkIloni skin disorders (2 sources)Eruption; Translations: [Rash and other nonspecific skin eruption] 56-04-0792GjikouisYqil-; endo-; and myocarditis; cardiomyopathy (except that caused by tuberculosis or sexually transmitted disease) (1 source)Cardiomyopathy, unspecified; Translations: [Cardiomyopathy, unspecified]Onset: 93-33-1697JjoxmeuKinooddxao and visceral atherosclerosis (20 sources)Peripheral vascular disease, unspecified; Translations: [Peripheral arterial disease]Onset: 672685-33-0375FnooeenVctloch detachments; defects; vascular occlusion; and retinopathy (4 sources)Exudative age-related macular degeneration; Translations: [Exudative age-related macular degeneration, right eye, with active choroidal neovascularization]64-99-5552Cnfkajv Past or Other Problems Problem ClassificationProblemDateDocumented DateEpisodic/ChronicOther aftercare (1 source)Encounter for follow-up examination after completed treatment for conditions other than malignant neoplasm; Translations: [Encounter for follow-up examination after completed treatment for conditionsother than malignant neoplasm]Onset: 35-65-7801NniluwweOlymt screening for suspected conditions (not mental disorders or infectious disease) (15 sources)Encounter for screening for malignant neoplasm of prostate; Translations: [Patient encounter status]Onset: 095312-43-6862Dohvvjqh Comment on above:Problem List clean-up per request of Phys. EHR Cmte Results Test NameValueInterpretationReference RangeFacilityOptical coherence tomography study reporton 98-85-2277ZPTW HealthcareRight Eye Quality was good. Scan locations included subfoveal, juxtafoveal, extrafoveal. Progression has been stable. Findings include choroidal neovascular membrane. Left Eye Quality was good. Scan locations included subfoveal, juxtafoveal, extrafoveal. Progression has been stable. Notes Macular scarring od with dry amd [facility] CenterRadiology Study observation (narrative)[facility] Panel Informationon 73-95-3857Zasq of biopsy: punch Informed consent: discussed and consent obtained Informed consent comment: The risks and benefits were discussed. Risks include, but are not limited to, bleeding, infection, scarring, pain, & nerve damage. An opportunity to ask questions prior to the procedure was permitted and questions were answered. Patient was prepped and draped in usual sterile fashion: Area cleansed with alcohol. Anesthesia: the lesion was anesthetized in a standard fashion Anesthetic: 1% lidocaine w/ epinephrine 1-100,000 buffered w/ 8.4% NaHCO3 Punch size: 3 mm (A biopsy by punch method was performed using a dermal punch) Suture size: 4-0 Suture type: nylon Suture type comment: Hemostasis was achieved with suture. Suture removal (days): 12 Hemostasis achieved with: suture Outcome: patient tolerated procedure well Post-procedure details: sterile dressing applied and wound care instructions given Post-procedure details comment: Emphasized the need to contact clinic for any signs of infection, uncontrollable bleeding, or complications. Dressing type: bandage Additional details: Amount of lidocaine used: 1.0 cc Number of sutures used: 2 [facility] InformationOrdered By: Tamra Davidson on 83-02-0291KMINMercy Hospital WashingtonUS ankle/arm indiceson 08-85-4021YI ankle/arm indices [facility] [address] [place] [address] Ultrasound Report Signed Patient: Prosper Barnes MR#: [id number] 7 : 1960 Acct:[id number] Age/Sex: 64 / M ADM Date: 02/27/25 Loc: ED [facility] Room: [facility] Attending Dr: Indu Ross RAG ROOM SUPERVISOR-C Ordering Provider: Indu Ross APRN Date of Service: 02/27/25 US/US ankle/arm indices: I73.9 - Peripheral vascular disease, unspecified Copies to: Indu Ross APRN Bilateral ankle brachial indices Indication for study: Follow-up after leg intervention PROCEDURE: Right arm blood pressure is 121 and the left arm blood pressure is 124 mmHg. At the right ankle both the posterior tibial and dorsalis pedis are incompressible. The right first toe pressure is 151 mmHg. At the left ankle the posterior tibial was incompressible and the dorsalis pedis was higher than expected at 200 mmHg with an ankle-brachial index of 1.6. The left first toe pressure is 108 mmHg. US/US ankle/arm indices IMPRESSION: Quantitative information is limited due to incompressibility. On both sides the plethysmographic waveforms are strongly pulsatile with only mild changes. Both toe brachial indices are within the normal range. Impression dictated by: Cornel Prince M.D. 02/27/2025 12:22 PM Dictation Location: [place] [address] Tech: Meredith Clinton Transcribed By: INOCENCIO 02/27/25 1222 Dictated By: Cornel Prince MD 02/27/25 1220 Signed By: 02/27/25 [facility] Physician GroupECH echo transthoracicon 48-24-6189TGI echo transthoracicMCKIT[place] [address] Echocardiogram Signed Patient: Prosper Barnes MR#: [id number] 7 : 1960 Acct:[id number] Age/Sex: 64 / M ADM Date: 12/29/24 Loc: Room: Type: [facility] Attending Dr: Margarito Nunez MD Ordering Provider: Margarito Nunez MD Date of Service: 12/29/24 ECH/ECH echo transthoracic: I42.9 - Cardiomyopathy, unspecified Copies to: MD Elke Lyons MD, [facility] Weight: 180 lb Performed By: Haley Gilmore [facility] BSA: 2.0 m2 BP: 147/75 mmHg HR: [...] V1 max: 117.0 cm/sec (0.7-1.7m/s)MV E max mark: 79.7 cm/sec(0.8-1.3m/s) MV A max mark: 42.8 cm/sec(0.0-0.0m/s) MV E/A: 1.9 (<1.5) MMode/2D Measurements Calculations RVDd: 3.3 cm FS: 25.0 % Ao root area: LVOT diam: 2.0 cm TAPSE: 2.2 cm EDV(Teich): 7.4 cm2 LVOT area: 3.3 cm2 RV S Mark: 138.6 ml 13.9 cm/sec ESV(Teich): 70.7 ml [...] 83.3 cm/sec LV V1 VTI: 23.5 cm Transcribed By: SCV Performed At: 12/29/24 1053 Signed By: Elke Rosales MD, [facility] 12/30/24 1546[facility] Physician GroupUS arterial pvr rest Huong 01-45-3111MD arterial pvr rest [facility] Main [place] [address] [place], [place] [id number] Ultrasound Report Signed Patient: Prosper Barnes MR#: [id number] 7 : 1960 Acct:[id number] Age/Sex: 63 / M ADM Date: 11/07/24 Loc: Room: Type: [facility] Attending Dr: Cornel Prince MD Ordering Provider: Cornel Prince MD Date of Service: 11/07/24 US/US arterial pvr rest LE: I70.213 - Atherosclerosis of [place] arteries of extremiti... Copies to: Cornel Prince [...] ankle using the dorsalis pedis artery with ankle- brachial index of 1.05 -NC- . Pressures throughout [...] Dante Amaro MD11/08/2024 4:51 PM Dictation Location: [place] [address] Tech: Yancy Seng Transcribed By: PWS 11/08/24 165 Dictated By: Dante Amaro MD 11/08/24 1650 Signed By: 11/08/24 165[facility] Physician GroupUS carotid doppler BIon 64-78-6995KX carotid doppler [facility] Main [place] [address] [place] [address] Ultrasound Report Signed Patient: Prosper Barnes MR#: [id number] 7 : 1960 Acct:[id number] Age/Sex: 63 / M ADM Date: 11/07/24 Loc: Room: Type: [facility] Attending Dr: Cornel Prince MD Ordering Provider: [...] Dante Amaro MD11/08/2024 4:51 PM Dictation Location: [place] [address] Tech: Yancy Ellsworth Transcribed By: INOCENCIO 11/08/241650 Dictated By: Dante Amaro MD 11/08/241650 Signed By: 11/08/241650[facility] Physician GroupBasophils Auto (Bld) [#/Vol] Ordered By: Margarito Nunez on 25-75-5672Thqelnsmn (Bld) [#/Vol]Automated basophil count0.0-0.2FMarymount HospitalBasophils/100 WBC Auto (Bld)Ordered By: Margarito Nnuez on 24-02-8333Zqsihfkvk/100 WBC (Bld)Automated basophil %.[facility] HospitalBlood Urea Nitrogenon 63-69-8564Ipif nitrogen [Mass/Vol]7 mg/dLNoal[address] [place] [address] Physician GroupComment on above:Performed By: #### LYTES, PP, CREAT, BUN, LIPID, CBC #### [facility] [address] [place] [address] USACarbon dioxide, total [Moles/volume] in Serum or Plasma Ordered By: Margarito Nunez on 58-59-4773DL6 [Moles/Vol]Carbon dioxide, total [Moles/volume] in Serum or Wqrosf29.0-31.0[facility] Chloride [Moles/volume] in Serum or PlasmaOrdered By: Margarito Nunez on 07-17-1989Trhlbmux [Moles/Vol]Chloride [Moles/volume] in Serum or Tpfxid43-057 [facility] HospitalCholesterol [Mass/volume] in Serum or Plasma Ordered By: Margarito Nunez on 41-18-6077Yesgsbnwztj [Mass/Vol]Cholesterol [Mass/volume] in Serum or Gkbprx625-076DyvburuwlMercy Health Clermont HospitalComment on above:Chol less than 200 mg/dl low riskChol 201-239 mg/dl borderline riskChol 240 mg/dl and greater high riskCholesterol in HDL [Mass/volume] in Serum or PlasmaOrdered By: Margarito Nunez on 57-53-8071Sekkxdildwj in HDL [Mass/Vol]Serum or plasma high density lipoprotein (HDL) cholesterol ydqlrswgbso10-20SghumuqtsMercy Health Clermont HospitalComment on above:HDL CHOL ATP-III CLASSIFICATION Cardiovascular RiskHDL > or equal to 60 mg/dL LOWHDL < 40 mg/dL HIGHCholesterol in LDL Calc [Mass/Vol]Ordered By: Margarito Nunez on 29-87-7230Aqmvdcvkjkk in LDL [Mass/Vol]Cholesterol in LDL [Mass/volume] in Serum or Plasma by calculation 0-100Mer[facility] Clermont HospitalComment on above:LDL ATP III CLASSIFICATIONLDL less than 100 mg/dL OptimalLDL 100-129 mg/dL Near or above hrvxrkbEBC560-903 mg/dL Borderline highLDL 160-189 mg/dL HighLDL greater than 189 mg/dL Very highCholesterol in VLDL Calc [Mass/Vol]Ordered By: Margarito Nunez on 50-38-9286Arrhriwwycf in VLDL [Mass/Vol]Cholesterol in VLDL [Mass/volume] in Serum or Plasma by calculationMercy Health Clermont HospitalCoagulation Profileon 66-91-7312tCGA Coag (Bld) [Time]29.9 vDsqvjd31.1-36.5The [facility] Physician GroupComment on above:Result Comment: A hematocrit value greater than 55% may lead to inaccurate results in coagulation testing. Patients having hematocrit values >55% require a special collection tube for coagulation studies. Please contact the laboratory at [phone] for redraw instructions. PERFORMED BY: [facility] [address] [place] [address] PATHOLOGIST CROSSING GATEMAN SAMSON CLAUDIO M.D.Performed By: #### LYTES, PP, CREAT, BUN, LIPID, CBC #### [facility] [address] [place] [address] USAINR Coag (PPP) [Relative time]1.0 {INR}NormalThe [facility] Physician GroupComment on above:Result Comment: INR Therapeutic Range A) Pre- and [...] patients with mechanical heart valves: 3 - 4.5Performed By: #### LYTES, PP, CREAT, BUN, LIPID, CBC #### [place] [address] USAPT Coag (PPP) [Time]11.4 sNormal9.0-12.9The [facility] Physician GroupComment on above:Result Comment: A hematocrit value greater than 55% may lead to inaccurate results in coagulation testing. Patients having hematocrit values >55% require a special collection tube for coagulation studies. Please contact the laboratory at [phone] for redraw instructions.Performed By: #### LYTES, PP, CREAT, BUN, LIPID, CBC #### [place] [address] USAComplete Blood Count Auto Diffon 34-90-3930Gxwirjrjw (Bld) [#/Vol]0.0 10*3/uLNormal0.0-0.2The [facility] Physician GroupComment on above: Result Comment: PERFORMED BY: [place] [address] PATHOLOGIST CROSSING GATEMAN SAMSON CLAUDIO M.D.Performed By: #### LYTES, PP, CREAT, BUN, LIPID, CBC #### [place] [address] USABasophils/100 WBC (Bld)0.7 %Normal.The [facility] Physician GroupComment on above:Performed By: #### LYTES, PP, CREAT, BUN, LIPID, CBC #### [place] [address] USAEosinophils (Bld) [#/Vol]0.2 10*3/uLNormal0.0-0.45The [facility] Moses [facility] Physician GroupComment on above:Performed By: #### LYTES, PP, CREAT, BUN, LIPID, CBC #### [place] [address] USAEosinophils/100 WBC (Bld)4.3 %Normal.The [facility] Physician GroupComment on above:Performed By: #### LYTES, PP, CREAT, BUN, LIPID, CBC #### [place] [address] USAErythrocyte distribution width (RBC) [Ratio]15.3 %High 12.0-14.8The [facility] Physician GroupComment on above:Performed By: #### LYTES, PP, CREAT, BUN, LIPID, CBC #### [place] [address] USAHematocrit (Bld) [Volume fraction]38.5 %Low38.8-50.0The [facility] Physician GroupComment on above:Performed By: #### LYTES, PP, CREAT, BUN, LIPID, CBC #### [place] [address] USAHemoglobin (Bld) [Mass/Vol]13.3 g/eVZuzulb26.0-17.0The [facility] Physician GroupComment on above:Performed By: #### LYTES, PP, CREAT, BUN, LIPID, CBC #### [place] [address] USALymphocytes (Bld) [#/Vol]1.1 10*3/uLNormal1.00-4.8The [facility] Physician GroupComment on above:Performed By: #### LYTES, PP, CREAT, BUN, LIPID, CBC #### [place] [address] USALymphocytes/100 WBC (Bld)27.3 %Normal.The [facility] Physician GroupComment on above:Performed By: #### LYTES, PP, CREAT, BUN, LIPID, CBC #### [address] (RBC) [Entitic mass]31.4 aoWfuxun01.5-35.2The [facility] Physician GroupComment on above:Performed By: #### LYTES, PP, CREAT, BUN, LIPID, CBC #### [address] (RBC) [Entitic vol]90.8 bQNupydt85.5-101The [facility] Physician GroupComment on above:Performed By: #### LYTES, PP, CREAT, BUN, LIPID, CBC #### [place] [address] USAMean Corpuscular HGB Conc34.6 g/hXObjjbv20.5-35.6The [facility] Physician GroupComment on above:Performed By: #### LYTES, PP, CREAT, BUN, LIPID, CBC #### [place] [address] USAMonocytes (Bld) [#/Vol]0.4 10*3/uLNormal0.0-0.8The [facility] Physician GroupComment on above:Performed By: #### LYTES, PP, CREAT, BUN, LIPID, CBC #### [place] [address] USAMonocytes/100 WBC (Bld)9.7 %Normal.The [facility] Physician GroupComment on above:Performed By: #### LYTES, PP, CREAT, BUN, LIPID, CBC #### [place] [address] USANeutrophils (Bld) [#/Vol]2.4 10*3/uLNormal1.8-7.7The [facility] Physician GroupComment on above:Performed By: #### LYTES, PP, CREAT, BUN, LIPID, CBC #### [place] [address] USANeutrophils/100 WBC (Bld)58.0 %Normal.The [facility] Physician GroupComment on above:Performed By: #### LYTES, PP, CREAT, BUN, LIPID, CBC #### [facility] [address] [place] [address] USANRBC%0.1 /100{WBC}Normal0-0.5The [facility] Comment on above:Performed By: #### LYTES, PP, CREAT, BUN, LIPID, CBC #### [place] [address] USAPlatelet mean volume (Bld) [Entitic vol]8.2 fLNormal 6.6-10.1The [facility] Physician GroupComment on above:Performed By: #### LYTES, PP, CREAT, BUN, LIPID, CBC #### [place] [address] USAPlatelets (Bld) [#/Vol]170 10*3/pSPujmgq638-163Hqt [facility] Physician GroupComment on above:Performed By: #### LYTES, PP, CREAT, BUN, LIPID, CBC #### [place] [address] USARBC (Bld) [#/Vol]4.24 10*6/uLNormal3.90-5.60The [facility] Physician GroupComment on above:Performed By: #### LYTES, PP, CREAT, BUN, LIPID, CBC #### [place] [address] USAWBC (Bld) [#/Vol]4.1 10*3/uLNormal4.1-10.5The [facility] Physician GroupComment on above:Performed By: #### LYTES, PP, CREAT, BUN, LIPID, CBC #### [place] [address] USACreatinineon 56-17-0962Xjnolwlqir [Mass/Vol]0.70 mg/dL Normal0.70-1.30The [facility] Physician GroupComment on above:Performed By: #### LYTES, PP, CREAT, BUN, LIPID, CBC ####[facility] [address] [place] [address] USAGFR/1.73 sq M.predicted MDRD (S/P/Bld) [Vol rate/Area]mL/min/{1.73_m2}NormalThe [facility] Physician GroupComment on above: Performed By: #### LYTES, PP, CREAT, BUN, LIPID, CBC ####[facility] [address] [place] [address] USACreatinine [Mass/volume] in Serum or PlasmaOrdered By: Margarito Nunez on 48-97-8528Nblokcirua [Mass/Vol] Creatinine [Mass/volume] in Serum or Plasma0.70-1.30[facility] HospitalECG 12 lead ECGon 53-45-3363XBX 12 [facility] [place] [address] [place] [address] Electrocardiograph Report Signed Patient: Prosper Barnes MR#: [id number] 7 : 1960 Acct:[id number] Age/Sex: 63 / M ADM Date: 11/03/24 Loc: Room: Type: [facility] Attending Dr: Margarito Nunez MD Ordering [...] bundle branch block Abnormal ECG Confirmed by aVlerie Campbell ([id number]) on 11/03/2024 2:04:11 PM Referred By: Electronically Signed By: Valerie Campbell Transcribed By: MUS Signed By Valerie Campbell MD 5 [address] Physician GroupElectrolyteson 51-14-3516Pmkmt gap [Moles/Vol]9.5 mmol/LNormal6.0-15.0The [facility] Physician GroupComment on above:Performed By: #### LYTES, PP, CREAT, BUN, LIPID, CBC #### [facility] [address] [place] [address] USAChloride [Moles/Vol]99 mmol/SPsldrf30-455Dgv [facility] Physician GroupComment on above:Performed By: #### LYTES, PP, CREAT, BUN, LIPID, CBC #### [facility] [address] [place] [address] USACO2 [Moles/Vol]27.4 mmol/GGqwukl39.0-31.0The [facility] Physician GroupComment on above:Performed By: #### LYTES, PP, CREAT, BUN, LIPID, CBC #### [facility] [address] [place] [address] USAPotassium [Moles/Vol]4.9 mmol/LNormal3.5-5.1The [facility] Physician GroupComment on above:Performed By: #### LYTES, PP, CREAT, BUN, LIPID, CBC #### [facility] [address] [place] [address] USASodium [Moles/Vol]131 mmol/YBso456-467Ftn [facility] Physician GroupComment on above:Performed By: #### LYTES, PP, CREAT, BUN, LIPID, CBC #### [facility] [address] [place] [address] USAEosinophils Auto (Bld) [#/Vol]Ordered By: Margarito Nunez on 26-17-1021Rewbudyupcy (Bld) [#/Vol]Automated eosinophil count0.0-0.45 [facility] HospitalEosinophils/100 WBC Auto (Bld)Ordered By: Margarito Nunez on 92-03-6481Uzxnqczuguq/100 WBC (Bld)Automated eosinophil %. [facility] HospitalErythrocyte distribution width Auto (RBC) [Ratio]Ordered By: Margarito Nunez on 44-93-0889Nsezrjzbenk distribution width (RBC) [Ratio]Erythrocyte distribution width [Ratio] by Automated countHigh 12.0-14.8[facility] HospitalHematocrit Auto (Bld) [Volume fraction]Ordered By: Margarito Nunez on 85-99-3968Gtzxvjhzri (Bld) [Volume fraction]Hematocrit [Volume Fraction] of Blood by Automated qfgzdHpv91.8-50.0 [facility] HospitalHemoglobin [Mass/volume] in BloodOrdered By: Margarito Nunez on 08-11-3290Ntzfkyygyt (Bld) [Mass/Vol]Hemoglobin [Mass/volume] in Blood13.0-17.0[facility] HospitalINR in Platelet poor plasma by Coagulation assayOrdered By: Margarito Nunez on 67-83-4940KVK Coag (PPP) [Relative time]INR in Platelet poor plasma by Coagulation assayMercy Health Clermont HospitalComment on above:INR Therapeutic Range A) Pre- and Peroperative OAT started two weeks before surgery. NOT HIP SURGERY: 1.5 - 2.5 HIP SURGERY: 2 - 3B) Primary and secondary prevention of venous THROMBOSIS: 2 - 3C) Active venous thrombosis, pulmonary embolismand prevention of recurrent venous thrombosis: 2 - 3D) Prevention of arterial thromboembolismincluding patients with mechanical heart valves: 3 - 4.5Leukocytes [#/volume] corrected for nucleated erythrocytes in Blood by Automated counOrdered By: Margarito Nunez on 82-12-9605YEA corrected for nucl RBC Auto (Bld) [#/Vol]Leukocytes [#/volume] corrected for nucleated erythrocytes in Blood by Automated coun4.1-10.5FMarymount HospitalLipid Panelon 72-52-0740Dyzlwlaxttq [Mass/Vol]140 mg/dL Oyoumu285-673Itx [facility] Physician GroupComment on above:Result Comment: Chol less than 200 mg/dl low risk Chol 201-239 mg/dl borderline risk Chol 240 mg/dl and greater high riskPerformed By: #### LYTES, PP, CREAT, BUN, LIPID, CBC ####[facility] [address] [place] [address] USACholesterol in HDL [Mass/Vol]73 mg/lEAwsgez08-69Osa [facility] Physician GroupComment on above:Result Comment: HDL CHOL ATP-III CLASSIFICATION Cardiovascular Risk HDL > or equal to 60 mg/dL LOW HDL < 40 mg/dL HIGHPerformed By: #### LYTES, PP, CREAT, BUN, LIPID, CBC ####[facility] [id number] [place] [address] [place] Cholesterol.total/Cholesterol in HDL [Mass ratio]1.9 {ratio}Normal<5.0The [facility] Physician GroupComment on above:Result Comment: PERFORMED BY: [facility] [address] [place] [address] PATHOLOGIST CROSSING GATEMAN SAMSON CLAUDIO M.D.Performed By: #### LYTES, PP, CREAT, BUN, LIPID, CBC ####[place] [address] [place] [id number] [facility]ENTERLDL Cholesterol,Gkllmgvluc60 mg/dLNormal0-100The [facility] Physician GroupComment on above:Result Comment: LDL ATP III CLASSIFICATION LDL less than 100 mg/dL Optimal LDL 100-129 mg/dL Near or above optimal LDL 130-159 mg/dL Borderline high LDL 160-189 mg/dL High LDL greater than 189 mg/dL Very highPerformed By: #### LYTES, PP, CREAT, BUN, LIPID, CBC ####[place] [id number] USATriglyceride w/Hhnyzm70 mg/dLNormal0-149The [facility] Physician GroupComment on above:Result Comment: TRIG ATP III CLASSIFICATION TRIG less than 150 mg/dL Normal TRIG 150-199 mg/dL Borderline high TRIG 200-500 mg/dL High TRIG greater than 500 mg/dL Very high Standard traceable to the Center for Disease Conrtrol and Prevention (CDC) test method.Performed By: #### LYTES, PP, CREAT, BUN, LIPID, CBC ####[place] [id number] [facility] VLDL CHOLESTEROL7 mg/dLNormalThe [facility] Physician GroupComment on above: Performed By: #### LYTES, PP, CREAT, BUN, LIPID, CBC ####[address] [address] USALymphocytes Auto (Bld) [#/Vol] Ordered By: Margarito Nunez on 54-18-5397Gfelmcjljok (Bld) [#/Vol]Lymphocytes [#/volume] in Blood by Automated count1.00-4.8[facility] Lymphocytes/100 WBC Auto (Bld)Ordered By: Margarito Nunez on 11-03-2024 Lymphocytes/100 WBC (Bld)Lymphocytes/100 leukocytes in Blood by Automated count. [facility]erm[facility] HospitalMCH Auto (RBC) [Entitic mass]Ordered By: Margarito Nunez on 21-26-3903QAB (RBC) [Entitic mass]MCH [Entitic mass] by Automated count27.5-35.2FMarymount HospitalMCHC Auto (RBC) [Mass/Vol]Ordered By: Margarito Nunez on 86-88-9310ODHP (RBC) [Mass/Vol]MCHC [Mass/volume] by Automated count32.5-35.6FMarymount HospitalMCV Auto (RBC) [Entitic vol]Ordered By: Margarito Nunez on 45-11-1299GHA (RBC) [Entitic vol]MCV [Entitic volume] by Automated count83.5-101[facility] HospitalMonocytes Auto (Bld) [#/Vol]Ordered By: Margarito Nunez on 59-86-6723Pjxpowcjn (Bld) [#/Vol]Automated blood monocyte count0.0-0.8[facility] Monocytes/100 WBC Auto (Bld)Ordered By: Margarito Nunez on 11-03-2024 Monocytes/100 WBC (Bld)Automated monocyte %.[facility] Neutrophils Auto (Bld) [#/Vol]Ordered By: Margarito Nunez on 11-03-2024 Neutrophils (Bld) [#/Vol]Neutrophils [#/volume] in Blood by Automated count 1.8-7.7FMarymount HospitalNeutrophils/100 WBC Auto (Bld)Ordered By: Margarito Nunez on 10-83-7678Uwdcfgbrkxw/100 WBC (Bld)Automated neutrophil %. [facility] HospitalNo Panel InformationOrdered By: Margarito Nunez on 80-14-6985Qswjdhxxy GFR (CKD-EPI)> 60.0 mL/MinMercy Health Clermont HospitalPharmacy Creatinine Clearance (ChemN/[facility] Nucleated erythrocytes [Presence] in Blood by Automated countOrdered By: Margarito Nunez on 32-21-4160Pyusmyllz RBC Auto Ql (Bld)Nucleated erythrocytes [Presence] in Blood by Automated count0-0.5FMarymount Hospital Platelet mean volume Auto (Bld) [Entitic vol]Ordered By: Margarito Nunez on 85-73-9948Wgisqsjt mean volume (Bld) [Entitic vol]Platelet mean volume [Entitic volume] in Blood by Automated count6.6-10.1FMarymount Hospital Platelets Auto (Bld) [#/Vol]Ordered By: Margarito Nunez on 70-42-0923Andjfxupp (Bld) [#/Vol]Platelets [#/volume] in Blood by Automated ffgyr982-095JjgazdqxrMercy Health Clermont HospitalPotassium [Moles/volume] in Serum or PlasmaOrdered By: Margarito Nunez on 14-48-8189Iyyrxiesn [Moles/Vol]Potassium [Moles/volume] in Serum or Plasma3.5-5.1FMarymount HospitalProthrombin time (PT) Ordered By: Margarito Nunez on 72-51-3746AV Coag (PPP) [Time]Prothrombin time (PT)9.0-12.9[facility] HospitalComment on above:A hematocrit value greater than 55% may lead to inaccurate results in coagulation testing. Patientshaving hematocrit values >55% require a special collection tube for coagulation studies. Please contact the laboratory at [phone] for redraw instructions.RBC Auto (Bld) [#/Vol]Ordered By: Margarito Nunez on 17-55-4421DZL (Bld) [#/Vol]Erythrocytes [#/volume] in Blood by Automated count3.90-5.60 [facility] Hospitalerum or plasma anion gap determinationOrdered By: Margarito Nunez on 31-36-9026Sbgnk gap [Moles/Vol]Serum or plasma anion gap determination6.0-15.0[facility] Hospitalerum or plasma total cholesterol/high density lipoprotein (HDL) cholesterol mass ratOrdered By: Margarito Nunez on 04-28-5179Qnyflbilpsv.total/Cholesterol in HDL [Mass ratio] Serum or plasma total cholesterol/high density lipoprotein (HDL) cholesterol mass rat<5.0[facility] Hospitalodium [Moles/volume] in Serum or PlasmaOrdered By: Margarito Nunez on 34-95-3546Zpqmpm [Moles/Vol]Sodium [Moles/volume] in Serum or EbkctfOtb425-839YenlfliljMercy Health Clermont Hospital Triglyceride [Mass/volume] in Serum or PlasmaOrdered By: Margarito Nunez on 45-20-0248Dwvytzqkjgik [Mass/Vol]Triglyceride [Mass/volume] in Serum or Plasma 0-149[facility]erm[facility] HospitalComment on above:TRIG ATP III CLASSIFICATIONTRIG less than 150 mg/dL NormalTRIG 150-199 mg/dL Borderline highTRIG 200-500 mg/dL High TRIG greater than 500 mg/dL Very highStandard traceable to the Center for Disease Conrtrol and Prevention (CDC) test method. Urea nitrogen [Mass/volume] in Serum or PlasmaOrdered By: Margarito Nunez on 62-65-3497Qutv nitrogen [Mass/Vol]Urea nitrogen [Mass/volume] in Serum or Plasma 7-25Mer[facility] HospitalWBC Auto (Bld) [#/Vol]Ordered By: Margarito Nunez on 41-98-6005JMK (Bld) [#/Vol]Leukocytes [#/volume] in Blood by Automated count4.1-10.5FMarymount HospitalaPTT in Platelet poor plasma by Coagulation assayOrdered By: Margarito Nunez on 52-49-3746fJYC Coag (PPP) [Time]Activated partial thromboplastin time (aPTT) in platelet poor plasma by coagulation a25.1-36.5FMarymount HospitalComment on above:A hematocrit value greater than 55% may lead to inaccurate results in coagulation testing. Patientshaving hematocrit values >55% require a special collection tube for coagulation studies. Please contact the laboratory at [phone] for redraw instructions.A1C with Estimated Average Gluon 77-52-2340Wzkjqlp [Mass/Vol]103 mg/dLNoNovant Health New Hanover [facility]opedic Hospital Physician GroupComment on above:Result Comment: PERFORMED BY: [facility] [address] [place] [address] PATHOLOGIST CROSSING GATEMAN SAMSON CLAUDIO M.D.Performed By: #### LIPID, BMP, A1C WTH eA ####[facility] [address] [place] [address] KJUEwH0i (Bld) [Mass fraction]5.2 %Normal4.3-5.6The [facility] Physician GroupComment on above:Result Comment: Increased risk for diabetes: 5.7 - 6.4 diabetes: >6.4 glycemic control for adults with diabetes: <7.0Performed By: #### LIPID, BMP, A1C WTH eA ####[place] [id number] USABasic Metabolic Panelon 75-65-9786Ggqjn gap [Moles/Vol]13.4 mmol/LNormal 6.0-15.0The [facility] Physician GroupComment on above:Performed By: #### LIPID, BMP, A1C WTH eA ####[place] [id number] USACalcium [Mass/Vol]9.3 mg/dLNormal8.6-10.3The [facility] Comment on above:Performed By: #### LIPID, BMP, A1C WTH eA ####[place] [id number] USAChloride [Moles/Vol] 97 mmol/PBeg32-773Shn [facility] Physician Alliance HospitalComment on above:Performed By: #### LIPID, BMP, A1C WTH eA ####[place] [id number] USACO2 [Moles/Vol]26.6 mmol/MRpuycp62.0-31.0The [facility] Physician GroupComment on above:Performed By: #### LIPID, BMP, A1C WTH eA ####[place] [id number] [place] Creatinine [Mass/Vol]0.65 mg/dLLow0.70-1.30The [facility] Physician GroupComment on above:Performed By: #### LIPID, BMP, A1C WTH eA ####[place] [id number] USAGFR/1.73 sq M.predicted MDRD (S/P/Bld) [Vol rate/Area]mL/min/{1.73_m2}NormalThe [facility] Comment on above:Performed By: #### LIPID, BMP, A1C WT eA ####[address] [address] USAGlucose [Mass/Vol]105 mg/iQYbge79-468Sbo [facility] Physician GroupComment on above:Result Comment: Random Glucose Reference Range is dependent on time and content of last meal. Glucose of more than 200 mg/dL in a nonstressed, ambulatory subject supports the diagnosis of Diabetes Mellitus. ADA recommended reference rangePerformed By: #### LIPID, BMP, A1C WTH eA ####[address] [address] [facility] Potassium [Moles/Vol]5.0 mmol/LNormal3.5-5.1The [facility] Physician GroupComment on above:Performed By: #### LIPID, BMP, A1C WTH eA ####[address] [address] USASodium [Moles/Vol]132 mmol/L Fzk665-113Rls [facility] Physician GroupComment on above:Performed By: #### LIPID, BMP, A1C WTH eA ####[address] [address] USAUrea nitrogen [Mass/Vol]8 mg/dLNormal7-25The [facility] Physician GroupComment on above:Performed By: #### LIPID, BMP, A1C WTH eA ####[place] [id number] [facility] Blood estimated average glucose determination by estimation from glycated hemoglobinOrdered By: Margarito Nunez on 30-33-2598Pkgjsgg glucose Estimated from glycated hemoglobin (Bld) [Mass/Vol]Glucose mean value [Mass/volume] in Blood Estimated from glycated hemoglobinMercy Health Clermont HospitalCalcium [Mass/volume] in Serum or PlasmaOrdered By: Margarito Nunez on 57-54-9654Jisaxie [Mass/Vol]Calcium [Mass/volume] in Serum or Plasma8.6-10.3FMarymount HospitalCarbon dioxide, total [Moles/volume] in Serum or PlasmaOrdered By: Margarito Nunez on 97-53-9248YR6 [Moles/Vol]Carbon dioxide, total [Moles/volume] in Serum or Yfdmsp17.0-31.0[facility] HospitalChloride [Moles/volume] in Serum or PlasmaOrdered By: Margarito Nunez on 10-20-2024 Chloride [Moles/Vol]Chloride [Moles/volume] in Serum or WrecmwIiy33-058OozlwssthMercy Health Clermont HospitalCholesterol [Mass/volume] in Serum or PlasmaOrdered By: Margarito Nunez on 06-96-5362Tbacjsjqrgp [Mass/Vol]Cholesterol [Mass/volume] in Serum or YbwkmkNbm568-620WumrmpjwcMercy Health Clermont HospitalComment on above:Chol less than 200 mg/dl low riskChol 201-239 mg/dl borderline riskChol 240 mg/dl and greater high riskCholesterol in HDL [Mass/volume] in Serum or PlasmaOrdered By: Margarito Nunez on 75-24-1700Pvewepgjuvk in HDL [Mass/Vol]Serum or plasma high density lipoprotein (HDL) cholesterol wfvjfpudayr68-37SvdmtztuxMercy Health Clermont HospitalComment on above:HDL CHOL ATP-III CLASSIFICATION Cardiovascular RiskHDL > or equal to 60 mg/dL LOWHDL < 40 mg/dL HIGHCholesterol in LDL Calc [Mass/Vol] Ordered By: Margarito Nunez on 77-56-3546Uveykreqpbq in LDL [Mass/Vol]Cholesterol in LDL [Mass/volume] in Serum or Plasma by calculation0-100[facility]ermont HospitalComment on above:LDL ATP III CLASSIFICATIONLDL less than 100 mg/dL OptimalLDL 100-129 mg/dL Near or above zzdzvcrPGX543-766 mg/dL Borderline highLDL 160-189 mg/dL HighLDL greater than 189 mg/dL Very highCholesterol in VLDL Calc [Mass/Vol]Ordered By: Margarito Nunez on 96-51-0568Aboeyeswxnr in VLDL [Mass/Vol]Cholesterol in VLDL [Mass/volume] in Serum or Plasma by calculation [facility] HospitalCreatinine [Mass/volume] in Serum or Plasma Ordered By: Margarito Nunez on 94-20-8406Ealqaofbie [Mass/Vol]Creatinine [Mass/volume] in Serum or PlasmaLow0.70-1.30[facility] Glucose [Mass/volume] in Serum or PlasmaOrdered By: Margarito Nunez on 10-20-2024 Glucose [Mass/Vol]Glucose [Mass/volume] in Serum or EvlnhfSajh10-045VqrepnawaMercy Health Clermont HospitalComment on above:ADA recommended reference rangeRandom Glucose Reference Range is dependent on time and content of last meal. Glucose of more than 200 mg/dL in a nonstressed, ambulatory subject supports the diagnosisof Diabetes Mellitus.Hemoglobin A1c/Hemoglobin.total in BloodOrdered By: Margarito Nunez on 05-25-9054ElM3s (Bld) [Mass fraction]Hemoglobin A1c percentage4.3-5.6FMarymount HospitalComment on above:Increased risk for diabetes: 5.7 - 6.4diabetes: >6.4glycemic control for adults with diabetes: <7.0Lipid Panelon 03-89-1595Hyiixyuvbnp [Mass/Vol]126 mg/dLLow 140-200The [facility] Physician GroupComment on above:Result Comment: Chol less than 200 mg/dl low risk Chol 201-239 mg/dl borderline risk Chol 240 mg/dl and greater high riskPerformed By: #### LIPID, BMP, A1C WT eA ####[address] [address] [facility] Cholesterol in HDL [Mass/Vol]54 mg/vHNfohar61-57Lue [facility] Comment on above:Result Comment: HDL CHOL ATP-III CLASSIFICATION Cardiovascular Risk HDL > or equal to 60 mg/dL LOW HDL < 40 mg/dL HIGHPerformed By: #### LIPID, BMP, A1C WTH eA ####[address] [address] [facility] Cholesterol.total/Cholesterol in HDL [Mass ratio]2.3 {ratio}Normal<5.0The [facility] Taylor HospitalComment on above:Result Comment: PERFORMED BY: [facility] [address] [place] [address] PATHOLOGIST CROSSING GATEMAN SAMSON CLAUDIO M.D.Performed By: #### LIPID, BMP, A1C WTH eA ####[place] [address] [place] [address] USALDL Cholesterol,Kylnunvhrr74 mg/dLNormal0-100The [facility] Physician GroupComment on above:Result Comment: LDL ATP III CLASSIFICATION LDL less than 100 mg/dL Optimal LDL 100-129 mg/dL Near or above optimal LDL 130-159 mg/dL Borderline high LDL 160-189 mg/dL High LDL greater than 189 mg/dL Very highPerformed By: #### LIPID, BMP, A1C WTH eA ####[facility] [id number] [place] [address] [facility] Triglyceride w/Vphbwt96 mg/dLNormal0-149[facility] Physician GroupComment on above:Result Comment: TRIG ATP III CLASSIFICATION TRIG less than 150 mg/dL Normal TRIG 150-199 mg/dL Borderline high TRIG 200-500 mg/dL High TRIG greater than 500 mg/dL Very high Standard traceable to the Center for Disease Conrtrol and Prevention (CDC) test method.Performed By: #### LIPID, BMP, A1C [facility] eA ####[facility] [id number] [place] [address] USAVLDL HCUFNOBIKCY85 mg/dLNormalThe [facility] Physician GroupComment on above:Performed By: #### LIPID, BMP, A1C [facility] eA ####[facility] [id number] [place] [address] USANo Panel InformationOrdered By: Margarito Nunez on 42-40-3275Anfijskyk GFR (CKD-EPI)> 60.0 mL/MinMercy Health Clermont Hospital Pharmacy Creatinine Clearance (ChemN/[facility] NorthPotassium [Moles/volume] in Serum or PlasmaOrdered By: Margarito Nunez on 10-20-2024 Potassium [Moles/Vol]Potassium [Moles/volume] in Serum or Plasma3.5-5.1FGreen Cross Hospitalerum or plasma anion gap determinationOrdered By: Margarito Nunez on 55-46-8064Grplw gap [Moles/Vol]Serum or plasma anion gap determination6.0-15.0[facility] Hospitalerum or plasma total cholesterol/high density lipoprotein (HDL) cholesterol mass ratOrdered By: Margarito Nunez on 31-95-9965Aifkwnmhgnt.total/Cholesterol in HDL [Mass ratio] Serum or plasma total cholesterol/high density lipoprotein (HDL) cholesterol mass rat<5.0[facility] Municipal Hospitalodium [Moles/volume] in Serum or PlasmaOrdered By: Margarito Nunez on 29-50-9829Dziwtp [Moles/Vol]Sodium [Moles/volume] in Serum or LangwsWhm148-495DioobfkznMercy Health Clermont Hospital Triglyceride [Mass/volume] in Serum or PlasmaOrdered By: Margarito Nunez on 47-34-6353Eedregvcsznv [Mass/Vol]Triglyceride [Mass/volume] in Serum or Plasma 0-149Mercy Health Clermont HospitalComment on above:TRIG ATP III CLASSIFICATIONTRIG less than 150 mg/dL NormalTRIG 150-199 mg/dL Borderline highTRIG 200-500 mg/dL High TRIG greater than 500 mg/dL Very highStandard traceable to the Center for Disease Conrtrol and Prevention (CDC) test method. Urea nitrogen [Mass/volume] in Serum or PlasmaOrdered By: Margarito Nunez on 15-06-8855Yzqu nitrogen [Mass/Vol]Urea nitrogen [Mass/volume] in Serum or Plasma 7-[facility] Clermont HospitalFPG ECG *CARDIOLOGY ONLY*on 45-67-2908VRP ECG *CARDIOLOGY ONLY*[place] [address] Electrocardiograph Report Signed Patient: Prosper Barnes MR#: [id number] : 1960 Acct:[id number] Age/Sex: 63 / M ADM Date: 10/17/24 Loc: EKGCARDIO Room: [facility] Attending Dr: Margarito Nunez MD Ordering Provider: [...] previous ECGs available Confirmed by Margarito Nunez ([id number]) on 10/19/2024 5:10:26 PM Referred By: Electronically Signed By: Margarito Nunez Transcribed By: MUS Signed By Margarito Nunez MD 10/19/[address] [place] [address] [facility] HospitalIntravitreal Injection, Pharmacologic Agent - OD - Right Eyeon 60-15-9745STVKMercy Hospital WashingtonRadiology Study observation (narrative)[facility] HealthcareOptical coherence tomography study report on 30-98-2849NOSGNortheast Missouri Rural Health Network Eye Quality was good. Scan locations included subfoveal, juxtafoveal, extrafoveal. Progression has been stable. Findings include choroidal neovascular membrane. Notes Scans were reviewed and compared to previous scans( when available) Choroidal neovascular membrane (CNVM) remains stable without any signs of new bleeding or extension of retinal pigment epithelium detachment (RPED) Opposite eye with dry amdUNC Health RockinghamRadiology Study observation (narrative)[facility] WashingtonIntravitreal Injection, Pharmacologic Agent - OD - Right Eyeon 83-29-9209QIFPMercy Hospital WashingtonRadiology Study observation (narrative)[facility] HealthcareOptical coherence tomography study reporton 06-20-2024 [facility] Eye Quality was good. Scan locations included [...] epithelium detachment (RPED) Opposite eye with dry amdUNC Health RockinghamRadiology Study observation (narrative)[facility] HealthcareINSULINon 86-31-4021Rkwcymy38.4 uIU/mL Normal2.6-24.9The [facility] HospitalComment on above:Performed By: #### INSULIN #### [facility] [address] [address] [address] Natalya OlveraCBC AUTO DIFFon 04-39-3257KGCZ #0.1 103/ulNormal0.0-0.1The [facility] HospitalComment on above:Performed By: #### CBC #### [facility] [address] [address] [address] Natalya OlveraBasophils/100 WBC (Bld)0.8 %Normal0.2-2.0The [facility] Comment on above:Performed By: #### CBC #### [facility] [address] [place] [address] Dr. Natalya Brantley #0.2 103/ulNormal0.0-0.7The [facility] HospitalComment on above: Performed By: #### CBC #### [facility] [address] [place] [address] Dr. Natalya Zunigaosinophils/100 WBC (Bld)2.4 %Normal0.9-7.0[facility] Comment on above:Performed By: #### CBC #### [facility] [address] [place] [address] Dr. Natalya Zunigarythrocyte distribution width (RBC) [Ratio]12.0 %Onxlio63.0-15.0 [facility] HospitalComment on above:Performed By: #### CBC #### [facility] [address] [place] [address] Dr. Natalya OlveraHematocrit (Bld) [Volume fraction]40.9 %Critically low42.0-54.0 [facility] HospitalComment on above:Performed By: #### CBC #### [facility] [address] [place] [address] Dr. Natalya OlveraHemoglobin (Bld) [Mass/Vol]14.1 g/aYRljgfj81.0-18.0[facility] HospitalComment on above:Performed By: #### CBC #### [facility] [address] [place] [address] Dr. Natalya Napier #0.04 10e3/ulCritically high0.00-0.03The [facility] Comment on above:Performed By: #### CBC #### [facility] [address] [place] [address] Dr. Natalya Napier %0.6 %Critically high0.0-0.5ThMagruder HospitalComment on above:Performed By: #### CBC #### [facility] [address] [place] [address] Dr. Natalya Mathews #1.7 103/ulNormal1.2-3.8The [facility] HospitalComment on above:Performed By: #### CBC #### [facility] [address] [place] [address] Dr. Natalya Hansenmphocytes/100 WBC (Bld)27.0 %Ejxwkm98.5-60.0The [facility] HospitalComment on above:Performed By: #### CBC #### [facility] [address] [place] [address] Dr. Natalya Ward DIFF REQNONormalThe [facility] HospitalComment on above: Performed By: #### CBC #### [facility] [address] [place] [address] Dr. Natalya Coleman (RBC) [Entitic mass]31.7 jtBnmszm22.9-34.0The [facility] HospitalComment on above:Performed By: #### CBC #### [facility] [address] [place] [address] Dr. Natalya Coleman (RBC) [Mass/Vol]34.5 g/fPCtjasb18.9-35.2The [facility] HospitalComment on above:Performed By: #### CBC #### [facility] [address] [place] [address] Dr. Natalya Orozco (RBC) [Entitic vol]91.9 dZGlkijw21.0-94.0The [facility] HospitalComment on above:Performed By: #### CBC #### [facility] [address] [place] [address] Dr. Natalya Paez #0.6 103/ulNormal0.3-0.8The [facility] HospitalComment on above:Performed By: #### CBC #### [facility] [address] [place] [address] Dr. Natalya Ramosocytes/100 WBC (Bld)10.0 %Normal1.7-12.0The [facility] Comment on above:Performed By: #### CBC #### [facility] [address] [place] [address] Dr. Yilan ChangNEUT #3.8 103/ulNormal1.4-6.5The [facility] HospitalComment on above:Performed By: #### CBC #### [facility] [address] [place] [address] Dr. Natalya Cisnerosutrophils/100 WBC (Bld)59.2 %Ilvgby11.0-75.0[facility] HospitalComment on above:Performed By: #### CBC #### [facility] [address] [place] [address] Dr. Natalya OlveraPlatelet mean volume (Bld) [Entitic vol]10.7 fLNormal9.5-13.5The [facility] HospitalComment on above:Performed By: #### CBC #### [facility] [address] [place] [address] Dr. Natalya HoffmanT232 103/sbOqrtoq361-508Cpd [facility] HospitalComment on above: Performed By: #### CBC #### [facility] [address] [place] [address] Dr. Natalya OlveraRBC4.45 106/ulCritically low4.70-6.10The [facility] HospitalComment on above:Performed By: #### CBC #### [facility] [address] [place] [address] Dr. Natalya OlveraWBC6.4 103/ulNormal4.0-11.0[facility] HospitalComment on above: Performed By: #### CBC #### [facility] [address] [place] [address] Dr. Natalya OlveraGLYCOHEMOGLOBIN A1Con 50-31-4953SGJ RECOMMENDATIONSEE BELOWNormal The [facility] HospitalComment on above:Result Comment: ADA RECOMMENDED LIMIT 4.0 - 6.0 ADA THERAPEUTIC TARGET < 7.0 ACTION SUGGESTED > 7.0Performed By: #### A1C #### [facility] [address] [place] [address] Dr. Natalya OlveraGlucose [Mass/Vol]94 mg/dLNormalThMagruder HospitalComment on above:Performed By: #### A1C #### [facility] [address] [address] [address] Natalya OlveraHbA1c (Bld) [Mass fraction]4.9 %Normal4.5-6.2The [facility] HospitalComment on above:Performed By: #### A1C #### [facility] [address] [place] [address] Dr. Natalya CarrilloID PROFILEon 87-96-0130HGLX-HDL RATIO NORMSEE BELOWMarion HospitalComment on above:Result Comment: 3.3 - 4.4 LOW RISK 4.4 - 7.1 AVERAGE RISK 7.1 - 11.0 MODERATE RISK >11.0 HIGH RISKPerformed By: #### LIPID, URIC, CMP #### [facility] [address] [place] [address] Dr. Natalya Estradaesterol [Mass/Vol]156 mg/dLNormal<=200The [facility] Comment on above:Performed By: #### LIPID, URIC, CMP #### [facility] [address] [place] [address] Dr. Natalya Estradaesterol in HDL [Mass/Vol]71 mg/dLCritically aaep15-83Ssa [facility] HospitalComment on above:Performed By: #### LIPID, URIC, CMP #### [facility] [address] [place] [address] Dr. Natalya Estradaesterol in LDL [Mass/Vol]68.0 mg/dLMarion HospitalComment on above:Performed By: #### LIPID, URIC, CMP #### [facility] [address] [place] [address] Dr. Natalya Celeste.total/Cholesterol in HDL [Mass ratio]2.2 {ratio} NormalThe [facility] HospitalComment on above:Performed By: #### LIPID, URIC, CMP #### [facility] [address] [place] [address] Dr. Natalya DonovanL NORMAL> or = 60 mg/dl - LOW CARDIOVASCULAR RISK <40 mg/dl - HIGH CARDIOVASCULAR RISKMarion HospitalComment on above:Performed By: #### LIPID, URIC, CMP #### [facility] [address] [place] [address] Dr. Natalya Yuen CALC NORMALSEE BELOWNoAvita Health System Ontario HospitalComment on above:Result Comment: <100 mg/dl OPTIMAL 100 - 129 mg/dl NEAR OR ABOVE OPTIMAL 130 - 159 mg/dl BORDERLINE HIGH 160 - 189 mg/dl HIGH >190 mg/dl VERY HIGH Performed By: #### LIPID, URIC, CMP #### [facility] [address] [place] [address] Dr. Natalya OlveraTriglyceride [Mass/Vol]85 mg/dLNormal<=150The [facility] Comment on above:Performed By: #### LIPID, URIC, CMP #### [facility] [address] [place] [address] Dr. Natalya FabianLDL CALC17.0 mg/dLNoAvita Health System Ontario HospitalComment on above: Performed By: #### LIPID, URIC, CMP #### [facility] [address] [place] [address] Dr. Natalya Malik 14(COMP METB)on 57-60-4733Yxqfohy [Mass/Vol]4.1 g/dLNormal 3.4-5.0The [facility] HospitalComment on above:Performed By: #### LIPID, URIC, CMP #### [facility] [address] [place] [address] Dr. Natalya OlveraAlbumin/Globulin [Mass ratio]1.1 {ratio}NormalThe [facility] HospitalComment on above:Performed By: #### LIPID, URIC, CMP #### [facility] [address] [place] [address] Dr. Natalya Flores [Catalytic activity/Vol]71 U/FSjzyaw41-122Nwj [facility] HospitalComment on above:Performed By: #### LIPID, URIC, CMP #### [facility] [address] [place] [address] Dr. Natalya Blevins [Catalytic activity/Vol]37 U/JUqvtnj50-59Zed [facility] HospitalComment on above:Performed By: #### LIPID, URIC, CMP #### [facility] [address] [address] [address] Natalya Linda gap [Moles/Vol]12.2 mmol/LNormalThe [facility] Comment on above:Performed By: #### LIPID, URIC, CMP #### [facility] [address] [address] [address] Natalya OlveraAST [Catalytic activity/Vol]30 U/GTcuniw71-90Yvv [facility] HospitalComment on above:Performed By: #### LIPID, URIC, CMP #### [facility] [address] [place] [address] Dr. Natalya OlveraBilirubin [Mass/Vol]0.9 mg/dLNormal0.2-1.0The [facility] Comment on above:Performed By: #### LIPID, URIC, CMP #### [facility] [address] [place] [address] Dr. Natalya OlveraCalcium [Mass/Vol]8.8 mg/dLNormal8.5-10.1The [facility] Comment on above:Performed By: #### LIPID, URIC, CMP #### [facility] [address] [address] [address] Natalya OlveraChloride [Moles/Vol]95 mmol/LCritically iza10-921Ozq [facility] HospitalComment on above:Performed By: #### LIPID, URIC, CMP #### [facility] [address] [place] [address] Dr. Natalya OlveraCO2 [Moles/Vol]30.0 mmol/ACkkoms79.0-32.0The [facility] Comment on above:Performed By: #### LIPID, URIC, CMP #### [facility] [address] [place] [address] Dr. Natalya OlveraCreatinine [Mass/Vol]0.61 mg/dLCritically low0.70-1.30The [facility] HospitalComment on above:Performed By: #### LIPID, URIC, CMP #### [facility] [address] [address] [address] Hoang ChangEGFR-AF CAYMAN ISLANDER>60Normal>=60The [facility] HospitalComment on above:Performed By: #### LIPID, URIC, CMP #### [facility] [address] [address] [address] Natalya ZunigaGFR-NON AF [place] ISLANDER>60Normal>=60The [facility] HospitalComment on above:Performed By: #### LIPID, URIC, CMP #### [facility] [address] [address] [address] Natalya OlveraGlobulin (S) [Mass/Vol]3.8 g/dLNormalThe [facility] HospitalComment on above:Performed By: #### LIPID, URIC, CMP #### [facility] [address] [place] [address] Dr. Natalya OlveraGlucose [Mass/Vol]102 mg/qWObkftv26-335Hjm [facility] Comment on above:Performed By: #### LIPID, URIC, CMP #### [facility] [address] [place] [address] Dr. Natalya OlveraPotassium [Moles/Vol]4.2 mmol/LNormal3.5-5.1The [facility] Comment on above:Performed By: #### LIPID, URIC, CMP #### [facility] [address] [place] [address] Dr. Natalya OlveraProtein [Mass/Vol]7.9 g/dLNormal6.4-8.2[facility] Comment on above:Performed By: #### LIPID, URIC, CMP #### [facility] [address] [place] [address] Dr. Natalya OlveraSodium [Moles/Vol]133 mmol/LCritically bds014-266Uxr [facility] HospitalComment on above:Performed By: #### LIPID, URIC, CMP #### [facility] [address] [place] [address] Dr. Natalya OlveraUrea nitrogen [Mass/Vol]7.0 mg/dLNormal7.0-18.0The [facility] HospitalComment on above:Performed By: #### LIPID, URIC, CMP #### [facility] [address] [place] [address] Dr. Natalya OlveraUrea nitrogen/Creatinine [Mass ratio]11.5 mg/mgNormalThe [facility] HospitalComment on above:Performed By: #### LIPID, URIC, CMP #### [facility] [address] [place], [place] [address] Dr. Natalya OlveraURIC ACID SERUMon 61-12-2668Fovdj [Mass/Vol]4.3 mg/dLNormal 3.5-7.2[facility] HospitalComment on above:Performed By: #### LIPID, URIC, CMP #### [facility] [address] [place], [place] [address] Dr. Natalya OlveraCNOVon 76-33-1033BLCQGbziek Visit (CARDFT) --------PROSPER BARNES ([id number]) 1960 MDate Time Provider Department10/12/17 1:30 PM MANDO VELASQUEZ During your visit today, we recorded the following information about you: Pulse Respiration Blood pressure Weight 89/minute 18/minute 142/89 83.5 kg Height 1.778 Jacquelyn Velasquez MD 10/12/2017 1:44 PM [facility] InstituteGary and Jaclyn Sheehan Department of Cardiovascular MedicineOUTPATIENT VISIT DATE 10/12/17OUTPATIENT VISIT TYPEESTABLISHEDPRIMARY CARE PHYSICIAN:Umer Salazar,[id number] [facility] [address]Xdfpq: [phone]: [phone] COMPLAINT:Systolic HFHISTORY OF PRESENT ILLNESS:Prosper Barnes is a 56 year old male who [...] per weekNo family history on file.ALLERGIES:ALLERGIESNo Known AllergiesMEDICATIONS:levETIRAcetam (KEPPRA) 500 mg tablet Takeby mouth every other day.sodium chloride 1 gram tab Take by mouth three times daily.lisinopril-hydrochlorothiazide (PRINZIDE, ZESTORETIC) 20-25 mg per tablet Take1 tablet by mouth once daily.levothyroxine (SYNTHROID) 100 mcg tablet Take 100 mcg by mouth daily beforebreakfast.rosuvastatin (CRESTOR) 20 mg tablet Take 1 tablet [...] Trouble swallowing, blood in stoolMUSCULOSKELETAL: Negative for: Jointstiffness and painNEUROLOGIC: Negative for: Numbness, tremorsPSYCHIATRIC: Negative for: Anxiety, depressionSKIN: Negative for: Rashes, itchingHEMATOLOGICAL/LYMPHATIC: Negative for: Easy bruising, easy bleeding, painfullymph nodesI personally interviewed, confirmed and edited the above information ifobtained by others.PHYSICAL EXAMINATION:BP 142/89 Pulse 89 Resp 18 Ht 177.8 cm (5' 10ANDquot;) Wt 83.5 kg (184lb) SpO2 97% BMI 26.4 kg/t8Wziqnzm: Well appearing, in no acute distress.Neuro: Oriented [...] pulses in distal lower extremities. Absent lower extremityedema?CARDIOVASCULAR MEDICINE TESTING:CTA, neck: April 2016CTA left neck: [...] have personally reviewed the above Cardiovascular Medicine Testing.?IMPRESSION/PLAN:Mr. Barnes is a 56 year old male with systolic HF, bicuspid AV, carotid stenosiss/p L CEA, tobacco abuse, ischemic CVA, HTN, andHPL presenting for follow up?Heart failure: NYHA functional [...] contact us with further questions or concerns.?Mando HampoleMaddieDepartment of Cardiovascular MedicineBucyrus Community Hospitalrt and Vascular InstituteNancy Ville [id number] [place], [place] [address]Tpdobg: [phone] Referring Provider: UMER SALAZAR [[id number]]Allergies As of Date: 10/12/2017(No Known Allergies)Date Reviewed: 10/12/2017Reviewed by: Cliff Sadler (Rn) SALENA Mcfarlane - Fully AssessedPrimary Visit Diagnosis:Systolic heart failure, unspecified heart failure chronicity (HCC) [I50.20] Other Visit Diagnoses:Essential hypertension [I10] Bicuspid aortic valve [Q23.1]Order(s):ECHO [098878] Order #: [id number]: 1 FUTUREPrescriptions as of 10/12/2017 Sig: LEVETIRACETAM 500 MG TABLET Take by mouth every other da* SODIUM CHLORIDE 1 GRAM TABLET Take by mouth three times da* LISINOPRIL 20 MG- HYDROCHLOROT* Take 1 tabletby mouth once d* LEVOTHYROXINE 100 MCG TABLET Take 100 mcg by mouth daily b* ROSUVASTATIN 20 MG TABLET Take 1 tablet by mouth daily * ASPIRIN 81 MG TABLET,DELAYED * Take 1 tablet by mouth once d*Problem List As Of Date: 10/12/2017(None)Disposition: Return in about 6 months (around 04/11/2018).Follow-up and Disposition History RecordedEncounter Number: [id number] Status:Closed by MANDO VELASQUEZ MD on 10/12/17NoSelect Medical Specialty [facility] [id number] ID: [id number]: Mando VelasquezSer: (none)Author Type: PhysicianType: Progress NotesFiled: 10/12/2017 1:44 PMNote Text:Heart and Vascular InstituteFleming County Hospitalsydney and Jaclyn Sheehan Department of Cardiovascular MedicineOUTPATIENT VISIT DATE 10/12/17OUTPATIENT VISIT TYPEESTABLISHEDPRIMARY CARE PHYSICIAN:Umer Salazar DO[address] [facility] [address]Jehgk: [phone]: [phone] COMPLAINT:Systolic HFHISTORY OF PRESENT ILLNESS:Prosper Barnes is a 56 year old male who [...] per weekNo family history on file.ALLERGIES:ALLERGIESNo Known AllergiesMEDICATIONS:levETIRAcetam (KEPPRA) 500 mg tablet Take by mouth every other day.sodium chloride 1 gram tab Take by mouth three times daily.lisinopril-hydrochlorothiazide (PRINZIDE, ZESTORETIC) 20-25 mg per tabletTake 1 [...] Negative for: Anxiety, depressionSKIN: Negative for: Rashes, itchingHEMATOLOGICAL/LYMPHATIC: Negative for: Easy bruising, easy bleeding,painful lymph nodesI personally interviewed, confirmed and edited the above information ifobtained by others.PHYSICAL EXAMINATION:BP 142/89 Pulse 89 Resp 18 Ht 177.8 cm (5' 10 ) Wt 83.5 kg (184lb) SpO2 97% BMI 26.4 kg/e8Nkzxabr: Well appearing, in no acute distress.Neuro: Oriented to person, place and time, alert, cooperative.Eyes: Extra ocular movements intact, pupils react to lightNeck: No jugular venous distention, no palpable thyromegaly.Heart: Regular rhythm, S1, S2 normal, no S3, no S4. No murmur.Lungs: Expiratory wheezes. Good respiratory effort.Abdomen: Soft, nontender, bowel sounds normal, no palpablehepatosplenomegalySkin: No clubbing, no cyanosis.Extremities: Normal pulses in [...] have personally reviewed the above Cardiovascular Medicine Testing.?IMPRESSION/PLAN:Mr. Barnes is a 56 year old male with systolic HF, bicuspid AV, carotidstenosis s/p L CEA, tobacco abuse, ischemicCVA, HTN, and HPL presentingfor follow up?Heart failure: NYHA functional class II / ACC AHA class Bsystolic heartfailure. LVEF 35-40%. Pharmacotherapy includes DOUGLAS-I. No need for diureticas he is euvolemic. Stable and doing well. Surveillance echocardiogram toassess LVEFBicupsid aortic valve: L-R cusp fusion. Trivial AI, no stenosis.Euvolemic.Hypertension: Adequately controlled at home. Target JNC VIII targetguidelines.?Carotid stenosis: L CEA May 2016. Management per Dr Penn. Continuestatin, ASA.?Disposition: Follow up in clinic in 6 months. Pending studies: Echo,patient will call mefor results??CONTACT INFORMATION:Thank you for allowing us to assist in the care your patient. As alwaysplease do not hesitate to contact us with further questions or concerns.?Mando Velasquez M.D.Clinton SheehanNvpartment of Cardiovascular MedicineBucyrus Community Hospitalrt and Vascular InstituteMichelle Ville [address] [address], [place] [address]Irlaob: [phone] NoBellevue Hospital [id number] Visit (CARDFT) --------PROSPER BARNES ([id number]) 1960 MDate Time Provider Department04/27/17 11:30 AM MANDO VELASQUEZ During your visit today, we recorded the following information about you: Pulse Respiration Blood pressure Weight 74/minute 18/minute 154/78 83.5 kg Height 1.778 Jacquelyn Velasquez MD 04/27/2017 11:48 AM [facility] and Jaclyn Sheehan Department of Cardiovascular MedicineOUTPATIENT VISIT DATE 04/27/17OUTPATIENT VISIT TYPEESTABLISHEDPRIMARY CARE PHYSICIAN:Umer Salazar, [address] [facility] [address]Tyztr: [phone]: [phone] COMPLAINT:Systolic HFHISTORY OF PRESENT ILLNESS:Prosper Barnes is a 56 year old male who presents today to follow up, last seen04/30/2016. History systolic HF, bicuspid AV, carotid stenosis s/p L CEA,tobacco abuse, ischemic CVA, HTN, and HPL. He is trying to be more active,complaint with low fat diet.Denies chest pain, SOB, edema, palpitations, syncope. ?PAST MEDICAL HISTORYDiagnosis Date- Carotid stenosis, left-CVA (cerebral vascular accident) (HCC)- Hyperlipidemia- Hypertension- Systolic heart failure (HCC)-Tobacco abusePAST SURGICAL VGRZLKF80/23/16: CEA Left Comment: with patch angioplastySocial HistorySubstance Use Topics- Smoking status: Never Smoker- Smokeless tobacco: Not on file- Alcohol use 63.0 oz/week 42 Cans of Beer (12oz) per weekNo family history on file.ALLERGIES:ALLERGIESNo Known AllergiesMEDICATIONS:levETIRAcetam (KEPPRA) 500 mg tablet Take by mouth every other day.sodium chloride 1 gram tab Take by mouth three times daily.lisinopril-hydrochlorothiazide (PRINZIDE, ZESTORETIC) 20-25 mg per tablet Take1 tablet by mouth once daily.levothyroxine (SYNTHROID) 100 mcg tablet Take 100 mcgby mouth daily beforebreakfast.rosuvastatin (CRESTOR) 20 mg tablet Take 1 tablet by mouth daily at bedtime.aspirin, enteric coated (ADULT LOW DOSE ASPIRIN) 81 mg EC tablet Take 1 tabletby mouth once daily.REVIEW OF SYSTEMS:GENERAL: Negative for: Fever, Fatigue.CARDIAC: See HPI above.HEENT: Negativefor: Ringing in Ears, nosebleeds, bleeding gums. + PoordentitionNECK: Negative for: Pain, stiffnessRESPIRATORY: Negative for: Blood in sputum, wheezing.GASTROINTESTINAL: Negative for: Trouble swallowing, blood in stoolMUSCULOSKELETAL: Negative for: Joint stiffness and painNEUROLOGIC: Negative for: Numbness, tremorsPSYCHIATRIC: Negative for: Anxiety, depressionSKIN: Negative for: Rashes, itchingHEMATOLOGICAL/LYMPHATIC: Negative for: Easy bruising, easy bleeding, painfullymph nodesI personally interviewed, confirmed and edited the above information ifobtained by others.PHYSICAL EXAMINATION:BP 15 4/78 Pulse 74 Resp 18 Ht 177.8 cm (5' 10ANDquot;) Wt 83.5 kg (184lb) SpO2 98% BMI 26.4 kg/o5Byhlgja: Well appearing, in no acute distress. Has cane for balanceNeuro: Oriented to person, place and time, alert, cooperative.Eyes: Extra ocular movements intact, pupils react to lightNeck: Nojugular venous distention, no palpable thyromegaly.Heart: Regular rhythm, S1, S2 normal, no S3, no S4. No murmur.Lungs: Expiratory wheezes. Good respiratory effort.Abdomen: Soft, nontender, bowel sounds normal, no palpable hepatosplenomegalySkin: No clubbing, no cyanosis.Extremities: Normal pulses in distal lower extremities. Trace lower extremityedema?CARDIOVASCULAR MEDICINE TESTING:CTA, neck: April 2016CTA left neck: [...] evidence of stress induced myocardial ischemia.9. Normal leftventricular systolic function.?Cardiac Catheterization: None?I have personally reviewed the above Cardiovascular Medicine Testing.?IMPRESSION/PLAN:Mr. Barnes is a 56 year old male with systolic HF, bic uspid AV, carotid stenosiss/p L CEA, tobacco abuse, [...] further questions or concerns.?Maddie Pringlepartment of Cardiovascular MedicineBucyrus Community Hospitalrt and Vascular InstituteNancy Ville [address] Shayy Connors[address]Office: [phone] Referring Provider: UMER SALAZAR [[id number]]Allergies As of Date: 04/27/2017(No Known Allergies)Date Reviewed: [...] three times da* LISINOPRIL 20 MG-HYDROCHLOROT* Take 1tablet by mouth once d* LEVOTHYROXINE 100 MCG TABLET Take 100 mcg by mouth daily b* ROSUVASTATIN 20MG TABLET Take 1 tablet by mouth daily * ASPIRIN 81 MG TABLET,DELAYED * Take 1 tablet by mouth onced*Problem List As Of Date: 04/27/2017(None)Disposition: Return in about 5 months (around 09/27/2017).Follow-up and Disposition History RecordedEncounter Number: [id number] Status:Closed by MANOD VELASQUEZ MD on 04/27/17NoLutheran HospitalESSon [id number] ID: [id number]: Mando VelasquezSer: (none)Author Type: PhysicianType: Progress NotesFiled: 04/27/2017 11:48 AMNote Text:Heart and Vascular InstituteFleming County Hospitalsydney and Jaclyn Sheehan Department of Cardiovascular MedicineOUTPATIENT VISIT DATE 04/27/17OUTPATIENT VISIT TYPEESTABLISHEDPRIMARY CARE PHYSICIAN:Umer Salazar DO[address] [facility] SharonHCA [facility] [address]Tdslx: [phone]: [phone] COMPLAINT:Systolic HFHISTORY OF PRESENT ILLNESS:Prosper Barnes is a 56 year old male who presents today to follow up, lastseen 04/30/2016. History systolic HF, bicuspid AV, carotid stenosis s/p LCEA, tobacco abuse, ischemic CVA, HTN, and HPL. He is trying to be moreactive, complaint with low fatdiet.Denies chest pain, SOB, edema, palpitations, syncope. ?PAST MEDICAL HISTORYDiagnosis Date- Carotid stenosis, left- CVA (cerebral vascular accident) (HCC)- Hyperlipidemia- Hypertension- Systolic heart failure (HCC)- Tobacco abusePAST SURGICAL RTZOQOZ40/23/16: CEA Left Comment: with patch angioplastySocial HistorySubstance Use Topics- Smoking status: Never Smoker- Smokeless tobacco: Not on file- Alcohol use 63.0 oz/week 42 Cans of Beer (12oz) per weekNo family history on file.ALLERGIES:ALLERGIESNo Known AllergiesMEDICATIONS:levETIRAcetam (KEPPRA) 500 mg tablet Take by mouth every other day.sodium chloride 1 gram tab Take by mouth three times daily.lisinopril-hydrochlorothiazide (PRINZIDE, ZESTORETIC) 20-25 mg per tabletTake 1 tablet by mouth once daily.levothyroxine (SYNTHROID) 100 mcgtablet Take 100 mcg by mouth dailybefore breakfast.rosuvastatin [...] Negative for: Anxiety, depressionSKIN: Negative for: Rashes, itchingHEMATOLOGICAL/LYMPHATIC: Negative for: Easy bruising, easy bleeding,painful lymph nodesI personally interviewed, confirmed and edited the above information ifobtained by others.PHYSICAL EXAMINATION:BP 154/78 Pulse 74 Resp 18 Ht 177.8 cm (5' 10 ) Wt 83.5 kg (184lb) SpO2 98% BMI 26.4 kg/o2Taqlblu: Well appearing, in no acute distress. Has cane for balanceNeuro: Oriented to person, place and time, alert, cooperative.Eyes: Extra ocular movements intact, pupils react to lightNeck: No jugular venous distention, no palpable thyromegaly.Heart: Regular rhythm, S1, S2 normal, no S3, no S4. No murmur.Lungs: Expiratory wheezes. Good respiratory effort.Abdomen: Soft, nontender, bowel sounds normal, no palpablehepatosplenomegalySkin: No clubbing, no cyanosis.Extremities: Normal pulses in [...] right coronary cusp and left coronary cuspfusion withtrivial regurgitation and no stenosis.5. Comparison to prior study: None.?Stress Test: 04/29/16 pharm SPECT MPI6. Abnormal study.7. Septal wall motion abnormality, likely due to known left bundle branchblock. Remaining wall segments are normal.8. No evidence of stress induced myocardial ischemia.9. Normal left ventricular systolic function.?Cardiac Catheterization: None?I have personally reviewed the above Cardiovascular Medicine Testing.?IMPRESSION/PLAN:Mr. Barnes is a 56 year old male with systolic HF, bicuspid AV, carotidstenosis s/p L CEA, tobacco abuse, ischemic CVA, HTN, and HPL presentingfor follow up?Heart failure: NYHA functional class II / ACC AHA class B systolic heartfailure. SYBJ42-06%. Pharmacotherapy includes DOUGLAS-I. No need for diureticas he is euvolemic. Stable and doing well. On 3g sodium tab daily forhyponatremia, instructed to be vigilant about weight checks, low fluidintake, and on watch for peripheral edema which he has been doingBicupsid aortic valve: L-R cusp fusion. Trivial AI, no stenosis.Euvolemic.Hypertension: Adequately controlled at home. Target JNC VIII targetguidelines.?Carotid stenosis: L CEA May 2016. Management per Dr Penn. Continuestatin, ASA.?Disposition: Follow up in clinic in 5 months. Pending studies: none??CONTACT INFORMATION:Thank you for allowing us to assist in the care your patient. As alwaysplease do not hesitate to contact uswith further questions or concerns.?Mando Velasquez M.D.Clinton Benavidespartment of Cardiovascular MedicineBucyrus Community Hospitalrt and Vascular InstituteNancy Ville [address], [place] [address]Qdpbzu: [phone] NormalCMercy Health [facility] Vital Signs Date TimeVital SignValuePerforming BidsygyazEecldviz10-88-6061 12:05-0400Body ygfwhuzuapk57.2 [degF]Kristel Bonnermer RAG ROOM SUPERVISOR-C Work Phone: 1(181)[address]05-27-2025 12:05-0400 Diastolic blood tozurkby34 mm[Hg]Kristel Nona RAG ROOM SUPERVISOR-C Work Phone: 1(158)[address]05-27-2025 12:05-0400 Heart rate64 /Kurtisa Nona RAG ROOM SUPERVISOR-C Work Phone: 1(522)[address] [place], [place] 3736205-27-2025 12:05-0400 Respiratory rate16 /Kurtisa Nona RAG ROOM SUPERVISOR-C Work Phone: 1(435)38[address]05-27-2025 12:05-0400 SaO2% (BldA) [Mass fraction]98 %Kristel Nona RAG ROOM SUPERVISOR-C Work Phone: 1(828)[address]05-27-2025 12:05-0400 Systolic blood xqlvieat247 mm[Hg]Kristel Nona RAG ROOM SUPERVISOR-C Work Phone: 1(600)[address]05-05-2025 09:48-0400 Body chsutn847.8 Josea Nona RAG ROOM SUPERVISOR-C Work Phone: 1(462)[address]05-05-2025 09:48-0400 Body mass index (BMI) [Ratio]25.8 kg/t6Shiqmz Nona RAG ROOM SUPERVISOR-C Work Phone: 1(165)483-[address] [place], [place] 7811305-05-2025 09:48-0400 Body tfzmeb46.64 kgPamela Nona RAG ROOM SUPERVISOR-C Work Phone: 1(143)[address]05-05-2025 09:48-0400 Diastolic blood tflnnduw44 mm[Hg]Kristel Nona RAG ROOM SUPERVISOR-C Work Phone: 1(102)[address]05-05-2025 09:48-0400 Heart rate74 /minPamela Nona RAG ROOM SUPERVISOR-C Work Phone: 1(609)[address]05-05-2025 09:48-0400 Respiratory rate18 /minPamela Nona RAG ROOM SUPERVISOR-C Work Phone: 1(973)[address] [place], [place] 3736205-05-2025 09:48-0400 SaO2% (BldA) [Mass fraction]98 %Kristel Nona RAG ROOM SUPERVISOR-C Work Phone: 1(614)[address]05-05-2025 09:48-0400 Systolic blood aetqjjzz034 mm[Hg]Kristel Nona RAG ROOM SUPERVISOR-C Work Phone: 1(754)[address] [place], [place] 3736203-31-2025 10:55-0400 Body exmdegpuajn97.3 [degF]Kristel Nona RAG ROOM SUPERVISOR-C Work Phone: 1(337)[address] [place], [place] 3736203-31-2025 10:55-0400 Diastolic blood dvybtsku98 mm[Hg]Kristel Nona RAG ROOM SUPERVISOR-C Work Phone: 1(953)483-[address] [place], [place] 7811303-31-2025 10:55-0400 Heart rate77 /minPamela Nona RAG ROOM SUPERVISOR-C Work Phone: 1(146)29941 [address]03-31-2025 10:55-0400 SaO2% (BldA) [Mass fraction]98 %Kristel Nona RAG ROOM SUPERVISOR-C Work Phone: 1(980)649[address]03-31-2025 10:55-0400 Systolic blood miltbzvq782 mm[Hg]Kristel Nona RAG ROOM SUPERVISOR-C Work Phone: 1(920)292-[address] [place], [place] 7811302-20-2025 13:40-0500 Diastolic blood vgijwlbr84 mm[Hg]Kristel Nona RAG ROOM SUPERVISOR-C Work Phone: 1(666)[address] [place], [place] 3736202-20-2025 13:40-0500 Heart rate64 /minPamela Nona RAG ROOM SUPERVISOR-C Work Phone: 1(324)[address] [place], [place] 3736202-20-2025 13:40-0500 Respiratory rate16 /minPamela Nona RAG ROOM SUPERVISOR-C Work Phone: 1(025)[address] [place], [place] 3736202-20-2025 13:40-0500 SaO2% (BldA) [Mass fraction]98 %Kristel Nona RAG ROOM SUPERVISOR-C Work Phone: 1(161)[address] [place], [place] 3736202-20-2025 13:40-0500 Systolic blood pknifupx941 mm[Hg]Kristel Nona RAG ROOM SUPERVISOR-C Work Phone: 1(612)[address] [place], [place] 3736202-20-2025 10:15-0500 Inhaled oxygen flow rate3 L/minPamela Nona RAG ROOM SUPERVISOR-C Work Phone: 1(924)[address] [place], [place] 3736202-20-2025 07:19-0500 Body kbwopk998.8 cmPamela Nona RAG ROOM SUPERVISOR-C Work Phone: 1(428)[address] [place], [place] 3736202-20-2025 07:19-0500 Body xrdbam65.64 kgPamela Nona RAG ROOM SUPERVISOR-C Work Phone: 1(056)[address] [place], [place] 3736202-10-2025 11:02-0500 Body blitbk424.8 cmPamela Nona RAG ROOM SUPERVISOR-C Work Phone: 1(147)[address] [place], [place] 3736202-10-2025 11:02-0500 Body mass index (BMI) [Ratio]25.8 kg/j1Mabnbl Nona RAG ROOM SUPERVISOR-C Work Phone: 1(159)[address] [place], [place] 3736202-10-2025 11:02-0500 Body yxyahtrnxwu61.2 [degF]Kristel Nona RAG ROOM SUPERVISOR-C Work Phone: 1(221)[address] [place], [place] 3736202-10-2025 11:02-0500 Body mwywxq23.64 kgPamela Nona RAG ROOM SUPERVISOR-C Work Phone: 1(419)483-[address] [place], [place] 7811302-10-2025 11:02-0500 Diastolic blood omuzyqdk62 mm[Hg]Kristel Nona RAG ROOM SUPERVISOR-C Work Phone: 1(419)483-[address] [place], [place] 7811302-10-2025 11:02-0500 Heart rate72 /minPamela Nona RAG ROOM SUPERVISOR-C Work Phone: 1(419)483-[address] [place], [place] 7811302-10-2025 11:02-0500 Respiratory rate16 /minPamela Nona RAG ROOM SUPERVISOR-C Work Phone: 1(419)483-[address] [place], [place] 7811302-10-2025 11:02-0500 SaO2% (BldA) [Mass fraction]98 %Kristel Nona RAG ROOM SUPERVISOR-C Work Phone: 1(419)[facility]-[address] [place], [place] 7811302-10-2025 11:02-0500 Systolic blood jfquhbun649 mm[Hg]Kristel Nona RAG ROOM SUPERVISOR-C Work Phone: 1(419)483-[address] [place], [place] 7811302-04-2025 14:05-0500 Diastolic blood wcaanlhl56 mm[Hg]Kristel Nona RAG ROOM SUPERVISOR-C Work Phone: 1(419)[facility]-[address] [place], [place] 7811302-04-2025 14:05-0500 Heart rate66 /minPamela Nona RAG ROOM SUPERVISOR-C Work Phone: 1(419)483-[address] [place], [place] 7811302-04-2025 14:05-0500 Respiratory rate16 /minPamela Nona RAG ROOM SUPERVISOR-C Work Phone: 1(419)483-[address] [place], [place] 7811302-04-2025 14:05-0500 SaO2% (BldA) [Mass fraction]97 %Kristel Nona RAG ROOM SUPERVISOR-C Work Phone: 1(419)[facility]-[address] [place], [place] 7811302-04-2025 14:05-0500 Systolic blood dzaifdys834 mm[Hg]Kristel Nona RAG ROOM SUPERVISOR-C Work Phone: 1(419)[facility]-[address] [place], [place] 7811302-04-2025 13:05-0500 Body .8 [degF]Kristel Nona RAG ROOM SUPERVISOR-C Work Phone: 1(419)483-[address] [place], [place] 7811302-04-2025 08:52-0500 Body yckmov979.8 cmPamela Nona RAG ROOM SUPERVISOR-C Work Phone: 1(419)[address] [place], [place] 3736202-04-2025 08:52-0500 Body isdlpf77 kgPamela Nona RAG ROOM SUPERVISOR-C Work Phone: 1(419)[address] [place], [place] 3736201-27-2025 14:03-0500 Body tbxjyy047.8 cmPamela Nona RAG ROOM SUPERVISOR-C Work Phone: 1(419)[address] [place], [place] 3736201-27-2025 14:03-0500 Body mass index (BMI) [Ratio]25.8 kg/a8Oxobcz Nona RAG ROOM SUPERVISOR-C Work Phone: 1(419)[address] [place], [place] 3736201-27-2025 14:03-0500 Body rnmxzwocrvw69.3 [degF]Kristel Nona RAG ROOM SUPERVISOR-C Work Phone: 1(419)[address] [place], [place] 3736201-27-2025 14:03-0500 Body cwzsbe65.64 kgPamela Nona RAG ROOM SUPERVISOR-C Work Phone: 1(419)[address] [place], [place] 3736201-27-2025 14:03-0500 Diastolic blood ikejqzzw95 mm[Hg]Kristel Nona RAG ROOM SUPERVISOR-C Work Phone: 1(419)[address] [place], [place] 3736201-27-2025 14:03-0500 Heart rate68 /minPamela Nona RAG ROOM SUPERVISOR-C Work Phone: 1(419)[address] [place], [place] 3736201-27-2025 14:03-0500 SaO2% (BldA) [Mass fraction]98 %Kristel Nona RAG ROOM SUPERVISOR-C Work Phone: 1(419)[address] [place], [place] 3736201-27-2025 14:03-0500 Systolic blood efkwhxpv661 mm[Hg]Kristel Nona RAG ROOM SUPERVISOR-C Work Phone: 1(419)[address] [place], [place] 3736201-14-2025 10:03-0500 Body bfkatt353.8 cmPamela Nona RAG ROOM SUPERVISOR-C Work Phone: 1(419)[address] [place], [place] 3736201-14-2025 10:03-0500 Body mass index (BMI) [Ratio]25.9 kg/f9Bvwdas Nona RAG ROOM SUPERVISOR-C Work Phone: 1(256)550-[address] [place], [place] 7811301-14-2025 10:03-0500 Body jawxyn55.1 kgPamela Nona RAG ROOM SUPERVISOR-C Work Phone: [phone])[address]01-14-2025 10:03-0500 Diastolic blood qsrbrtbe85 mm[Hg]Kristel Nona RAG ROOM SUPERVISOR-C Work Phone: 1(097)088-[address] [place], [place] 7811301-14-2025 10:03-0500 Heart rate67 /minPamela Nona RAG ROOM SUPERVISOR-C Work Phone: 1419)[facility] [place], [place] 7811301-14-2025 10:03-0500 Respiratory rate18 /minPamela Nona RAG ROOM SUPERVISOR-C Work Phone: [phone])[address] [place], [place] 3736201-14-2025 10:03-0500 SaO2% (BldA) [Mass fraction]99 %Kristel Nona RAG ROOM SUPERVISOR-C Work Phone: 1(882)581-[address] [place], [place] 7811301-14-2025 10:03-0500 Systolic blood cgsevkhl353 mm[Hg]Kristel Nona RAG ROOM SUPERVISOR-C Work Phone: 1(401)027-[address] [place] [address] Encounters Encounter DateEncounter TypeCare ProviderFacilityStart: 04-24-2025 End: 10-15-2599Bsenmy Francisco Hernandez MD Work Phone: NOXO NB OPHTStart: 04-24-2025 End: 43-90-5660Pbrtqt Francisco Hernandez MD Work Phone: NOZG NB OPHTStart: 04-24-2025 End: 00-13-8448Cjlwgm outpatient visit 25 minutesLeena Hernandez MD Work Phone: noms NB OPHTComment on above:Exudative age-related macular degeneration of right eye with active choroidal neovascularization (HCC) (Primary Dx); Intermediate stage nonexudative age-related macular degeneration of left eye Start: 04-24-2025 End: 53-36-1398jjvlmwbgwmDFXCH M ALLENNot AvailableStart: 03-13-2025 End: 01-62-7616Jevmzy flowsLisa [facility] PA Work Phone: NOMS SWS DERMStart: 03-13-2025 End: 49-57-2874Mmpoyf [facility] centerAllanaquiles [facility] PA Work Phone: NOOJ SWS DERMStart: 03-13-2025 End: 52-33-4341Svgtrf outpatient visit 15 minutesRykenneth Elam PA Work Phone: NOMS SWS DERMComment on above:Other atopic dermatitis (Primary Dx); Encounter for removal of suturesStart: 03-13-2025 End: 71-34-4658hjvpkarwjbVLGNO JENNIFERMNot AvailableStart: 02-28-2025 End: 29-72-3159Kbabmf [facility] centersydneyDelaware County Hospitalaquiles [facility]hel[facility] PA Work Phone: NOMS SWS DERMStart: 02-28-2025 End: 02-56-6651Ytprsz [facility] centersydneyDelaware County Hospitalaquiles [facility] PA Work Phone: NOMS SWS DERMStart: 02-28-2025 End: 93-27-0185Vmzhawj encounter procedureKath BARBOZA Work Phone: NOMS SWS DERMComment on above:Rash and other nonspecific skin eruption (Primary Dx)Start: 02-28-2025 End: 03-93-1745zjjfzppicmWBNSC NORTHEIMNot AvailableStart: 02-27-2025 End: 41-59-3346Djvdxgm encounter procedureKristel Castellano RAG ROOM SUPERVISOR-C Work Phone: [facility] Vascular Surg Work Phone: Start: 02-27-2025 End: 81-46-9641qtsazsnpbsGpboou Sue Cramer RAG ROOM SUPERVISOR-C Work Phone: [facility] Work Phone: Start: 02-05-2025 End: 81-73-3425nckpawizmiLypadb Sue Cramer RAG ROOM SUPERVISOR-C Work Phone: [facility] Work Phone: Start: 02-05-2025 End: 75-18-1063Lujvaux encounter procedureKristel Castellano RAG ROOM SUPERVISOR-C Work Phone: [facility] Cardiology Work Phone: Start: 01-01-2025 End: 50-85-2729klohwepenlRkhalg Ysabel Nona RAG ROOM SUPERVISOR-C Work Phone: [facility] Work Phone: Start: 01-01-2025 End: 82-23-2662Yjmhdsd encounter procedurePakade Castellano RAG ROOM SUPERVISOR-C Work Phone: [facility] Vascular Surg Work Phone: Start: 12-29-2024 End: 83-64-1197Lbqqayv encounter procedureKristel Castellano RAG ROOM SUPERVISOR-C Work Phone: [facility]-Electrodiagnostics Work Phone: Start: 12-29-2024 End: 56-35-5705ajlymwixzrYkztkg Ysabel Nona RAG ROOM SUPERVISOR-C Work Phone: [facility] Work Phone: Start: 12-26-2024 End: 83-04-2593rraoulxygjDKKKA M ALLENNot AvailableStart: 55-84-9708Avf-patient / Non-visitPakade Bonnermer RAG ROOM SUPERVISOR-C Work Phone: [facility] Vascular Surg Work Phone: Start: 11-23-2024 End: 94-60-1737Cmiwtwawm to same day surgery centerPakade Castellano RAG ROOM SUPERVISOR-C Work Phone: [facility]-Interventional Radiology Work Phone: Start: 11-23-2024 End: 07-84-9370ledzjskgzcQywkrm Ysabel Nona RAG ROOM SUPERVISOR-C Work Phone: [facility] Work Phone: Start: 11-13-2024 End: 44-96-6899mfwzoprjvaQjlpzq Ysabel Nona RAG ROOM SUPERVISOR-C Work Phone: [facility] Work Phone: Start: 11-13-2024 End: 99-17-3653Rxhdidb encounter procedurePamela Nona RAG ROOM SUPERVISOR-C Work Phone: [facility] Vascular Surgery [place] Work Phone: Start: 11-07-2024 End: 80-74-8647Hrmqcwn encounter procedurePamela Nona RAG ROOM SUPERVISOR-C Work Phone: [facility]-Ultrasound Main [place] Work Phone: Start: 11-07-2024 End: 08-33-5070solaobifdkKnshhd Ysabel Nona RAG ROOM SUPERVISOR-C Work Phone: [facility] Work Phone: Start: 64-76-2420Sch-patient / Non-visitPamela Nona RAG ROOM SUPERVISOR-C Work Phone: [facility] Work Phone: Start: 11-07-2024 End: 96-02-7048Hkwfsylyk to same day surgery centerPakade Bonnermer RAG ROOM SUPERVISOR-C Work Phone: [facility] Work Phone: Start: 11-07-2024 End: 99-59-2242ldvyxxjllsLcytrw Ysabel Nona RAG ROOM SUPERVISOR-C Work Phone: [facility] Work Phone: Start: 11-03-2024 End: 80-67-6912Vyrrgil encounter procedurePamela Nona RAG ROOM SUPERVISOR-C Work Phone: [facility] Testing Work Phone: Start: 11-03-2024 End: 33-55-9160eifjdpixbrTzsila Ysabel Nona RAG ROOM SUPERVISOR-C Work Phone: [facility] Work Phone: Start: 06-63-3155Fogorjlvk for preprocedural laboratory examinationGeor Vincenzo AwanWilson Healthnicola [facility] Start: 10-30-2024 End: 63-48-7501Yoybmnq encounter procedureKristel Castellano RAG ROOM SUPERVISOR-C Work Phone: [facility] Vascular Surgery [place] Work Phone: Start: 10-20-2024 End: 41-28-9813Mrzojmd encounter procedurePakade Castellano RAG ROOM SUPERVISOR-C Work Phone: [facility]-Lab [place] Work Phone: Start: 10-20-2024 End: 83-60-1055ixnykdivqtJeibrt Ysabel Nona RAG ROOM SUPERVISOR-C Work Phone: [facility] Work Phone: Start: 10-17-2024 End: 10-27-3048fqeidansuqOiazzb Ysabel Nona RAG ROOM SUPERVISOR-C Work Phone: [facility] Work Phone: Start: 10-17-2024 End: 74-59-2883Yxtrjei encounter procedurePakade Castellano RAG ROOM SUPERVISOR-C Work Phone: [facility] Physician [facility] Cardiology Work Phone: Start: 09-21-2024 End: 68-88-2299Iodqjs Francisco Hernandez MD Work Phone: noms NB OPHTStart: 09-21-2024 End: 98-77-3408Bakcxf Francisco Hernandez MD Work Phone: noms NB OPHTStart: 09-21-2024 End: 02-25-8944Aomdtc outpatient visit 15 minutesLeena Hernandez MD Work Phone: NOMS NB OPHTComment on above:Follow-up; Macular DegenerationStart: 09-21-2024 End: 48-71-8286ilbamfjbfkDCRGK M ALLENNot AvailableStart: 06-20-2024 End: 92-35-5491Sgnlom Francisco Hernandez MD Work Phone: NOMS NB OPHTStart: 06-20-2024 End: 84-47-9501Leltsw Francisco Hernandez MD Work Phone: NOMS NB OPHTStart: 06-20-2024 End: 39-20-1971ygxadpdopyMOQGZ M ALLENNot AvailableStart: 12-30-2023 End: 61-20-9140cdycgwpmqoBP-C Kristel Castellano Work Phone: [facility] Work Phone: Start: 12-30-2023 End: 16-26-9421Lhqsfkwv ReferredNP-C Kristel Castellano Work Phone: [facility]-LAB Path Spec [facility] HospStart: 60-58-8667Spmsquhbm for general adult medical examination without abnormal findingsKRISTEL Logan [facility] HospitalStart: 09-30-2022 End: 28-54-5190rferblydngMGFZOG CRAMERFacility:F3Gwynv: 09-30-2022 End: 52-64-9819Ytqbmfvrp for general adult medical examination without abnormal findingsPAMELA NONAFacility:E3Zkvdm: 94-74-5667otcdosqefvEM DOUGLAS HOY Facility:G1Dymds: 52-83-1822byhboaruadBQJSRD CRAMERFacility:M3Mubav: 10-12-2017 End: 28-74-7840RscgztdmskDQCJFR [facility] SystemStart: 04-27-2017 End: 35-79-2475OworxlttdqNAQFIX [facility] SystemStart: 03-10-2017 End: 07-01-1241TsnylswuxsIfwdyi KassavinFacility:[facility] Procedures DateProcedureProcedure DetailPerforming ClinicianStart: 48-43-4987Lfsumvvdmwcl ophthalmic imaging Aleks Hernandez MD Work Phone: Start: 99-56-2722QISC / NAIL BIOPSYRylee Noemí BARBOZA Work Phone: Start: 36-42-6334HL Angiogram w/TLA/Stent Left Leg (Bilateral)Kristel Bonnermer RAG ROOM SUPERVISOR-C Work Phone: Start: 73-76-0689HY Angiogram w/TLA/Stent Left Leg (Not Applicable)Kristel Bonnermer RAG ROOM SUPERVISOR-C Work Phone: [phone]: 29-22-1348Htlialj ultrasonography of bilateral carotid arteriesPakade Bonnermer RAG ROOM SUPERVISOR-C Work Phone: Start: 44-78-4522Aroeh volume recorder pneumoplethysmographyPakade Bonnermer RAG ROOM SUPERVISOR-C Work Phone: Start: 52-52-7998[facility] AngioPamela Nona RAG ROOM SUPERVISOR-C Work Phone: Start: 10-50-8285Jpwmjh Nona RAG ROOM SUPERVISOR-C Work Phone: Start: 52-80-1547Lnngtycfikyi njx pharmacologic agt spxLeena Hernandez MD Work Phone: Start: 89-51-7636Nifdgowijuld ophthalmic imaging Aleks Hernandez MD Work Phone: Start: 30-76-1097Bxddbdtmsgab njx pharmacologic agt spxLeena Hernandez MD Work Phone: Start: 82-96-3960Sghglevheluv ophthalmic imaging Aleks Hernandez MD Work Phone: Start: 06-20-2024 End: 49-16-9922Imbbr medical xm&eval intermediate estab ptExudative age-related macular degeneration of right eye with active choroidal neovascularization (CM S/HCC)Leena Hernandez MD Work Phone: comment on above:Retinal InjectionStart: 53-36-1189JAB screeningDR RADHA HOYComment on above:Performed By: #### [facility] #### [facility] [address] [address] [address] Natalya Olvera Plan of Treatment DateCare ActivityDetailAuthorStart: 10-25-2025 End: 66-99-9540Rgupjbq encounter risdvqahi65/22/2026 8:45 AM EST Office Visit [facility] [address] [place] [id number] Leena Hernandez MD [address] [place] [address] [facility] OPHTStart: 86-69-7415Axslbkasr vaccinationNOMS HealthcareStart: 05-14-2025 End: 40-44-2099Rgcaaco encounter /11/2025 9:20 AM EDT Office Visit [facility] [address] [place] [address] Kath Dowd PA [address] [place] [address] [facility] DERMStart: 04-24-2025 End: 97-49-7184Jwbufro encounter procedureNOMS NB OPHTComment on above:Arrived Start: 03-13-2025 End: 38-45-5515Tfybuon encounter procedureNOMS SWS DERMComment on above:Arrived Start: 02-28-2025 End: 54-81-8297Yoevzbh encounter iylpkwoun08/28/2025 9:30 AM EDT Office Visit [facility] [address] [place] [address] Kath Dowd PA [address] [place] [address] ArrivedNOMS SWS DERMComment on above:ArrivedStart: 99-29-0568Bkptztm referralParkview Health Work Phone: Start: 81-81-9891Mflff brachial pressure index [facility]: 96-47-4837DynidakpiLancaster Municipal Hospitaltart: 98-89-5169Jjkiaal ultrasonography of bilateral carotid arteriesUS carotid doppler BIFGreen Cross Hospitaltart: 92-09-3086Fxwve volume recorder pneumoplethysmographyLancaster Municipal Hospitaltart: 86-15-9903SP.doppler Carotid arteries - bilateralLancaster Municipal Hospitaltart: 16-37-1999LjnrjqjqgLancaster Municipal Hospitaltart: 10-20-2024 [facility]: 21-71-5141Jgjzhtw referralParkview Health Work Phone: Start: 11-53-3154OdpepiahiMercy Health Clermont Hospital Start: 09-21-2024 End: 40-23-6174Pzekdnsw Kvthson4609/21/2024 8:30 AM EST Clinical Support [facility] [address] [place] [address] Leena Hernandez MD [address] [place] [address] ArrivedST. [facility]ORGE [facility] OPHTComment on above:ArrivedStart: 06-20-2024 End: 61-86-7812Vcmhvpqb Rwvcnwu4706/20/2024 9:45 AM EDT Clinical Support [facility] OPHT [address] [place] [address] Leena Hernandez MD [address] [place] [address] [facility] OPHTComment on above:ArrivedStart: 06-04-2024 Influenza vaccinationInfluenza Vaccine (#1)[facility] HealthcareStart: 1960 Screening for malignant neoplasm of colonMercy Hospital WashingtonAnkle brachial pressure indexMercy Health Clermont HospitalDermatopathology examDermatopathology exam Pathology and Cytology Timed Rash and other nonspecific skin eruption Release Upon Ordering for 1 Occurrences starting 02/28/2025[facility] Work Phone: comment on above:Release Upon Ordering for 1 Occurrences starting 02/28/2025Glucose measurement estimated from glycated hemoglobinMercy Health Clermont HospitalHemoglobin A1c/Hemoglobin.total in BloodMercy Health Clermont HospitalPatient EducationKnow your MedsClinton Memorial Hospital [facility]tr Work Phone: Patient referralClinton Memorial Hospital Ctr Work Phone: Pulse volume recorder pneumoplethysmographyMercy Health Clermont HospitalUS Heart TransthoracicMercy Health Clermont HospitalUS Heart TransthoracicMercy Health Clermont HospitalUS.doppler Carotid arteries - bilateralKaiser Fremont Medical Center Immunizations Immunization DateImmunizationNotesCare RlbfwklfIofxteqq64-79-4644IFABV-10 mRNA- 1273 (Moderna)Kristel Castellano RAG ROOM SUPERVISOR-C Work Phone: [phone] [place], [place] 7811305-06-2021COVID-19 mRNA-1273 (Moderna)RAG ROOM SUPERVISOR-C Kristel Castellano Work Phone: [phone] [place], [place] 7811304-08-2021COVID-19 mRNA-1273 (Moderna)RAG ROOM SUPERVISOR-C Kristel Castellano Work Phone: [phone] [place] [address] Payers DatePayer CategoryPayerPolicy [id number] Cross Blue ShieldBCBS [id number]L BCBS [id number] 2022-Present [phone] [address] [place] [address] 1.2.840.473077.1.13.693.2.7.3.838[id number] 2.16.840.1.220074.3.57[id number] 2.16.840.1.996164.3.579.[id number] 2.16.840.1.839412.3.57[id number] 2.16.840.1.431556.3.579.[id number] 2.16.840.1.017607.3.579.[id number] 2.16.840.1.909500.3.579.2.091324-18-8933Haaxqkd4001263 2.16.840.1.273324.3.579.2.354252-08-0304Cpobzyl8294416 2..840.1.104641.3.579.2.858074-01-7193Lfocydf4671523 2.16.840.1.539705.3.579.2.436632-74-5539Qibz-efu59888622477-86-8229Bfajcbj [id number] 2.16.840.1.9[id number] 2.16.840.1.910[id number] 2.16.840.1.208277.3.579.2.531 [id number] 2.16.840.1.99390[id number] 2.16.840.1.024626.[id number] 2.16.840.1.788548.3.579.2.531 [id number] 2.16.840.1.608961.3.579.2.295Oeiorrl24172373 2..840.1.644544.3.579.2.531 Social History DateTypeDetailFacilityStart: 07-01-2021 End: 56-98-6010Pvvhveh smoking status NHISEx-smoker (finding)[facility] Hospitaltart: 26-02-4073Anw Assigned At BirthKing's Daughters [facility] OhioHistory of tobacco useCurrent smokerNOMS HealthcareHistory of tobacco useCigarette SmokerNOMS HealthcareStart: 35-79-9625Hdomeiw use and exposureSmokeless tobacco non-userNOMS HealthcareStart: 03-21-2024 End: 69-19-1647Ucwrziffs beverage intakeEx-drinker (finding)[facility] Healthcare Start: 03-21-2024 End: 97-01-5653Xqutxfond beverage intakeNOMS HealthcareStart: 05-19-2023 End: 93-67-5726Qznhxbs use panelNOMS HealthcareStart: 46-69-9436Xef assigned at birthNot on fileNOMS HealthcareStart: 10-18-2024 End: 14-35-6515TscWneqrrt sex unknown (finding)[facility] Start: 11-04-2024 End: 84-07-8220FmtQltk (finding)[facility] Medical Equipment Procedure CodeEquipment CodeEquipment Original TextEquipment IdentifierDates Peripheral artery endovascular stent-graft, drug-coated [id number] FDAStart: 40-04-0594Jcojxlcsld artery endovascular stent-graft, drug-coated()[id number] FDAStart: 11-23-2024 Goals DatePatient GoalDesired Activity/State Clinical Notes 06-20-2024 to 04-24-2025 Note Date & AbpwXqlzBdatwnsq23-69-5361 History of Present illness Narrative* Leena Hernandez MD - 04/24/2025 8:30 AM EDT No Known Allergies Past Medical History: Diagnosis Date Alcoholism (HCC) Cataract HTN (hypertension) Macular degeneration Stroke (cerebrum) (HCC) Assessment/Plan ARMD OU, dry. Importance of smoking cessation, blood pressure control, and healthy diet were emphasized. Patient was advised to consider ultraviolet-B blocking sunglasses. In accordance with the AREDS study, appropriate antioxidant and mineral supplements were prescribed. Patient was instructed to self monitor their monocular vision (reading/Amsler Grid) at least weekly. Patient should immediately report any new onset of decreased vision or metamorphopsia. documented in this encounterMercy Hospital WashingtonMbievnksvi46-85-5666 History of Present illness Narrative* JABARI De La Torre - 03/13/2025 9:30 AM EDT Images from the original note were not included. Suture Removal Patient here for suture removal: No complaints of redness, drainage or swelling at site, compliant with wound care. Location: Left foot-anterior Procedure Performed: Punch biopsy Date of Procedure: 02/28/2025 Medications: none Follow up Diagnosis: Rash unspecified Location: lower legs/back Last visit: 2 weeks ago Symptoms: less itchy Status: improving Procedure performed: Punch biopsy Date of procedure: 02/28/2025 Number of treatments to date: 1 Treatments tried and failed: TAC Cream, oral steroids Current treatment: Triamcinolone 0.1% cream All pertinent medical history, medications, and allergies were reviewed. General Exam: alert, oriented to person, place, and time, normal affect, well appearing Accompanied by spouse A focused exam completed based on patient reported problems, see below: Skin Exam 1. ENCOUNTER FOR REMOVAL OF SUTURES Left Foot - Anterior Sutures are intact, Skin edges are well-approximated, Mild erythema along incision line, No drainage or edema noted Suture Removal: Procedure: Sutures removed without difficulty. Post-Procedure instructions: Instructed to discontinue wound care., Pathology results discussed. 2. OTHER ATOPIC DERMATITIS Left Lower Leg - Anterior, Right Lower Leg - Anterior Scaly erythematous plaques +/- dyspigmentation, lichenification, excoriations. Improved since last visit. Discussed pathology report with patient . Suspicious for atopic dermatitis. Discussed that atopic dermatitis is a chronic condition that can be controlled but not cured. Continue TAC 0.1% cream bid prn when flared, hold if smooth/asymptomatic. Encouraged daily moisturizing and gentle cleansers to pr event flares. Notify office if flaring despite treatment. Follow up in 2 months. Next Visit: 2 months documented in this encounterMercy Hospital WashingtonOxosugytos76-53-9244 History of Present illness Narrative* JABARI De La Torre - 02/28/2025 9:30 AM EDT Images from the original note were not included. Rash Location: lower legs, back Duration: 3 months Quality: itchy Associated symptoms: scaly Treatments tried: TAC cream, oral steroids (cleared rash temporarily) Current treatments: none New patient All pertinent medical history, medications, and allergies were reviewed. General Exam: alert, oriented to person, place, and time, normal affect, well appearing Accompanied by spouse A focused exam completed based on patient reported problems, see below: Skin Exam 1. RASH AND OTHER NONSPECIFIC SKIN ERUPTION Left Foot - Anterior [place] patches and plaques Suspicious of stasis dermatitis but would like to rule out drug exanthem and contact dermatitis dueto sudden onset of symptoms. Continue TAC 0.1 % cream bid as needed until clear. Follow up in 12-14days for suture removal. Biopsy today, see procedure note. Lesion biopsy - Left Foot - Anterior Type of biopsy: punch Informed consent: discussed and consent obtained Informed consent comment: The risks and benefits were discussed. Risks include, but are not limitedto, bleeding, infection, scarring, pain, & nerve damage. An opportunity to ask questions prior to the procedure was permitted and questions were answered. Patient was prepped and draped in usual sterile fashion: Area cleansed with alcohol. Anesthesia: the lesion was anesthetized in a standard fashion Anesthetic: 1% lidocaine w/ epinephrine 1-100,000 buffered w/ 8.4% NaHCO3 Punch size: 3 mm (A biopsy by punch method was performed using a dermal punch) Suture size: 4-0 Suture type: nylon Suture type comment: Hemostasis was achieved with suture. Suture removal (days): 12 Hemostasis achieved with: suture Outcome: patient tolerated procedure well Post-procedure details: sterile dressing applied and wound care instructions given Post-procedure details comment: Emphasized the need to contact clinic for any signs of infection, uncontrollable bleeding, or complications. Dressing type: bandage Additional details: Amount of lidocaine used: 1.0 cc Number of sutures used: 2 Photo taken triamcinolone (Kenalog) 0.1 % cream - Left Foot - Anterior Apply topically 2 (two) times a day as needed for rash Specimen A - Dermatopathology exam Differential Diagnosis: Stasis dermatitis vs. Atopic dermatitis vs. Drug exanthem vs. Contact dermatitis Check Margins: No Next Visit: 12 day, S/R documented in this [facility]03-31-2025 Evaluation note* Diagnosis Onset Date Resolution Status Admit Date Peripheral arterial disease acuteMarch 2024 10:43amEssential (primary) hypertensionacuteMay 2024 9:40amHFrEF (heart failure with reduced ejection fraction)acuteMay 2024 9:40amMixed hyperlipidemiaacuteMay 2024 9:40amPeripheral arterial disease acuteMay 2024 9:40am [facility] Work Phone: 1(909) 682-313003-31-2025 Evaluation note* Diagnosis Onset Date Resolution Status Admit Date Peripheral arterial disease acuteMarch 2024 10:43amEssential (primary) hypertensionacuteMay 2024 9:40amHFrEF (heart failure with reduced ejection fraction)acuteMay 2024 9:40amMixed hyperlipidemiaacuteMay 2024 9:40amPeripheral arterial disease acuteMay 2024 9:40amPeripheral arterial diseaseacuteMay 2024 11:30am [facility] Work Phone: 1(656) 745-867102-10-2025 Evaluation note* Diagnosis Onset Date Resolution Status Admit Date Carotid stenosis acuteFebruary 2024 9:53amPeripheral arterial diseaseacuteFebruary 2024 9:53amPeripheral arterial diseaseacuteMarch 2024 10:43amEssential (primary) hypertensionacuteMay 2024 9:40amHFrEF (heart failure with reduced ejection fraction)acuteMay 2024 9:40amMixed hyperlipidemiaacuteMay 2024 9:40amPeripheral arterial diseaseacuteMay 2024 9:40am [facility] Work Phone: [phone] 175-382002-04-2025 [place] [address] Cardiac Catheterization Note Signed Patient: Prosper Barnes MR#: [id number] : 1960 Acct:[id number] Age/Sex: 63 / M Adm Date: 5 Loc: Room: Type: [facility] Attending Dr: Margarito Nunez MD Copies to: MD Kristel Lyons CNP~ Cardiac Catheterization (Left) DATE/PROVIDER 11/07/2024 Margarito Nunez MD INDICATION INDICATION: HFrEF (25-30%), PAD, HTN. PRE PROCEDURE DIAGNOSIS: Suspected CAD POST PROCEDURE DIAGNOSIS: No epicardial coronary artery disease. PRE PROCEDURE Frailty Scale: Managing Well ASA Classification: 2 Mallampati Score: Class II PROCEDURE PROCEDURE MEDICATIONS: Radial mix consisting of 5mg Verapamil, 20mg Lidocaine, 5000U Heparin and 200mcgNitroglycerin. PROCEDURES PERFORMED: 1. Left heart catheterization 2. Selective coronary angiography 3. Left Ventriculography. 4. Supervision of moderate sedation. PROCEDURE DETAILS DESCRIPTION OF PROCEDURE: After informed consent was obtained, the patient was brought down to the CardiacCath Lab in a fasting state. The right radial area was draped, prepped, and sterilized in the usual fashion. Moderate sedation was administered for this procedure and the patient was monitored throughout the procedure. Access was obtained at the right radial artery using the Seldinger technique. The sheath was then flushed. A TIG 4 catheter was then used to engage the left and right coronary artery systems respectively. Multiple orthogonal images were then taken. The catheter was then removed with the help of a guidewire. A pigtail catheter was then introduced into the aorta. Aortic pressure was obtained. The pigtail catheter was then advanced across the aortic valve into the left ventricle. Multiple hemodynamic data were obtained. A left ventriculogram was performed by power injection. The pigtail catheter was then taken out to the aorta and finally removed with the help of a guidewire. The sheath was then flushed and pull back manually. Finally hemostasis was obtained by manual pressure. The patient tolerated the procedure well without any immediate complications. DESCRIPTION OF CORONARY ANATOMY: The left main originates from the left coronary sinus of Valsalva in the usual fashion. It then trifurcates into the left anterior descending artery, ramus intermedius and the circumflex artery. There was a good reflux of dye from the vessel into the sinus of valsalva. No ventricularization or dampening of pressure were noted. ? The left anterior descending artery originates from the bifurcation in the usualfashion. It then courses its way down the anterior interventricular groove giving rise to diagonal arteries. It then wraps around the apex of the heart. The ramus intermedius artery is a large caliber vessel, coursing over the anterolateral wall. ? The left circumflex artery originates from the bifurcation in the usual fashion.It then courses itsway down the lateral atrioventricular groove as it gives offobtuse marginal arteries. The right coronary artery originates from the right coronary sinus of Valsalva in the usual fashion. It then courses along the atrioventricular groove and thengives off acute marginal artery. It continues into the posterior descending artery as it gives off the posterior lateral artery. CORONARY FINDINGS: See below. HEMOSTASIS As described above. SUMMARY OF FINDINGS Dominance: Right Left Main: No coronary disease. LAD-Prox: No coronary disease. LAD- Mid: No coronary disease. LAD-Distal: No coronary disease. Diag 1st: Large-caliber vessel with a high takeoff near the ramus intermedius. No coronarydisease. Ramus: Large-caliber vessel. No coronary disease. CIRC- Prox: No coronary disease. CIRC- Distal: No coronary disease. OM-1: No coronary disease. OM-2: No coronary disease. RCA: No coronary disease. PDA-RT: No coronary disease. LEFT VENTRICLE LVEF: > 50% Wall motion: Grossly normal VALVE-AORTIC Aortic Valve Disease: No (No severe aortic valve disease.) VALVE-MITRAL Mitral Valve Disease: No (No significant mitral regurgitation.) HEMODYNAMICS LV pressure: 114/76 Aortic pressure: 99/56 LVEDP: 14 FLUOROSCOPY See event logs, sedation, radiation dose and contrast amount in the accompanyingcatheterization labreport. IMPRESSION - No epicardial coronary artery disease. - Normal LV function. - Normal LVEDP. - His cardiomyopathy is nonischemic in origin. It also appears his cardiomyopathy may have been transient as EF on LV gram is improved from earlierstated. RECOMMENDATIONS - Recommend aggressive risk factor modification to include healthy diet, regularphysical activity, smoking cessation, and control of blood pressure and lipids (where indicated). - Recommend reevaluation of EF by echocardiography. EF appears improved from earlier stated. Documented By: Margarito Nunez MD 01/26 1114 Signed By: 11/07/24 1122 [facility]01-14-2025 Evaluation note* Diagnosis Onset Date Resolution Status Admit Date Essential (primary) hypertension acuteJanuary 2024 9:42amHFrEF (heart failure with reduced ejection fraction)acuteOctuary 2024 9:42amMixed hyperlipidemiaacuteJanuary 2024 9:42amPeripheral arterial diseaseacuteJanuary 2024 9:42am [facility] Work Phone: [phone] 944-492001-14-2025 Evaluation note* Diagnosis Onset Date Resolution Status Admit Date Essential (primary) hypertension acuteOctuary 2024 9:42amHFrEF (heart failure with reduced ejection fraction)acuteOctuary 2024 9:42amMixed hyperlipidemiaacuteJanuary 2024 9:42amPeripheral arterial diseaseacuteJanuary 2024 9:42amCarotid stenosisacuteOctuary 2024 1:55pmPeripheral arterial diseaseacuteOctuary 2024 1:55pm [facility] Work Phone: [phone]) 915-658501-14-2025 Evaluation note* Diagnosis Onset Date Resolution Status Admit Date Essential (primary) hypertension acuteOctuary 2024 9:42amHFrEF (heart failure with reduced ejection fraction)acuteJanuary 2024 9:42amMixed hyperlipidemiaacuteJanuary 2024 9:42amPeripheral arterial diseaseacuteJanuary 2024 9:42amCarotid stenosisacuteJanuary 2024 1:55pmPeripheral arterial diseaseacuteJanuary 2024 1:55pmCarotid stenosisacuteFebruary 2024 9:53amPeripheral arterial diseaseacuteFebruary 2024 9:53am [facility] Work Phone: [phone] 392-263712-19-2024 NoteTime Out 09/21/2024. 9:07 AM. Confirmed correct patient, procedure, site, and patient consented. Anesthesia Topical anesthesia was used. Anesthetic medications included Lidocaine 2%, Proparacaine 0.5%. Procedure Preparation included 5% betadine to ocular surface, eyelid speculum. A 30 gauge needle was used. Injection: 1.25 mg Bevacizumab 1.25 MG/0.05ML Route: Intravitreal, Site: Right Eye [facility]: [address]-2, Lot: [id number], Expiration date: 08/21/2025 Post-op Post injection exam [...] increased pain, redness, decreased vision or concerns. [facility] WashingtonYrqyvhamii19-24-7525 History of Present illness Narrative* Leena Hernandez MD - 09/21/2024 8:30 AM EST Assessment/Plan [...] decreased vision or concerns. documented in this encounterMercy Hospital WashingtonQavkhijggx54-42-4078 NoteTime Out 06/20/2024. 10:14 AM. Confirmed correct patient, procedure, site, and patient consented. Anesthesia Topical anesthesia was used. Anesthetic medications included Lidocaine 2%, Proparacaine 0.5%. Procedure Preparation included 5% betadine to ocular surface, eyelid speculum. A 30 gauge needle was used. Injection: 1.25 mg bevacizumab 100 MG/4ML Route: Intravitreal, Site: Right Eye [facility]: 66448-542-81, Lot: [id number], Expiration date: 08/21/2024, Waste: 3.95 mL Post-op [...] increased pain, redness, decreased vision or concerns. [facility] WashingtonXrcrlvkdkr18-31-5598 History of Present illness Narrative* Leena Hernandez MD - 06/20/2024 9:45 AM EDT Assessment/Plan [...] decreased vision or concerns. documented in this encounterPR[facility] HealthcareEvaluation noteNo assessment information availableClinton Memorial Hospital Ctr Work Phone: Evaluation note* Diagnosis Exudative age-related macular degeneration of right eye with active choroidal neovascularization (CMS/HCC) documented in this encounter [facility] HealthcareEvaluation note* Diagnosis Exudative age-related macular degeneration of right eye with active choroidal neovascularization (CMS/HCC)- Primary documented in this encounter [facility] HealthcareEvaluation note* Diagnosis Rash and other nonspecific skin eruption- Primary documented in this encounter [facility] HealthcareEvaluation note* Diagnosis Other atopic dermatitis- Primary Encounter for removal of sutures documented in this encounter [facility] HealthcareEvaluation note* Diagnosis Exudative age-related macular degeneration of right eye with active choroidal neovascularization (HCC)- Primary Intermediate stage nonexudative age-related macular degeneration of left eye documented in this encounter [facility] WashingtonHospital Discharge instructions Additional Instructions DISCHARGE INSTRUCTIONS FOR [...] for [address] Prince [place] [facility] AT [phone]: -If excessive bleeding should occur from the [...] Metformin, PrandiMet, Riomet.] FOLLOW UP/OTHER INSTRUCTIONS [ ][facility] Work Phone: Hospital Discharge instructionsAmbulatory Orders* Referral to PT / OT / Speech ([facility]eth Sharp [facility]) Location: None Selected [facility] Work Phone: Summary Purpose Family History No Family History Records Found Relationship Condition Age at Onset Recorded Date/T hank Not Specified No pertinent family history Unknown fatherHeart diseaseUnknown Relationship Condition Age at Onset Recorded Date/T hank father Heart disease Unknown Myocardial infarctionUnknown Relationship Condition Age at Onset Recorded Date/T hank father Heart disease Unknown Myocardial infarctionUnknownmotherAlzheimer's dementiaUnknown Advance Directives No Advanced Directives Records Found Advance Directive Response Recorded Date/ Time Advance Directives No June 3:14pm Advance Directive Response Recorded Date/ Time Advance Directives No June 2:14pm Chief Complaint and Reason for Visit Chief Complaint Admit Date I42.9 December 29, 2024 10: 48am F/U Angiogram Left Leg 11/23/24December 10:43am 4 months February 05, 2025 9:40am 2 MONTH F/U; ANETTE'S 11:30A February 27, 2025 11:30am Reason for Visit Admit Date Peripheral arterial disease January 01, 2025 10:43am Essential (primary) hypertension February 9:40am HFrEF (heart failure with reduced ejecti on fraction) February 05, 2025 9:40am Mixed hyperlipidemia February 05, 2025 9:40a m Peripheral arterial disease February 05 9:40am Chief Complaint Admit Date Cardiomyopathy, Abnormal EKG November 8:19am Cardiomyopathy, Abnormal EKG November 11:14am I65.23 I70.213 November 07, 2024 1 2:17pm 2 wk go over pvr and car u/s [facility] [place] ua 2024 9:53am PVD w/ Claudication November 23, 2024 7:16am PVD w/ Claudication November 23, 2024 1:14pm I42.9 December 29, 2024 10: 48am F/U Angiogram Left Leg 11/23/24December 10:43am 4 months February 05, 2025 9:40am Reason for Visit Admit Date Carotid stenosis November 13, 2024 9:53am Peripheral arterial disease November 9:53am Peripheral arterial disease January 01, 2025 10:43am Essential (primary) hypertension February 9:40am HFrEF (heart failure with reduced ejecti on fraction) February 05, 2025 9:40am Mixed hyperlipidemia February 05, 2025 9:40a m Peripheral arterial disease February 05 9:40am Chief Complaint Admit Date Other specified symptoms [...] section and content) DATE CREATED AUTHOR 03/29/2018 [facility] DATE CREATED AUTHOR AUTHOR'S ORGANIZ ATION 03/30/[address] [facility] DATE CREATED AUTHOR AUTHOR'S ORGANIZ ATION 10/03/2022 [facility] DATE CREATED AUTHOR AUTHOR'S ORGANIZ ATION 03/02/2025 [facility] DATE CREATED AUTHOR AUTHOR'S ORGANIZ ATION 04/25/2025 [facility] EPIC Care Teams (unrecognized sec tion and content) Team Status: Active Member Role Status Dates Kristel Ysabel Nona , RAG ROOM SUPERVISOR-C Primary Care Provider Active Team Status: Inactive Member Role Status Dates Kristel Castellano NP-C Primary Care Provider Active Start: December 30, 2023 End: December 29JARVIS Coronado ProviderActiveStart: December 30, 2023 End: December 30, 2023Team MemberRelationshipSpecialtyStart DateEnd Date Radha Schmidt MD [address] [place] [facility] [place] [address] [facility]04/19/23Team MemberRelationshipSpecialtyStart DateEnd Date Radha Schmidt MD [address] [place] [facility] [place] [address] [facility] - [facility]04/19/23Team MemberRelationshipSpecialtyStart DateEnd Date Radha Schmidt MD [address] [place] [facility] [place] [address] [facility] - [facility]04/19/23 Team Status: Inactive Member Role Status Dates Kristel Castellano NP-C Primary Care Pr ovider, Referring Provider Active Start: October 17, 2024 End: October 17, 2024GeAna Musa ProviderActive Start: October 17, 2024 End: October 17, 2024 Team Status: Inactive Member Role Status Dates LOUIE Hodges Primary Care Provider Active Start: October 17, 2024 End: October 17, 2024GeAna Musa ProviderActive Start: October 17, 2024 End: October 17, 2024 Team Status: Inactive Member Role Status Dates Kristel Castellano NP-Poncho Primary Care Provider Active Start: October 20, 2024 End: October 20, 2024GeAna Musa ProviderActive Start: October 20, 2024 End: October 20, 2024 Team Status: Inactive Member Role Status Dates Kristel Castellano RAG ROOM SUPERVISOR-C Primary Care Provider Active Start: October 30, 2024 End: October 30, 2024Cornel Prince MDAttending ProviderActiveStart: October 30, 2024 End: October 30, 2024 Team Status: Inactive Member Role Status Dates Kristel Castellano RAG ROOM SUPERVISOR-C Primary Care Provider Active Start: November 03, 2024 End: November 03, 2024Georrhea Nunez MDAttending ProviderActive Start: November 03, 2024 End: November 03, 2024 Team Status: Inactive Member Role Status Dates Kristel Castellano RAG ROOM SUPERVISOR-C Primary Care Provider Active Start: November 07, 2024 End: November 07, 2024Gelenore Nunez MDAttending ProviderActive Start: November 07, 2024 End: November 07, 2024 Team Status: Active Member Role Status Dates Kristel Castellano RAG ROOM SUPERVISOR-C Primary Care Provider Active Start: November 07, 2024 Margarito Nunez MDAttmaria victoria Provider, Other ProviderActiveStart: November 07, 2024 Team Status: Active Member Role Status Dates Kristel Castellano , RAG ROOM SUPERVISOR-C Primary Care Provider Active Start: November 07, 2024 Cornel Prince MDAttending ProviderActiveStart: November 07, 2024 Team Status: Inactive Member Role Status Dates Kristel Castellano , RAG ROOM SUPERVISOR-C Primary Care Provider Active Start: November 07, 2024 End: November 07, 2024Cornel Prince MDAttending ProviderActiveStart: November 07, 2024 End: November 07, 2024 Team Status: Inactive Member Role Status Dates Kristel Castellano RAG ROOM SUPERVISOR-C Primary Care Provider Active Start: November 13, 2024 End: November 13, 2024Cornel Prince MDAttending ProviderActiveStart: November 13, 2024 End: November 13, 2024 Team Status: Inactive Member Role Status Dates Kristel Castellano , RAG ROOM SUPERVISOR-C Primary Care Provider Active Start: November 23, 2024 End: November 23, 2024Cornel Prince MDAttending ProviderActiveStart: November 23, 2024 End: November 23, 2024 Team Status: Active Member Role Status Dates Kristel Castellano RAG ROOM SUPERVISOR-C Primary Care Provider Active Start: November 23, 2024 Cornel Prince MDAttending Provider, Other ProviderActiveStart: November 23, 2024 Team Status: Inactive Member Role Status Dates Kristel Castellano RAG ROOM SUPERVISOR-C Primary Care Provider Active Start: December 29, 2024 End: December 29, 2024Georrhea Nunez MDAttending ProviderActiveStart: December 29, 2024 End: December 29, 2024 Team Status: Inactive Member Role Status Dates Kristel Castellano RAG ROOM SUPERVISOR-C Primary Care Provider Active Start: January 01, 2025 End: January 01, 2025ASCENCION ElamCAttenvero ProviderActiveStart: January 01, 2025 End: January 01, 2025 Team Status: Inactive Member Role Status Dates Kristel Castellano RAG ROOM SUPERVISOR-C Primary Care Provider Active Start: February 05, 2025 End: February 05, 2025Georrhea Nunez MDAttending ProviderActiveStart: February 05, 2025 End: February 05, 2025Team MemberRelationshipSpecialtyStart DateEnd Date Radha Schmidt MD [address] [place] [address] PCP - [facility] Medicine04/19/23Team MemberRelationshipSpecialtyStart [place] [address] [place] [phone] [facility]04/19/23 Team Status: Inactive Member Role Status Dates Kristel Castellano RAG ROOM SUPERVISOR-C Primary Care Provider Active Start: February 27, 2025 End: February 27, 2025Cornel Prince MDAttmaria victoria ProviderActiveStart: February 27, 2025 End: February 27, 2025Team MemberRelationshipSpecialtyStart DateEnd Date Radha Schmidt MD [address] [facility] [place] [address] PCP - [facility]04/19/23Te MemberRelationshipSpecialtyStart DateEnd Date Radha Schmidt MD [address] [facility] [place] [address] PCP - [facility]04/19/23Te MemberRelationshipSpecialtyStart DateEnd Date Radha Schmidt MD [address] [place] [facility] [address] PCP - [facility]04/19/23 Goals (unrecognized section and content) Goals may be documented in a n alternate sectionGoals may be documented in an alternate sectionGoals may be documented in an alternate sectionGoals may be documented in an alternate sectionGoals may be documented in an alternate sectionGoals may be documented in an alternate section Reason for Visit (unrecogniz ed section and content) ReasonCommentsRetinal InjectionReasonCommentsFollow-upMacular DegenerationReason CommentsRash FOR RECORDS PERTAINING TO PATIENTS WHO ARE [...] BE BASED ON THE PRIMARY CLINICAL RECORDS. [facility] [employer] [facility]. provides no warranty or guarantee of the accuracy or completeness of information in this document.
--- OUTSIDE RECORDS SUMMARY | 2025-08-14 13:33 | XMS_ITS | Patient Health Record ---
Author Organization [facility] Address [address] [address], [place] [address] Care Team Providers Care Bar Examiner Name Role Phone Cruz Polo Unavailable [phone] Allergies No Known Allergies Reason For Referral No Information Medications Medication SIG (Take, Route, Frequency, Duration) Notes Start Date End Date Status Levothyroxine Sodium 100 MCG Tablet Oral; Durati on: 30 Days ActiveSpironolactone 25 MG TabletOral; Duration: 30 DaysActiveEntresto 49-51 MG TabletOral; Duration: 30 DaysActiveTicagrelor 60 MG TabletOral; Duration: 30 DaysActiveJardiance 10 MG TabletOral; Duration: 30 DaysActiveMetoprolol Succinate ER 50 MG Tablet Extended Release 24 HourOral; Duration: 30 DaysActive Doxazosin Mesylate 4 MG TabletOral; Duration: 30 DaysActive Social History Section Notes: Patient is a former smoker. Social alcohol use. Encounters Encounter Location Date Provider Diagnosis [facility] [address] [address], [place] [address] 05/31/2025 Cruz Polo Onychocryptosis L60. 0 ; Onychomycosis B35.1 ; History of amputation of lesser toe of right foot Z89.421 ; Callus of foot L84 and Toe pain, right M79.674 Assessments Encounter Date Diagnosis (ICD Code) Assessment Notes Treatment Notes Treatment Clinical Notes Section Notes 05/31/2025 Onychocryptosis (ICD-10 - L60.0) Patient seen and evaluated. Patient education provided and treatment options outlined. Patient would like to proceed with chemical matrixectomy. I requested vascular study results from his vascular surgeon at [facility]. For the time being I debrided the hallux nail and trimmed the callus without incident. He should use a moisturizer and pumice stone on the callus. We will call once pre-authorization is obtained and vascular studies have been reviewed to schedulethis in office procedure. 05/31/2025Onychomycosis (ICD-10 - B35.1)05/31/2025History of amputation of lesser toe of right foot (ICD-10 - Z89.421)05/31/2025allus of foot (ICD-10 - L84)05/31/2025Toe pain, right (ICD-10 - M79.674) Plan Of Treatment No Information Insurance Providers Payer Name Payer Address Payer Phone Subscriber Number Group Number Insured Name Patient Relationship to Insured Coverage Start Date Coverage End Date [facility] [address] [place] [phone] [id number] Emily Mckeon - patient is the insured Medical (General) History Medical History History ICD Code Heart Disease High CholesterolSurgical History Surgery Date(Month/Year) Bilateral Hammer Toe Correction 4
--- OUTSIDE RECORDS SUMMARY | 2025-08-14 13:33 | XMS_ITS | Clinical Summary ---
Author Organization [facility] Address [address] 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 Name Role Phone Unavailable Primary Care Provider Unavailabl e Social History Tobacco UseTypesPacks/DayYears UsedDateSmoking Tobacco: Never AssessedSex and Gender InformationValueDate RecordedSex Assigned at BirthNot on fileLegal Sex Male01/01/2025 9:12 AM EDTGender IdentityNot on fileSexual OrientationNot on file Plan of Treatment Health MaintenanceDue DateLast DoneCommentsCT Orhwpsltxxyv24/25/1961Colonoscopy 1960olorectal Cancer Vrkccappp84/25/1961FIT-DNA (Cologuard)1960FIT 1960HIV Nhepairsg22/25/1961ipid Panel1960 8399Vzjcdqgaieurk78/25/1961 Yearly Adult Xvxqmuhr93/25/1961MMR Vaccines (1 of 1 - Standard series)1961 Hepatitis C Lglrfvxrs09/25/1979DTaP/Tdap/Td Vaccines (1 - Tdap)1982PSA Prostate Cancer Ktwnliyxv41/25/2011Pneumococcal Vaccine (1 of 1 - PCV)2010 Zoster Vaccines (1 of 2)2010Influenza Vaccine (#1)5COVID-19 Vaccine (1 - season)2025RSV High Risk: (Elderly (60+) or Population) (1 - 1-dose 75+ series)2035HIB VaccinesAged OutNo longer eligible based on patient's age to complete this topicHPV VaccinesAged OutNo longer eligible based on patient's age to complete this topicHepatitis A VaccinesAged OutNo longer eligible based on patient's age to complete this topic Hepatitis B VaccinesAged OutNo longer eligible based on patient's age to complete this topicIPV VaccinesAged OutNo longer eligible based on patient's age to complete this topicMeningococcal VaccineAged OutNo longer eligible based on patient's age to complete this topicRotavirus VaccinesAged OutNo longer eligible based on patient's age to complete this topic Insurance
--- OUTSIDE RECORDS SUMMARY | 2025-08-14 13:33 | XMS_ITS | Clinical Summary ---
Author Organization [facility] Address [address] [place], [place] [address] Care Team Providers Care Jacquard Loom Heddles Tier Name Role Phone Curtis Zhang Primary Care Provider Mando Velasquez Unavailable [phone] Allergies No known active allergies Medications MedicationSigDispense QuantityRefillsLast FilledStart DateEnd DateStatus rosuvastatin (CRESTOR) 20 mg tablet Take 1 tablet by mouth daily at bedtime. 90 tablet Active aspirin, enteric coated (ADULT LOW DOSE ASPIRIN) 81 mg EC tablet Take 1 tablet by mouth once daily. 90 tablet Active levothyroxine (SYNTHROID) 100 mcg tablet Take 100 mcg by mouth daily before breakfast.Active levETIRAcetam (KEPPRA) 500 mg tablet Take by mouth every other day.Active sodium chloride 1 gram tab Take by mouth three times daily.Active lisinopril-hydrochlorothiazide (PRINZIDE, ZESTORETIC) 20-25 mg per tablet Take 1 tablet by mouth once daily.Active Active Problems No known active problems Social History Tobacco UseTypesPacks/DayYears UsedDateSmoking Tobacco: NeverSmokeless Tobacco: NeverAlcohol UseStandard Drinks/YkjjZydffbqaVki11 (1 standard drink = 0.6 oz pure alcohol)Area Deprivation IndexAnswerDate RecordedNational Score (1-100), lower number is lower riskNot on file09/12/2020State Score (1-10), lower number is lower riskNot on file09/12/2020Data from: https://www.neighborhoodatlas.medicine.[facility].edu/. Last address used for calculationNot on file09/12/2020Sex and Gender InformationValueDate RecordedSex Assigned at BirthNot on fileLegal DvsKxco4003/05/2016 1:09 PM EDTGender Identity Not on fileSexual OrientationNot on file Last Filed Vital Signs Vital SignReadingTime TakenCommentsBlood Powkwrad796/8901 1:25 PM EST Aaras4342 1:25 PM ESTTemperature--Respiratory Okxk2097 1:25 PM ESTOxygen Vxvtanhqav52%10/12/2017 1:25 PM ESTInhaled Oxygen Concentration-- Qujfib88.5 kg (184 lb)10/12/2017 1:25 PM IJVNyagqb012.8 cm (5' 10 )10/12/2017 1:25 PM ESTBody Mass Index26.401 1:25 PM EST Plan of Treatment Health MaintenanceDue DateLast DoneCommentsAnxiety Mgbrgxcbg55/25/1979Depression Gyvfeyono50/25/1979HIV Mapoeksvo81/25/1979Hepatitis C Zkoajoepa38/25/1979 DTaP,Tdap,Td Vaccine (1 - Tdap)1979Lipid Kcoratqur34/25/1996CT Potpchamzbmo08/25/2006Cologuard (FIT-DNA)11/28/20054238Vsinzhftinr89/25/2006 Colorectal Cancer Wgjucjiol54/25/2006Diabetes Meqxxhwph29/25/2006Fecal Occult Blood2005Prostate Cancer Screening Jbawjivbml01/25/2006Sigmoidoscopy 2005Pneumococcal Vaccine: 50+ (1 of 1 - PCV)2010Shingrix Vaccine (1 of 2)2010Covid-19 Vaccine (1 - 2024- season)2025Influenza Vaccine (#1)2025RSV Vaccine (1 - 1-dose 75+ series)2035 Insurance MemberSubscriberPlan / Payer (Effective 2015-Present)Name:Prosper Mckeon Relation to Subscriber:SelfName:Prosper Mckeon Payer ID:[id number] (IC) Type:PPO Address: [facility] [address] [id number] Care Teams Team MemberRelationshipSpecialtyStart DateEnd Date Curtis Zhang DO PCP - GeneralFamily Medicine04/15/16 Mando Velasquez [address] [place] [address] Primary Staff PhysicianCardiology12/20/18
--- OUTSIDE RECORDS SUMMARY | 2025-08-14 13:33 | XMS_ITS | Clinical Summary ---
Author Organization [facility] Address [address] [place] [address] Care Team Providers Care Helicopter Technician Name Role Phone Isidro Sarmiento MD Primary Care Provider [phone] Allergies No known active allergies Medications MedicationSigDispense QuantityRefillsLast FilledStart DateEnd DateStatus rosuvastatin (Crestor) 20 MG tablet 1 (one) time each day at the same time3Active lisinopril-hydroCHLOROthiazide 20-25 MG tablet Take 1 tablet by mouth in the morning.Active aspirin 81 MG EC tablet Take 81 mg by mouth DailyActive Jardiance 10 MG Take 10 mg by mouth in the morning.5Active Entresto 24-26 MG tablet Take 1 tablet by mouth in the morning and 1 tablet before bedtime.12/31/2024 Active spironolactone (Aldactone) 25 MG tablet Take 25 mg by mouth Daily5Active Brilinta 60 MG tablet Take 60 mg by mouth Daily5Active triamcinolone (Kenalog) 0.1 % cream Indications:Rash and other nonspecific skin eruptionApply topically 2 (two) times a day as needed for rash 454 g 1105Active Active Problems No known active problems Family History Medical HistoryRelationNameCommentsHeart diseaseFatherNo Known ProblemsMother RelationNameStatusCommentsFatherAliveMotherAlive Social History Tobacco UseTypesPacks/DayYears UsedDateSmoking Tobacco: FormerCigarettes Smokeless Tobacco: Never Tobacco Cessation:Counseling Given: Not Answered Alcohol UseStandard Drinks/WeekCommentsNot Currently9 (1 standard drink = 0.6 oz pure alcohol)Sex and Gender InformationValueDate RecordedSex Assigned at Not on fileLegal VmvHqml6112/16/2022 7:20 PM EDTGender IdentityNot on fileSexual OrientationNot on file Last Filed Vital Signs Vital SignReadingTime TakenCommentsBlood Cvkujlxj346/8004 12:00 PM EDT Pulse--Cotszjfaggw13.6 ??C (97.8 ??F)05/19/2023 10:04 AM EDTRespiratory Rate-- Oxygen Saturation--Inhaled Oxygen Concentration--Befwds56.9 kg (185 lb) 05/19/2023 10:04 AM TCXRwhoeu360.8 cm (5' 10 )05/19/2023 10:04 AM EDTBody Mass Index26.54005/19/2023 10:04 AM EDT Plan of Treatment DateTypeDepartmentCare Team (Latest Contact Info)Inprbfdxdxj28/22/2026 8:45 AM ESTOffice Visit [facility] [address] [place] [address] Leena Cazares MD [address] [place] [address] Health MaintenanceDue DateLast DoneCommentsCT Fnwibsmhklnc23/25/1961Colonoscopy 1960olorectal Cancer Oquldwkdo45/25/1961FIT-DNA1960FIT1960 FOBT1960 9793Ekzjypgnajppa18/25/1961OVID-19 Vaccine ( season) 5111/11/2020, 02/06/2021, 01/09/2021Influenza Vaccine (#1)2025 Pneumococcal Vaccine: Pediatrics (0 to 5 Years) and At-Risk Patients (6 to 64 Years)Aged OutNo longer eligible based on patient's age to complete this topic Insurance Care Teams Team MemberRelationshipSpecialtyStart DateEnd Date Isidro Sarmiento MD [address] [place] [address] PCP - GeneralFamily Medicine04/19/23
--- NOTE | 2025-08-14 13:51 | XR_ITS ---
[facility] [address] [id number] Patient Name: JENNIFER BARNES MRN: [id number] date: 1960 Sex: M Assigned Patient Location: [facility] Current Patient Location: [facility] Accession/Order Number: [id number] Exam Date: 08/14/2025 13:40 Report Date: 08/14/2025 18:22 At the request of: LORY CASTELLANO Procedure: XR knee RT 2V XR knee RT 2V 08/14/2025 1:52 PM SIGNS AND SYMPTOMS: ^edema, fall PROTOCOL: Frontal and lateral graphs of the right knee COMPARISON: None FINDINGS: The weightbearing and patellofemoral joint spaces are preserved. There is no fracture or dislocation. No joint effusion. No soft tissue swelling. XR/XR knee RT 2V IMPRESSION: No acute bony injury or significant degenerative change. Impression dictated by: Edmund Santos M.D. 08/14/2025 6:22 PM Dictation Location: [employer] Electronically authenticated by: [id number] Y Date: 08/14/2025 18:22
--- NOTE | 2025-08-14 13:51 | XR_ITS ---
[facility] [address] [id number] Patient Name: JENNIFER BARNES MRN: [id number] date: 1960 Sex: M Assigned Patient Location: [facility] Current Patient Location: [facility] Accession/Order Number: [id number] Exam Date: 08/14/2025 13:40 Report Date: 08/14/2025 18:24 At the request of: LORY CASTELLANO Procedure: XR tibia fibula RT 2V XR tibia fibula RT 2V 08/14/2025 1:51 PM SIGNS AND SYMPTOMS: ^edema, fall PROTOCOL: 4 views of the right tibia and fibula COMPARISON: None FINDINGS: The bones are in anatomic alignment. There is no evidence of acute displaced fracture. Degenerative changes are noted at the tibiotalar joint space anteriorly. XR/XR tibia fibula RT 2V IMPRESSION: No acute bony injury. Degenerative changes are noted at the tibiotalar joint space anteriorly. Impression dictated by: Edmund Santos M.D. 08/14/2025 6:24 PM Dictation Location: [place] [address] Electronically authenticated by: [id number] Y Date: 08/14/2025 18:24
--- NOTE | 2025-08-14 13:51 | XR_ITS ---
[facility] [address] [id number] Patient Name: JENNIFER BARNES MRN: [id number] date: 1960 Sex: M Assigned Patient Location: [facility] Current Patient Location: [facility] Accession/Order Number: [id number] Exam Date: 08/14/2025 13:40 Report Date: 08/14/2025 18:23 At the request of: LORY CASTELLANO Procedure: XR femur RT 2V XR femur RT 2V 08/14/2025 1:52 PM SIGNS AND SYMPTOMS: ^edema, fall PROTOCOL: 4 views of the right femur COMPARISON: None FINDINGS: The right hip joint space is preserved. There is no evidence of acute displaced fracture. Vascular calcifications are present. XR/XR femur RT 2V IMPRESSION: No acute bony injury. Impression dictated by: Edmund Santos M.D. 08/14/2025 6:23 PM Dictation Location: [place] [address] Electronically authenticated by: [id number] Y Date: 08/14/2025 18:23
== END 2025-08-14 13:27 | disposition home or self-care (01) ==
LOC: RAD 13:28
PROVIDERS: PCP Nurse Practitioner Family; Visit Provider Nurse Practitioner Family
DX: R60.1 Generalized edema (principal); W19.XXXA Unspecified fall, initial encounter
CPT/HCPCS: 73552; 73560; 73590; 93971

== ENCOUNTER 2025-09-03 14:03 | Outpatient (OUT) | payer BC, SELFPAY ==
--- OUTSIDE RECORDS SUMMARY | 2025-08-21 11:40 | XMS_ITS | Continuity of Care Document ---
Author Organization [facility] Address [address] [place] [address] Phone Care Team Providers Care Console Assembler Name Role Phone Kristel Montes NP-C Primary Care Provider Mary Watts APRN Emergency Provider Nile Sweeney MD Admit Provider Gabino Pretty MD Other Provider Cornel Prince MD Other Provider Indu Carrero PATTERN WHEEL MAKER-C Attending Provider [phone] Care Teams Patient Care Team Team Status: Active Member Role/Relationship Status Dates Kristel Montes NP-C Primary Care Provider Active Visit Care Team Team Status: Active Member Role/Relationship Status Dates Kristel Montes NP-C Primary Care Provider Active Start: August 17, 2025 Barbara Bryson ProviderActiveStart: August 17, 2025 Bay Burroughs ProviderActiveStart: August 17, 2025 Gabino Pretty MDOther ProviderActiveStart: August 17, 2025 Cornel Prince MDOther ProviderActiveStart: August 17, 2025 Indu Carrero NP-CAttending ProviderActiveStart: August 17, 2025 Chief Complaint and Reason for Visit Chief Complaint Admit Date fall-rt knee pain August 17, 2025 6:28pm Reason for Visit Admit Date LACIE (acute kidney injury) August 17, 2025 6:28pm Anemia August 17, 2025 6:28pm DVT (deep venous thrombosis) August 172024 6:28pm Essential (primary) hypertension Novembe r 2024 6:28pm HFrEF (heart failure with reduced ejecti on fraction) August 17, 2025 6:28pm Hyponatremia August 17, 2025 6:28pm LBBB (left bundle branch block) August 17, 2025 6:28pm Stroke August 17, 2025 6:28pm Reason for Referral Type Reason(s) Provider Provider Contact Information [facility] Address Start Date Keep your appointment as scheduled.Please keep your appointments as scheduled. Scheduling department will contact you with appointment information to have a venous doppler completed of your leg.[facility] , MedWork Phone: [phone] [place] [phone] your appointment as scheduled.Cornel Prince MDWork Phone: [phone] [address] [address]Rcdmjfvmagda Wilson NP-[facility] Phone: [phone] [place] [phone] keep your appointments as scheduled.Margarito Nunez MDWork Phone: [phone] [facility], [address] [facility] [address]Tgu have been scheduled for a follow up appointment for the following date and time, please call to reschedule if needed.Kristel Montes , CNPWork Phone: [facility] [address] [facility] [address] Allergies, Adverse Reactions, Alerts Allergen Type Severity Reaction Last Updated Verified Status No Known Allergies Allergy Unknown August 17, 2025 11:31amYesActive Social History Smoking Status Status Start Date End Date Date of Observa tion Ex-smoker (finding) August 20, 2025 3:05pm Observation Status Observation Response Date of Response Legal Sex Male (finding) Sex Assigned At BirthMaleFebruary 1960 Social History Assessments Assessment Value Date Recorded SDWV Follow up August 20, 2025 11:32amQuestionAnswerDate RecordedHas the SDOH screening changed since admission?NNovember 2024 11:32am Family History Relationship Condition Age at Onset Recorded Date/T hank father Heart disease Unknown Myocardial infarctionUnknownmotherAlzheimer's dementiaUnknown Problems Active Problems Problem Diagnosis/Recorded Date Onset Date Status C omments LACIE (acute kidney injury) August 17, 2025 7:44pm Unkno wn Active Carotid stenosisJanuary 2024 2:27pmUnknownActiveDVT (deep venous thrombosis)August 17, 2025 6:31pmUnknownActiveHFrEF (heart failure with reduced ejection fraction)October 17, 2024 11:37amUnknownActiveAnemiaNovember 2024 6:31pmUnknownActiveHyponatremiaNovember 2024 6:31pmUnknown ActiveMixed hyperlipidemiaJanuary 2024 11:37amUnknownActiveEssential (primary) hypertensionJanuary 2024 11:37amUnknownActivePeripheral arterial diseaseJanuary 2024 11:37amUnknownActiveLBBB (left bundle branch block) October 17, 2024 8:09amUnknownActiveStrokeJanuary 2024 8:11amUnknown Activeright leg weaknessInactive/Resolved Problems Problem Diagnosis/Recorded Date Onset Date Status C omments Screening for colorectal cancer July 01, 2021 7:13am Unknown Resolved Pr oblem List clean-up per request of Phys. EHR Cmte Medications Medication Status Dose Units Route Directions Qty Days Refills S tart Date Stop Date End Date Reason(s) Instructions Adherence Empagliflozin (Jardiance) 10 mg tablet Discontinued 10 MG PO Every morning 90 90 1 November 13, 2024 11:11am June 07, 2025 7:48amSacubitril-Valsartan (Entresto) 24-26 mg tablet Lnvatzsmpfbs2RZDYHSfpvh mvqhh928789Zgobwlev 2024 11:11amMay 2024 9:11amSpironolactone (Aldactone) 25 mg apbhaqAotoiehrkuil56VRJSSeioq50684 November 13, 2024 11:12amAugu2024 7:01amTicagrelor (Brilinta) 60 mg jslgkfSigeqwdltkad71MDMKMdie07488Zwvkr 2024 11:00pmAugust 2024 7:05am Spironolactone (Aldactone) 25 mg dmtphaEjaegq39JFRINzjqc41977Ejfuba 2024 7:01amUnknownTicagrelor 60 mg tabletDiscontinued0.ROUTE.VKGJJVI526Jmcxhe 4th, 2025 7:05amNovemb2024 7:55amTAKE 1 TABLET BY MOUTH EVERY DAY Empagliflozin (Jardiance) 10 mg tabletActive0.ROUTE.MWEPDRX727Impugkaey 4th, 2025 7:47amTAKE 1 TABLET BY MOUTH EVERY DAY IN THE MORNINGUnknownTicagrelor 60 mg tabletDiscontinued0.ROUTE.VVKXTZY402Xgfanxvn 3rd, 2025 7:55amNovember 2024 12:25pmTAKE 1 TABLET BY MOUTH EVERY DAYSacubitril-Valsartan (Entresto) 49- 51 mg oszfyiNkflgv4KMMGUXpcxo fusuy633916Hsufhold2024 8:16amUnknown Metoprolol Succinate 50 mg tablet extended release 24 jgLowotvggfucs20NWUBOwqfh June 30, 2021 11:00pmJanuary 2024 10:01amLevothyroxine 100 mcg twuggkBijacd291MUJRKEepes morningSeptember 2020 11:00pmUnknownDoxazosin 4 mg vepeplHuqjqm0UOMUBhmal morningSeptember 2020 11:00pmUnknownRosuvastatin 20 mg ygoqykZhhitd02LOXNDcqcu at bedtimeSept2020 11:00pmUnknown Metoprolol Succinate 50 mg tablet extended release 24 mmDkvwtu527ZAMGRzxoy morningJanuary 2024 9:59amUnknownCyanocobalamin (Vitamin B-12) 1,000 mcg pliowztZpwpgw3270TQEOUJtcxu271Kmhdemda 18th, 2025 12:00amUnknownApixaban (Eliquis) 2.5 mg tabletActive2.5MGPOTwice kjxbk543AsasohahAugust 21, 2025 12:00am start 08/27/25UnknownEmpagliflozin (Jardiance) 10 mg eyekujFlorycaratie11HPAI Every morningJanuary 2024 12:00amFebruary 2024 11:12amSacubitril- Valsartan (Entresto) 24-26 mg okphgeSmjtsbtghxxr1CVJDAPkjhp dailyJanuary 2024 12:00amFebruary 2024 11:12amSpironolactone (Aldactone) 25 mg tablet Xmlawrqwakmd54KWAMKstalZdxihib 2024 12:00amFebruary 2024 11:12am Clopidogrel 75 mg FtiwqfBqqcuymqfvzx89HEQSMcism45884Etnmzaoj 2024 12:00am January 18, 2025 11:36amAspirin (Adult Low Dose Aspirin) 81 mg tablet,delayed release (DR/EC)Nyqgxc84YRDWQvodyNhatwlm 2024 12:00amOn Hold: Resume on 08/27/25.UnknownFurosemide (Lasix) 20 mg edlzojLblqfmkpcphb60DWZONmglrXwwalsy 2024 12:00amJanuary 2024 9:16amFreeTextSi tablet Orally Once a day; Note: Source Status: Refill; Refills: 0; Qty: 90 Unspecified; Provider: Armando Gipson ( )Doxazosin 1 mg kqueinMgjgop1YTWEXsirx morning October 17, 2024 12:00amwith 4 mg tabletUnknownSacubitril-Valsartan (Entresto) 24-26 mg fzemmaDfkboycueioz7NCTNDJehxp ydzpr63928Wsxgxwt 2024 12:00am October 30, 2024 2:00pmEmpagliflozin (Jardiance) 10 mg utloazNxmscidcztox91YX OLQtenp10824Rydhznj 2024 12:00amJanuary 2024 9:16amSpironolactone 25 mg qupovsNixerpsfysot17AQSPSnyod47996Sngzbjp 2024 12:00amJanuary 2024 2:00pmSacubitril-Valsartan (Entresto) 49-51 mg jkieajFxaaozuzhwhh2XJROQ Twice sjhmw875558Fxk 2024 11:00pmNov2024 8:17am Immunizations Immunization Event Date Not Given Reason Dose Number Chrome Polisher Lot Number Reason(s) Given Vaccine Information Statement (VIS) Detail Administration Location COVID-19 mRNA-1273 (Moderna) January 09, 2021 COVID-19 mRNA-1273 (Moderna)February 06OVID-19 mRNA-1273 (Moderna)September 10, 2021 Medical Equipment Device Date Implanted Device Details Peripheral artery endovascul ar stent-graft, drug-coated November 23, 2024 GERARDO: [id number] Issuing Agency: [employer] Device Id: [id number] Expiration Date: 2027-09-12 Serial Number: [id number] artery endovascular stent-graft, drug-coated November 23, 2024UDI: [id number] Issuing Agency: [facility] Device Id: [id number] Expiration Date: 2027-06-12 Serial Number: [id number] Vital Signs Vital Reading Result Reference Range Collection Date/Time Height 68 [in_i] August 17, 2025 9:32bbJkhjqg61.20 kgAugust 21, 2025 5:33amBody Bhbnhztusiq88.6 [degF]97.6-99.0August 21, 2025 11:56amHeart Rate96 /min 60-100August 21, 2025 11:56amRespiratory rate20 /nwq37-39NqyxgjkwAugust 21, 2025 11:56amOxygen saturation by Pulse oonrdwll18 %95-100August 21, 2025 11:56am BP Htrzhqey815 mm[Hg]100-140August 21, 2025 11:56amBP Dxmdfeepq52 mm[Hg] 60-100August 21, 2025 11:56am Advance Directives Advance Directive Response Recorded Date/ Time Advance Directives No June 2:14pm Insurance Providers Guarantor Jose Alberto Mccollum Address [address] [place] [id number] Info.Home Phone: Coverage Status Update:2025 Payer Group Member ID Coverage Type Subscriber Relationship to Subscriber Effective Date Expiration Date Yasmin Nunesue's IGA Id: [id number] [place] , D Id: [id number] [address] [facility] [address] Home Phone: Self Encounters Encounter Location(s) Arrival/Admit Date Discharge/Departure Date Discharge/Departure Disposition Provider(s) Non-patient / [facility]-visit -[facility] ar Surg August 17, 2025 6:28pm Indu Carrero APRN Recent Diagnosis Onset Date Admit Date LACIE (acute kidney injury) Unknown er 2024 6:28pm Anemia Unknown August 17, 025 6:28pm DVT (deep venous thrombosis) Unknown Aug 6:28pm Essential (primary) hypertension Unknown August 17, 2025 6:28pm HFrEF (heart failure with re duced ejection fraction) Unknown August 17, 2025 6:28pm Hyponatremia Unknown August 17, 025 6:28pm LBBB (left bundle branch block) Unknown August 17, 2025 6:28pm Stroke Unknown August 17, 2 025 6:28pm Assessments Diagnosis Onset Date Resolution Status Admit Date LACIE (acute kidney injury) acuteAugust 17, 2025 6:28pmAnemiaacuteNov2024 6:28pmDVT (deep venous thrombosis)acuteAugust 17, 2025 6:28pmEssential (primary) hypertensionacuteNov2024 6:28pmHFrEF (heart failure with reduced ejection fraction)acuteAugust 17, 2025 6:28pmHyponatremiaacuteNov2024 6:28pmLBBB (left bundle branch block)acuteAugust 17, 2025 6:28pmStroke acuteNov2024 6:28pm Plan of Treatment Future Tests Future scheduled test information is unavailable Pending Tests Test Name Ordered Date Scheduled Date US venous duplex LE RT August 21, 2025 12:35 pm 1 Weeks Future Visits Future appointment information is unavailable Future Procedures Procedure Name Ordered Date Scheduled Date Hemogram CBC Without Diff August 21, 2025 12 :35pm 1 Weeks PT/OT/SP OutPatient Referral August 21, 2025 9:19am [facility]20[facility] 5:21amNovember 2024 5:37amAdmit Status OrderAugust 17, 2025 6:28pmNov2024 6:28pmDischarge Order August 21, 2025 12:26pmAugust 21, 2025 12:26pmConsult to Hematology August 20, 2025 2:13pmAugust 20, 2025 2:13pmContraindication No VTE [facility]phylaxisDavis [facility]2024 7:14pmAugust 17, 2025 7:15pmContraindication No VTE ProphylaxisDavis [facility]2024 7:14pmAugust 18, 2025 7:15pmConsult to Vascular SurgeryDavis [facility]2024 7:14pmDavis [facility]2024 7:14pm Future Medications Future medication information is unavailable Patient Instructions Instruction Admit Date Cyanocobalamin Know your MedsDavis [facility]2024 6:28pm Hospital Discharge Instructions Additional Instructions Apply DOUGLAS wrap from right foot to high thigh. Elevate right leg as much as possible.
--- OUTSIDE RECORDS SUMMARY | 2025-09-03 14:06 | XMS_ITS | Clinical Summary ---
Author Organization [facility] Address [address] [place] [address] Phone Care Team Providers Care Deicer Repairer Pneumatic Name Role Phone Unavailable Primary Care Provider Unavailabl e Social History Tobacco UseTypesPacks/DayYears UsedDateSmoking Tobacco: Never AssessedSex and Gender InformationValueDate RecordedSex Assigned at BirthNot on fileLegal Sex Male01/01/2025 9:12 AM EDTGender IdentityNot on fileSexual OrientationNot on file Plan of Treatment Health MaintenanceDue DateLast DoneCommentsCT Tvjsiwfndwyz54/25/1961Colonoscopy 1960olorectal Cancer Opueuvdbq95/25/1961FIT-DNA (Cologuard)1960FIT 1960HIV Jqcmqtjwh16/25/1961ipid Panel1960 6152Vrtxjprgwqpbz36/25/1961 Yearly Adult Mudfvrlv87/25/1961MMR Vaccines (1 of 1 - Standard series)1961 Hepatitis C Zbvieqgzy79/25/1979DTaP/Tdap/Td Vaccines (1 - Tdap)1982PSA Prostate Cancer Hmrjfmyuz94/25/2011Pneumococcal Vaccine (1 of 1 - PCV)2010 Zoster [...]
--- OUTSIDE RECORDS SUMMARY | 2025-09-03 14:06 | XMS_ITS | Clinical Summary ---
Author Organization [facility] Address [address] [place], [place] [address] Care Team Providers Care Cello Teacher Name Role Phone Curtis Zhang Primary Care Provider Mando Velasquez Unavailable [phone] Allergies No known active allergies Medications MedicationSigDispense [...] UseTypesPacks/DayYears UsedDateSmoking Tobacco: NeverSmokeless Tobacco: NeverAlcohol UseStandard Drinks/LkfrOtoqjoklFhr19 (1 standard drink = 0.6 oz pure alcohol)Area Deprivation IndexAnswerDate RecordedNational Score (1-100), lower number is lower riskNot on file09/12/2020State Score (1-10), lower number is lower riskNot on file09/12/2020Data from: https://www.neighborhoodatlas.medicine.[facility].edu/. Last address used for calculationNot on file09/12/2020Sex and Gender InformationValueDate RecordedSex Assigned at BirthNot on fileLegal PbgJvvp6003/05/2016 1:09 PM EDTGender Identity Not on fileSexual OrientationNot on file Last Filed Vital Signs Vital SignReadingTime TakenCommentsBlood Vqvzkgwz988/8901 1:25 PM EST Hdyug7989 1:25 PM ESTTemperature--Respiratory Anem1404 1:25 PM ESTOxygen Akggkgaqdt78%10/12/2017 1:25 PM ESTInhaled Oxygen Concentration-- Vcgnvv39.5 kg (184 lb)10/12/2017 1:25 PM FHGCtzdmq493.8 cm (5' 10 )10/12/2017 1:25 PM ESTBody Mass Index26.401 1:25 PM EST Plan of Treatment Health MaintenanceDue DateLast DoneCommentsAnxiety Obmkiwjcy75/25/1979Depression Kptclcqbh47/25/1979HIV Enopxjffu88/25/1979Hepatitis C Ddidovrww69/25/1979 DTaP,Tdap,Td Vaccine (1 - Tdap)1979Lipid Puztcbffq74/25/1996CT Eropeawzfbhl30/25/2006Cologuard (FIT-DNA)11/28/20054126Ykycvnzxgyn90/25/2006 Colorectal Cancer Saplayyzj33/25/2006Diabetes Olkxzpbtm30/25/2006Fecal Occult Blood2005Prostate Cancer Screening Vbgygmzwne86/25/2006Sigmoidoscopy 2005Pneumococcal Vaccine: 50+ (1 of 1 - PCV)2010Shingrix Vaccine (1 of 2)2010Covid-19 Vaccine (1 - 2024- season)2025Influenza Vaccine (#1)2025RSV Vaccine (1 - 1-dose 75+ series)2035 Insurance MemberSubscriberPlan / Payer (Effective 2015-Present)Name:Prosper Mckeon Relation to Subscriber:SelfName:Prosper Mckeon Payer ID:[id number] (IC) Type:PPO Address: [facility] [id number] [place] [id number] Care Teams Team MemberRelationshipSpecialtyStart DateEnd Date Curtis Zhang DO PCP - GeneralFamily Medicine04/15/16 Mando Velasquez [address] [place] [address] Primary Staff PhysicianCardiology12/20/18
--- OUTSIDE RECORDS SUMMARY | 2025-09-03 14:06 | XMS_ITS | Clinical Summary ---
Author Organization [facility] Address [address] [place] [address] Care Team Providers Care Bottle House Cleaners Supervisor Name Role Phone Isidro Sarmiento MD Primary [...] InformationValueDate RecordedSex Assigned at Not on fileLegal XgxQqin2112/16/2022 7:20 PM EDTGender IdentityNot on fileSexual OrientationNot on file Last Filed Vital Signs Vital SignReadingTime TakenCommentsBlood Vylxdrwf564/8004 12:00 PM EDT Pulse--Bmcmcousagt79.6 ??C (97.8 ??F)05/19/2023 10:04 AM EDTRespiratory Rate-- Oxygen Saturation--Inhaled Oxygen Concentration--Pddkpm02.9 kg (185 lb) 05/19/2023 10:04 AM KYWDpjunl796.8 cm (5' 10 )05/19/2023 10:04 AM EDTBody Mass Index26.54005/19/2023 10:04 AM EDT Plan of Treatment DateTypeDepartmentCare Team (Latest Contact Info)Oekhnsrvebn65/22/2026 8:45 AM ESTOffice Visit [facility] [address] [place] [address] Leena Cazares MD [address] [place] [address] Health MaintenanceDue DateLast DoneCommentsCT Ddonaondbbvc98/25/1961Colonoscopy 1960olorectal Cancer Csyjrqtft58/25/1961FIT-DNA1960FIT1960 FOBT1960 1804Miibrsqcimhea72/25/1961OVID-19 Vaccine ( season) 5111/11/2020, 02/06/2021, 01/09/2021Influenza Vaccine (#1)2025 Pneumococcal Vaccine: Pediatrics (0 to 5 Years) and At-Risk Patients (6 to 64 Years)Aged OutNo longer eligible based on patient's age to complete this topic Insurance Care Teams Team MemberRelationshipSpecialtyStart DateEnd Date Isidro Sarmiento MD [address] [place] [address] PCP - GeneralFamily Medicine04/19/23
[2025-09-03 14:35] LABS: Hematocrit 25.1 % (42.0-54.0); Hemoglobin 7.9 g/dL (14.0-18.0); Immature Granulocytes Abs Auto 0.03 10^3/uL (0.00-0.03); Immature Granulocytes Pct Auto 1.0 % (0.0-0.5); Lymphocytes Absolute Auto 0.8 10^3/uL (1.2-3.8); Mean Corpuscular HGB Conc 31.5 g/dL (29.9-35.2); Mean Corpuscular Hemoglobin 30.0 pg (25.9-34.0); Mean Corpuscular Volume 95.4 fL (80.0-94.0); Platelet Count 257 10^3/uL (150-450); Red Blood Count 2.63 10^6/uL (4.70-6.10); White Blood Count 3.1 10^3/uL (4.0-11.0)
[2025-09-03 14:50] LABS: INR 1.06; Partial Thromboplastin Time 35.0 sec (22.3-36.2); Prothrombin Time 11.1 sec (9.0-11.6)
[2025-09-03 14:51] LABS: Alanine Aminotransferase 14 U/L (16-63); Albumin Globulin Ratio 0.8; Albumin Level 3.1 g/dL (3.4-5.0); Alkaline Phosphatase 98 U/L (46-116); Anion Gap 13.7; Aspartate Amino Transferase 28 U/L (15-37); Blood Urea Nitrogen 6.0 mg/dL (7.0-18.0); Calcium 8.7 mg/dL (8.5-10.1); Carbon Dioxide 22.9 mmol/L (21.0-32.0); Chloride 98 mmol/L (98-107); Estimated GFR (African America >60 (>=60 mL/min/1.73m^2); Estimated GFR (Non-African Ame >60 (>=60 mL/min/1.73m^2); Globulin 4.0 g/dL; Glucose 86 mg/dL (74-106); Potassium 4.6 mmol/L (3.5-5.1); Sodium 130 mmol/L (136-145); Total Protein 7.1 g/dL (6.4-8.2)
[2025-09-03 15:06] LABS: Iron 52.0 ug/dL (65.0-175.0); Percent Iron Saturation 21.7 %; Total Iron Binding Capacity 240.0 ug/dL (250.0-450.0)
[2025-09-03 15:46] LABS: Ferritin 1206.0 ng/mL (26.0-388.0); Folate 8.90 ng/mL (8.60-58.90)
[2025-09-04 04:07] LABS: Vitamin B12 673 pg/mL (232-1245)
== END 2025-09-03 14:04 | disposition home or self-care (01) ==
LOC: LAB 14:03
PROVIDERS: PCP Nurse Practitioner Family; Visit Provider Internal Medicine
DX: D64.9 Anemia, unspecified (principal); I82.409 Acute embolism and thrombosis of unspecified deep veins of unspecified lower extremity
CPT/HCPCS: 36415; 80053; 82607; 82728; 82746; 83540; 83550; 85025; 85610; 85730